=== PATIENT | female | born 1955 | race African-American/Black ===

== ENCOUNTER 2019-08-10 17:30 | Emergency (ER) | payer OTHER ==
--- NOTE | 2019-08-10 18:26 | RAD REPORT ---
EXAM DESCRIPTION: CT - Head Brain Wo Cont - 08/10/2019 6:21 pm CLINICAL HISTORY: MENTAL STATUS CHANGE COMPARISON: No comparisons TECHNIQUE: Axial 5 mm thick images of the head were obtained without IV contrast. All CT scans are performed using dose optimization technique as appropriate and may include automated exposure control or mA/KV adjustment according to patient size. FINDINGS: No intracranial hemorrhage, mass, edema or shift of mid-line structures. No acute infarcti on changes seen. No cortical edema or sulcal effacement. Atrophy and chronic ischemic changes are pre sent, mild in degree. Ventricles are normal. Mastoid air cells and visualized portions of the paranasal sinuses are clear. No acute bony findings. IMPRESSION: Negative non-contrast CT head examination for acute finding. Mild atrophy and chronic ischemic change.
[2019-08-10 18:32] LABS: Absolute Lymphocytes (CBC) 3.9 K/uL (0.7-4.9); Basophils % 1.1 % (0-1.3); Hematocrit 30.9 % (36.0-45.0); Lymphocytes % 38.7 % (15.3-44.8); RBC Red Blood Cell Count 3.62 M/uL (3.86-4.86)
[2019-08-10 18:51] LABS: Albumin 3.2 g/dL (3.4-5.0); Bilirubin Direct 0.3 mg/dL (0-0.2); Bilirubin Total 0.6 mg/dL (0.2-1.0); Potassium 3.7 mmol/L (3.5-5.1); Protein, Total 10.2 g/dL (6.4-8.2)
[2019-08-10 19:24] LABS: Urine Blood 2+ (NEG); Urine Glucose NEGATIVE (NEG); Urine Protein 3+ (NEG); Urine Specific Gravity >1.030 (1.005-1.030)
[2019-08-10 19:35] LABS: Platelet Estimate ADEQ; Urine White Blood Cell Casts OK
[2019-08-10 19:36] LABS: Anisocytosis 1+; Blood Morphology Comment NOTED (NOT SEEN)
--- NOTE | 2019-08-10 19:41 | RAD REPORT ---
EXAM DESCRIPTION: RAD - Chest Single View - 08/10/2019 6:54 pm CLINICAL HISTORY: AMS, shortness of breath COMPARISON: June 2019 portable TECHNIQUE: AP portable chest image was obtained 08/10/2019 6:54 pm . FINDINGS: Lungs are clear. Heart and vasculature are normal. No measurable pleural effusion and no p neumothorax. No acute bony abnormality seen. No acute aortic findings suspected. IMPRESSION: No acute cardiopulmonary process. No significant interval change.
[2019-08-10 20:28] LABS: Urine Amorphous Sediment 3+ /HPF (NONE SEEN); Urine Bacteria <20 /HPF (<20)
[2019-08-10 20:29] LABS: Urine Culture Reflex Order NOT NEEDED
--- NOTE | 2019-08-10 20:58 | EDPHYS ---
Physician Documentation [facility] Name: Josr Parra Age: 64 yrs Sex: Female : 1955 Arrival Date: 08/10/2019 Time: 17:39 Bed 7 Private MD: ED Physician Emmett Tapia HPI: 08/09 17:47 This 64 yrs old Black Female presents to ER via EMS with complaints of Altered Mental pm1 Status. 17:47 The patient presents with confusion - was attempting to eat a raw steak of pork. Onset: pm1 The symptoms/episode began/occurred 3 day(s) ago. Possible causes: unknown. Associated signs and symptoms: Pertinent negatives: abdominal pain, chest pain, diarrhea, dizziness, headache, nausea, numbness, palpitations, shortness of breath, vomiting, weakness. Current symptoms: In the emergency department the patient's symptoms are unchanged from the initial presentation. Patient's baseline: Neuro: alert and fully oriented, Motor: no deficits, Ambulation: walks without assistance, Speech: normal, The patient has a previous history of hepatitis C. The patient has not experienced similar symptoms in the past. The patient has not recently seen a physician. Historical: - Allergies: 17:44 Codeine; dm5 - PMHx: 17:44 Asthma; Diabetes - NIDDM; elevatedliver enzymes; Hepatitis; c; lumbar spine issues/pain;dm5 - PSHx: 17:44 Tubal ligation; dm5 - Immunization history:: Adult Immunizations unknown. - Social history:: Smoking status: Patient reports the use of cigarette tobacco products, smokes two packs cigarettes per day. ROS: 17:47 Constitutional: Negative for fever, chills, and weight loss, Cardiovascular: Negative pm1 for chest pain, palpitations, and edema, Respiratory: Negative for shortness of breath, cough, wheezing, and pleuritic chest pain, Abdomen/GI: Negative for abdominal pain, nausea, vomiting, diarrhea, and constipation, Back: Negative for injury and pain, MS/Extremity: Negative for injury and deformity, Skin: Negative for injury, rash, and discoloration. 17:47 Neuro: Positive for altered mental status, Negative for dizziness, headache, numbness, seizure activity, speech changes, syncope, weakness. Exam: 17:47 Constitutional: This is a well developed, well nourished patient who is awake, alert, pm1 and in no acute distress. Head/Face: Normocephalic, atraumatic. Neck: Trachea midline, no thyromegaly or masses palpated, and no cervical lymphadenopathy. Supple, full range of motion without nuchal rigidity, or vertebral point tenderness. No Meningismus. Chest/axilla: Normal chest wall appearance and motion. Nontender with no deformity. No lesions are appreciated. Cardiovascular: Regular rate and rhythm with a normal S1 and S2. No gallops, murmurs, or rubs. Normal PMI, no JVD. No pulse deficits. Respiratory: Lungs have equal breath sounds bilaterally, clear to auscultation and percussion. No rales, rhonchi or wheezes noted. No increased work of breathing, no retractions or nasal flaring. Abdomen/GI: Soft, non-tender, with normal bowel sounds. No distension or tympany. No guarding or rebound. No evidence of tenderness throughout. Back: No spinal tenderness. No costovertebral tenderness. Full range of motion. Skin: Warm, dry with normal turgor. Normal color with no rashes, no lesions, and no evidence of cellulitis. MS/ Extremity: Pulses equal, no cyanosis. Neurovascular intact. Full, normal range of motion. 17:47 Neuro: Orientation: to person, place, situation, Not oriented to time, Mentation: is normal, Motor: is normal, moves all fours, Sensation: is normal, no obvious gross deficits. Vital Signs: 17:40 BP 211 / 97; Pulse 77; Resp 16 S; Pulse Ox 100% on R/A; Weight 68.04 kg (R); Pain 0/10; dm5 18:29 BP 183 / 97; Pulse 78; Resp 16; Pulse Ox 100% on R/A; hb 21:48 BP 180 / 65; Pulse 79; Resp 20; Temp 98.5; Pulse Ox 100% on R/A; Pain 0/10; lw1 MDM: 17:58 Patient medically screened. pm1 20:50 Data reviewed: vital signs. Data interpreted: Pulse oximetry: on room air is 100 %. pm1 Interpretation: normal. Counseling: I had a detailed discussion with the patient and/or guardian regarding: the historical points, exam findings, and any diagnostic results supporting the discharge/admit diagnosis, lab results, radiology results, the need for outpatient follow up, to return to the emergency department if symptoms worsen or persist or if there are any questions or concerns that arise at home. 08/09 17:46 Order name: Basic Metabolic Panel; Complete Time: 19:07 hb 08/09 17:46 Order name: CBC with Diff; Complete Time: 19:42 hb 08/09 17:46 Order name: Creatinine for Radiology; Complete Time: 18:53 hb 08/09 17:46 Order name: Hepatic Function; Complete Time: 19:07 hb 08/09 17:46 Order name: Lipase; Complete Time: 19:07 hb 08/09 17:46 Order name: AMMONIA; Complete Time: 19:16 hb 08/09 17:51 Order name: Troponin (emerg Dept Use Only); Complete Time: 19:07 hb 08/09 17:52 Order name: Glucose, Ancillary Testing; Complete Time: 17:56 EDMS 08/09 17:58 Order name: EKG; Complete Time: 17:58 pm1 08/09 17:58 Order name: CT Head Brain wo Cont; Complete Time: 18:35 pm1 08/09 17:58 Order name: Urine Microscopic Only; Complete Time: 20:35 pm1 08/09 18:10 Order name: Chest Single View XRAY; Complete Time: 19:45 pm1 08/09 19:15 Order name: Urine Dipstick--Ancillary (enter results); Complete Time: 19:34 mw2 08/09 19:36 Order name: CBC Smear Scan; Complete Time: 19:42 EDMS 08/09 17:46 Order name: IV Saline Lock; Complete Time: 17:46 hb 08/09 17:46 Order name: Labs collected and sent; Complete Time: 18:29 hb 08/09 17:58 Order name: EKG - Nurse/Tech; Complete Time: 18:29 pm1 08/09 17:58 Order name: Urine Dipstick-Ancillary (obtain specimen); Complete Time: 19:02 pm1 08/09 18:10 Order name: Straight Cath - Urine; Complete Time: 19:02 pm1 Administered Medications: No medications were administered Disposition: 08/10/19 20:57 Discharged to Home. Impression: Altered mental status, unspecified. - Condition is Stable. - Discharge Instructions: Confusion, Form - Excuse from Work, School, or Physical Activity. - Medication Reconciliation Form, Thank You Letter, Antibiotic Education, Prescription Opioid Use, Family Work Release form. - Follow up: Emergency Department; When: As needed; Reason: Worsening of condition. Follow up: Private Physician; When: 2 - 3 days; Reason: Recheck today's complaints, Continuance of care, Re-evaluation by your physician. - Problem is new. - Symptoms have improved. Addendum: 08/12/2019 09:25 Co-signature as Attending Physician, Emmett Tapia MD I agree with the assessment and c rose plan of care. Signatures: Dispatcher [employer] EDMS Estefania Rosales, RN RN dm5 Emmett Tapia MD MD cha Marinas, Patrick, AUTOMOBILE DAMAGE APPRAISER AUTOMOBILE DAMAGE APPRAISER pm1 Rivka Mars RN RN Maryjane Lara RN RN lw1 Corrections: (The following items were deleted from the chart) 08/09 21:52 20:57 08/10/2019 20:57 Discharged to Home. Impression: Altered mental status, lw1 unspecified. Condition is Stable. Forms are Medication Reconciliation Form, Thank You Letter, Antibiotic Education, Prescription Opioid Use. Follow up: Emergency Department; When: As needed; Reason: Worsening of condition. Follow up: Private Physician; When: 2 - 3 days; Reason: Recheck today's complaints, Continuance of care, Re-evaluation by your physician. Problem is new. Symptoms have improved. pm1
--- NOTE | 2019-08-10 20:58 | ER ---
Nurse's Notes [facility] Name: Josr Parra Age: 64 yrs Sex: Female : 1955 Arrival Date: 08/10/2019 Time: 17:39 Bed 7 Private MD: Diagnosis: Altered mental status, unspecified Presentation: 08/09 17:40 Chief complaint: EMS states: Family reports she's been altered for 3-4 days, found dm5 eating raw pork. Pt is orient to person and place, has had rapid weight loss since June, BGL 147, BP 200/100. Coronavirus screen: The patient has NOT traveled to a country currently being monitored by the CDC within the last 14 days. Proceed with normal triage procedures. Ebola Screen: No symptoms or risks identified at this time. Initial Sepsis Screen: Does the patient meet any 2 criteria? No. Patient's initial sepsis screen is negative. Does the patient have a suspected source of infection? No. Patient's initial sepsis screen is negative. Risk Assessment: Do you want to hurt yourself or someone else? Patient reports no desire to harm self or others. Onset of symptoms was August 07, 2019. 17:40 Method Of Arrival: EMS: [facility] dm5 17:40 Acuity: JAM 2 dm5 Triage Assessment: 17:44 General: Appears in no apparent distress. uncomfortable, Behavior is calm, cooperative. dm5 Pain: Denies pain. Neuro: Level of Consciousness is awake, alert, obeys commands, confused, Oriented to person, place. Historical: - Allergies: 17:44 Codeine; dm5 - PMHx: 17:44 Asthma; Diabetes - NIDDM; elevatedliver enzymes; Hepatitis; c; lumbar spine issues/pain;dm5 - PSHx: 17:44 Tubal ligation; dm5 - Immunization history:: Adult Immunizations unknown. - Social history:: Smoking status: Patient reports the use of cigarette tobacco products, smokes two packs cigarettes per day. Screenin:46 Abuse screen: Denies threats or abuse. Denies injuries from another. Nutritional hb screening: No deficits noted. Tuberculosis screening: No symptoms or risk factors identified. Fall Risk Total Hernandez Fall Scale indicates Low Risk Score (25-44 pts). Fall prevention measures have been instituted. Side Rails Up X 2 Frequent Obs/Assesments occuring Family Present and informed to notify staff if they need to leave bedside As available Patient and Family Educated on Fall Prevention Program and strategies. Assessment: 17:47 General: Appears in no apparent distress. Behavior is calm, cooperative. Pain: Denies hb pain. Neuro: Level of Consciousness is awake, alert, obeys commands, Oriented to person, place, situation. Cardiovascular: Heart tones S1 S2 present Capillary refill < 3 seconds Patient's skin is warm and dry. Respiratory: Airway is patent Respiratory effort is even, unlabored, Respiratory pattern is regular, symmetrical, Breath sounds are clear bilaterally. GI: No signs and/or symptoms were reported involving the gastrointestinal system. : No signs and/or symptoms were reported regarding the genitourinary system. EENT: No signs and/or symptoms were reported regarding the EENT system. Derm: Skin is pink, warm \T\ dry. Musculoskeletal: No signs and/or symptoms reported regarding the musculoskeletal system. 18:45 Reassessment: Patient appears in no apparent distress at this time. Patient and/or hb family updated on plan of care and expected duration. Pain level reassessed. Patient is alert, oriented x 3, equal unlabored respirations, skin warm/dry/pink. Vital Signs: 17:40 BP 211 / 97; Pulse 77; Resp 16 S; Pulse Ox 100% on R/A; Weight 68.04 kg (R); Pain 0/10; dm5 18:29 BP 183 / 97; Pulse 78; Resp 16; Pulse Ox 100% on R/A; hb 21:48 BP 180 / 65; Pulse 79; Resp 20; Temp 98.5; Pulse Ox 100% on R/A; Pain 0/10; lw1 ED Course: 17:39 Patient arrived in ED. dm5 17:43 Triage completed. dm5 17:44 Arm band placed on right wrist. dm5 17:45 Rivka Mars, RN is Primary Nurse. hb 17:46 Patient has correct armband on for positive identification. Bed in low position. Call hb light in reach. Side rails up X2. 17:47 Inserted saline lock: 22 gauge in right antecubital area, using aseptic technique. hb Blood collected. 17:56 Benito Irvin NP is PHCP. pm1 17:56 Emmett Tapia MD is Attending Physician. pm1 18:22 CT Head Brain wo Cont In Process Unspecified. EDMS 18:55 Chest Single View XRAY In Process Unspecified. EDMS 19:12 Primary Nurse role handed off by Rivka Mars RN lw1 19:12 Maryjane Lara, RN is Primary Nurse. lw1 21:50 IV discontinued, reported that patient removed iv per self, was intact no redness or lw1 bleeding noted upon discharge. 21:51 No provider procedures requiring assistance completed. lw1 Administered Medications: No medications were administered Outcome: 20:57 Discharge ordered by MD. pm1 21:49 Discharged to home via wheelchair, with family. lw1 21:49 Condition: improved 21:49 Discharge instructions given to patient, family, Instructed on discharge instructions, follow up and referral plans. Demonstrated understanding of instructions, follow-up care. 21:52 Patient left the ED. lw1 Signatures: Dispatcher [employer] EDSC Estefania Rosales RN RN dm5 Benito Irvin, CINNAMON GRINDER CINNAMON GRINDER pm1 Rivka Mars RN RN Maryjane Lara RN RN lw1 Corrections: (The following items were deleted from the chart) 18:51 17:47 Neuro: Level of Consciousness is awake, alert, obeys commands, Oriented to hb person, place, time, situation, hb
--- NOTE | 2019-08-12 06:57 | EKG ---
Test Date: 2019-08-10 Test Time: 18:25:06 Merchandiser: FABIEN MEASUREMENT RESULTS: Intervals: Rate: 73 MD: 152 QRSD: 84 QT: 410 QTc: 451 [place]: P: 56 MD: 152 QRS: -35 T: 40 INTERPRETIVE STATEMENTS: Normal sinus rhythm Possible Left atrial enlargement Left axis deviation Left ventricular hypertrophy Cannot rule out Septal infarct, age undetermined Abnormal ECG Compared to ECG 07/01/2019 18:30:35 No significant changes Electronically Signed On 08-12-19 06:55:06 CDT by Kishore Garcia
== END 2019-08-10 21:52 | disposition home or self-care (01) ==
LOC: ER 17:30
DX: R41.82 Altered mental status, unspecified (principal); Z88.6 Allergy status to analgesic agent; F17.210 Nicotine dependence, cigarettes, uncomplicated
CPT/HCPCS: 36415; 70450; 71045; 80048; 80076; 81003; 81015; 82140; 82947; 83690; 84484; 85025; 93005; 99284

== ENCOUNTER 2020-02-23 09:06 | Emergency (ER) | payer OTHER ==
--- OUTSIDE RECORDS SUMMARY | 2020-02-23 09:08 | XMS REPORT | Summary of Care ---
:1955 Author Organization [facility] [place] Address [address] [place] [address]- Encounter HQ Encntr_alias(FIN) [id number] Date(s): 01/08/20 - 01/08/20 [facility] [address] [place] [address]- [phone] Attending Physician: Johnson Collins MD Vital Signs No data available for this section Problem List Condition Effective Dates Status Health Status Informant Memory loss(Confirmed) Active Hep C w/o coma, chronic(Confirmed) Active Diabetes mellitus(Confirmed) Active HTN - Hypertension(Confirmed) Active Hyperlipidemia(Confirmed) Active Allergies, Adverse Reactions, Alerts No Known Medication Allergies Medications No data available for this section Results No data available for this section Immunizations No data available for this section Procedures No data available for this section Social History Social History Type Response Employment/School Status: disabled. Other: no t driving. Smoking Status Type: Cigarettes; Exposure t o Tobacco Smoke Unable to obtain; Current every day smoker; Cigarette Smoking Last 365 Days Yes; Reg Smoking Cessation Counseling No entered on: 11/14/19 Assessment and Plan No data available for this section
--- OUTSIDE RECORDS SUMMARY | 2020-02-23 09:08 | XMS REPORT | Summary of Care ---
:1955 Author Organization [facility] [place] Address [address] [place] [address]- Encounter HQ Encntr_alias(FIN) [id number] Date(s): 01/22/20 - 01/22/20 [facility] [address] [place] [address]- [phone] Attending Physician: Johnson Collins MD Vital Signs [...]
--- OUTSIDE RECORDS SUMMARY | 2020-02-23 09:08 | XMS REPORT | Continuity of Care Document ---
:1955 Author Organization [employer] [facility] Care Team Providers Name Role Phone [employer] [facility] Unavailable Un available Problems Problem Status Onset Classification Date Comments Sourc e Date Reported Amnesia (finding) Active Problem 01/24/2020 [facility] Chronic hepatitis Active Problem 01/24/2020 [facility] C (disorder) Neuro Diabetes mellitus Active Problem 01/24/2020 [facility] (disorder) Neuro Hypertensive Active Problem 01/24/2020 [facility] disorder, systemic N euro arterial (disorder) Hyperlipidemia Active Problem 01/24/2020 M[facility] her (disorder) Neuro Medications Medication Details Route Status Patient Ordering Order Source Instructions Provider Date Aspirin 81 MG 81 mg = 1 Active [facility] Enteric Coated tab, PO, 020 Neuro Tablet [St. Daily, 0 Clay Aspirin] Refill(s) Diltiazem 0 Active [facility] Hydrochloride ER Refill(s) 020 Neuro 120 mg/24 hours oral capsule, extended release lisinopril 40 mg 0 Active [facility] oral tablet Refill(s) 020 Neuro Metformin 0 Active [facility] hydrochloride Refill(s) 020 Neuro 1000 MG Oral Tablet non-formulary Refill(s) Inactive [facility] 0 020 Neuro Lyrica 150 mg, Active [facility] PO, BID, 0 020 Neuro Refill(s) Allergies, Adverse Reactions, Alerts Substance Category Reaction Severity Reaction Status Date Comments S ource type Reported No Known Assertion Drug Misch er Medication allergy Neuro Allergies Immunizations No Data Provided for This Section Results No Data Provided for This Section Pathology Reports No Data Provided for This Section Diagnostic Reports No Data Provided for This Section Consultation Notes No Data Provided for This Section Discharge Summaries No Data Provided for This Section History and Physicals No Data Provided for This Section Vital Signs Vital Sign Value Date Comments Source Systolic (mm Hg) 196 11/14/2019 [facility] Diastolic (mm Hg) 112 11/14/2019 [facility] Heart Rate 91 11/14/2019 [facility] Respitory Rate 16 11/14/2019 [facility] Height 165.1 cm 11/14/2019 [facility] Weight 77.273 11/14/2019 [facility] BMI Calculated 28.35 11/14/2019 [facility] Encounters Location Location Encounter Encounter Reason Attending ADM DC Stat us Source Details Type Number For Provider Date Date Visit Outpatient [id number] [facility]13 [facility] [id number] Johnson 11/13 [facility] [place] Out[facility] [id number] Johnson [facility]/07 [facility] [id number] [facility]/07 [facility] [place] [facility] [id number] Johnson 01/07 01/07 [facility] Pre-Reg [facility] /2019 [facility] [place] [facility] [id number] Johnson 01/07 01/07 [facility] Pre-Reg [facility] /2019 [facility] [place] Outpatient [id number] Johnson 01/21 [facility] [facility] [id number] Johnson 01/21 01/21 [facility] Pre-Reg [facility] /2019 Neuro [place] Procedures No Data Provided for This Section Assessment and Plan No Data Provided for This Section Plan of Care No Data Provided for This Section Social History Social History Date Source Social History TypeResponse 11/14/2019 [facility] Employment/School Status: disabled. Other: not driving. Smoking Status Type: Cigarettes; Exposure to Tobacco Sm jasmina Unable to obtain; Current every day smoker; Cigarette Smoking Last 365 Days Yes; Reg Smoking Cessation Counseling No entered on: 11/14/19 Family History No Data Provided for This Section Advance Directives No Data Provided for This Section Functional Status No Data Provided for This Section
--- OUTSIDE RECORDS SUMMARY | 2020-02-23 09:08 | XMS REPORT | Summary of Care ---
:1955 Author Organization [facility] [place] Address [address] [place] [address]- Encounter HQ Encntr_alias(FIN) [id number] Date(s): 01/08/20 - 01/08/20 [facility] [address] [place] [address]- [phone] Attending Physician: Johnson Collins MD Vital Signs [...]
[2020-02-23] MEDS ORDERED: HYDROCODONE/APAP 5/325 MG TAB ONE (09:54)
--- NOTE | 2020-02-23 10:32 | ER ---
Nurse's Notes [facility] Name: Josr Parra Age: 65 yrs Sex: Female : 1955 Arrival Date: 02/23/2020 Time: 09: Bed 4 Private MD: Diagnosis: Fracture of proximal phalanx of left great toe Presentation: 02/22 09:25 Chief complaint: Patient states: had a fall 3 weeks ago, fell onto right side, had iw right leg swelling that resolved but her right great toe and foot is still swollen. Coronavirus screen: At this time, the client does not indicate any symptoms associated with coronavirus-19. Ebola Screen: Patient negative for fever greater than or equal to 101.5 degrees Fahrenheit, and additional compatible Ebola Virus Disease symptoms Patient denies exposure to infectious person. Patient denies travel to an Ebola-affected area in the 21 days before illness onset. No symptoms or risks identified at this time. Initial Sepsis Screen: Does the patient meet any 2 criteria? No. Patient's initial sepsis screen is negative. Does the patient have a suspected source of infection? No. Patient's initial sepsis screen is negative. Risk Assessment: Do you want to hurt yourself or someone else? Patient reports no desire to harm self or others. Onset of symptoms was February 02, 2020. 09:25 Method Of Arrival: Wheelchair iw 09:25 Acuity: JAM 3 iw Triage Assessment: 09:26 General: Appears in no apparent distress. uncomfortable, well groomed, well developed, sv Behavior is calm, cooperative, appropriate for age. Pain: Complains of pain in left first toe. Neuro: Level of Consciousness is awake, alert, obeys commands, Oriented to person, place, time, situation, Moves all extremities. Full function Gait is steady. Cardiovascular: Pulses are palpable in right dorsalis pedis artery and left dorsalis pedis artery. Respiratory: Respiratory effort is even, unlabored, Respiratory pattern is regular, symmetrical. Derm: Skin is pink, warm \T\ dry. Musculoskeletal: Swelling present in left first toe. Historical: - Allergies: : Codeine; nausea; iw - PMHx: : Asthma; Diabetes - NIDDM; elevatedliver enzymes; Hepatitis; c; lumbar spine issues/pain;iw - PSHx: 09:28 Tubal ligation; iw - Immunization history:: Adult Immunizations. - Social history:: Smoking status: . Screenin:20 Abuse screen: Denies threats or abuse. Denies injuries from another. Nutritional sv screening: No deficits noted. Tuberculosis screening: No symptoms or risk factors identified. Fall Risk None identified. Assessment: 09:23 Reassessment: Pt given peanut butter and crackers to get something in her stomach sv before taking the [place]. Pt reports that she only gets nauseous with Codeine. 09:44 Reassessment: Patient appears in no apparent distress at this time. No changes from sv previously documented assessment. Patient and/or family updated on plan of care and expected duration. Pain level reassessed. Patient is alert, oriented x 3, equal unlabored respirations, skin warm/dry/pink. Vital Signs: 09:25 BP 165 / 91; Pulse 108; Resp 16; Temp 97.8(TE); Pulse Ox 100% on R/A; iw 10:51 BP 137 / 95; Pulse 95; Resp 18; Pulse Ox 99% ; sv ED Course: 09:09 Patient arrived in ED. ds1 09:18 Benito Irvin NP is PHCP. pm1 09:18 Adan Henderson MD is Attending Physician. pm1 09:20 Keeley Julian RN is Primary Nurse. sv 09:20 Arm band placed on. sv 09:20 Patient has correct armband on for positive identification. Bed in low position. Call sv light in reach. Side rails up X2. Adult w/ patient. 09:27 Triage completed. iw 09:44 Awaiting for x-ray. sv 09:51 X-ray(s) taken. sv 10:02 Foot Left 3 View XRAY Sent. sv 10:45 ortho walking boot applied to left foot, patient tolerated well. mt 10:50 IV discontinued, intact, bleeding controlled, No redness/swelling at site. Pressure sv dressing applied. 10:50 No provider procedures requiring assistance completed. sv Administered Medications: 09:43 Drug: Tallula 5 mg-325 mg 1 tabs {Note: rass1.} Route: PO; sv 10:50 Follow up: Response: No adverse reaction; RASS: Alert and Calm (0) sv Outcome: 10:31 Discharge ordered by . pm1 10:46 Discharged to home ambulatory, with family. sv 10:46 Condition: good 10:46 Discharge instructions given to patient, family, Instructed on discharge instructions, follow up and referral plans. medication usage, Demonstrated understanding of instructions, follow-up care, medications, Prescriptions given X 1. 10:51 Patient left the ED. sv Signatures: Keeley Julian RN RN Zuleima Pearl ds1 Kristin Ramos RN RN Benito Irvin, DIRECTOR GEOTHERMAL OPERATIONS DIRECTOR GEOTHERMAL OPERATIONS pm1 Omaira Villavicencio dc Corrections: (The following items were deleted from the chart) 09:27 09:25 Onset of symptoms was February 09, 2020 [facility]
--- NOTE | 2020-02-23 10:33 | EDPHYS ---
Physician Documentation [facility] Name: Josr Parra Age: 65 yrs Sex: Female : 1955 Arrival Date: 02/23/2020 Time: : Bed 4 Private MD: ED Physician Adan Henderson HPI: 02/22 09:23 This 65 yrs old Black Female presents to ER via Wheelchair with complaints of Toe pm1 Swelling. 09:23 The patient presents with pain, that is acute, swelling. The complaints affect the left pm1 first toe. Context: The problem was sustained at home, resulted from the patient falling, while walking, the patient is able to ambulate. Onset: The symptoms/episode began/occurred 3 week(s) ago. Modifying factors: The symptoms are alleviated by elevation of extremity, the symptoms are aggravated by weight bearing. Associated signs and symptoms: Pertinent negatives: calf tenderness. Severity of symptoms: in the emergency department the symptoms swelling and pain to left knee has resolved but swelling and pain to left great toe has not changed. The patient has not experienced similar symptoms in the past. Patient was walking and tripped 3 weeks ago. She landed on her left knee, resulting in pain to left knee and left great toe. Knee pain and swelling has resolved but her left great oe pain and swelling has not changed. Historical: - Allergies: : Codeine; nausea; iw - PMHx: Asthma; Diabetes - NIDDM; elevatedliver enzymes; Hepatitis; c; lumbar spine issues/pain;iw - PSHx: Tubal ligation; iw - Immunization history:: Adult Immunizations. - Social history:: Smoking status: . ROS: 09: MS/extremity: Positive for pain, swelling, tenderness, of the left first toe. pm1 09:23 Constitutional: Negative for fever, chills, and weight loss, Cardiovascular: Negative for chest pain, palpitations, and edema, Respiratory: Negative for shortness of breath, cough, wheezing, and pleuritic chest pain. 09:23 Back: Negative for injury and pain, Skin: Negative for injury, rash, and discoloration, Neuro: Negative for headache, weakness, numbness, tingling, and seizure. Exam: :23 Constitutional: This is a well developed, well nourished patient who is awake, alert, pm1 and in no acute distress. Head/Face: Normocephalic, atraumatic. 09:23 Skin: Warm, dry with normal turgor. Normal color with no rashes, no lesions, and no evidence of cellulitis. 09:23 Cardiovascular: Exam negative for acute changes, Rate: normal, Rhythm: regular, Pulses: no pulse deficits are appreciated. 09:23 Respiratory: Exam negative for acute changes, respiratory distress, shortness of breath. 09:23 Musculoskeletal/extremity: Extremities: grossly normal except: noted in the left first toe: swelling, tenderness, There is no evidence of deformity, the right foot Sensation intact. Vital Signs: 09:25 BP 165 / 91; Pulse 108; Resp 16; Temp 97.8(TE); Pulse Ox 100% on R/A; iw 10:51 BP 137 / 95; Pulse 95; Resp 18; Pulse Ox 99% ; sv MDM: 09:18 Patient medically screened. pm1 10:27 Data reviewed: vital signs. Data interpreted: Pulse oximetry: on room air is 100 %. pm1 Interpretation: normal. 10:28 Counseling: I had a detailed discussion with the patient and/or guardian regarding: the pm1 historical points, exam findings, and any diagnostic results supporting the discharge/admit diagnosis, radiology results, the need for outpatient follow up, a bsa/aml compliance officer, to return to the emergency department if symptoms worsen or persist or if there are any questions or concerns that arise at home. 02/22 09:23 Order name: Foot Left 3 View XRAY pm1 02/22 10:27 Order name: Walking boot; Complete Time: 10:37 pm1 Administered Medications: 09:43 Drug: Supai 5 mg-325 mg 1 tabs {Note: rass1.} Route: PO; sv 10:50 Follow up: Response: No adverse reaction; RASS: Alert and Calm (0) sv Disposition: 16:34 Co-signature as Attending Physician, Adan Henderson MD I agree with the assessment and kdr plan of care. Disposition: 02/23/20 10:31 Discharged to Home. Impression: Fracture of proximal phalanx of left great toe. - Condition is Stable. - Discharge Instructions: Toe Fracture, Walking Boot. - Prescriptions for Tramadol 50 mg Oral Tablet - take 1 tablet by ORAL route every 8 hours As needed as needed; 12 tablet. - Medication Reconciliation Form, Thank You Letter, Antibiotic Education, Prescription Opioid Use form. - Follow up: Emergency Department; When: As needed; Reason: Worsening of condition. Follow up: Private Physician; When: 2 - 3 days; Reason: Recheck today's complaints, Continuance of care, Re-evaluation by your physician. - Problem is new. - Symptoms have improved. Signatures: Dispatcher [employer] Keeley Acosta RN RN sv Rittger, Kevin, MD MD kdr Williams, Irene, RN RN iw Benito Irvin, BUD ASSEMBLER CLIP ON SUNGLASSES pm1 Corrections: (The following items were deleted from the chart) 10:51 10:31 02/23/2020 10:31 Discharged to Home. Impression: Fracture of proximal phalanx of sv left great toe. Condition is Stable. Forms are Medication Reconciliation Form, Thank You Letter, Antibiotic Education, Prescription Opioid Use. Follow up: Emergency Department; When: As needed; Reason: Worsening of condition. Follow up: Private Physician; When: 2 - 3 days; Reason: Recheck today's complaints, Continuance of care, Re-evaluation by your physician. Problem is new. Symptoms have improved. pm1
[2020-02-23 10:56] VITALS: TEMP 97.8
[2020-02-23 10:57] VITALS: BP 137/95; O2SAT 99
--- NOTE | 2020-02-23 11:14 | RAD REPORT ---
EXAM DESCRIPTION: RAD - Foot Left 3 View - 02/23/2020 10:16 am CLINICAL HISTORY: PAIN COMPARISON: None FINDINGS: First proximal phalanx is fractured at the distal shaft and head. Fracture lines extend to the articular surface. There is no angulation deformity. First distal phalanx is intact. MTP joint d egenerative changes are present at the first toe. Spurring is seen at the Achilles attachment. No air or foreign body in the soft tissues. IMPRESSION: Comminuted fracture is present at the distal shaft and head proximal first phalanx. No significant distraction or angulation deformity.
== END 2020-02-23 10:51 | disposition home or self-care (01) ==
LOC: ER 09:06
DX: S92.412A Displaced fracture of proximal phalanx of left great toe, initial encounter for closed fracture (principal); W19.XXXA Unspecified fall, initial encounter; Y93.01 Activity, walking, marching and hiking; Y92.009 Unspecified place in unspecified non-institutional (private) residence as the place of occurrence of the external cause; Z88.5 Allergy status to narcotic agent
CPT/HCPCS: 99284

== ENCOUNTER 2020-05-17 16:38 | Emergency (ER) | payer OTHER ==
--- OUTSIDE RECORDS SUMMARY | 2020-05-17 16:40 | XMS REPORT | Continuity of Care Document ---
:1955 Author Organization [employer] [facility] Care Team Providers Name Role Phone [employer] [facility] Unavailable Un available Problems Problem Status Onset Classification Date Comments Sourc e Date Reported Amnesia (finding) Active Problem 04/10/2020 [facility] Chronic hepatitis Active Problem 04/10/2020 [facility] C (disorder) [facility] Diabetes mellitus Active Problem 04/10/2020 [facility] (disorder) [facility] Hypertensive Active Problem 04/10/2020 [facility] disorder, systemic N euro arterial (disorder) Hyperlipidemia Active Problem 04/10/2020 [facility] (disorder) Neuro Medications Medication Details [...] 11/14/2019 [facility] Respitory Rate 16 11/14/2019 [facility] Height 165.1 cm 11/14/2019 [facility] Weight 77.273 11/14/2019 [facility] BMI Calculated 28.35 11/14/2019 [facility] Encounters Location Location Encounter Encounter Reason Attending ADM DC Stat us Source Details Type Number For Provider Date Date Visit Outpatient [id number] [facility] [id number] [facility] 11/13 11/14 [facility] [id number] [facility]/07 [facility] [place] [facility] [id number] [facility]07 [facility] [id number] Johnson 01/07 01/07 [facility] Pre-Reg [facility] /2019 [facility] [id number] Johnson 01/07 01/07 [facility]rology Pre-Reg [facility] /2019 [facility] Outpatient [id number] [facility] 01/21 [facility] [place] [facility] [id number] Johnson 01/21 01/21 [facility]rology Pre-Reg [facility] /2019 [facility] Outside [id number] 04/06 04/08 [facility] Medical /2019 [facility] Records Procedures No Data Provided for This Section Assessment and Plan No Data Provided for This Section Plan of Care No Data Provided for This Section Social History Social History Date Source Social History TypeResponse [facility] Employment/School Status: disabled. Other: not driving. Smoking Status Type: Cigarettes; Exposure to Tobacco Sm jasmina Unable to obtain; Current every day smoker; Reg Smoking Cessation Counseling No; Cigarette Smoking Last 365 Days Yes entered on: 11/14/19 Family History No Data Provided for This Section Advance Directives No Data Provided for This Section Functional Status No Data Provided for This Section
[2020-05-17] MEDS ORDERED: NA CHLORIDE 0.9% 1,000 ML ONE ×3 (17:18→18:17)
[2020-05-17 17:20] LABS: Absolute Lymphocytes (CBC) 2.8 K/uL (0.7-4.9); Basophils % 0.6 % (0-1.3); Lymphocytes % 24.1 % (15.3-44.8); MPV 10.1 fL (7.6-11.3); RBC Red Blood Cell Count 3.13 M/uL (3.86-4.86)
[2020-05-17] MEDS ORDERED: PANTOPRAZOLE 40 MG INJ ONE (18:11)
[2020-05-17] MEDS ORDERED: NA CHLORIDE 0.9% 250 ML ONE ×2 (18:12→21:26)
[2020-05-17] MEDS ORDERED: PIPER/TAZO/NS 3.375gm 3.375 GM/100 ML BAG ONE (18:45)
[2020-05-17] MEDS ORDERED: NOREPINEPHRINE 4mg/D5W 250mL 4 MG/250 ML BAG IV ONE (18:50)
[2020-05-17] MEDS ORDERED: FENTANYL CITR 100 MCG/2 ML ONE ×2 (19:47→21:29)
[2020-05-17 19:57] LABS: Albumin 2.8 g/dL (3.4-5.0); Bilirubin Direct 0.4 mg/dL (0-0.2); Bilirubin Total 0.7 mg/dL (0.2-1.0); Potassium 4.7 mmol/L (3.5-5.1); Protein, Total 8.9 g/dL (6.4-8.2)
--- NOTE | 2020-05-17 20:39 | RAD REPORT ---
EXAM DESCRIPTION: CT - Abdomen Pelvis Wo Contrast - 05/17/2020 8:30 pm CLINICAL HISTORY: Abdominal pain. diarrhea COMPARISON: No comparisons TECHNIQUE: CT imaging of the abdomen and pelvis was performed without contrast. Solid organ, bowel a nd vascular assessment is limited due to lack of IV and oral contrast. All CT scans are performed using dose optimization technique as appropriate and may include automated exposure control or mA/KV adjustment according to patient size. FINDINGS: The lower lung bo are clear. The liver has a nodular contour compatible with cirrhosis. The spleen, pancreas, adrenal glands and k idneys are within normal limits. No bowel obstruction, free air, free fluid or abscess. Thickening of the colon wall is seen suggestin g mild colitis or portal colopathy. The appendix is normal. Mild lumbosacral degenerative changes.Fibroid uterus is noted. 4 cm left adnexal mass is present with internal calcifications which could be a pedunculated fibroid. IMPRESSION: Mild thickening of the colon wall diffusely could indicate a mild colitis or portal colo luis alberto. Mild liver cirrhosis. 4 cm left adnexal mass with subtle calcifications noted. Pedunculated uterine fibroid is the favored diagnosis however, consider followup nonemergent MR pelvis assessment. A limited non-contrast examination was performed as detailed.
[2020-05-17 20:50] LABS: Arterial Blood Carboxyhemoglob 1.2 % (0-1.5); Blood Gas Oxyhemoglobin 91.8 % (94-97); Blood O2 Saturation 94.4 % (92-98.5)
--- NOTE | 2020-05-17 21:29 | EDPHYS ---
Physician Documentation [facility] Name: Josr Parra Age: 65 yrs Sex: Female : 1955 Arrival Date: 05/17/2020 Time: 16:56 Bed 2 Private MD: ED Physician Nathanael Coy HPI: 05/17 16:58 This 65 yrs old Black Female presents to ER via Unassigned with complaints of Diarrhea. rn 16:58 The patient presents to the emergency department with diarrhea. Onset: The rn symptoms/episode began/occurred today. Possible causes: unknown. The symptoms are aggravated by nothing. The symptoms are alleviated by nothing. Associated signs and symptoms: Pertinent positives: diarrhea, Pertinent negatives: fever, GI bleeding. Severity of symptoms: At their worst the symptoms were moderate in the emergency department the symptoms are unchanged. The patient has not experienced similar symptoms in the past. The patient has not recently seen a physician. Reports generalized weakness that began yesterday, diarrhea that began today, no appetite, no vomiting/fever/loss of taste or smell. No cough or sob. No hx of GERD/gastritis or GI bleed. . Historical: - Allergies: 16:59 Codeine; nausea; ll1 - PMHx: 16:59 Asthma; Diabetes - NIDDM; elevatedliver enzymes; Hepatitis; c; lumbar spine issues/pain;ll1 - PSHx: 16:59 Tubal ligation; ll1 - Immunization history:: Flu vaccine is up to date. - Social history:: Smoking status: Patient denies any tobacco usage or history of. - Family history:: not pertinent. - Hospitalizations: : No recent hospitalization is reported. ROS: 16:58 Constitutional: Negative for fever, chills, and weight loss, Eyes: Negative for injury, rn pain, redness, and discharge, Neck: Negative for injury, pain, and swelling, Cardiovascular: Negative for chest pain, palpitations, and edema, Respiratory: Negative for shortness of breath, cough, wheezing, and pleuritic chest pain, Abdomen/GI: Negative for abdominal pain, nausea, vomiting, and constipation, Back: Negative for injury and pain, MS/Extremity: Negative for injury and deformity, Skin: Negative for injury, rash, and discoloration, Neuro: Negative for headache, numbness, tingling, and seizure. Exam: 16:58 Constitutional: This is a well developed, well nourished patient who is awake, alert, rn and in no acute distress. Head/Face: Normocephalic, atraumatic. ENT: dry MM Cardiovascular: Regular rate and rhythm. No pulse deficits. Respiratory: No increased work of breathing, no retractions or nasal flaring. Abdomen/GI: soft, non-tender, stool brown/reddish, + hemoccult. Skin: Warm, dry MS/ Extremity: FROM, equal circumference Neuro: Awake and alert, GCS 15, oriented to person, place, time, and situation. Cranial nerves II-XII grossly intact. Motor strength 4/5 in all extremities. Sensory grossly intact. Vital Signs: 16:55 BP 65 / 40; Pulse 57; Resp 18; Pulse Ox 100% ; ll1 16:57 BP 68 / 51; Pulse 76; Resp 18; Pulse Ox 100% ; Pain 0/10; ll1 17:30 BP 74 / 51; Pulse 54; Resp 18; Pulse Ox 99% on R/A; ll1 17:52 BP 62 / 43; Pulse 53; Resp 18; Pulse Ox 99% ; ll1 18:13 BP 84 / 43; Pulse 54; Resp 18; Pulse Ox 98% on R/A; ll1 18:27 BP 87 / 47; Pulse 53; Resp 18; Pulse Ox 100% on R/A; ll1 18:46 BP 100 / 50; Pulse 54; Resp 18; Pulse Ox 100% on R/A; ll1 18:56 BP 101 / 57; Pulse 60; Resp 18; Temp 97.5; Pulse Ox 100% on R/A; ll1 19:30 BP 115 / 68; Pulse 62; Resp 18; Temp 96.9; Pulse Ox 100% on R/A; mg2 20:47 BP 117 / 49; Pulse 69; Resp 18; Pulse Ox 95% on R/A; mg2 22:08 BP 126 / 58; Pulse 56; Resp 18; Pulse Ox 100% on R/A; mg2 Procedures: 18:01 Peripheral line: by aseptic technique a peripheral line was placed in the left rn antecubital vein, Using U/S guidance, placed by Dr. Coy, 20g, good return and flush.. 18:22 Central Line: the site was prepped with Betadine, in sterile fashion, a triple lumen rn catheter was inserted, in the right femoral vein, in 1 attempts. placement was verified, by blood return, the site was dressed with 4X4s, Tegaderm, using sterile technique, the patient tolerated the procedure, well. MDM: 16:57 Patient medically screened. rn 18:36 ED course: Nursing unable to get large bore IV, I placed peripheral line using u/s rn guidance, BP still low, given GI bleed, central line placed, blood ordered, BP improving, started on levophed. . 21:00 Data reviewed: vital signs, nurses notes, lab test result(s), radiologic studies, CT scan. 21:00 Response to treatment: the patient's symptoms have markedly improved after treatment. 21:30 Physician consultation: was contacted at 21:25, regarding regarding transfer, to [facility]. patient's condition, accepting physician will be DR Ospina. 05/17 16:58 Order name: Basic Metabolic Panel rn 05/17 16:58 Order name: CBC with Diff; Complete Time: 17:40 05/17 20:00 Interpretation: Normal except: HGB 8.8; WBC 11.6; RBC 3.13; HCT 29.0; MCV 92.5; MCHC cp 30.6; PLT 121; RDW 16.5. 05/17 16:58 Order name: Hepatic Function; Complete Time: 20:02 05/17 20:04 Interpretation: Normal except: AST 132; ALT 87; ALK 133; BILID 0.4; TP 8.9; ALB 2.8; cp GLOB 6.1; A/G 0.5. 05/17 16:58 Order name: Lipase; Complete Time: 20:02 rn 05/17 16:58 Order name: Flu; Complete Time: 20:00 rn 05/17 16:58 Order name: Lactate; Complete Time: 17:40 rn 05/17 20:01 Interpretation: Abnormal: LAC 5.6. 05/17 16:58 Order name: Blood Culture Adult (2) rn 05/17 16:58 Order name: Procalcitonin; Complete Time: 18:25 rn 05/17 20:03 Interpretation: Abnormal: Procalcitonin 0.36. 05/17 17:00 Order name: Basic Metabolic Panel; Complete Time: 20:02 EDPA 05/17 20:02 Interpretation: Normal except: CL 109; CO2 14; GLUC 140; BUN 22; CRE 3.17; GFR 18. cp 05/17 17:49 Order name: Occult Blood--Ancillary eb 05/17 17:49 Order name: T\T\S eb 05/17 17:59 Order name: Packed RBC Leukored EDMS 05/17 18:57 Order name: SARS-COV-2 RT PCR; Complete Time: 20:00 EDMS 05/17 16:58 Order name: IV Saline Lock; Complete Time: 17:02 rn 05/17 19:50 Order name: ABO/RH no charge; Complete Time: 20:00 EDMS 05/17 20:09 Order name: ABG; Complete Time: 21:20 cp 05/17 20:20 Order name: Abdomen ; Complete Time: 20:47 EDMS 05/17 21:01 Order name: Lactate Sepsis 2 HR Follow-up; Complete Time: 21:20 EDMS 05/17 21:24 Order name: PT-INR; Complete Time: 18:54 cp 05/17 21:24 Order name: Ptt, Activated; Complete Time: 18:54 cp 05/17 16:58 Order name: Labs collected and sent; Complete Time: 17:02 rn Administered Medications: 17:00 Drug: NS 0.9% 1000 ml Route: IV; Rate: 2 bolus; Site: right hand; ll1 20:52 Follow up: IV Status: Completed infusion; IV Intake: 2000ml mg2 17:09 Drug: NS 0.9% 1000 ml Route: IV; Rate: 1000 ml; Site: right hand; ll1 18:18 Follow up: Response: No adverse reaction; RASS: Alert and Calm (0); IV Status: ll1 Completed infusion; IV Intake: 1000ml 18:09 Drug: ProTONIX 40 mg Route: IVP; Site: right hand; sv 18:18 Follow up: Response: No adverse reaction; RASS: Alert and Calm (0) ll 18:09 Drug: ProTONIX 8 mg/hr Route: IV; Rate: 25 ml/hr; Site: right hand; sv 18:45 Drug: Zosyn 3.375 grams Route: IVPB; Infused Over: 60 mins; Site: Other; 1 18:45 Drug: Levophed (4 mg/250 mL D5W 4 mcg/min Route: IV; Rate: calculated rate; Site: Other;ll1 19:36 Drug: fentaNYL (PF) 25 mcg Route: IVP; Site: right femoral; mg2 20:52 Follow up: Response: No adverse reaction mg2 21:22 Drug: fentaNYL (PF) 25 mcg Route: IVP; Site: right femoral; mg2 21:40 Follow up: Response: No adverse reaction mg2 Point of Care Testing: Guaiac: 17:49 Stool Guaiac: Positive; Stool Hemoccult Control: Pass; rn 17:50 Stool Guaiac: Positive; Stool Hemoccult Control: Pass; ll1 Disposition: 05/18 14:41 Co-signature as Attending Physician, Nathanael Coy MD. rn Disposition: 05/17/20 21:[address] [facility]. Diagnosis are Hypotension, Gastrointestinal hemorrhage, unspecified. - Reason for transfer: Higher level of care. - Accepting physician is DR Ospina. - Condition is Stable. - Problem is new. - Symptoms have improved. Signatures: Dispatcher [employer] [facility] Estefania Rosales RN RN dm5 Keeley Julian RN RN sv Nathanael Coy MD MD rn Page, Corey, PA PA cp Woo Valenzuela RN RN mg2 Lupe Veronica RN RN ll1 Corrections: (The following items were deleted from the chart) 05/17 18:02 17:00 CORONAVIRUS+ ordered. [facility] 18:04 16:58 Constitutional: This is a well developed, well nourished patient who is awake, rn alert, and in no acute distress. Head/Face: Normocephalic, atraumatic. ENT: dry MM Cardiovascular: Regular rate and rhythm. No pulse deficits. Respiratory: No increased work of breathing, no retractions or nasal flaring. Abdomen/GI: soft, non-tender Skin: Warm, dry MS/ Extremity: FROM, equal circumference Neuro: Awake and alert, GCS 15, oriented to person, place, time, and situation. Cranial nerves II-XII grossly intact. Motor strength 4/5 in all extremities. Sensory grossly intact. rn 20:04 20:02 Normal except: AST 132; ALT 87; ALK 133; BILID 0.4; TP 8.9; ALB 2.8; GLOB 6.1. cp cp 20:20 17:00 Abdomen Pelvis W Con+CT.RAD.BRZ ordered. EDMS EDMS 22:49 21:28 05/17/2020 21:[address] [facility]. mg2 Diagnosis is Hypotension; Gastrointestinal hemorrhage, unspecified. Reason for transfer: Higher level of care. Accepting physician is DR Ospina. Condition is Stable. Problem is new. Symptoms have improved. cp
--- NOTE | 2020-05-17 21:29 | ER ---
Nurse's Notes [facility] Name: Josr Parra Age: 65 yrs Sex: Female : 1955 Arrival Date: 05/17/2020 Time: 16:56 Bed 2 Private MD: Diagnosis: Hypotension;Gastrointestinal hemorrhage, unspecified Presentation: 05/17 16:57 Chief complaint: Patient states: Diarrhea, weakness, no appetite. BP 90's en route. ll1 Unable to get IV. No fever. Coronavirus screen: Client denies travel out of the [place] in the last 14 days. diarrhea, fatigue, Client presents with at least one sign or symptom that may indicate coronavirus-19. Standard/surgical mask placed on the client. Ebola Screen: Patient denies travel to an Ebola-affected area in the 21 days before illness onset. Initial Sepsis Screen: Does the patient meet any 2 criteria? Systolic BP < 90 mmHg. Does the patient have a suspected source of infection? Yes: Acute abdominal pain. Risk Assessment: Do you want to hurt yourself or someone else? Patient reports no desire to harm self or others. Onset of symptoms was May 16, 2020. 16:57 Method Of Arrival: EMS ll1 16:57 Acuity: JAM 2 ll1 Historical: - Allergies: 16:59 Codeine; nausea; ll1 - PMHx: 16:59 Asthma; Diabetes - NIDDM; elevatedliver enzymes; Hepatitis; c; lumbar spine issues/pain;ll1 - PSHx: 16:59 Tubal ligation; ll1 - Immunization history:: Flu vaccine is up to date. - Social history:: Smoking status: Patient denies any tobacco usage or history of. - Family history:: not pertinent. - Hospitalizations: : No recent hospitalization is reported. Screenin:10 Abuse screen: Denies threats or abuse. Denies injuries from another. Nutritional sv screening: No deficits noted. Tuberculosis screening: No symptoms or risk factors identified. Fall Risk No fall in past 12 months (0 pts). No secondary diagnosis (0 pts). IV access (20 points). Ambulatory Aid- None/Bed Rest/Nurse Assist (0 pts). Gait- Weak (10 pts.). Mental Status- Oriented to own ability (0 pts). Total Hernandez Fall Scale indicates Low Risk Score (25-44 pts). Fall prevention measures have been instituted. Side Rails Up X 2 Placed close to Nursing Station Frequent Obs/Assesments occuring Family Present and informed to notify staff if they need to leave bedside As available Patient and Family Educated on Fall Prevention Program and strategies. Assessment: 17:00 General: Appears uncomfortable, ill, Behavior is calm, cooperative, appropriate for ll1 age. Pain: Denies pain. Neuro: Level of Consciousness is awake, alert, obeys commands, Oriented to person, place, time, situation, Appropriate for age Snow Shoveler are weak bilaterally Moves all extremities. Full function Weakness Speech is normal, Facial symmetry appears normal, Reports weakness. Cardiovascular: No deficits noted. Respiratory: No deficits noted. GI: Abdomen is flat, Bowel sounds present X 4 quads. Abd is soft and non tender X 4 quads. Reports diarrhea, decreased appetite. : Reports not urinating since last night. 18:00 Reassessment: No changes from previously documented assessment. Patient and/or family ll1 updated on plan of care and expected duration. Pain level reassessed. 19:00 Reassessment: Patient appears in no apparent distress at this time. Patient and/or mg2 family updated on plan of care and expected duration. Pain level reassessed. Patient is alert, oriented x 3, equal unlabored respirations, skin warm/dry/pink. 20:21 Reassessment: patient sent to CT scan via stretcher. mg2 22:19 Reassessment: report given to Fatmata Gutierrez of [facility]. mg2 22:48 Reassessment: report given to EMS. patient in good condition. no reactions noted mg2 from Blood transfusion. IV and central line intact. Vital Signs: 16:55 BP 65 / 40; Pulse 57; Resp 18; Pulse Ox 100% ; ll1 16:57 BP 68 / 51; Pulse 76; Resp 18; Pulse Ox 100% ; Pain 0/10; ll1 17:30 BP 74 / 51; Pulse 54; Resp 18; Pulse Ox 99% on R/A; ll1 17:52 BP 62 / 43; Pulse 53; Resp 18; Pulse Ox 99% ; ll1 18:13 BP 84 / 43; Pulse 54; Resp 18; Pulse Ox 98% on R/A; ll1 18:27 BP 87 / 47; Pulse 53; Resp 18; Pulse Ox 100% on R/A; ll1 18:46 BP 100 / 50; Pulse 54; Resp 18; Pulse Ox 100% on R/A; ll1 18:56 BP 101 / 57; Pulse 60; Resp 18; Temp 97.5; Pulse Ox 100% on R/A; ll1 19:30 BP 115 / 68; Pulse 62; Resp 18; Temp 96.9; Pulse Ox 100% on R/A; mg2 20:47 BP 117 / 49; Pulse 69; Resp 18; Pulse Ox 95% on R/A; mg2 22:08 BP 126 / 58; Pulse 56; Resp 18; Pulse Ox 100% on R/A; mg2 ED Course: 16:55 Patient has correct armband on for positive identification. Bed in low position. Call sv light in reach. Side rails up X2. Pulse ox on. NIBP on. Door closed. Warm blanket given. Pillow given. Head of bed elevated. 16:56 Patient arrived in ED. ll1 16:56 Nathanael Coy MD is Attending Physician. rn 16:58 Triage completed. ll1 16:59 Arm band placed on Patient placed in an exam room, on a stretcher. ll1 16:59 Inserted saline lock: 22 gauge in right hand, using aseptic technique. Blood collected. ll1 16:59 Missed attempt(s): 20 gauge in right forearm. Bleeding controlled, band aid applied, ll1 catheter tip intact. 17:01 Missed attempt(s): 22 gauge in left antecubital area. Bleeding controlled, band aid sv applied, catheter tip intact. 17:09 Basic Metabolic Panel Sent. sv 17:25 Cleaned of small amount of brown diarrhea. No obvious blood. Guaiac positive., . ll1 17:30 Notified ED physician of other Guaiac positive. ll1 17:48 Lupe Veronica, RN is Primary Nurse. ll1 18:35 Assisted provider with central line placement. Set up central line tray. Triple lumen sv line placed in right femoral. Line placed by Nathanael Coy MD Placement verified by blood return, Dressed with Tegaderm, Blood was collected. Patient tolerated well. Before procedure, did Practitioner(s) obtain informed consent? No. Patient \T\ family education about procedure, CLABSI prevention and S/S of infection? Yes. Time-out/Briefing performed prior to start of procedure? Yes. Was handwashing/sanitizing done immediately prior to procedure? Yes. Was patient positioned to in a way to prevent air embolism? Yes. Was procedure site sterilized? Yes, with chlorhexidine. Was the site allowed to dry? Yes. Was local anesthetic and/or sedation utilized? Yes. During the procedure, did the Practitioner(s) maintain a sterile field? Yes. Were unused ports clamped during insertion? Yes. Was a 2nd qualified MD obtained after 3 unsuccessful insertion attempts? Yes. Was blood aspirated from each lumen? Yes. After the procedure, did the Practitioner(s) clean the site and apply a sterile dressing? Yes. 18:45 Emmett Carpenter PA is PHCP. cp 20:30 Abdomen In Process Unspecified. EDMS 21:00 initiated a transfer with Brittney from [facility] 21:39 administrative approval given by Brittney Loco/ patient has been accepted to [address] [place] [address] bed 5/ Dr. Ospina has accepted the patient in transfer/ report to be called to [phone]. 22:49 Patient transferred, IV remains in place. mg2 Administered Medications: 17:00 Drug: NS 0.9% 1000 ml Route: IV; Rate: 2 bolus; Site: right hand; ll1 20:52 Follow up: IV Status: Completed infusion; IV Intake: 2000ml mg2 17:09 Drug: NS 0.9% 1000 ml Route: IV; Rate: 1000 ml; Site: right hand; ll1 18:18 Follow up: Response: No adverse reaction; RASS: Alert and Calm (0); IV Status: ll1 Completed infusion; IV Intake: 1000ml 18:09 Drug: ProTONIX 40 mg Route: IVP; Site: right hand; sv 18:18 Follow up: Response: No adverse reaction; RASS: Alert and Calm (0) ll1 18:09 Drug: ProTONIX 8 mg/hr Route: IV; Rate: 25 ml/hr; Site: right hand; sv 18:45 Drug: Zosyn 3.375 grams Route: IVPB; Infused Over: 60 mins; Site: Other; ll1 18:45 Drug: Levophed (4 mg/250 mL D5W 4 mcg/min Route: IV; Rate: calculated rate; Site: Other;ll1 19:36 Drug: fentaNYL (PF) 25 mcg Route: IVP; Site: right femoral; mg2 20:52 Follow up: Response: No adverse reaction mg2 21:22 Drug: fentaNYL (PF) 25 mcg Route: IVP; Site: right femoral; mg2 21:40 Follow up: Response: No adverse reaction mg2 Point of Care Testing: Guaiac: 17:49 Stool Guaiac: Positive; Stool Hemoccult Control: Pass; rn 17:50 Stool Guaiac: Positive; Stool Hemoccult Control: Pass; ll1 Intake: 18:18 IV: 1000ml; Total: 1000ml. ll1 20:52 IV: 2000ml; Total: 3000ml. mg2 Outcome: 21:28 ER care complete, transfer ordered by . cp 22:48 Transferred by ground EMS to [facility], [facility] [place] completed. mg2 22:48 Condition: stable 22:48 Instructed on the need for transfer, Demonstrated understanding of instructions. 22:49 Patient left the ED. mg2 Signatures: Dispatcher [employer] Keeley Acosta RN RN sv Nieto, Roman, MD MD rn Page, Corey, PA PA Beverly Prieto 2 Woo Valenzuela RN RN mg2 Lupe Veronica RN RN ll1
[2020-05-17 22:10] LABS: Protime INR 1.12
[2020-05-19 16:42] VITALS: TEMP 97.5
[2020-05-19 16:45] VITALS: BP 126/58; O2SAT 100
== END 2020-05-17 22:49 | disposition short-term general hospital (02) ==
LOC: ER 16:38
PROC: 06HM33Z Insertion of Infusion Device into Right Femoral Vein, Percutaneous Approach (ICD-10-PCS; principal; 2020-05-17)
PROC: 30233N1 Transfusion of Nonautologous Red Blood Cells into Peripheral Vein, Percutaneous Approach (ICD-10-PCS; 2020-05-17)
DX: K92.2 Gastrointestinal hemorrhage, unspecified (principal); I95.9 Hypotension, unspecified; Z88.6 Allergy status to analgesic agent; Z20.828 Contact with and (suspected) exposure to other viral communicable diseases
CPT/HCPCS: 36556; 87040 ×2; 85025; 80048; 36415; 86900; 86850; 85610; 82565; 86901; 80076; 83605 ×2; 85730; 83690; 84145; 87804 ×2; 74176; 82805; 99291; 99292; 36430; U0003; C9113; J3010 ×2; J2543; P9016; J7050 ×2; J7030 ×3; P9021

== ENCOUNTER 2020-09-28 10:22 | Emergency (ER) | payer OTHER ==
--- OUTSIDE RECORDS SUMMARY | 2020-09-28 10:27 | XMS REPORT | Continuity of Care Document ---
:1955 Author Organization [facility] t Address [address] [place] [address] Care Team Providers Name Role Phone BHAVESH HUTCHINSON Attending Clinician Unavailable Bhavesh Hutchinson MD Attending Clinician Juliano Fu MD Attending Clinician Chico Gross MD Attending Clinician Alverto Jacobson CRNA Attending Clinician Jasper Moses MD Attending Clinician Edwar Collins Attending Clinician BHAVESH HUTCHINSON Admitting Clinician Unavailable Payers Payer Name Policy Type Policy Effective Date Expiration Date Sour ce Number [facility] [id number] 2020 MICHAEL Ingram - MEDICARE MGD 00:00:00 - Medical CAREAA/MEDICARE Center [id number] 2020-Present Problems Condition Condition Condition Status Onset Resolution Last Treating Co mments Source Name Details Category Date Date Treatment Clinician Date GI bleed GI bleed Disease Active 2019-05 [facility] Amnesia Problem Active 2020-04-10 Cameron tiara (finding) 02:00:59 l Amnesia [place] (finding) Active Problem 04/10/2020 [facility] Chronic Problem Active 2020-04-10 Cameron tiara hepatitis 02:00:59 l C Chronic [place] (disorder) hepatitis C (disorder) Active Problem 04/10/2020 [facility] Diabetes Problem Active 2020-04-10 Mem oria mellitus 02:00:59 l (disorder) Diabetes He rmann mellitus (disorder) Active Problem 04/10/2020 [facility] Hypertensi Problem Active 2020-04-10 M emoria ve 02:00:59 l disorder, [place] systemic Hypertensi arterial ve (disorder) disorder, systemic arterial (disorder) Active Problem 04/10/2020 [facility] Hyperlipid Problem Active 2020-04-10 M emoria emia 02:00:59 l (disorder) [place] Hyperlipid emia (disorder) Active Problem 04/10/2020 [facility] Allergies, Adverse Reactions, Alerts Allergy Allergy Status Severity Reaction(s) Onset Inactive Treating Comm ents Source Name Type Date Date Clinician No Known No Known Active Memori a Medicati Medicati l on on [place] Allergie Allergie s s Social History Social Habit Start Date Stop Date Quantity Comments Source Sex Assigned At [facility] Social History 2019-11-14 2019-11-14 [facility] 15:58:50 15:58:50 Medications Ordered Filled Start Stop Current Ordering Indication Dosage Frequency Signature Comments Components Source Medication Medication Date Date Medication? Clinician (SIG) Name Name levoFLOXaci 2019-05 No 750mg QD Take [address] [facility] 07-21 tablet [facility] - (LEVAQUIN) 00:00: 23:59 (750 mg Med ical 750 MG 00 :00 total) by Center tablet mouth daily for 4 days. levoFLOXaci 2019-05 No 750mg QD Take [address] [facility] 07[facility] tablet [facility] - (LEVAQUIN) 00:00: 00:00 (750 mg Med ical 750 MG 00 :00 total) by Center tablet mouth daily for 4 days. levoFLOXaci 2019-05 No 750mg QD Take [address] [facility] 07[facility] tablet [facility] - (LEVAQUIN) 00:00: 00:00 (750 mg Med ical 750 MG 00 :00 total) by Center tablet mouth daily for 4 days. pantoprazol 2019-05 Yes 40mg QD Take [address] [facility] 2-22 by mouth [facility] - (PROTONIX) 15:05: daily. Medic al 40 MG 49 Center tablet cloNIDine 2019-05 Yes .1mg Q.5D Take 0.[address] HCL 2-22 mg by [facility] - (CATAPRES) 15:05: mouth 2 Medi theo 0.1 MG 49 (two) Center tablet times daily. dilTIAZem 2019-05 Yes 120mg QD Take [address] (DILACOR 2-22 mg by [facility] - XR) 120 MG 15:05: mouth Medica l 24 hr 49 daily. Center capsule glipiZIDE 2019-05 No 5mg Take [address] (GLUCOTROL) 2-22 12-22 by mouth 2 L ukes - 5 MG tablet 12:08: 00:00 (two) Medi theo 33 :00 times Center daily before meals. lisinopriL 2019-05 No 40mg QD Take [address] (PRINIVIL,Z 2-22 12-22 by mouth [place] - ESTRIL) 40 12:08: 00:00 daily. Medi theo MG tablet 33 :00 Center hydroCHLORO 2019-05 No 12.5mg QD Take 12.[address] thiazide 2-22 12-22 mg by [facility] - (HYDRODIURI 12:08: 00:00 mouth Medi theo L) 12.5 MG 33 :00 daily. Center tablet pregabalin 2019-05 No 150mg Q.5D Take [address] (LYRICA) 2-22 12-22 mg by [facility] - 150 MG 12:08: 00:00 mouth 2 Medical capsule 33 :00 (two) Center times daily. pregabalin 2019-05 Yes 150mg QD Take [address] (LYRICA) 2-22 capsule [facility] - 150 MG 00:00: (150 mg Medical capsule 00 total) by Center mouth daily. Max Daily Amount: 150 mg Aspirin 81 2019-0 Yes 81 mg = 1 Me moria MG Enteric 6-18 tab, PO, l Coated 15:59: Daily, 0 [place] Tablet [St. 00 Refill(s) Clay Aspirin] Diltiazem 2019-0 Yes 0 Memoria Hydrochlori 6-18 Refill(s) l de ER 120 15:53: [place] mg/24 hours 00 oral capsule, extended release lisinopril 2019-0 Yes 0 Memoria 40 mg oral 6-18 Refill(s) l tablet 15:53: [place] 00 Metformin 2019-0 Yes 0 Memoria hydrochlori 6-18 Refill(s) l de 1000 MG 15:53: [place] Oral Tablet 00 non-formula No Refill(s) M emoria ry 6-18 0 l 15:53: [place] 00 Lyrica Yes 150 mg, Memoria 6-18 PO, BID, 0 l 15:45: Refill(s) [place] 00 Vital Signs Vital Name Observation Time Observation Value Comments Source Systolic blood 2020-05-19 11:00:00 150 mm[Hg] [facility] Diastolic blood 2020-05-19 11:00:00 99 mm[Hg] [facility] Heart rate 2020-05-19 11:00:00 103 /min [facility] Respiratory rate 2020-05-19 11:00:00 23 /min [facility] Oxygen saturation in 2020-05-19 11:00:00 100 /min [facility] Arterial blood by Medical Ce nter Pulse oximetry Body temperature 2020-05-19 07:54:00 36.56 Bibi [facility] Body weight 2020-05-19 04:00:00 77.2 kg [facility] BMI 2020-05-19 04:00:00 28.32 kg/m2 [facility] Body height 2020-05-18 01:00:00 165.1 cm [facility] Systolic (mm Hg) 2019-11-14 15:39:00 Cameron fregoso [place] Diastolic (mm Hg) 2019-11-14 15:39:00 [facility] irky [address] Heart Rate 2019-11-14 15:39:00 [facility] [address] Respitory Rate 2019-11-14 15:39:00 Tessa vincent [place] Height 2019-11-14 15:39:00 165.1 cm [facility] Weight 2019-11-14 15:39:00 [facility] BMI Calculated 2019-11-14 15:39:00 Tessa Jenkins Procedures Procedure Date / Time Performing Clinician Source Performed ECG 12-LEAD 2020-05-19 11:16:[address] [facility] REPORT OF PROCEDURE - 2020-05-19 09:32:18 Moses, [facility] REPORT OF PROCEDURE - 2020-05-19 09:29:49 Moses, [facility] TISSUE EXAM 2020-05-19 08:29:00 Josué [facility] UPPER ENDOSCOPY,BIOPSY 2020-05-19 07:47:00 Josué [facility] COLONOSCOPY,BIOPSY 2020-05-19 07:47:00 Josué [facility] CBC (HEMOGRAM ONLY) 2020-05-19 05:02:00 Jaimee Reagan [facility] BASIC METABOLIC PANEL (7) 2020-05-19 05:02:00 Earle De [facility] OVA AND PARASITE 2020-05-18 23:00:00 Cliff Spann [facility] CBC (HEMOGRAM ONLY) 2020-05-18 22:56:00 Jaimee Reagan [facility] BASIC METABOLIC PANEL (7) 2020-05-18 22:56:00 Earle De [facility] CBC (HEMOGRAM ONLY) 2020-05-18 18:24:00 Jaimee Reagan [facility] BASIC METABOLIC PANEL (7) 2020-05-18 18:24:00 Earle De [facility] SARS-COV2/RT-PCR ([facility] & 2020-05-18 15:37:00 Jaimee Reagan [facility] HEPATITIS PANEL, ACUTE 2020-05-18 13:04:[address] [facility] CALCIUM, IONIZED 2020-05-18 13:04:00 Hakeem Fu [facility] HAPTOGLOBIN 2020-05-18 13:04:[address] [facility] BASIC METABOLIC PANEL (7) 2020-05-18 13:04:00 Earle De [facility] STOOL PATH CHARGE 2020-05-18 13:00:00 Laura [facility] C. DIFFICILE GDH TOXIN 2020-05-18 13:00:[address] [facility] STOOL CULTURE + SHIGA 2020-05-18 13:00:00 Araceli Sanchez Venkata [facility] TOXIN [facility] SHIGA TOXIN SCREEN 2020-05-18 13:00:[address] [facility] ABORH, MANUAL 2020-05-18 08:55:00 Joleen Horn [facility] BLOOD GAS, VENOUS 2020-05-18 08:55:00 Earle De [facility] TYPE AND SCREEN, 2020-05-18 06:49:00 Jaimee Reagan [facility] CBC (HEMOGRAM ONLY) 2020-05-18 06:49:00 Jaimee Reagan [facility] LIPASE 2020-05-18 06:49:00 Jaimee Reagan [facility] BASIC METABOLIC PANEL (7) 2020-05-18 06:49:00 [place], Araceli Sweeney ed [facility] LACTATE DEHYDROGENASE 2020-05-18 06:49:00 BedfordAraceli bernabe Alhaji Hastings [facility] (LDH) [facility] POCT-GLUCOSE METER 2020-05-18 06:48:00 Bhavesh Hutchinson [facility] US ABDOMEN LIMITED 2020-05-18 05:13:00 Jaimee Reagan [facility] POCT-GLUCOSE METER 2020-05-18 01:13:00 Bhavesh Hutchinson [facility] CBC W/PLT COUNT & AUTO 2020-05-18 00:45:00 Bhavesh Hutchinson [facility] (CELLAVISION MANUAL DIFF) 2020-05-18 00:45:00 Bhavesh Hutchinson [facility] COMPREHENSIVE METABOLIC 2020-05-18 00:45:[address] [facility] PROTHROMBIN TIME/INR 2020-05-18 00:45:00 Bhavesh Hutchinson [facility] LACTIC ACID, VENOUS 2020-05-18 00:45:[address] [facility] Plan of Care Planned Activity Planned Date Details Comments Source Future Scheduled 2030-05-[address] [facility] - Test 00:00:00 malignant neoplasm of Medica l Center colon (procedure) [code = 421751944] Future Scheduled 2021-01-[address] [facility] Test 00:00:00 (Season Ended) [code Medical Center = INFLUENZA VACCINE (Season Ended)] Future Scheduled 2020-05-[address] [facility] - Test 00:00:00 (12+) [code = Medical Center DEPRESSION SCREENING (12+)] Future Scheduled 2020-02-[address] [facility] - Test 00:00:00 (WELCOME TO MEDICARE) Medica l Center [code = Medicare IPPE (WELCOME TO MEDICARE)] Future Scheduled 2007 SHINGLES VACCINES ([address] [facility] - Test 00:00:00 of 2) [code = Medical Center SHINGLES VACCINES (1 of 2)] Future Scheduled [address] [facility] - Test 00:00:00 (procedure) [code = Medical Center 04866450] Future Scheduled [address] [facility] - Test 00:00:00 [facility] cervix (procedure) [code = 405406811] Future Scheduled 1976-01-15 DTAP/TDAP/TD VACCINES [facility] Test 00:00:00 (1 - Tdap) [code = Medical C enter DTAP/TDAP/TD VACCINES (1 - Tdap)] Future Scheduled 1975 HEPATITIS C [facility]CRE[facility]ING [facility] Test 00:00:00 [code = HEPATITIS C Medical Center SCREENING] Future Scheduled [address] [facility] - Test 00:00:00 [facility] breast (procedure) [code = 152972347] Encounters Start End Encounter Admission Attending Care Care Encounter Source Date/Time Date/Time Type Type Clinicians Facility Department ID 2020-04-06 2020-04-07 Outpatient MHMISCHER MHMISCHER [id number] 09:05:10 23:59:59 00 2020-01-22 2020-01-22 [id number] 11:30:00 11:30:00 Johnson 03 Edwar 2020-01-08 2020-01-08 [id number] 10:30:00 10:30:00 Johnson 01 Edwar 2020-01-08 2020-01-08 [facility] [id number] 10:30:00 10:30:00 Johnson 02 Edwar 2019-11-14 2019-11-14 [facility] [id number] 10:30:00 23:59:59 Johnson 00 Edwar Results Test Description Test Time Test Comments Results Result Sour e Comments ECG 12 lead 2020-04-29 Interface, External Ris [facility] 6 In - 05/23/2020 4:14 PM [facility] - 16:14:10 CSTVentricular Rate 103 M edical BPMAtrial Rate 103 Center BPMP-R Interval 170 msQRS Duration 86 msQ-T Interval 338 msQTC Calculation(Bazett) 442 msP [place] 55 degreesR [place] -35 degreesT [place] 52 degreesSinus tachycardiaPossible Left atrial enlargementLeft axis deviationAnterior infarct , age undeterminedAbnormal ECGNo previous ECGs availableConfirmed by MD HUMERA, NABEEL ([id number]) on 05/23/2020 4:14:03 PM Ova and Parasite Examination 2020-05-21 10:45:00 Test Item Value Reference Range Interpretation Comme nts O&P Direct Smear (test code = No ova or parasites seen No ova or parasites seen 35281-7) Lab Interpretation (test code = Normal 55274-4) [facility] [id number] 10:45:00 Test Item Value Reference Range Interpretation Comments DIRECT SMEAR - No ova or parasites No ova or parasites O\\T\\P (BEAKER) seen seen (test code = 196) Stool culture + Shiga [id number] 09:00:00 Test Item Value Reference Range Interpretation Comments Result (test code = No Salmonella, Shigella or 6463-4) [facility]yl[facility]A [id number] 09:00:00 Test Item Value Reference Range Interpretation Comments CULTURE (BEAKER) No Salmonella, Shigella (test code = 1095) or Campylobacter isolated Tissue [id number] 08:14:00 Test Item Value Reference Range Interpretation Comments Case Report (test code Surgical Pathology = 104) Report Case: [id number] Authorizing Provider: Nicanor Moses MD Collected: 05/19/2020 08:29 AM Ordering Location: [place] [address] ICU Received: 05/19/2020 01:42 PM Pathologist: Rj Copeland MD Specimens: A) - Duodenum, Bx B) - Stomach, Random Bx C) - Colon Biopsy, Random, Bx DIAGNOSIS (test code = q1whqKMiLZOpv6mdMTXvjQ 3220) FuZzEwMzNcZnRuYmpcdWMx IHtccnRmMVxlcGljOTIwMF htrdIfFGPdgOYdY8Ktttpb SNeaVA4uMY7zsPoqdRZuiA ScKHAbPyHeu7xub055cOGs d8fmLZFJmstjySj6bGnhM6 4jq3G4XlgyC47msHBiXNqr bGFpblxmczIwIFBBUlQgQS PKIH2LJP1MFDOJXU1CN8w8 XHBhciBTTUFMTCBJTlRFU1 RBNoCNDV7EY37VEAJQMCST IFBSRVNFUlZFRCBWSUxMT1 TPOHSHA1iMTVRXBYHSPO6d lJTqPN8ZRSmKJ7ZVZHJFVK BFUElUSEVMSUFMIExZTVBI C4OHHKQATOOXJaMQLZmFJX MYTLYUXIQXTTGZYHIlYR8T IElOVkFTSVZFIENBUkNJTk 9NQSBTRUVOLlxwYXJccGFy BPXCHiPoJcBILY5CL83rQ9 DCPISCAzZMKC3OT7r1AKXd lzGCM0FLZfYnX2pUI81MOm OLMEFAKidLTAEyO3uVITDX KbSNL1QAQcTUUJ7FDKNTZY FTSUEuXHBhciBORUdBVElW KURTO4SdWNrTVRiXO6vADW 9SIElOVkFTSVZFIENBUkNJ Vs8ZSU8ulUMxBNjABiHEUD 2lK7FFEhETKDCMZBsVQDVN XsENCGnBJ19DCNKDARIcYS MgTkVHQVRJVkUuXHBhclxw YXIgUEFSVCBDIFJBTkRPTS IIQ6fWEtAFNG9BF3q7GERd ciBNSUxETFkgRURFTUFUT1 AZEQUVOM2FMXUlZSPSA4FN RBsJQCegBVdFIQ7KCRTSO5 PFQMWKN31GBNVEQGQWVdCR B3iDMNvZEfmvGNWlRt2bY9 lHTklGSUNBTlQgQVJDSElU YQACRAKPLXRHVLXHA5HVKP 7NRfjyKXVvXr8oRW7TYsSX Z4FCSBHLZPJTIUpBSQoxFC iZHAiWT8sGUXOwZ5YgSMYI R5MMJJgdO64WDAJCPS3ySR NSP2UWKOwUDl0drPXdFC2W SDqFAE1OBY7GPORqWGNLC7 SWIVMLCSarB7ZlDA5MOAUD SzBpU7STY9dUS33EAacaMJ UcpNTfhUcsgsLbCLvpk9Ss WTbnDUCiCH9pwNudYFMuPK 5tZSRaD6gawR3pxpx8ElZj FZOeNgU3UOVzbmU4Iqo9BC UvDPtiq1dqu5XpULTuBSo2 yQjqQkZfKYSkb7zfnyXyCs NtTZJaHXGnUMYmoXCcW117 w0mqf2lwqxWneSQ9ZYNnUT W2SSxnwbUnylW0FOucmIEu HeJ5XKctnmOlNCzircBtln JvJvv4MDHiP537GVC1gQeo a4tmMCJ8YCFpFNEnBkAbNe 2kyWHlX177FQVbYZBOUFBj qIn9FJLfifDhdkSzsHUIr9 69X281t7hbWGLywyVclWiB hgncb0kaL107RJQvtATggu OeIzXmNZJvyKCpeLM4TBQz GW6gbwpsXYreHTwsYWMnxz V5IWJkhQWrK1KwCJAwKK8o vcunAXF8DCyyWZIjPKV1Dr IkUCXye1Nqmte1GkUpbg9e fo11MXK3i2MpxAvwAHQ0BA A9XdUfLa3loNVfCEFtEG9f WzHygKUaLANkzb91sIlyBK ehSFD9EXQdwvMrb3Cln9oj GeTtmwIzO0zdM5FnIEYaJS RlVFZzVkHhaeLvj4Nwn0Tp yMHfaAa3d7foKQRlHOLyhU ezk6ppBYR9YDZdjTMyF1of hY8cHSJtTT0ejtnbr7luZT sdYMshYJSvxQO9ulJ2UKVi zOWxW2ZdcW1kSERzXUyxEK Wirwu6CaJjAt9ddBYcjFgd MFxzYmtwYWdlXHBnbmNvbn RccGduZGVjXHBsYWluXHBs YWluXGYwXGZzMjRccWxcbG FuZzEwMzNcaGljaFxmMVxk IaWeSYCiOPgmW5trRhCdXf PhAtm4WXCwpIVkMTAmNnn3 CJEriVWnAQVJkIuxgU4vDX GnyNvdlM8gfCM5CTDjxeHg uLWDtL9bGJBIfL8uTxJ2Ix ApRxC3BKo3UmZvtYKekG8= CPT Code(s) (test code m2jekUGlINXwlRE5MjPrQE = 3357) Fnb9nng0ZrdEOrlWWnXHqi hTHtvaHklz28xJP6vZ04WL 8pJLYzAiM7XXIatpN9Aea6 FYHqZYQivYIbF468o8jgr4 htgjHutJT3mKpnIRAuCKYq YWluXGZzMjAgODgzMDVYMy wgODgzMTJccGFyfQ== CLINICAL HISTORY (test i4mrmVFiYNXrhCW7VxKnLJ code = 3356) Eng1mlo8VbyPOjqXDvMSim zIYmdiCylf23fKX3oP30JX 6gVJIvCtW5RNRqhvW4Ofa3 EUEmNJTecEYlV642x1xcb7 zfjwGfzMC5oWfoTBGcYVEp QRclHTZdIkLhU4KgjOMsiJ 72VIN4hS0yqLIgRA4xssXg MUujYWQce93yjGX1NDSzo7 e4lCJuXBJ4hyf8qQMggJDc fQ== SPECIMEN SOURCE (test p8lwxBTfMYVfnKL4UdVwMJ code = 3377) Nuz8hoo0PsaHDhkTDvGDvn sVAhnzSocj04wEP6yY57UT 3sPENfPgC5MANtgqZ9Oqu0 YZZaEULsoPQxY210q1zes2 nugdBwkXV2xUuxOZVjMCFy SOwgQVBzCaThKM5xLBI0f3 JdrjKqISzxzlCoGh1tTHZ4 w90mE7aesCpbQHDMKjIfM8 2dm03woHJclV== GROSS DESCRIPTION (test y2ejnVItMTVkcWJeSxCqMR code = 3366) FgBWRil1kvKHJnrGFbJnZj MzNcZnRuYmpcdWMxXGRlZm Pzb7bul731xFMhk9sxKAFg NcJ6nJLgDUMheCBhW204RQ HwYHsmg1wqp3WvHYKsdAJj d8H1JJTDibjfoIu6oGtuA9 0hy5R1ZdoxQ0ktWDEsMAMn L3DmHA1vDXUaFld6JMU5LK A2VIKvWWKqB1DjUE3oTLNo kUQtNZp2b3hsrEbyECTmAM V3s4gnOEevmmK0HH2qcn1p mRc0d5asbiUyKUWxGVDlpN QUAGJeQ3ZvqThdQn3bdUv4 pZxbPgpxYCE5Caz8MK1epk 26msv2wKgjCQNmmbsiSmB2 JYvvOGZuegvwJDc9TCpqML JnbDcyMFxtYXJncjcyMFxt YXJndDcyMFxtYXJnYjcyMF byGTWeNDR5IIcwh811RMY7 ILfcl0jek4srrAJjHkj3GZ JiDyWkJqpfIPovu6Sth7hk SIXcTwZ4REkrIE3rwi73QQ DfSWU8bl9amZPunVflqtMn bETkZMqhF6PhEWPnu024CS OaJ3SfEXBse7E9isOlEmBh XYCrbOA4gtN4SDOzLSw3zU DrugT4fnKizRAiH3nmiV24 CmYqcGUcP9UfxV63ZaEvhW LeD9AayL82UhWdkAHgG7Nz dB20BdKvcPEzAENivDKjZc 0xuLSamZVbl4RbmPUyDKkg U21ts405PNIhsdFoC3cmmX FpblxwbGFpblxmMFxmczI0 FRGamcTbeUsdsC6rOkJiPx GySBhbUQ0vNCPfO8txnEGh DONjZEVhZ9xoPoZacC5keK nqHKqzafQiXFNjPRLzV0Xq jzAdPJdqQPIomh6pnLuhOJ lvUeHuVBNlg8u4yBG4nHPw yWG4pKQesOpsAsLwAG0byS WrMH8yMGhaMSicnyEtp6Cw IJ59oOWmxsRbisRjNyR2t1 AxwlSsZjSaqfDcZ28os5to iDFab9PhSkC8PD6iy88ncE M0vLHybXWyIxAyF48uwvZi VRTekkqqnsgiOB9dWPNrEK UuoMSmyZEvmTZ6IVAxzL8t rZ30xsMbkwXCCW5ppZhvVV itfZ8fLDSaGATsH3XavpMk ILrpFUFaxo9gmAjuGBukPs LyUDGjs1t1mWH9nCXawUC9 fTAdhKhrRvVcPX8vkYNwPV 1wSFinWFnotjSwd4VfIB36 sSRartKsjdRjTvH8f84nZ1 zqNYIgMJNzh35gkFH9nbPg ReO2NGLtgwFws0X1XCMor7 X3PBRwrcDxsJEzbWRjhpSo G5klIlXpVoVkCR12SJWgUK O3Yc4jeIEiFYBevbO7p1Bc DXmsROEaZmceiB4fRBsibe ZmJg3nRaWxFYq2WHAntB8e Ia8qhDGpjD7mrEGcMSttBT Ebt6x2zMI5lCQihXV6iMLr dHntElUpCG6euUBrAB9aEL ziIBatpxMdq4AnKG43mOCe fjEugeXtQlZqhB4nGVYsl4 XiqSxielXjRP1dZnJyklJu B03kx5qauSKwy5GbpNOemI lwbGUgdGFuIHNvZnQgdGlz b5UuTAIsXAveOI01zzAnVD 4noS7cHNMsIj1jZfhfE21e e3TfjBj4kTNnPBqfOWHvzY 5lcB2oTfLqMZbechEknGbz GVAGaPGwe1GzOEvuHLXhGX RXTUBnUCDULEwNP8EGXFQz XHBhcn0= MICROSCOPIC DESCRIPTION s3vtoIKjOHFfsAX0AwKrYO (test code = 3371) Ukx2ehc1YmeOBgcGJcCNyo rCBupmGzaj79oGF7fC67XA 7eAUFtYjP1NJOxhqW8Vbq6 BUYlJELcmMAeL455u9wwy9 ytyrWlaKJ9zXeaYDCnCLZp SHraESKqTmZbTHONWv8NYD VELlxwYXJ9 SPECIAL STUDIES (test c6vwtBWcCPSnsUU3EtTaZA code = 3376) Rjr3ioq8LopOPgwFIlXUqz mOKuqwKvgy70fVW9dZ62IJ 1tJUKdWlQ7WVSouhG5Eba9 ITDmQEXpwOKdF472KRJeLJ JioJltlrd6yK83QSBckG4m xGLhUVm6FNCgxnIfkLvmnP 0zIbJuEuUcIfCAaZBvlO71 DCAgutH1ETEyt82wa4FwsD akxlPgKTSdMZmjC7s4UOCx YJGvCAF6c0Grb9RscG1axV 6jpHbtoS5pzRJmxUM4lals u0Prj7OgW9wsfAVbiBLcwi BkWAWhhjSKLY9VKaEBZJ6x T9CZJIxRYrELIWQOXnacyA MmQRCkisDql8bdE7caMZSr MCM7FP9xncRoAkCiMF9uxK 46v3Kvo18wg32lpC4laKOj wqPrV44lgTZwrDSen2GcWE SxntIcyYB5ZOArQBccczxq o1d3fXO2tBBseCPmqFU9vV BafUTqUPDLzSXyXRCot403 cw6sTAZolWGtboWpeS6gZL llbgrooXNxPL8cNJIzGDZc WTRoUK70wqNzSA3pnXGyn2 ppjaPmpHDkk2SsdVB5DHOp mCYifmmbEp8iJP71LVQdOS ovaL2thZIruuEoSU8kKG7v I3F1lKJpTGFegsFav9zbNC mxCS6zJYGxvGgpYxasPLRz LINekgSkkNG1ELHvwGXmAW HnpGYpDKubyQIkw6tsr7Ru T5qioPttyBN0BGTwQ5rxjX WkpPD7HLJ7eG3hCRnmhjTp KWCnk5VmSVZsFAOoNgL5jS 6bLOD1LeAHtRinRFO1GpR0 WQrgGRKnFE6hWYvvBJlnS6 SomZVpPYTLQHQji4arB8kj UMZpa6FqdY5vvFB2jCChGQ ZalXN3SMOlHGA9WOlseFMk VWVfMVKacYDngGHjFh2bvR ZiS1SrW9izhqFojNPpsXL2 aMOfSOmencGtPCW3HSAjmR 6yUK8jYYJnxUJjUT3tnPLj XMOpBCElYIAfRBJtk0YcMB Ttgj02VIRzSvxgsRdrVXJf Ui2rBn5bIBVupmKrCTV2Fb MVLC3lyvebtZGvcMolib9b NFauOTLPCCVzQKRuAFA0IA BejM3nRQA6uPR3BYA8R2mr X2vwPHNpgyKzVG4pCJHmnG KhepHhYKlaMW9pfWSkLMKt v8CchazgXRNfETZ1ZUH0GY drPUMqUOVsCa2uIIMufN8r R8NrKGK4mqShu1HuZnNPrT NyuV45wNWisz89QOHuPVYp I5NkNBTzZUYtNUunmbCkfQ msJTPtj42vmERrhuOnb3Sh kgScTAKoG2peODQitRSztB Dzk8ZosO4nrGLdxaXeIYV5 qHRgIWDrzT4rSWAewNqyES UlcS1gO7HnUSbxRt7xSCRl hmqmPT9wwt39FW2hftLxLK 2tjfAvKV89ndNtGgKoSJn9 MEiXVUmBAEm1UTHfdgXtpH FzvXBgDXFdnO0kmLRfMv2n bSBoaWdoIGNvbXBsZXhpdH ozG6gaishdXFiraCHog7Bm tA6ptSA2WCW4cW0qBskyFR J9 Gross assessment was [facility] performed at ([facility], = 2777) Department of Pathology, [address] [place] [address], Technical component was [facility] performed at ([facility], = 2778) Department of Pathology, [address] [place] [id number], Professional component [facility] was performed at ([facility], code = 2779) Department of Pathology, [address] [place] [address], [facility] [id number] 08:14:00Surgical Pathology Report Case: [id number] Authorizing Provider: Nicanor Moses MD Collected: 05/19/2020 08:29 AM Ordering Location: [place] [address] ICU Received: 05/19/2020 01:42 PM Pathologist: Rj Copeland MD Specimens: A) - Duodenum, Bx B) - Stomach, Random Bx C) -Colon Biopsy, Random, Bx PART A DUODENAL BIOPSY:SMALL INTESTINAL MUCOSA WITH PRESERVED VILLOUS ARCHITECTURE.NO INCREASED EPITHELIAL LYMPHOCYTES, GR ANULOMAS, DYSPLASIA, OR INVASIVE CARCINOMA SEEN.PART B RANDOM GASTRIC BIOPSY:ACTIVE CHRONIC GASTRITIS WITH INTESTINAL METAPLASIA.NEGATIVE FOR DYSPLASIA OR INVASIVE CARCINOMA.WARTHIN STARRY STAIN FOR HELICOBACTER IS NEGATIVE.PART C RANDOM COLON BIOPSY:MILDLY EDEMATOUS COLONIC MUCOSA WITH MINIMAL FOCAL NONSPECIFIC COLITIS.NO SIGNIFICANT ARCHITECTURAL DISTORTION.NO INCREASED EPITHELIAL LYMPHOCYTES OR ABNORMAL COLLAGEN DEPOSITION.NO GRANULOMAS, DYSPLASIA, OR INVASIVE CARCINOMA. Signing Pathologist Direct Phone Line: [phone] signed by Rj Copeland MD on 05/20/2020 at 8:14 [id number], [id number] hemorrhage associated with gastritisA. DuodenumB. StomachC. ColonA. Received in formalin labeled with the patient's name, medical record number and "duodenum" and consists of 3 patrick soft tissue fragments ranging 0.3-0.4 cm submitted in toto in A1.B. Received in formalin labeled with the patient's name, medical record number and "stomach" and consists of 4 patrick soft tissue fragments ranging 0.2-0.7 cm submitted in toto in B1.C. Received in formalin labelled with the patient's name, medical record number and "colon biopsy, random" and consists of multiple patrick soft tissue fragments ranging 0.2-0.7 cm submitted in toto in C1.PAT Butts PA ([facility])cmPERFORMED.The interpretation of this case included the use of immunohistochemistry or special stains.BLOCK B1- WARTHIN STARRYControl Slides Examined: In-house known positive controls were evaluated along with the test tissue. These control slides run alongside of the patients sample show appropriate staining. Internal positive and negative controls when available are evaluated Immunohistochemistry technicaltesting was performed at [facility], Pathology Laboratory where it was developed and its performance characteristics were determined. It has not been cleared or approved by the U.S. Food and Drug Administration. The FDA has determined that such clearance or approval is not necessary. The test is used for clinical purposes. It should not be regarded as investigational or for research. This laboratory is certified under the Clinical Laboratory Improvement Amendments of 1988 (CLIA-88) as qualified to perform high complexity clinical laboratory testing.[facility], Department of Pathology, [address] [place] [id number], [facility] of [facility]ology, [address] [place] [address], [facility], Department of Pathology, [address] [place] [address], Jegie Toxin [id number] 13:22:00 Test Item Value Reference Range Interpretation Comments Shiga toxin 1 (test code = Not detected Not detected 90254-4) Shiga toxin 2 (test code = Not detected Not detected 45432-2) Lab Interpretation (test code = Normal 74312-3) [facility] [id number] 13:22:00 Test Item Value Reference Range Interpretation Comments SHIGA TOXIN 1 (BEAKER) (test Not detected Not detected code = 2177) SHIGA TOXIN 2 (BEAKER) (test Not detected Not detected code = 2179) STOOL PATH [id number] 09:34:00 Test Item Value Reference Range Interpretation Comments Pathogen exam charged (test code = Done 2381) [facility] [id number] 09:34:00 Test Item Value Reference Range Interpretation Comments PATHOGEN EXAM CHARGED (BEAKER) (test Done code = 2381) Basic Metabolic [id number] 05:37:00 Test Item Value Reference Range Interpretation Comments Sodium (test code = 136 meq/L 850-546 9241-2) Potassium (test code = 3.6 meq/L 3.5-5.1 2823-3) Chloride (test code = 111 meq/L 98-107 H 2075-0) CO2 (test code = 20 meq/L 22-29 L 2028-9) BUN (test code = 16 mg/dL 7-21 3094-0) Creatinine (test code 1.09 mg/dL 0.57-1.25 = 2160-0) Glucose (test code = 124 mg/dL 70-105 H 2345-7) Calcium (test code = 7.5 mg/dL 8.4-10.2 L 25601-5) EGFR (test code = 61 mL/min/1.73 [place] [address]-3) NOT ACCURATE CREATININE CLEARANCE IN PREDICTING GLOMERULAR FILTRATION RATE . ESTIMATED GFR I S NOT APPLICABLE FOR DIALYSIS PATIENTS. EMA (test code = EMA) Relocation Commissioner ID - PIAYA L Lab Interpretation Abnormal (test code = 17436-5) [facility] [id number] 05:37:00 Test Item Value Reference Range Interpretation Comments SODIUM (BEAKER) 136 meq/L 136-145 (test code = 381) POTASSIUM (BEAKER) 3.6 meq/L 3.5-5.1 (test code = 379) CHLORIDE (BEAKER) 111 meq/L 98-107 H (test code = 382) CO2 (BEAKER) (test 20 meq/L 22-29 L code = 355) BLOOD UREA NITROGEN 16 mg/dL 7-21 (BEAKER) (test code = 354) CREATININE (BEAKER) 1.09 mg/dL 0.57-1.25 (test code = 358) GLUCOSE RANDOM 124 mg/dL 70-105 H (BEAKER) (test code = 652) CALCIUM (BEAKER) 7.5 mg/dL 8.4-10.2 L (test code = 697) EGFR (BEAKER) (test 61 mL/min/1.73 ESTIMA NANCY GFR IS code = 1092) sq m NOT ACCURATE CREATININE CLEARANCE IN PREDICTING GLOMERULAR FILTRATION RATE . ESTIMATED GFR I S NOT APPLICABLE FOR DIALYSIS PATIEN TS. Relocation Commissioner ID - PIAYA LCBC (Hemogram only)2020-05-19 05:15:00 Test Item Value Reference Range Interpretation Comments WBC (test code = 6690-2) 11.2 See_Comment H [A utomated message] The system [employer] generated this result transmitted ref erence range: 3.5 - 10 .5 K/L. The refe rence range was not u sed to interpret this result as normal/abnor mal. RBC (test code = 789-8) 2.94 See_Comment L [Au tomated message] The system [employer] generated this result transmitted ref erence range: 3.93 - 5 .22 M/L. The refe rence range was not u sed to interpret this result as normal/abnor mal. MCHC (test code = 786-4) 31.7 See_Comment L [A utomated message] The system [employer] generated this result transmitted ref erence range: 32.2 - 3 5.5 GM/DL. The refe rence range was not u sed to interpret this result as normal/abnor mal. Hematocrit (test code = 26.5 % 34.1-44.9 L 4544-3) MCV (test code = 787-2) 90.1 fL 79.4-94.8 MCH (test code = 785-6) 28.6 pg 25.6-32.2 RDW (test code = 788-0) 17.1 % 11.7-14.4 H Platelets (test code = 86 See_Comment L [Aut omated message] 777-3) The system [employer] generated this result transmitted ref erence range: 150 - 45 0 K/CU MM. The referen ce range was not u sed to interpret this result as normal/abnor mal. MPV (test code = 11.7 fL 9.4-12.3 16984-4) nRBC (test code = 413) 0 See_Comment [Aut omated message] The system [employer] generated this result transmitted ref erence range: 0 - 0 /1 00 WBC. The refere nce range was not u sed to interpret this result as normal/abnor mal. Lab Interpretation (test Abnormal code = 60348-3) [facility] (HEMOGRAM ONLY)2020-05-19 05:15:00 Test Item Value Reference Range Interpretation Comments WHITE BLOOD CELL COUNT (BEAKER) 11.2 K/ L 3.5-10.5 H (test code = 775) RED BLOOD CELL COUNT (BEAKER) 2.94 M/ L 3.93-5.22 L (test code = 761) HEMOGLOBIN (BEAKER) (test code = 8.4 GM/DL 11.2-15.7 L 410) HEMATOCRIT (BEAKER) (test code = 26.5 % 34.1-44.9 L 411) MEAN CORPUSCULAR VOLUME (BEAKER) 90.1 fL 79.4-94.8 (test code = 753) MEAN CORPUSCULAR HEMOGLOBIN 28.6 pg 25.6-32.2 (BEAKER) (test code = 751) MEAN CORPUSCULAR HEMOGLOBIN CONC 31.7 GM/DL 32.2-35.5 L (BEAKER) (test code = 752) RED CELL DISTRIBUTION WIDTH 17.1 % 11.7-14.4 H (BEAKER) (test code = 412) PLATELET COUNT (BEAKER) (test code 86 K/CU MM 150-450 L = 756) MEAN PLATELET VOLUME (BEAKER) 11.7 fL 9.4-12.3 (test code = 754) NUCLEATED RED BLOOD CELLS (BEAKER) 0 /100 WBC 0-0 (test code = 413) BASIC METABOLIC [id number] 23:40:00 Test Item Value Reference Range Interpretation Comments SODIUM (BEAKER) 136 meq/L 136-145 (test code = 381) POTASSIUM (BEAKER) 3.7 meq/L 3.5-5.1 (test code = 379) CHLORIDE (BEAKER) 110 meq/L 98-107 H (test code = 382) CO2 (BEAKER) (test 18 meq/L 22-29 L code = 355) BLOOD UREA NITROGEN 22 mg/dL 7-21 H (BEAKER) (test code = 354) CREATININE (BEAKER) 1.38 mg/dL 0.57-1.25 H (test code = 358) GLUCOSE RANDOM 106 mg/dL 70-105 H (BEAKER) (test code = 652) CALCIUM (BEAKER) 7.5 mg/dL 8.4-10.2 L (test code = 697) EGFR (BEAKER) (test 47 mL/min/1.73 ESTIMA NANCY GFR IS code = 1092) sq m NOT ACCURATE CREATININE CLEARANCE IN PREDICTING GLOMERULAR FILTRATION RATE . ESTIMATED GFR I S NOT APPLICABLE FOR DIALYSIS PATIEN TS. Relocation Commissioner ID - DBCBC (HEMOGRAM ONLY)2020-05-18 23:06:00 Test Item Value Reference Range Interpretation Comments WHITE BLOOD CELL COUNT (BEAKER) 11.9 K/ L 3.5-10.5 H (test code = 775) RED BLOOD CELL COUNT (BEAKER) 3.02 M/ L 3.93-5.22 L (test code = 761) HEMOGLOBIN (BEAKER) (test code = 8.6 GM/DL 11.2-15.7 L 410) HEMATOCRIT (BEAKER) (test code = 27.4 % 34.1-44.9 L 411) MEAN CORPUSCULAR VOLUME (BEAKER) 90.7 fL 79.4-94.8 (test code = 753) MEAN CORPUSCULAR HEMOGLOBIN 28.5 pg 25.6-32.2 (BEAKER) (test code = 751) MEAN CORPUSCULAR HEMOGLOBIN CONC 31.4 GM/DL 32.2-35.5 L (BEAKER) (test code = 752) RED CELL DISTRIBUTION WIDTH 16.8 % 11.7-14.4 H (BEAKER) (test code = 412) PLATELET COUNT (BEAKER) (test code 83 K/CU MM 150-450 L = 756) MEAN PLATELET VOLUME (BEAKER) 11.1 fL 9.4-12.3 (test code = 754) NUCLEATED RED BLOOD CELLS (BEAKER) 0 /100 WBC 0-0 (test code = 413) Clostridium difficile GDH [id number] 21:56:00 Test Item Value Reference Range Interpretation Comments C. Difficle Toxin Negative Negative (test code = 9931620193) C. Difficile GDH Negative Negative No indicati on of Antigen (test code = Clostri dium 3564937742) difficile infection and n o colonization. Discontinue enteric isolati on and therapy. EMA (test code = Testing performed EMA) by Alere Rapid Cassette Assay. For GDH, published sensitivity of the assay is 98.7% compared to cytotoxicity testing. For Toxin AB, published sensitivity is 87.8% and specificity 99.4% compared to cytotoxicity testing.Verificati on of kit performance was done by the [facility] Microbiology Lab prior to clinical use. Lab Interpretation Normal (test code = 55521-6) [facility]. DIFFICILE GDH [id number] 21:56:00 Test Item Value Reference Range Interpretation Comments CDT TOXIN (test code Negative Negative = 7947514113) CDT GDH ANTIGEN (test Negative Negative No ind ication of code = 0685346412) Clostridi um difficile infection and n o colonization. Discontinue ent nikky isolation and t herapy. Testing performed by Alere Rapid Cassette Assay. For GDH, published sensitivity of the assay is 98.7% compared to cytotoxicity testing. For Toxin AB, published sensitivity is 87.8% and specificity 99.4% compared to cytotoxicity testing.Verification of kit performance was done by the [facility] Microbiology Lab prior to clinical use.SARS-CoV2/RT-PCR (Asymptomatic ONLY)2020-05-18 19:33:00 Test Item Value Reference Range Interpretation Comments SARS-COV2/RT-PCR Negative Not Detected, (test code = Negative, See 12722-0) external report for linked test SARS-COV-2 [facility] PERFORMING LAB (test code = 28330-1) EMA (test code = Negative result for this EMA) test determines that SARS-CoV-2 RNA was not present in the specimen above the Limit of Detection (LOD). However, Negative results do not preclude SARS-CoV-2 infection and should not be used as the sole basis for treatment or patient management decisions. Negative results must be combined with clinical observations, patient history, and epidemiological information. A false negative result may occur if a specimen is improperly collected, transported or handled. A false negative result should be considered if patient's recent exposures or clinical presentation indicate that COVID-19 (SARS-CoV-2) is likely and diagnostic tests for other causes of illness are negative. Re-testing should be considered in cases of suspected false negatives. The limit of detection for this assay is 800 copies/mL. This SARS CoV-2 test is a real-time RT-PCR test intended for the qualitative detection of nucleic acid from SARS-CoV-2 in a nasopharyngeal swab specimen collected from individuals suspected of COVID-19 by their healthcare provider. This test has not been Food and Drug Administration (FDA) cleared or approved. This is a modified version of an approved Emergency Use Authorization (EUA) and is in the process of review by the FDA. Once authorized by the FDA, the issued EUA will be effective until the declaration that circumstances exist justifying the authorization of the emergency use of in vitro diagnostic tests for detection and/or diagnosis of COVID-19 is terminated under Section 564(b)(2) of the Act or the EUA is revoked under Section 564(g) of the Act. Fact Sheet for Healthcare Providers:https://www.Shop2/sites/default/f efraín/product/documents/F act_Sheet_HC_Providers_L xvd_QMCH-ZkT-9.pdf Fact Sheet for Healthcare Patients:https://www.Voddler/sites/default/fi les/product/documents/Fa ct_Sheet_Patients_Lyra_S ARS-CoV-2.pdf Performing Laboratory:[facility] [place] [address] [facility] ([facility])2020-05-18 19:33:00 Test Item Value Reference Range Interpretation Comments SARS-COV2/RT-PCR (test Negative Not Detected, Negative, code = 6055038) See external report for linked test SARS-COV-2 PERFORMING LAB [facility] (test code = 1460662) Negative result for this test determines that SARS-CoV-2 RNA was not present in the specimen above the Limit of Detection (LOD). However, Negative results do not preclude SARS-CoV-2 infection and should not be used as the sole basis for treatment or patient management decisions. Negative results mustbe combined with clinical observations, patient history, and epidemiological information. A false negative result may occur if a specimen is improperly collected, transported or handled. A false negative result should be considered if patient's recent exposures or clinical presentation indicate that COVID-19 (SARS-CoV-2) is likely and diagnostic tests for other causes of illness are negative. Re-testing should be considered in cases of suspected false negatives.The limit of detection for this assay is 800 copies/mL.This SARS CoV-2 test is a real-time RT-PCR test intended for the qualitative detection of nucleic acid from SARS-CoV-2 in a nasopharyngeal swab specimen collected from individuals susp ected of COVID-19 by their healthcare provider.This test has not been Food and Drug Administration (FDA) cleared or approved. This is a modified version of an approved Emergency Use Authorization (EUA) and is in the process of review by the FDA. Once authorized by the FDA, the issued EUA will be effective until the declaration that circumstances exist justifying the authorization of the emergency use of in vitro diagnostic tests for detection and/or diagnosis of COVID-19 is terminated under Section 564(b)(2) of the Act or the EUA is revoked under Section 564(g) of the Act.Fact Sheet for Healthcare Providers:https://www.BabyGlowz.Lasso/sites/default/files/product/documents/Fact_Shee i_IQ_Ispxdhxei_Fvvc_YUFA-GvA-6.pdfFact Sheet for Healthcare Patients:https://www.BabyGlowz.com/sites/default/files/product/ documents/Evsz_Iexuq_Kkvmxbfz_Elfb_JAZU-BsL-7.pdfPerforming Laboratory:[facility], [place] [address]QZCKH METABOLIC PANEL 2020-05-18 19:14:00 Test Item Value Reference Range Interpretation Comments SODIUM (BEAKER) 138 meq/L 136-145 (test code = 381) POTASSIUM (BEAKER) 4.0 meq/L 3.5-5.1 Specimen slightly (test code = 379) hemolyzed CHLORIDE (BEAKER) 111 meq/L 98-107 H (test code = 382) CO2 (BEAKER) (test 18 meq/L 22-29 L code = 355) BLOOD UREA NITROGEN 27 mg/dL 7-21 H (BEAKER) (test code = 354) CREATININE (BEAKER) 1.73 mg/dL 0.57-1.25 H Specimen slightly (test code = 358) hemolyzed GLUCOSE RANDOM 197 mg/dL 70-105 H (BEAKER) (test code = 652) CALCIUM (BEAKER) 7.6 mg/dL 8.4-10.2 L (test code = 697) EGFR (BEAKER) (test 36 mL/min/1.73 ESTIMA NANCY GFR IS code = 1092) sq m NOT ACCURATE CREATININE CLEARANCE IN PREDICTING GLOMERULAR FILTRATION RATE . ESTIMATED GFR I S NOT APPLICABLE FOR DIALYSIS PATIEN TS. Relocation Commissioner ID - BSCBC (HEMOGRAM ONLY)2020-05-18 18:39:00 Test Item Value Reference Range Interpretation Comments WHITE BLOOD CELL COUNT (BEAKER) 10.7 K/ L 3.5-10.5 H (test code = 775) RED BLOOD CELL COUNT (BEAKER) 2.97 M/ L 3.93-5.22 L (test code = 761) HEMOGLOBIN (BEAKER) (test code = 8.5 GM/DL 11.2-15.7 L 410) HEMATOCRIT (BEAKER) (test code = 26.9 % 34.1-44.9 L 411) MEAN CORPUSCULAR VOLUME (BEAKER) 90.6 fL 79.4-94.8 (test code = 753) MEAN CORPUSCULAR HEMOGLOBIN 28.6 pg 25.6-32.2 (BEAKER) (test code = 751) MEAN CORPUSCULAR HEMOGLOBIN CONC 31.6 GM/DL 32.2-35.5 L (BEAKER) (test code = 752) RED CELL DISTRIBUTION WIDTH 17.0 % 11.7-14.4 H (BEAKER) (test code = 412) PLATELET COUNT (BEAKER) (test code 87 K/CU MM 150-450 L = 756) MEAN PLATELET VOLUME (BEAKER) 11.4 fL 9.4-12.3 (test code = 754) NUCLEATED RED BLOOD CELLS (BEAKER) 0 /100 WBC 0-0 (test code = 413) Hepatitis panel, [id number] 13:55:00 Test Item Value Reference Range Interpretation Comments Hep A IgM (test code = Nonreactive Nonreactive 87055-2) Hep B C IgM (test code = Nonreactive Nonreactive 90948-0) Hepatitis C Ab (test Reactive Nonreactive A code = 30754-6) HBsAg Screen (test code Nonreactive Nonreactive = 5195-3) EMA (test code = EMA) Relocation Commissioner ID Louise DAY F Lab Interpretation (test Abnormal code = 42372-6) [facility]AT[facility] PANEL, [id number] 13:55:00 Test Item Value Reference Range Interpretation Comments HEPATITIS A IGM ANTIBODY (BEAKER) Nonreactive Nonreactive (test code = 498) HEPATITIS B CORE IGM ANTIBODY Nonreactive Nonreactive (BEAKER) (test code = 645) HEPATITIS C ANTIBODY (BEAKER) Reactive Nonreactive A (test code = 367) HEPATITIS B SURFACE ANTIGEN (2) Nonreactive Nonreactive (BEAKER) (test code = 2585) Relocation Commissioner ID Louise DAY FBASIC METABOLIC [id number] 13:34:00 Test Item Value Reference Range Interpretation Comments SODIUM (BEAKER) 138 meq/L 136-145 (test code = 381) POTASSIUM (BEAKER) 3.9 meq/L 3.5-5.1 (test code = 379) CHLORIDE (BEAKER) 112 meq/L 98-107 H (test code = 382) CO2 (BEAKER) (test 19 meq/L 22-29 L code = 355) BLOOD UREA NITROGEN 30 mg/dL 7-21 H (BEAKER) (test code = 354) CREATININE (BEAKER) 1.93 mg/dL 0.57-1.25 H (test code = 358) GLUCOSE RANDOM 118 mg/dL 70-105 H (BEAKER) (test code = 652) CALCIUM (BEAKER) 7.2 mg/dL 8.4-10.2 L (test code = 697) EGFR (BEAKER) (test 32 mL/min/1.73 ESTIMA NANCY GFR IS code = 1092) sq m NOT ACCURATE CREATININE CLEARANCE IN PREDICTING GLOMERULAR FILTRATION RATE . ESTIMATED GFR I S NOT APPLICABLE FOR DIALYSIS PATIEN TS. Relocation Commissioner ID Louise DAY [id number] 13:33:00 Test Item Value Reference Range Interpretation Comments Haptoglobin (test code = 63 mg/dL 14-258 4542-7) EMA (test code = EMA) Relocation Commissioner MEKA Bliss Lab Interpretation (test Normal code = 34328-1) [facility] HospitalHAPTOGLOBIN2020-12-21 13:33:00 Test Item Value Reference Range Interpretation Comments HAPTOGLOBIN (BEAKER) (test code = 63 mg/dL 14258 366) Relocation Commissioner MEKA DAY FCalcium, [id number] 13:13:00 Test Item Value Reference Range Interpretation Comments Calcium, Ion (test code = 1994-3) 1.02 mmol/L 1.12-1.27 L pH, Blood (test code = 79186-4) 7.37 Lab Interpretation (test code = Abnormal 18774-3) [facility] HospitalCALCIUM, [id number] 13:13:00 Test Item Value Reference Range Interpretation Comments CALCIUM IONIZED (BEAKER) (test 1.02 mmol/L 1.12-1.27 L code = 698) PH, BLOOD (BEAKER) (test code = 7.37 1810) Lactate dehydrogenase (LDH)2020-05-18 11:49:00 Test Item Value Reference Range Interpretation Comments LDH (test code = 2532-0) 622 U/L 125-220 H EMA (test code = EMA) Relocation Commissioner MEKA Bliss Lab Interpretation (test Abnormal code = 24524-5) [facility] HospitalLACTATE DEHYDROGENASE (LDH)2020-05-18 11:49:00 Test Item Value Reference Range Interpretation Comments LACTATE DEHYDROGENASE (BEAKER) (test 622 U/L 125-220 H code = 635) Relocation Commissioner MEKA DAY FBASIC METABOLIC [id number] 11:01:00 Test Item Value Reference Range Interpretation Comments SODIUM (BEAKER) 136 meq/L 136-145 (test code = 381) POTASSIUM (BEAKER) 3.8 meq/L 3.5-5.1 (test code = 379) CHLORIDE (BEAKER) 113 meq/L 98-107 H (test code = 382) CO2 (BEAKER) (test 13 meq/L 22-29 L code = 355) BLOOD UREA NITROGEN 28 mg/dL 7-21 H (BEAKER) (test code = 354) CREATININE (BEAKER) 2.19 mg/dL 0.57-1.25 H (test code = 358) GLUCOSE RANDOM 123 mg/dL 70-105 H (BEAKER) (test code = 652) CALCIUM (BEAKER) 6.9 mg/dL 8.4-10.2 L (test code = 697) EGFR (BEAKER) (test 27 mL/min/1.73 ESTIMA NANCY GFR IS code = 1092) sq m NOT ACCURATE CREATININE CLEARANCE IN PREDICTING GLOMERULAR FILTRATION RATE . ESTIMATED GFR I S NOT APPLICABLE FOR DIALYSIS PATIEN TS. Relocation Commissioner ID - BARB LOPEZ, [id number] 09:28:00 Test Item Value Reference Range Interpretation Comments ABO Grouping (test code = 2588) O Rh Factor (test code = 2589) POS [facility] HospitalBlood gas, [id number] 09:05:00 Test Item Value Reference Range Interpretation Comments pH, Matheus (test code = 7.31 7.32-7.42 L 2746-6) pCO2, Matheus (test code = 32 See_Comment L [Aut omated 755) message] The sy stem which generated this result transmitted reference range : 41 - 51 mm Hg. The reference range was not used to interpret this result as normal/abnormal . pO2, Matheus (test code = 48 See_Comment H [Auto mated 2705-2) message] The sy stem which generated this result transmitted reference range : 25 - 40 mm Hg. The reference range was not used to interpret this result as normal/abnormal . O2 Sat, Matheus (test code 80.5 % 40-70 H = 2711-0) HCO3, Matheus (test code = 16 mmol/L 21-29 L 15749-7) Base Excess, Matheus (test -9.6 mmol/L -2-3 L code = 1927-3) Patient Temperature 37.0 (test code = 8310-5) Lab Interpretation Abnormal (test code = 02969-1) [facility] HospitalBLOOD GAS, [id number] 09:05:00 Test Item Value Reference Range Interpretation Comments PH VENOUS (BEAKER) (test code = 7.31 7.32-7.42 L 701) PCO2 VENOUS (BEAKER) (test code = 32 mm Hg 41-51 L 755) PO2 VENOUS (BEAKER) (test code = 48 mm Hg 25-40 H 702) O2 SATURATION VENOUS (BEAKER) 80.5 % 40.0-70.0 H (test code = 703) HCO3 VENOUS (BEAKER) (test code = 16 mmol/L 21-29 L 705) BASE EXCESS VENOUS (BEAKER) (test -9.6 mmol/L -2.0-3.0 L code = 704) PATIENT TEMPERATURE (BEAKER) 37.0 (test code = 1818) Type and screen, [id number] 07:44:00 Test Item Value Reference Range Interpretation Comments ABO/RH AUTOMATED (BEAKER) (test O POSITIVE code = 2260) Ab Scrn (test code = 890-4) NEGATIVE [facility] HospitalLipase2020-12-21 07:17:00 Test Item Value Reference Range Interpretation Comments Lipase (test code = 30 U/L 3040-3) EMA (test code = EMA) Relocation Commissioner ID Louise BARB F Lab Interpretation (test Normal code = 86747-7) [facility] HospitalLIPASE2020-12-21 07:17:00 Test Item Value Reference Range Interpretation Comments LIPASE (BEAKER) (test code = 749) 30 U/L Relocation Commissioner ID Louise BARB FCBC (HEMOGRAM ONLY)2020-05-18 07:04:00 Test Item Value Reference Range Interpretation Comments WHITE BLOOD CELL COUNT (BEAKER) 10.3 K/ L 3.5-10.5 (test code = 775) RED BLOOD CELL COUNT (BEAKER) 2.67 M/ L 3.93-5.22 L (test code = 761) HEMOGLOBIN (BEAKER) (test code = 7.8 GM/DL 11.2-15.7 L 410) HEMATOCRIT (BEAKER) (test code = 24.4 % 34.1-44.9 L 411) MEAN CORPUSCULAR VOLUME (BEAKER) 91.4 fL 79.4-94.8 (test code = 753) MEAN CORPUSCULAR HEMOGLOBIN 29.2 pg 25.6-32.2 (BEAKER) (test code = 751) MEAN CORPUSCULAR HEMOGLOBIN CONC 32.0 GM/DL 32.2-35.5 L (BEAKER) (test code = 752) RED CELL DISTRIBUTION WIDTH 16.6 % 11.7-14.4 H (BEAKER) (test code = 412) PLATELET COUNT (BEAKER) (test code 83 K/CU MM 150-450 L = 756) MEAN PLATELET VOLUME (BEAKER) 11.5 fL 9.4-12.3 (test code = 754) NUCLEATED RED BLOOD CELLS (BEAKER) 0 /100 WBC 0-0 (test code = 413) POC-Glucose [id number] 07:01:00 Test Item Value Reference Range Interpretation Comments POC-Glucose Meter (test 126 mg/dL 70-110 H : TE STED AT [facility] code = 1538) [address] [facility], [address] 30: Relocation Commissioner/Techni delvis ID = [id number] for EJ FINNEGAN Lab Interpretation (test Abnormal code = 09098-5) [facility] HospitalPOCT-GLUCOSE [id number] 07:01:00 Test Item Value Reference Range Interpretation Comments POC-GLUCOSE METER 126 mg/dL 70-110 H : TESTED A T [facility] [address] (BEAKER) (test code = RAUL Enc[address] [facility], 1538) [address]: Relocation Commissioner/Techni delvis ID = [id number] for EJ ARVIZU U/S, ABDOMINAL, [id number] 06:19:00Abdomen limited area? Add comment if clarification is needed.->Right upper quadrantReason for exam :->[facility] : 1955 Sex: FFINAL REPORT History: Pancreatitis Abdominal ultrasound dated 2019 Comparison: None Comment: Real-time transabdominal ultrasound of the right upper quadrant abdomen was performed. Liver: 17.4 cm , upper limits of normal. Normal echogenicity. No focal lesions. Gallbladder: No gallstones. No gallbladder wall thickening. No perocholecystic fluid.. No sonographic Ramos's sign. Biliary tree: No intrahepatic ductal dilatation. CBD: 2 mm. MPV: 8 mm Pancreas: Partially obscured by bowel gas. The visualized portion of the pancreas is unremarkable on ultrasound. Right kidney: 10.9 x 4.5 x 5.2 cm. Normal echogenicity. No ascites is present in the abdomen. The visualized abdominal aorta is normal in caliber. The IVC and Hepatic veins are patent. Impression: No acute ultrasound abnormality. Signed: Yonny Egan MDReport Verified Date/Time: 05/18/2020 06:19:22 US abdomen [id number] 06:19:00 Interface, External Ris In - 05/18/2020 6:21 AM CSTFINAL REPORT History: Pancreatitis Abdominal ultrasound dated 05/18/2020 Comparison: None Comment: Real-time transabdominal ultrasound of the right upper quadrant abdomen was performed. Liver: 17.4 cm , upper limits of normal. Normal echogenicity. No focal lesions. Gallbladder: No gallstones. No gallbladder wall thickening.No perocholecystic fluid.. No sonographic Ramos's sign. Biliary tree: No intrahepatic ductal dilatation. CBD: 2 mm. MPV: 8 mm Pancreas: Partially obscured by bowel gas. The visualized portion of the pa ncreas is unremarkable on ultrasound. Right kidney: 10.9 x 4.5 x 5.2 cm. Normal echogenicity. No ascites is present in the abdomen. The visualized abdominal aorta is normal in caliber. The IVC and Hepatic veins are patent. Impression: No acute ultrasound abnormality. Signed: Yonny Egan MDRnasreenort Verified Date/Time: 05/18/2020 06:19:22 [facility] [place] with platelet count + automated [id number] 05:22:00 Test Item Value Reference Range Interpretation Comments WBC (test code = 6690-2) 14.0 See_Comment H [A utomated message] The system [employer] generated this result transmitted ref erence range: 3.5 - 10 .5 K/L. The refe rence range was not u sed to interpret this result as normal/abnor mal. RBC (test code = 789-8) 3.09 See_Comment L [Au tomated message] The system [employer] generated this result transmitted ref erence range: 3.93 - 5 .22 M/L. The refe rence range was not u sed to interpret this result as normal/abnor mal. MCHC (test code = 786-4) 30.0 See_Comment L [A utomated message] The system [employer] generated this result transmitted ref erence range: 32.2 - 3 5.5 GM/DL. The refe rence range was not u sed to interpret this result as normal/abnor mal. Hematocrit (test code = 29.0 % 34.1-44.9 L 4544-3) MCV (test code = 787-2) 93.9 fL 79.4-94.8 MCH (test code = 785-6) 28.2 pg 25.6-32.2 RDW (test code = 788-0) 16.4 % 11.7-14.4 H Platelets (test code = 104 See_Comment L [Aut omated message] 777-3) The system [employer] generated this result transmitted ref erence range: 150 - 45 0 K/CU MM. The referen ce range was not u sed to interpret this result as normal/abnor mal. MPV (test code = 11.9 fL 9.4-12.3 08288-4) nRBC (test code = 413) 0 See_Comment [Aut omated message] The system [employer] generated this result transmitted ref erence range: 0 - 0 /1 00 WBC. The refere nce range was not u sed to interpret this result as normal/abnor mal. Lab Interpretation (test Abnormal code = 89582-2) [facility] [id number] 05:22:00 Test Item Value Reference Range Interpretation Comments % Neutros (test code 68 % = 2816) % Lymphs (test code = 8 % 2817) % Monos (test code = 7 % 2818) % Bands (test code = 16 % 0-10 H 2826) % Atypical Lymphs 1 % 0-0 H (test code = 2829) # Neutros (test code 9.52 K/ul 1.56-6.13 H = 2830) # Lymphs (test code = 1.12 K/ul 1.18-3.74 L 2831) # Monos (test code = 0.98 K/uL 0.24-0.36 H 2832) # Bands (test code = 2.24 K/uL 0-0.8 H 2840) # Atypical Lymphs 0.14 K/uL 0-0 H (test code = 2858) Total Counted (test 100 code = 1351) Platelet Morphology Normal (test code = 486) Smudge Cells (test Present code = 1371) Polychromasia (test 1+ few code = 478) Anisocytosis (test 2+ moderate code = 961) Macrocytes (test code 2+ moderate = 964) Poikilocytes (test 3+ many code = 966) Schistocytes (test 1+ few code = 765) Spherocytes (test 1+ few code = 768) Columbia Cells (test code 2+ moderate = 474) Platelet Conc (test Decreased code = 3438) EMA (test code = EMA) Relocation Commissioner ID - Ted Torowilfredobreanne Lise comments: Slide comments: Lab Interpretation Abnormal (test code = 44806-8) [facility] W/PLT COUNT & AUTO [id number] 05:22:00 Test Item Value Reference Range Interpretation Comments WHITE BLOOD CELL COUNT (BEAKER) 14.0 K/ L 3.5-10.5 H (test code = 775) RED BLOOD CELL COUNT (BEAKER) 3.09 M/ L 3.93-5.22 L (test code = 761) HEMOGLOBIN (BEAKER) (test code = 8.7 GM/DL 11.2-15.7 L 410) HEMATOCRIT (BEAKER) (test code = 29.0 % 34.1-44.9 L 411) MEAN CORPUSCULAR VOLUME (BEAKER) 93.9 fL 79.4-94.8 (test code = 753) MEAN CORPUSCULAR HEMOGLOBIN 28.2 pg 25.6-32.2 (BEAKER) (test code = 751) MEAN CORPUSCULAR HEMOGLOBIN CONC 30.0 GM/DL 32.2-35.5 L (BEAKER) (test code = 752) RED CELL DISTRIBUTION WIDTH 16.4 % 11.7-14.4 H (BEAKER) (test code = 412) PLATELET COUNT (BEAKER) (test 104 K/CU MM 150-450 L code = 756) MEAN PLATELET VOLUME (BEAKER) 11.9 fL 9.4-12.3 (test code = 754) NUCLEATED RED BLOOD CELLS 0 /100 WBC 0-0 (BEAKER) (test code = 413) (CELLAVISION MANUAL DIFF)2020-05-18 05:22:00 Test Item Value Reference Range Interpretation Comments NEUTROPHILS - REL 68 % (CELLAVISION)(BEAKER) (test code = 2816) LYMPHOCYTES - REL 8 % (CELLAVISION)(BEAKER) (test code = 2817) MONOCYTES - REL 7 % (CELLAVISION)(BEAKER) (test code = 2818) BANDS - REL (CELLAVISION)(BEAKER) 16 % 0-10 H (test code = 2826) ATYPICAL LYMPHOCYTES - REL 1 % 0-0 H (CELLAVISION)(BEAKER) (test code = 2829) NEUTROPHILS - ABS 9.52 K/ul 1.56-6.13 H (CELLAVISION)(BEAKER) (test code = 2830) LYMPHOCYTES - ABS 1.12 K/ul 1.18-3.74 L (CELLAVISION)(BEAKER) (test code = 2831) MONOCYTES - ABS 0.98 K/uL 0.24-0.36 H (CELLAVISION)(BEAKER) (test code = 2832) BANDS - ABS (CELLAVISION)(BEAKER) 2.24 K/uL 0.00-0.80 H (test code = 2840) ATYPICAL LYMPHOCYTES - ABS 0.14 K/uL 0.00-0.00 H (CELLAVISION)(BEAKER) (test code = 2858) TOTAL COUNTED (BEAKER) (test code 100 = 1351) PLT MORPHOLOGY (BEAKER) (test Normal code = 486) SMUDGE CELLS (BEAKER) (test code Present = 1371) POLYCHROMATOPHILLIC RBCS(BEAKER) 1+ few (test code = 478) ANISOCYTOSIS (BEAKER) (test code 2+ moderate = 961) MACROCYTES (BEAKER) (test code = 2+ moderate 964) POIKILOCYTES (BEAKER) (test code 3+ many = 966) SCHISTOCYTES (BEAKER) (test code 1+ few = 765) SPHEROCYTES (BEAKER) (test code = 1+ few 768) FARHEEN CELLS (BEAKER) (test code = 2+ moderate 474) PLATELET CONCENTRATION Decreased (CELLAVISION)(BEAKER) (test code = 3438) Relocation Commissioner ID - Ted Lezama comments: Slide comments:POCT- GLUCOSE [id number] 03:39:00 Test Item Value Reference Range Interpretation Comments POC-GLUCOSE METER 104 mg/dL 70-110 : TESTED A T BSC 6720 (BEAKER) (test code = [place], 1538) [address]: Relocation Commissioner/Techni delvis ID = [id number] for CRIS GERARD Comprehensive metabolic [id number] 02:08:00 Test Item Value Reference Range Interpretation Comments Protein, Total (test 7.2 See_Comment [Autom ated code = 2885-2) message] The system which generated this result transmit nancy reference range : 6.0 - 8.3 gm/dL . The reference range was not u sed to interpret th is result as normal/abnormal . Albumin (test code = 2.7 g/dL 3.5-5 L 32252-2) Alkaline Phosphatase 104 U/L 40-150 (test code = 6768-6) Total Bilirubin (test 0.6 mg/dL 0.2-1.2 code = 1975-2) Sodium (test code = 134 meq/L 136-145 L 2951-2) Potassium (test code 3.9 meq/L 3.5-5.1 = 2823-3) Chloride (test code = 110 meq/L 98-107 H 2075-0) CO2 (test code = 12 meq/L 22-29 L 2028-9) BUN (test code = 27 mg/dL 7-21 H 3094-0) Creatinine (test code 2.40 mg/dL 0.57-1.25 H = 2160-0) Glucose (test code = 193 mg/dL 70-105 H 2345-7) Calcium (test code = 7.1 mg/dL 8.4-10.2 L 79735-2) AST (test code = 136 U/L 5-34 H 1920-8) ALT (test code = 75 U/L 6-55 H 1742-6) EGFR (test code = 25 mL/min/1.73 [place] [address]-5) NOT ACCURATE CREATININE CLEARANCE IN PREDICTING GLOMERULAR FILTRATION RATE . ESTIMATED GFR I S NOT APPLICABLE FOR DIALYSIS PATIEN TS. BOO (test code = EMA) Relocation Commissioner ID - DB Lab Interpretation Abnormal (test code = 66905-7) [facility] [id number] 02:08:00 Test Item Value Reference Range Interpretation Comments TOTAL PROTEIN 7.2 gm/dL 6.0-8.3 (BEAKER) (test code = 770) ALBUMIN (BEAKER) 2.7 g/dL 3.5-5.0 L (test code = 1145) ALKALINE PHOSPHATASE 104 U/L 40-150 (BEAKER) (test code = 346) BILIRUBIN TOTAL 0.6 mg/dL 0.2-1.2 (BEAKER) (test code = 377) SODIUM (BEAKER) (test 134 meq/L 136-145 L code = 381) POTASSIUM (BEAKER) 3.9 meq/L 3.5-5.1 (test code = 379) CHLORIDE (BEAKER) 110 meq/L 98-107 H (test code = 382) CO2 (BEAKER) (test 12 meq/L 22-29 L code = 355) BLOOD UREA NITROGEN 27 mg/dL 7-21 H (BEAKER) (test code = 354) CREATININE (BEAKER) 2.40 mg/dL 0.57-1.25 H (test code = 358) GLUCOSE RANDOM 193 mg/dL 70-105 H (BEAKER) (test code = 652) CALCIUM (BEAKER) 7.1 mg/dL 8.4-10.2 L (test code = 697) AST (SGOT) (BEAKER) 136 U/L 5-34 H (test code = 353) ALT (SGPT) (BEAKER) 75 U/L 6-55 H (test code = 347) EGFR (BEAKER) (test 25 mL/min/1.73 ESTIMA NANCY GFR IS code = 1092) sq m NOT ACCURATE CREATININE CLEARANCE IN PREDICTING GLOMERULAR FILTRATION RATE . ESTIMATED GFR I S NOT APPLICABLE FOR DIALYSIS PATIEN TS. Relocation Commissioner ID - DBProthrombin time/[id number] 02:02:00 Test Item Value Reference Interpretation Comments Range Protime (test code = 15.8 See_Comment H [Autom ated 5902-2) message] The system which generated this result transmitted reference range : 11.9 - 14.2 seconds. The reference range was not used to interpret this result as normal/abnormal . INR (test code = 1.30 See_Comment [Automated 6301-6) message] The system which generated this result transmitted reference range : <=5.90. The reference range was not used to interpret this result as normal/abnormal . EMA (test code = Effective 10/24/2018: EMA) PT Reference Range ChangeNew: 11.9-14.2 Previous: 11.7-14.7 RECOMMENDED COUMADIN/WARFARIN INR THERAPY RANGESSTANDARD DOSE: 2.0-3.0 Includes: PROPHYLAXIS for venous thrombosis, systemic embolization; TREATMENT for venous thrombosis and/or pulmonary embolus.HIGH RISK: Target INR is 2.5-3.5 for patients wiht mechanical heart valves. Lab Interpretation Abnormal (test code = 64297-3) [facility]PROT[facility] TIME/[id number] 02:02:00 Test Item Value Reference Range Interpretation Comments PROTIME (PRANAV) (test code = 15.8 seconds 11.9-14.2 H 759) INR (BEAKER) (test code = 370) 1.30 <=5.90 Effective 10/24/2018: PT Reference Range ChangeNew: 11.9-14.2 Previous: 11.7- 14.7RECOMMENDED COUMADIN/WARFARIN INR THERAPY RANGESSTANDARD DOSE: 2.0-3.0 Includes: PROPHYLAXIS for venous thrombosis, systemic embolization; TREATMENT for venous thrombosis and/or pulmonary embolus.HIGH RISK: Target INR is2.5-3.5 for patients wiht mechanical heart valves.Lactic acid, [id number] 01:57:00 Test Item Value Reference Range Interpretation Comments Lactate, Venous (test code = 1.06 mmol/L 0.5-2.2 2872) EMA (test code = EMA) Relocation Commissioner ID - DB Lab Interpretation (test Normal code = 03830-7) [facility] HospitalLACT[facility] ACID, [id number] 01:57:00 Test Item Value Reference Range Interpretation Comments LACTATE BLOOD VENOUS (2) (BEAKER) 1.06 mmol/L 0.50-2.20 (test code = 2872) Relocation Commissioner ID - DB
--- NOTE | 2020-09-28 11:29 | RAD REPORT ---
EXAM DESCRIPTION: RAD - Hand Left 3 View - 09/28/2020 11:21 am CLINICAL HISTORY: PAIN COMPARISON: No comparisons FINDINGS: Soft tissue laceration is seen adjacent to fifth metacarpal head/ neck region. No underlyi ng fracture or foreign body.
[2020-09-28] MEDS ORDERED: LIDOCAINE 1% MPF 5 ML VIAL ONE (11:37)
--- NOTE | 2020-09-28 12:07 | ER ---
Nurse's Notes [facility] Name: Josr Parra Age: 65 yrs Sex: Female : 1955 Arrival Date: 09/28/2020 Time: 10:26 Bed 24 Private MD: Diagnosis: Laceration without foreign body of left hand Presentation: 09/28 10:53 Chief complaint: Patient states: I was trying to open a can with a knife and em accidentally cut my hand. Coronavirus screen: Client denies travel out of the [place] in the last 14 days. Ebola Screen: Patient negative for fever greater than or equal to 101.5 degrees Fahrenheit, and additional compatible Ebola Virus Disease symptoms Patient denies exposure to infectious person. Patient denies travel to an Ebola-affected area in the 21 days before illness onset. No symptoms or risks identified at this time. Complicating Factors: There are no complicating factors for this patient. Initial Sepsis Screen: Does the patient meet any 2 criteria? No. Patient's initial sepsis screen is negative. Does the patient have a suspected source of infection? No. Patient's initial sepsis screen is negative. Risk Assessment: Do you want to hurt yourself or someone else? Patient reports no desire to harm self or others. Onset of symptoms was September 28, 2020. 10:53 Acuity: JAM 4 em 10:53 Method Of Arrival: Ambulatory em Triage Assessment: 10:55 General: Appears in no apparent distress. distressed, Behavior is calm, cooperative. em Pain: Complains of pain in lateral aspect of left hand. Injury Description: Laceration sustained to lateral aspect of left hand is clean, 0.5 to 2.5 cm long, was sustained less than 30 minutes ago. is bleeding no active bleeding noted. Historical: - Allergies: 10:53 Codeine; nausea; em - PMHx: 10:53 Asthma; Diabetes - NIDDM; Hepatitis; c; elevatedliver enzymes; lumbar spine issues/pain;em - PSHx: 10:53 None; em - Immunization history:: Adult Immunizations up to date. - Social history:: Smoking status: Patient reports the use of cigarette tobacco products, smokes one-half pack cigarettes per day. Screenin:21 Abuse screen: Denies threats or abuse. Nutritional screening: No deficits noted. em Tuberculosis screening: No symptoms or risk factors identified. Fall Risk None identified. Assessment: 11:00 General: Appears in no apparent distress. comfortable, Behavior is calm, cooperative, em appropriate for age. Pain: Complains of pain in lateral aspect of left hand Pain currently is 8 out of 10 on a pain scale. Neuro: Level of Consciousness is awake, alert. Cardiovascular: Capillary refill < 3 seconds Patient's skin is warm and dry. Respiratory: Airway is patent Respiratory effort is even, unlabored, Respiratory pattern is regular, symmetrical. Musculoskeletal: Capillary refill < 3 seconds, Range of motion: intact in all extremities. Injury Description: Laceration sustained to lateral aspect of left hand. Vital Signs: 10:49 BP 112 / 69; Pulse 68; Resp 18; Temp 97.8; Pulse Ox 100% ; Weight 78.93 kg; Height 5 em ft. 5 in. (165.10 cm); Pain 8/10; 10:49 Body Mass Index 28.95 (78.93 kg, 165.10 cm) em ED Course: 10:26 Patient arrived in ED. mr 10:54 Triage completed. em 10:56 Arm band placed on right wrist. em 11:02 Denia Brito FNP-C is PHCP. kb 11:02 Alexandra Billy MD is Attending Physician. kb 11:17 X-ray completed. Patient tolerated procedure well. Patient moved to radiology AMBULATORY. 11:21 Everett Ocampo, RN is Primary Nurse. em 11:21 Hand Left 3 View XRAY In Process Unspecified. EDMS 11:21 Patient has correct armband on for positive identification. Adult w/ patient. em 11:33 Patient moved back from radiology. 11:47 Door closed. Warm blanket given. Administered Medications: 11:30 Drug: Lidocaine (1 %) 1 vials {Note: administered by NP. Denia} Volume: 5 ml; Route: em Infiltration; Site: wound; 12:13 Follow up: Response: No adverse reaction em Outcome: 12:06 Discharge ordered by MD. kb 12:37 Patient left the ED. zb Signatures: Dispatcher [employer] EDMS Denia Brito FNP-C FNP-Brian Lucía Martinez mr Everett Ocampo RN RN Zoila Garsia RN RN WaqasBree kebede, Elaine, RN RN zb
--- NOTE | 2020-09-28 12:07 | EDPHYS ---
Physician Documentation [facility] Name: Josr Parra Age: 65 yrs Sex: Female : 1955 Arrival Date: 09/28/2020 Time: 10:26 Bed 24 Private MD: ED Physician Alexandra Billy HPI: 09/28 11:48 This 65 yrs old Black Female presents to ER via Ambulatory with complaints of kb Laceration To Hand. 11:48 The patient has a laceration related to: opening can occurred at home, and there are no kb complicating factors. The injury was accidental. The laceration(s) is(are) located on the lateral aspect of left hand. Onset: The symptoms/episode began/occurred just prior to arrival. Associated signs and symptoms: The patient has no apparent associated signs or symptoms. The patient has not experienced similar symptoms in the past. The patient has not recently seen a physician. Pt reports she was trying to open a can with a knife and cut her hand with it. Full ROM of hand. . Historical: - Allergies: 10:53 Codeine; nausea; em - PMHx: 10:53 Asthma; Diabetes - NIDDM; Hepatitis; c; elevatedliver enzymes; lumbar spine issues/pain;em - PSHx: 10:53 None; em - Immunization history:: Adult Immunizations up to date. - Social history:: Smoking status: Patient reports the use of cigarette tobacco products, smokes one-half pack cigarettes per day. ROS: 11:47 Constitutional: Negative for fever, chills, and weight loss, MS/Extremity: Negative for kb injury and deformity, Neuro: Negative for headache, weakness, numbness, tingling, and seizure. 11:47 Skin: Positive for laceration(s), of the lateral aspect of left hand. Exam: 11:47 Constitutional: This is a well developed, well nourished patient who is awake, alert, kb and in no acute distress. Head/Face: Normocephalic, atraumatic. Respiratory: Respirations even and unlabored. No increased work of breathing, no retractions or nasal flaring. MS/ Extremity: Pulses equal, no cyanosis. Neurovascular intact. Full, normal range of motion. Neuro: Awake and alert, GCS 15, oriented to person, place, time, and situation. Moves all extremities. Normal gait. 11:47 Skin: injury, laceration(s), the wound is approximately 3 cm(s), that can be described as clean, no foreign body, linear, without bleeding. Vital Signs: 10:49 BP 112 / 69; Pulse 68; Resp 18; Temp 97.8; Pulse Ox 100% ; Weight 78.93 kg; Height 5 em ft. 5 in. (165.10 cm); Pain 8/10; 10:49 Body Mass Index 28.95 (78.93 kg, 165.10 cm) em Laceration: 12:05 Wound Repair of 3cm ( 1.2in ) subcutaneous laceration to lateral aspect of left hand. kb Linear shaped.. Distal neuro/vascular/tendon intact. Anesthesia: Wound infiltrated with 2.5 mls of 1% lidocaine. Wound prep: Extensive cleansing with hibiclenz by me, Wound irrigation with saline by me. Skin closed with 4 5-0 Prolene using simple sutures and sterile technique. Patient tolerated well. MDM: 11:03 Patient medically screened. kb 11:47 Data reviewed: vital signs, nurses notes. Data interpreted: Pulse oximetry: on room air kb is 100 %. Interpretation: normal. 12:05 Counseling: I had a detailed discussion with the patient and/or guardian regarding: the kb historical points, exam findings, and any diagnostic results supporting the discharge/admit diagnosis, radiology results, the need for outpatient follow up, a family practitioner, to return to the emergency department if symptoms worsen or persist or if there are any questions or concerns that arise at home. 09/28 10:56 Order name: Hand Left 3 View XRAY; Complete Time: 11:35 em 09/28 11:13 Order name: Prolene, Sutures; Complete Time: 11:41 kb 09/28 11:13 Order name: Dressing - Wound; Complete Time: 11:41 kb 09/28 11:13 Order name: Gloves, Sterile; Complete Time: 11:41 kb 09/28 11:13 Order name: Setup Suture Tray; Complete Time: 11:42 kb Administered Medications: 11:30 Drug: Lidocaine (1 %) 1 vials {Note: administered by NP. Denia} Volume: 5 ml; Route: em Infiltration; Site: wound; 12:13 Follow up: Response: No adverse reaction em Disposition: 09/28/20 12:06 Discharged to Home. Impression: Laceration without foreign body of left hand. - Condition is Stable. - Discharge Instructions: Laceration Care, Adult, [id number]. - Prescriptions for Keflex 500 mg Oral Capsule - take 1 capsule by ORAL route every 8 hours for 7 days; 21 capsule. - Medication Reconciliation Form, Thank You Letter, Antibiotic Education, Prescription Opioid Use form. - Follow up: Emergency Department; When: As needed; Reason: Worsening of condition. Follow up: Private Physician; When: 2 - 3 days; Reason: Recheck today's complaints, Continuance of care, Re-evaluation by your physician. Addendum: 10/01/2020 06:13 Co-signature as Attending Physician, Alexandra Billy MD. m a2 Signatures: Dispatcher [employer] Denia Perez, DEMETRIO-C STONECUTTER APPRENTICE HAND-Everett Chatterjee, RN RN Alexandra Bourgeois MD MD ma2 Elaine Sánchez RN RN zb Corrections: (The following items were deleted from the chart) 09/28 12:37 12:06 09/28/2020 12:06 Discharged to Home. Impression: Laceration without foreign body zb of left hand. Condition is Stable. Forms are Medication Reconciliation Form, Thank You Letter, Antibiotic Education, Prescription Opioid Use. Follow up: Emergency Department; When: As needed; Reason: Worsening of condition. Follow up: Private Physician; When: 2 - 3 days; Reason: Recheck today's complaints, Continuance of care, Re-evaluation by your physician. kb
[2020-09-28 12:43] VITALS: BP 112/69; TEMP 97.8; O2SAT 100
== END 2020-09-28 12:37 | disposition home or self-care (01) ==
LOC: ER 10:22
PROC: 0JQK0ZZ Repair Left Hand Subcutaneous Tissue and Fascia, Open Approach (ICD-10-PCS; principal; 2020-09-28)
DX: S61.412A Laceration without foreign body of left hand, initial encounter (principal); W26.8XXA Contact with other sharp object(s), not elsewhere classified, initial encounter; Y93.89 Activity, other specified; Y92.009 Unspecified place in unspecified non-institutional (private) residence as the place of occurrence of the external cause; Z88.5 Allergy status to narcotic agent; F17.210 Nicotine dependence, cigarettes, uncomplicated
CPT/HCPCS: 99283

== ENCOUNTER 2021-01-23 11:09 | Emergency (ER) | payer OTHER ==
--- OUTSIDE RECORDS SUMMARY | 2021-01-23 11:13 | XMS REPORT | Continuity of Care Document ---
:1955 Author Organization [facility] t Address [address] [place] [address] Care Team Providers Name Role Phone BHAVESH HUTCHINSON Attending Clinician Unavailable Bhavesh Hutchinson MD, Abdoulaye Attending Clinician [phone] Juliano Fu MD Attending Clinician Ginny YUN, [place] Attending Clinician Alverto Jacobson CRNA Attending Clinician Josué YUN, [place] Attending Clinician Edwar Collins Attending Clinician BHAVESH HUTCHINSON Admitting Clinician Unavailable Payers Payer Name Policy Type Policy Effective Date Expiration Date Sour ce Number [facility] [id number] 2020 MICHAEL Ingram - MEDICARE MGD 00:00:00 - Medical CAREAA/MEDICARE Center [id number] 2020-Present Problems Condition Condition Condition Status Onset Resolution Last Treating Co mments Source Name Details Category Date Date Treatment Clinician Date GI bleed GI bleed Disease Active 2019-05 MICHAEL orr 2- [facility] - [facility]: [facility] Amnesia Problem Active 2020-04-10 Cameron tiara (finding) 02:00:59 l Amnesia Sebas (finding) Active Problem 04/10/2020 [facility] Chronic Problem Active 2020-04-10 Cameron tiara hepatitis 02:00:59 l C Chronic Sebas (disorder) hepatitis C (disorder) Active Problem 04/10/2020 [facility] Diabetes Problem Active 2020-04-10 Mem oria mellitus 02:00:59 l (disorder) Diabetes He rmann mellitus (disorder) Active Problem 04/10/2020 [facility] Hypertensi Problem Active 2020-04-10 M emoria ve 02:00:59 l disorder, Sebas systemic Hypertensi arterial ve (disorder) disorder, systemic arterial (disorder) Active Problem 04/10/2020 [facility] Hyperlipid Problem Active 2020-04-10 M emoria emia 02:00:59 l (disorder) Viet n Hyperlipid emia (disorder) Active Problem 04/10/2020 [facility] Allergies, Adverse Reactions, Alerts This patient has no known allergies or adverse reactions. Social History Social Habit Start Date Stop Date Quantity Comments Source Sex Assigned At [facility] Social History 2019-11-14 2019-11-14 [facility] 15:58:50 15:58:50 Medications Ordered Filled Start Stop [...] QD Take [address] [facility] 07-21- tablet [facility] - (LEVAQUIN) 00:00: 00:00 (750 mg Med ical 750 MG 00 :00 total) by Center tablet mouth daily for 4 days. levoFLOXaci 2019-05 No 750mg QD Take [address] [facility] 07-21- tablet [facility] - (LEVAQUIN) 00:00: 00:00 (750 [...] 24 hr 49 daily. Center capsule glipiZIDE 2019-05- No 5mg Take 5 mg [facility] I [...] tab, PO, l Coated 15:59: Daily, 0 [place] Tablet [St. 00 Refill(s) Clay Aspirin] Diltiazem 2019-0 Yes 0 Mem[facility] Hydrochlori 6-18 Refill(s) l de ER 120 15:53: [place] mg/24 hours 00 oral capsule, extended release lisinopril 2019-0 Yes 0 Memoria 40 mg oral 6-18 Refill(s) l tablet 15:53: Sebas 00 Metformin 2019-0 Yes 0 [facility] hydrochlori 6-18 Refill(s) l de 1000 MG 15:53: [place] Oral Tablet 00 non-formula 2019-0 No Refill(s) M emoria ry 6-18 0 l 15:53: [place] 00 Lyrica 2019-0 Yes 150 mg, Memoria 6-18 PO, BID, 0 l 15:45: Refill(s) Sebas 00 Vital Signs Vital Name Observation Time Observation Value Comments Source Systolic blood 2020-05-19 11:00:00 150 mm[Hg] [facility] Diastolic blood 2020-05-19 11:00:00 99 mm[Hg] [facility] Heart rate 2020-05-19 11:00:00 103 /min [facility] Respiratory rate 2020-05-19 11:00:00 23 /min [facility] Oxygen saturation in 2020-05-19 11:00:00 100 /min [facility] Arterial blood by Medical Ce nter Pulse oximetry Body temperature 2020-05-19 07:54:00 36.56 Bibi [facility] Body weight 2020-05-19 04:00:00 77.2 kg [facility] BMI 2020-05-19 04:00:00 28.32 kg/m2 [facility] Body height 2020-05-18 01:00:00 165.1 cm [facility] Systolic (mm Hg) 2019-11-14 15:39:00 Cameron rial Sebas Diastolic (mm Hg) 2019-11-14 15:39:00 [facility] [place] Heart Rate 2019-11-14 15:39:00 [facility] Respitory Rate 2019-11-14 15:39:00 Memori al [place] Height 2019-11-14 15:39:00 165.1 cm [facility] Weight 2019-11-14 15:39:00 [facility] BMI Calculated 2019-11-14 15:39:00 Memori al [place] Procedures Procedure Date / Time Performing Clinician Source Performed ECG 12-LEAD 2020-05-19 11:16:48 Araceli Sanchez [facility] REPORT OF PROCEDURE - 2020-05-19 09:32:18 Nicanor Moses [facility] REPORT OF PROCEDURE - 2020-05-19 09:29:49 Moses, [facility] ENDOSCOPY [facility] TISSUE EXAM 2020-05-19 08:29:00 Moses, [place] [facility] UPPER ENDOSCOPY,BIOPSY 2020-05-19 07:47:00 Moses, [place] [facility] COLONOSCOPY,BIOPSY 2020-05-19 07:47:00 Moses [facility] CBC (HEMOGRAM ONLY) 2020-05-19 05:02:[address] [facility] BASIC METABOLIC PANEL (7) 2020-05-19 05:02:00 Earle De [facility] OVA AND PARASITE 2020-05-18 23:00:00 [facility] CBC (HEMOGRAM ONLY) 2020-05-18 22:56:00 Tez [facility] BASIC METABOLIC PANEL (7) 2020-05-18 22:56:00 Earle De [facility] CBC (HEMOGRAM ONLY) 2020-05-18 18:24:[address] [facility] BASIC METABOLIC PANEL (7) 2020-05-18 18:24:00 Earle De [facility] SARS-COV2/RT-PCR ([facility] & 2020-05-18 15:37:00 Jaimee Reagan [facility] - REF LABS) [facility] HEPATITIS PANEL, ACUTE 2020-05-18 13:04:00 Araceli Sanchez [facility] CALCIUM, IONIZED 2020-05-18 13:04:[address] [facility] HAPTOGLOBIN 2020-05-18 13:04:00 Laura jamil [facility] BASIC METABOLIC PANEL (7) 2020-05-18 13:04:00 Earle De [facility] C. DIFFICILE GDH TOXIN 2020-05-18 13:00:00 Araceli Sanchez [facility] STOOL CULTURE + SHIGA 2020-05-18 13:00:00 Araceli Sanchez [facility] TOXIN [facility] SHIGA TOXIN SCREEN 2020-05-18 13:00:00 Araceli Sanchez [facility] STOOL PATH CHARGE 2020-05-18 13:00:00 Araceli Sanchez [facility] BLOOD GAS, VENOUS 2020-05-18 08:55:00 Earle De [facility] ABORH, MANUAL 2020-05-18 08:55:00 Joleen Horn [facility] CBC (HEMOGRAM ONLY) 2020-05-18 06:49:00 [place]iopolis[place]imee [facility] LIPASE 2020-05-18 06:49:00 Jaimee Reagan [facility] BASIC METABOLIC PANEL (7) 2020-05-18 06:49:00 Araceli Sanchez ed [facility] LACTATE DEHYDROGENASE 2020-05-18 06:49:00 Araceli Sanchez [facility] (LDH) [facility] TYPE AND SCREEN, 2020-05-18 06:49:00 Jaimee Reagan [facility] AUTOMATED [facility] [place] POCT-GLUCOSE METER 2020-05-18 06:48:00 Bhavesh Hutchinson [facility] US ABDOMEN LIMITED 2020-05-18 05:13:00 Jaimee Reagan [facility] POCT-GLUCOSE METER 2020-05-18 01:13:00 Bhavesh Hutchinson [facility] CBC W/PLT COUNT & AUTO 2020-05-18 00:45:[address] [facility] DIFFERENTIAL [facility] COMPREHENSIVE METABOLIC 2020-05-18 00:45:00 Bhavesh Hutchinson [facility] PANEL [facility] PROTHROMBIN TIME/INR 2020-05-18 00:45:00 Bhavesh Hutchinson [facility] S [facility] LACTIC ACID, VENOUS 2020-05-18 00:45:00 Bhavesh Hutchinson [facility] (CELLAVISION MANUAL DIFF) 2020-05-18 00:45:00 Bhavesh Hutchinson [facility] Plan of Care Planned Activity Planned Date Details Comments Source Future Scheduled 2030-05-[address] [facility] 00:00:00 [facility] colon (procedure) [code = 004169032] Future Scheduled 2021-01-[address] [facility] 00:00:00 (Season Ended) [code Medical Center = INFLUENZA VACCINE (Season Ended)] Future Scheduled 2020-05-[address] [facility] Test 00:00:00 (12+) [code = [facility] DEPRESSION SCREENING (12+)] Future Scheduled 2020-02-[address] [facility] 00:00:00 (WELCOME TO MEDICARE) Medica l Center [code = Medicare IPPE (WELCOME TO MEDICARE)] Future Scheduled 2007 SHINGLES VACCINES ([address] [facility] - Test 00:00:00 of 2) [code = [facility] SHINGLES VACCINES (1 of 2)] Future Scheduled [address] 00:00:00 (procedure) [code = [facility] 01861472] Future Scheduled [address] [facility] Test 00:00:00 malignant ne[facility] of [facility] cervix (procedure) [code = 395596246] Future Scheduled 1976-01-15 DTAP/TDAP/TD VACCINES [facility] 00:00:00 (1 - Tdap) [code = Medical C enter DTAP/TDAP/TD VACCINES (1 - Tdap)] Future Scheduled 1969 COVID-19 VACCINE (1) [facility] Test 00:00:00 [code = COVID-[address] VACCINE (1)] Future Scheduled [address] [facility] Test 00:00:00 malignant ne[facility] of [facility] breast (procedure) [code = 785428197] Encounters Start End Encounter Admission Attending Care Care Encounter Source Date/Time Date/Time Type Type Clinicians Facility Department ID 2020-06-12 2020-06-12 Outpatient MHIE MHIE [id number] Memoria 14:45:00 14:45:00 04 l [place] 2020-05-17 2020-05-19 [facility] [id number] [facility] 23:44:00 15:05:[address] [facility] 2020-05-19 2020-05-19 Anesthesia Jeremías Gross [facility] [id number] [facility] 08:11:00 09:26:[address] [facility] 2020-05-19 2020-05-19 Surgery Moses, [facility] [id number] [facility] 08:00:00 09:00:00 Suneal [facility] 2020-05-18 2020-05-18 Travel [facility] [id number] [facility]00 [facility] 2020-05-17 2020-05-17 Telephone [facility] [id number] 00:00:00 00:00:00 [place] [facility] 2020-04-06 2020-04-08 Outside nullFlavo MNA [id number] Memoria 15:05:10 05:59:59 Medical r Neurology 00 l Records Devonte [place] 2020-04-06 2020-04-07 Outpatient MHMISCHER MHMISCHER [id number] 09:05:10 23:59:59 00 2020-01-22 2020-01-22 Ambulatory nullFlavo MNA [id number] Memoria 16:30:00 16:30:00 Pre-Reg r Neurology 03 l [place] 2020-01-22 2020-01-22 Outpatient MHIE PABLITO [id number] Memoria 11:30:00 11:30:00 03 l [place] 2020-01-22 2020-01-22 Outpatient PANDA CollinsSCHER MHMISCHER [id number] 11:30:00 11:30:00 Johnson Afia Vann 2020-01-08 2020-01-08 Ambulatory nullFlavo MNA [id number] Memoria 15:30:00 15:30:00 Pre-Reg r Neurology 01 l Devonte Mullen 2020-01-08 2020-01-08 Ambulatory nullFlavo MNA [id number] Memoria 15:30:00 15:30:00 Pre-Reg r Neurology 02 l Devonte Mullen 2020-01-08 2020-01-08 Outpatient MHIE MHIE [id number] Memoria 10:30:00 10:30:00 02 l Sebas 2020-01-08 2020-01-08 Outpatient MHIE MHIE [id number] Memoria 10:30:00 10:30:00 01 l Se[place] 2020-01-08 2020-01-08 Outpatient Dennis MHMISCHER MHMISCHER [id number] 10:30:00 10:30:00 Johnson 01 Edwar 2020-01-08 2020-01-08 Outpatient Dennis MHMISCHER MHMISCHER [id number] 10:30:00 10:30:00 Johnson 02 Edwar 2019-11-14 2019-11-15 Outpatient nullFlavo MNA [id number] Memoria 15:30:00 04:59:59 r Neurology 00 l Devonte Mullen 2019-11-14 2019-11-14 Outpatient Dennis MHMISCHER MHMISCHER [id number] 10:30:00 23:59:59 Johnson 00 Edwar 2019-11-14 2019-11-14 Outpatient MHIE MHIE [id number] Memoria 10:30:00 10:30:00 00 nilda Mullen Results Test Description Test Time Test Comments Results Result Sour e Comments ECG 12 lead 2020-04-29 Interface, External Ris [facility] In - 05/23/2020 4:14 [facility] - 16:14:10 CSTVentricular Rate 103 M edical BPMAtrial Rate 103 Center BPMP-R Interval 170 msQRS Duration 86 msQ-T Interval 338 msQTC Calculation(Bazett) 442 msP [place] 55 degreesR [place] -35 degreesT [place] 52 degreesSinus tachycardiaPossible Left atrial enlargementLeft axis deviationAnterior infarct , age undeterminedAbnormal ECGNo previous ECGs availableConfirmed by MD HUMERA, NABEEL ([id number]) on 05/23/2020 4:14:03 PM Ova and Parasite Examination 2020-05-21 10:45:00 Test Item Value Reference Range Interpretation Comme nts O&P Direct Smear (test code = No ova or parasites seen No ova or parasites seen 32990-7) Lab Interpretation (test code = Normal 20959-1) [facility] [id number] 10:45:00 Test Item Value Reference Range Interpretation Comments DIRECT SMEAR - No ova or parasites No ova or parasites O\\T\\P (BEAKER) seen seen (test code = 196) Stool culture + Shiga [id number] 09:00:00 Test Item Value Reference Range Interpretation Comments Result (test code = No Salmonella, Shigella or 6463-4) [facility]yl[facility] SHIGA [id number] 09:00:00 Test Item Value Reference Range Interpretation Comments CULTURE (BEAKER) No Salmonella, Shigella (test code = 1095) or Campylobacter isolated Tissue [id number] 08:14:00 Test Item Value Reference Range Interpretation Comments Case Report (test code Surgical Pathology = 104) Report Case: [id number] Authorizing Provider: Nicanor Moses MD Collected: 05/19/2020 08:29 AM Ordering Location: [place] [address] ICU Received: 05/19/2020 01:42 PM Pathologist: Rj Copeland MD Specimens: A) - Duodenum, Bx B) - Stomach, Random Bx C) - Colon Biopsy, Random, Bx DIAGNOSIS (test code = [id number] 3220) FuZzEwMzNcZnRuYmpcdWMx IHtccnRmMVxlcGljOTIwMF snbyNvAVDreIRbR6Yzmqqj FVyiQY0vLG7rcRhcoQOprA KgBAMnRoKqd4qng789rMMv r2ojMUTBtnhyxKd1iPbzH6 3gg2G6NybhE88olHHiRFzw bGFpblxmczIwIFBBUlQgQS VKBB2AAE9OKTYQOZ9JD5c7 XHBhciBTTUFMTCBJTlRFU1 ADAfJFLH3FS21KRIZGSQTU IFBSRVNFUlZFRCBWSUxMT1 IDQDGHZ9lSYQLUVSQHTV5k pWSaHB4GBPiSP8LPWGRZOL BFUElUSEVMSUFMIExZTVBI F0QJVOHRVCRSIqOCNWiIKR TTXWRKHWKCTFRRGFOyNW2M IElOVkFTSVZFIENBUkNJTk 9NQSBTRUVOLlxwYXJccGFy ZQXVKsTnPqXHTZ2FG54eV2 HAUEYMDgTEGS1PK8h1UADx jnWVS7QKCwEuZ9eXQ00LPp UBVWXWUpvBKUGeH2sAFTVA QlUZV1GCHxFGCS8LFAIFQX FTSUEuXHBhciBORUdBVElW TOOWJ8JdBNsBZNeGT5sZBD 9SIElOVkFTSVZFIENBUkNJ Vf5MLK3boTHxUTjEMuMILW 9eW1EOMtUMSVZFIHsTDZGY IvISMXnDT23YDBNDOURvPL MgTkVHQVRJVkUuXHBhclxw YXIgUEFSVCBDIFJBTkRPTS ZTX7zAAiFJOJ9DA6j8RBZw ciBNSUxETFkgRURFTUFUT1 OHESDYQB1HGHBoMTCDX6BX GQaSLFlkUFlTSR4NPWBKY3 BVINUBJ77HXSJSTEEDDoAT L1kVRDhJTahpQODaNy0xN4 lHTklGSUNBTlQgQVJDSElU HDNUAZQYXCWFDDFRP6EDJP 7GHhctABRjZr9vLN4DKmJN J2ULKZIZFLFJTUeUMGtaGE tBOLfTG2mUPIFfT4FgYSAJ N6BTZTltI48BACFZYW3qYP IGH0JYDKjQDv6cpHCxCQ6O YBaOPN5CMJ7JZASwNESVM0 HJETJXWCyoU4VuKH1ZJPQA IvCzZ5DJG0cWS42TTocaJX LmbDMfoKmpitNjSEqmd2Jf WQbzIFQpJI7yzAzrPZJkAR 5kFDWiQ7lsxE6aqzk7HpLk BPYgAlY8BAXvzxX6Ctc1KY IoORpzx6pwt7YcUQQiDTp5 kWmdLgMnIWDmy2xdiuQuXi WhXWQkSVPkDJZcyAJzU021 s2hwu0zrrnIxjTG8TYWtYB Y5QLvcyfXsqnX0CBmbyIGl QqR8RThacjVdOTrctiJklm CdNsi5LWPuA844MZW1lIxr x0ryPXP3KGFzIXXbZuHbPm 2rtSFaX054EDEwJUZBUTRk nMf0PZAhliDuphMgvYMQr7 15D965o8ziAYVppqHahJvY icsrn9txG488LXKkeDVbyn XkXkZyGNSnsXUmoPQ8ZUZc KT5kspjaJNurSMtzIJHlhn I8PEHdiKBkD5EcUAHhRU8m htksLPJ4SAgxKPSdUDL0Xh MkZBSrz7Xrvqw6NiLsgd7g qk10FLG5x1JpxTtfQDD9NT P2RqGpGx1noNIoABDnSD2m XoCzeSQeJITpsh07qTqgQH hgCJO7WFUecgLvx1Nsp6ve FqVgczAxD5vwD8DgOCVjTX RjDANjFkWkakKnc6Vzk7Wk cSKmzYn1o7fpGLWfVBLniI arv0cqZCD7NWGbzXLfD1md gX7xHFWyTT9snsnox8viZN nhRKxcGLSjyWO0rnQ6MSBb uGHgH6OwxG7rMBSjADamOK Iiacd4GlJuIr0bwAZryPet MFxzYmtwYWdlXHBnbmNvbn RccGduZGVjXHBsYWluXHBs YWluXGYwXGZzMjRccWxcbG FuZzEwMzNcaGljaFxmMVxk SfFvLQInNLhmK3xtLqAgAm LhOqi4ZEQmgOAkWCKnYzc3 ZNQvzSXyUIKGnKkzgY0vOD FmlShsjK7vzXT2SAKmvnOf xCXVzH3sYCNLbX0fEqZ9Jc ZaFmX1LOh0IxLuaSDhoZ9= CPT Code(s) (test code t5dicMSfUPMqnDK7JeLjFX = 3357) Sty4htu1GosKGuvMFuMQhx hLGkycSpiq05yEU3tB46ZA 3oMIMuZbH2VGEpffI2Exe6 IYCpSRUpgARhZ039q7tdf1 mrmiPbcET5gVlpXEMdEMAl YWluXGZzMjAgODgzMDVYMy wgODgzMTJccGFyfQ== CLINICAL HISTORY (test n4qihXShXBEkpGQ4PiXlIO code = 3356) Dsy3yau0ZxbUGhvKHzQOsc kBHzdtNhaj69mFC6dQ43VL 6tPDOgBiO8PPBfufA6Blg3 KJMcGMEmiXCdN383x0eax6 hfzcUzvKM5yCsdNQCyYQCb LYzoAQJqWgRvP7RccROneS 77LZQ1iF5awBQiPA3suiLd EAqcCDRbb46ruSK7MSLla2 n2yJFoDIJ8jht4rHVqnDDf fQ== SPECIMEN SOURCE (test v6plyWJjCYKhoOH9CaKpGN code = 3377) Pny4oes7LomUVlrQLqFRmp vZMejkMeud91qJD5yW65RH 9kPTIvCgE0GXVsklI7Ikp3 JDFxQTIugMCtP491s7lhk1 yqifHujIX5zEeuDSBtILVi GUyxDXRzNmQoOH0yTGG9p8 LxoiDnQOxfdvAfGs1vDJC8 g22hO0twlFuoGJPEGhIaB0 5fn66reGLkqQ== GROSS DESCRIPTION (test k2pisGEoSJXusMYuOeAbWO code = 3366) OxASLvn6yyIGXcvDMxTiCt MzNcZnRuYmpcdWMxXGRlZm Gwu3azw632kTJxu0uwBEEg UbM3vWCxXONdgEJvU853AG QwXNldo7uza8NrAZScsAMe b3R8YKNDyejcmAe4fTnnL8 2en9Y6GqywP3vbWKEdGPFx V2KbBC5pUQIyVlr0SMZ6LJ D0QOAaYUGgV6IeXT0zLIUx aUYvMIi2e4jbkFagXUQgPX A2w7dxLCjcunU8TX3dgd1y tLj1t4cdanFgRTHfZLSceI XILIVfA6YteJhzSt8onRj3 kFspMmzhRDK9Gvw0MM7apl 03gsu5vAlaXGXyhwjnKdM1 NEhhCPQgusyxUVy2GWieKB JnbDcyMFxtYXJncjcyMFxt YXJndDcyMFxtYXJnYjcyMF liXBMdUMT3ZWwzl550JUK0 IXgqm9qkb2jplDIlIou1VD ByIoPoQlyoWBpzk6Gvm4rn TTOdBdZ4TXnbYL2xuk87HE PpCNH2vi8wqWHboIxephZq aDYgWLooK5NwJMLml163JV AsV0IhMMFcx4J2iyXsWvXa WNZokGQ0unP7KADuZGy3rL YzqrI1lfMtyPRrS7bvlW03 YzNztDLxC6OfmU95YcDaaU PwY7FmzQ15DcUtsPClZ2Cl yW92AwIzyJAdQZCpzJJbZp 2txQAleJJlb4XhwSJcNVwo G95xe439KLElpgLgO4xhmF FpblxwbGFpblxmMFxmczI0 XYPwurVrsLzndT8uWdOlOm DeOZxrJA2mEUUpG2iwgWKc XHExWJRyO3zmLgOtoJ9owU nxRPppsiOnZLEnPSVfB3Yv ewElMKmyNOZjoh8rcZfoEA ngJuLhJASvg8v2rBY3dAFd yMD1pQAgvQmuWhCwOS8jcP NsEL6aKQdwJMopwrLxz9Ks CR63fGAyigYpzdAlHfD1f4 IkdaDrQePyyvIkL06ia4fb lHFck7RlBsA9DT2dx31ugH B8sAVgaTEoNwQpM59zfzBx XLIhejnamsxuYW4jIGJtAQ EuqEKakKBqgNX5JNDvfD1b oJ68dgQscfYRBB3vdUlqLU fpjE3oVKWlOPOcO8JmarVi NVmcMHBkvs1ckDsdUIzjIg TnLQDuw4n4cVO9cRXjeCZ6 bCTgnFdoCaNuAT1umOCiCN 3vVIloKRxhmnZhy0QyZY94 cWBphdRskxLbVyO3h30kO5 woHNKsMJZxk47tvEE9ywTt AiM2ATKuriYcx1D1VXCff4 Z8VXLxiqWurXOgrDQyqoLr R9zrEjDvMjJtTJ93KDXbAF U0Ay7ykMGwZABjfdV5r1Tx TRsuMGJjRvufkJ8tQHalxg TtAj5yNmIyAXj8XQDmvW4s Fe6upAAeqA0muZYzYPimQY Ghq7o2aWK5yTTjeWV7gVGz pSwfKzNjGF5xmLHfEM8iBQ rtCEcadqOvs3QmXZ84eGPc csKebbCmFpPuzO6bKBQpu9 XsvLwfooQwHB9vKzBmdpPb T06jc0fxdZWbt1TbkPZotP lwbGUgdGFuIHNvZnQgdGlz y9OiRSIjADeiYP34ihQtRU 2fnN9lDRIhFn6oYtaxC60h w1ZsdIg8bOTjSPdzUEGmlV 9ioB7wRfKaAIihxcRzcHtj BMWDvAVub6YuRDdyOFRrLM OWOCRxWELSBEmZI7XWPQLr XHBhcn0= MICROSCOPIC DESCRIPTION b1tgqRZwAFDjkAI9KzWrYE (test code = 3371) Kha5cvu4GhbWItmXXmQEfu xZOdukIyrq68fKN3rD52SG 8uUZBuBaT8HLUvtzX1Bpv9 AZMuDHAqgDFxS927r6fgx6 bcanLffCH0rGiqRKTlYFAi ZAptSQUpCdCvLUGRGr1NLK VELlxwYXJ9 SPECIAL STUDIES (test h8ivhFDoNPXsqDU5JtUrDM code = 3376) Cbb5avh8QhiDXasNIgSOwh jUQjwoPzyx61hAA7lE51ZV 4kJSDlDtX3LXLkanC8Gcj0 YGRdYSGkvDFyY741NBOsQV MdeBgbrvj1sH47QNUlzT6f sPIdKQx8XAQowvGuhHugwA 1oPpAmPoGgSpCAdGZngS69 XPNvjbM2AMHbl57jj2RgzW aiqqUyAGPfOSscE8l5LAIa DQBdFZS6r4Iow1MqwA3saC 0lwApqcN2duBCgmZN2gpmg h4Gkv0OdW1acnBVayLPtmd BpIJLspkGEWE8VDuIWOF1o S3CXBJoNXpLEDLYLPdynnV OfMHKzpcUzk7vmG9naZNNe SPU0KQ7xomGjRcZkFI0raC 41g9Uvo06fk09jaU1tzGAr brEaZ03mpJXefSLmh2PgHF YhjoSdgLA8HTSbGJlwsgji a6l6kRP4uHHbqNLpzUU9rA PioSEmBLUGxMZzSUYfj082 fh5xRYNigDWiigSchV8xIG suxdqppRGeGB6lUQGtDFYu PKWwGZ67osAbUX7ivKCth5 qyfhZxtVCgl3TynKX6WVWq lXKopcxxNe3mQB38DECtOO uurT8woIMxmjDuTT6qLC5u H5R1uXSmQBTrfgSgs1kxXQ naZW1yKAJxuZszRbidRSEg UFIfaiDxbAJ4QONcpPRsAH QsiVGkNWlfaPEtu0omx8Sf F3otaOkerPG7ADRwA2uetS VohNJ2KDF9wM2tLMqratAd RNMzr9YtCNLoNLYcJkA0jT 0iWHZ5WcXWkLacSLS5IsX6 NNfhBAJpZB6dYCjjXJnfO3 JqdMRrDJGEVERja5biB0vg MRRjo3PtqP3tbWN5tLEtSQ TeqLC2VMInJEB9SZlfpIVm YMWwQVZkdNHrgPDnWb6giV NyH3ArY4phscKkxGWbqPG4 yRPmAJbretOeMPS5ITCanE 1nDJ3zYHKluSRmDI7axQVr AQXfNHSoUCQfUIOzz9UeFH Gejn99CWRrCwaeeLpoWGIo Uz2gGj6zEVPbyxAgVWD7So JLUJ2aowjctVTamZoase9r UGiiSNILXGBsRABhPQP8VO HroC3sLVJ1nBF1UUF9R4px G2btTECdavUkQW8fCSNmfL NjteZaQMorOU8znONwPYTa f0FfdzhvQLVlBDT4TLK3KM qaPNBiVHGeYl3kQAPsrQ3o E2PgAIP6ucMdh1LmMhXIaI EhgZ22mAWmld63ELYjALLw S9GrZSLtRCOuTJuihiMafI kzAUNnz37viTQapxYcf7Zj fbWjIYIzP4izQHDmhEUzyT Xgy2AwqW2qhBKtcaLxGTI5 xJNeKXKyqQ7cVPNlqBuyWY YuwF1dW0YjWGbbFr0rUIRg fcxaFO4gtj08BT8ubbRpZM 1nuiRxPK60bjTjBfHsWGi6 WHjSCWfSBGy2WNKqceQuxE RrzKPxMAMalV6deELaTn8t bSBoaWdoIGNvbXBsZXhpdH ruK9yppjpsCYnwkVZit6Gy vI9xjGL4AIY1sQ5dAhruKP J9 Gross assessment was [facility] performed at ([facility], = 2777) Department of Pathology, [address] [place] [address], Technical component was [facility] performed at ([facility], = 2778) Department of Pathology, [address] [place] [address], Professional component [facility] was performed at ([facility], code = 2779) Department of Pathology, [address] [place] [address], [facility] [id number] 08:14:00Surgical Pathology Report Case: [id number] Authorizing Provider: Nicanor Moses MD Collected: 05/19/2020 08:29 AM Ordering Location: [place] [address] ICU Received: 05/19/2020 01:42 PM Pathologist: Rj [...] INVASIVE CARCINOMA. Signing Pathologist Direct Phone Line: [phone] signed by Rj Copeland MD on 05/20/2020 at 8:14 [id number], [id number] hemorrhage associated with gastritisA. DuodenumB. StomachC. ColonA. [...] submitted in toto in C1.PAT Butts PA (ASCP)cmPERFORMED.The interpretation of this case included the use of immunohistochemistry or special stains.BLOCK B1- WARTHIN STARRYControl Slides Examined: In-house known positive controls were evaluated along with the test tissue. These control slides run alongside of the patients sample show appropriate staining. Internal positive and negative controls when available are evaluated Immunohistochemistry technicaltesting was performed at [facility], Pathology Laboratory where it was developed [...] qualified to perform high complexity clinical laboratory testing.[facility], Department of Pathology, [address] [place] [id number], [facility]ky[facility], [facility] of Pathology, [address] [place] [address], [facility]exeSan [facility], Department of Pathology, [address] [place] [address], Oylxt Toxin [id number] 13:22:00 Test Item Value Reference Range Interpretation Comments Shiga toxin 1 (test code = Not detected Not detected 89317-2) Shiga toxin 2 (test code = Not detected Not detected 94468-3) Lab Interpretation (test code = Normal 97858-9) [facility] [id number] 13:22:00 Test Item Value Reference Range Interpretation Comments SHIGA TOXIN 1 (BEAKER) (test Not detected Not detected code = 2177) SHIGA TOXIN 2 (BEAKER) (test Not detected Not detected code = 2179) STOOL PATH [id number] 09:34:00 Test Item Value Reference Range Interpretation Comments Pathogen exam charged (test code = Done 2381) [facility] [id number] 09:34:00 Test Item Value Reference Range Interpretation Comments PATHOGEN EXAM CHARGED (BEAKER) (test Done code = 2381) Basic Metabolic [id number] 05:37:00 Test Item Value Reference Range Interpretation Comments Sodium (test code = 136 meq/L 839-819 9329-2) Potassium (test code = 3.6 meq/L 3.5-5.1 2823-3) Chloride (test code = 111 meq/L 98-107 H 2075-0) CO2 (test code = 20 meq/L 22-29 L 8-9) BUN (test code = 16 mg/dL 7-21 3094-0) Creatinine (test code 1.09 mg/dL 0.57-1.25 = 2160-0) Glucose (test code = 124 mg/dL 70-105 H 2345-7) Calcium (test code = 7.5 mg/dL 8.4-10.2 L 42345-0) EGFR (test code = 61 mL/min/1.73 [place] [address]-3) NOT ACCURATE CREATININE CLEARANCE IN PREDICTING GLOMERULAR FILTRATION RATE . ESTIMATED GFR I S NOT APPLICABLE FOR DIALYSIS PATIENTS. EMA (test code = EMA) Phlebotomy Coordinator ID - PIROMI L Lab Interpretation Abnormal (test code = 50489-1) [facility] METABOLIC [id number] 05:37:00 Test Item Value Reference Range Interpretation [...] 697) EGFR (BEAKER) (test 61 mL/min/1.73 ESTIMA LACI GFR IS code = 1092) sq m NOT ACCURATE CREATININE CLEARANCE IN PREDICTING GLOMERULAR FILTRATION RATE . ESTIMATED GFR I S NOT APPLICABLE FOR DIALYSIS PATIEN TS. Phlebotomy Coordinator ID - PIAYA LCBC (Hemogram only)2020-05-19 05:15:00 Test Item Value Reference Range Interpretation Comments WBC (test code = 6690-2) 11.2 See_Comment H [A utomated message] The system [employer] generated this result transmitted ref erence range: 3.5 - 10 .5 K/L. The refe rence range was not u sed to interpret this result as normal/abnor mal. RBC (test code = 789-8) 2.94 See_Comment L [Au tomated message] The system [employer] generated this result transmitted ref erence range: 3.93 - 5 .22 M/L. The refe rence range was not u sed to interpret this result as normal/abnor mal. MCHC (test code = 786-4) 31.7 See_Comment L [A utomated message] The system [employer] generated this result transmitted ref erence range: [...] L [Aut omated message] 777-3) The system [employer] generated this result transmitted ref erence range: 150 - 45 0 K/CU MM. The referen ce range was not u sed to interpret this result as normal/abnor mal. MPV (test code = 11.7 fL 9.4-12.3 33578-3) nRBC (test code = 413) 0 See_Comment [Aut omated message] The system [employer] generated this result transmitted ref erence range: 0 - 0 /1 00 WBC. The refere nce range was not u sed to interpret this result as normal/abnor mal. Lab Interpretation (test Abnormal code = 95255-6) [facility] (HEMOGRAM ONLY)2020-05-19 05:15:00 Test Item Value Reference [...] 0-0 (test code = 413) BASIC METABOLIC [id number] 23:40:00 Test Item Value Reference Range Interpretation [...] 697) EGFR (BEAKER) (test 47 mL/min/1.73 ESTIMA LACI GFR IS code = 1092) sq m NOT ACCURATE CREATININE CLEARANCE IN PREDICTING GLOMERULAR FILTRATION RATE . ESTIMATED GFR I S NOT APPLICABLE FOR DIALYSIS PATIEN TS. Phlebotomy Coordinator ID - DBCBC (HEMOGRAM ONLY)2020-05-18 23:06:00 Test [...] (test code = 413) Clostridium difficile GDH [id number] 21:56:00 Test Item Value Reference Range Interpretation Comments C. Difficle Toxin Negative Negative (test code = 6992962328) C. Difficile GDH Negative Negative No indicati on of Antigen (test code = Clostri dium 6380178714) difficile infection and n o colonization. Discontinue enteric isolati on and therapy. EMA (test code = Testing performed EMA) by Alere Rapid Cassette Assay. For GDH, published sensitivity of the assay is 98.7% compared to cytotoxicity testing. For Toxin AB, published sensitivity is 87.8% and specificity 99.4% compared to cytotoxicity testing.Verificati on of kit performance was done by the [facility] prior to clinical use. Lab Interpretation Normal (test code = 08015-7) [facility]IC[facility] [id number] 21:56:00 Test Item Value Reference Range Interpretation Comments CDT TOXIN (test code Negative Negative = 9526000705) CDT GDH ANTIGEN (test Negative Negative No ind ication of code = 0974783033) Clostridi um difficile infection and n o colonization. Discontinue ent nikky isolation and t herapy. Testing performed by Alere Rapid Cassette Assay. For GDH, published sensitivity of the assay is 98.7% compared to cytotoxicity testing. For Toxin AB, published sensitivity is 87.8% and specificity 99.4% compared to cytotoxicity testing.Verification of kit performance was done by the [facility] prior to clinical use.SARS-CoV2/RT-PCR (Asymptomatic ONLY)2020-05-18 19:33:00 Test Item Value Reference Range Interpretation Comments SARS-COV2/RT-PCR Negative Not Detected, (test code = Negative, See 61871-0) external report for linked test SARS-COV-2 [facility] (test code = 56245-1) EMA (test code = Negative result for [...] of the Act. Fact Sheet for Healthcare Providers:https://www.[employer].Syndero/sites/default/f efraín/product/documents/F act_Sheet_HC_Providers_L jok_VJJS-BeQ-0.pdf Fact Sheet for Healthcare Patients:https://www.[employer]/sites/default/fi les/product/documents/Fa ct_Sheet_Patients_Lyra_S ARS-CoV-2.pdf Performing Laboratory:[facility] [place] [address] [facility] ([facility] & REF LABS)2020-05-18 19:33:00 Test Item Value Reference Range Interpretation Comments SARS-COV2/RT-PCR (test Negative Not Detected, Negative, code = 4416700) See external report for linked test SARS-COV-2 PERFORMING LAB [facility] (test code = 7497060) Negative result for this test determines that [...] 564(g) of the Act.Fact Sheet for Healthcare Providers:https://www.[employer]/sites/default/files/product/documents/Fact_Marybeth orrs_IR_Pexvyyexp_Czzq_IVOI-WlA-7.pdfFact Sheet for Healthcare Patients:https://www.[employer].Syndero/sites/default/files/product/ documents/Wpwu_Gklar_Yzkigorj_Msnx_HKSB-EqH-0.pdfPerforming Laboratory:[facility] [place], [place] [address]EVGGP METABOLIC PANEL 2020-05-18 19:14:00 Test Item Value [...] 697) EGFR (BEAKER) (test 36 mL/min/1.73 ESTIMA LACI GFR IS code = 1092) sq m NOT ACCURATE CREATININE CLEARANCE IN PREDICTING GLOMERULAR FILTRATION RATE . ESTIMATED GFR I S NOT APPLICABLE FOR DIALYSIS PATIEN TS. Phlebotomy Coordinator ID - BSCBC (HEMOGRAM ONLY)2020-05-18 18:39:00 Test [...] 0-0 (test code = 413) Hepatitis panel, [id number] 13:55:00 Test Item Value Reference Range Interpretation Comments Hep A IgM (test code = Nonreactive Nonreactive 92114-1) Hep B C IgM (test code = Nonreactive Nonreactive 55709-8) Hepatitis C Ab (test Reactive Nonreactive A code = 05174-7) HBsAg Screen (test code Nonreactive Nonreactive = 5195-3) EMA (test code = EMA) Phlebotomy Coordinator ID Louise DAY F Lab Interpretation (test Abnormal code = 68628-1) [facility], [id number] 13:55:00 Test Item Value Reference Range Interpretation Comments HEPATITIS A IGM ANTIBODY (BEAKER) Nonreactive Nonreactive (test code = 498) HEPATITIS B CORE IGM ANTIBODY Nonreactive Nonreactive (BEAKER) (test code = 645) HEPATITIS C ANTIBODY (BEAKER) Reactive Nonreactive A (test code = 367) HEPATITIS B SURFACE ANTIGEN (2) Nonreactive Nonreactive (BEAKER) (test code = 2585) Phlebotomy Coordinator ID Louise DAY FBASIC METABOLIC [id number] 13:34:00 Test Item Value Reference Range Interpretation [...] 697) EGFR (BEAKER) (test 32 mL/min/1.73 ESTIMA LACI GFR IS code = 1092) sq m NOT ACCURATE CREATININE CLEARANCE IN PREDICTING GLOMERULAR FILTRATION RATE . ESTIMATED GFR I S NOT APPLICABLE FOR DIALYSIS PATIEN TS. Phlebotomy Coordinator ID [facility] [id number] 13:33:00 Test Item Value Reference Range Interpretation Comments Haptoglobin (test code = 63 mg/dL 14258 4542-7) EMA (test code = EMA) Phlebotomy Coordinator ID BARB Lab Interpretation (test Normal code = 55968-4) [facility] CenterHAPTOGLOBIN2020-12-21 13:33:00 Test Item Value Reference Range Interpretation Comments HAPTOGLOBIN (BEAKER) (test code = 63 mg/dL 366) Phlebotomy Coordinator ID - CROWLEY FCalcium, [id number] 13:13:00 Test Item Value Reference Range Interpretation Comments Calcium, Ion (test code = 1994-3) 1.02 mmol/L 1.12-1.27 L pH, Blood (test code = 28321-7) 7.37 Lab Interpretation (test code = Abnormal 07363-3) [facility] CenterCALCIUM, [id number] 13:13:00 Test Item Value Reference Range Interpretation Comments CALCIUM IONIZED (BEAKER) (test 1.02 mmol/L 1.12-1.27 L code = 698) PH, BLOOD (BEAKER) (test code = 7.37 1810) Lactate dehydrogenase (LDH)2020-05-18 11:49:00 Test Item Value Reference Range Interpretation Comments LDH (test code = 2532-0) 622 U/L 125-220 H EMA (test code = EMA) Phlebotomy Coordinator ID [facility] Lab Interpretation (test Abnormal code = 37942-0) [facility] CenterLACTATE DEHYDROGENASE (LDH)2020-05-18 11:49:00 Test Item Value Reference Range Interpretation Comments LACTATE DEHYDROGENASE (BEAKER) (test 622 U/L 125-220 H code = 635) Phlebotomy Coordinator ID - BARB FBASIC METABOLIC [id number] 11:01:00 Test Item Value Reference Range Interpretation [...] 697) EGFR (BEAKER) (test 27 mL/min/1.73 ESTIMA LACI GFR IS code = 1092) sq m NOT ACCURATE CREATININE CLEARANCE IN PREDICTING GLOMERULAR FILTRATION RATE . ESTIMATED GFR I S NOT APPLICABLE FOR DIALYSIS PATIEN TS. Phlebotomy Coordinator ID - BARB LOPEZ, [id number] 09:28:00 Test Item Value Reference Range Interpretation Comments ABO Grouping (test code = 2588) O Rh Factor (test code = 2589) POS [facility] CenterBlood gas, [id number] 09:05:00 Test Item Value Reference Range Interpretation [...] code = 48 See_Comment H [Auto mated 4665-2) message] The sy stem which generated this result transmitted reference range : 25 - 40 mm Hg. The reference range was not used to interpret this result as normal/abnormal . O2 Sat, Matheus (test code 80.5 % 40-70 H = 2711-0) HCO3, Matheus (test code = 16 mmol/L 21-29 L 37872-3) Base Excess, Matheus (test -9.6 mmol/L -2-3 L code = 1927-3) Patient Temperature 37.0 (test code = 8310-5) Lab Interpretation Abnormal (test code = 87163-2) [facility] CenterBLOOD GAS, [id number] 09:05:00 Test Item Value Reference Range Interpretation [...] (test code = 1818) Type and screen, [id number] 07:44:00 Test Item Value Reference Range Interpretation Comments ABO/RH AUTOMATED (BEAKER) (test O POSITIVE code = 2260) Ab Scrn (test code = 890-4) NEGATIVE [facility] CenterLipase2020-12-21 07:17:00 Test Item Value Reference Range Interpretation Comments Lipase (test code = 30 U/L 3040-3) EMA (test code = EMA) Phlebotomy Coordinator ID Louise DAY F Lab Interpretation (test Normal code = 77360-0) [facility] CenterLIPASE2020-12-21 07:17:00 Test Item Value Reference Range Interpretation Comments LIPASE (BEAKER) (test code = 749) 30 U/L Phlebotomy Coordinator MEKA DAY FCBC (HEMOGRAM ONLY)2020-05-18 07:04:00 Test Item Value [...] WBC 0-0 (test code = 413) POC-Glucose [id number] 07:01:00 Test Item Value Reference Range Interpretation Comments POC-Glucose Meter (test 126 mg/dL 70-110 H : TE STED AT [facility] code = 1538) [address] [facility], 770 30: Phlebotomy Coordinator/Techni delvis ID = [id number] for EJ FINNEGAN Lab Interpretation (test Abnormal code = 46110-7) [facility] CenterPOCT-GLUCOSE [id number] 07:01:00 Test Item Value Reference Range Interpretation Comments POC-GLUCOSE METER 126 mg/dL 70-110 H : TESTED A T [facility] [address] (BEAKER) (test code = [place] [facility], 1538) [address]: Phlebotomy Coordinator/Techni delvis ID = [id number] for EJ ARVIZU U/S, ABDOMINAL, [id number] 06:19:00Abdomen limited area? Add comment if clarification is needed.->Right upper quadrantReason for exam :->Pancreatitis [facility] : 1955 Sex: FFINAL [...] patent. Impression: No acute ultrasound abnormality. Signed: Brett Egan MDReport Verified Date/Time: 05/18/2020 06:19:22 US abdomen [id number] 06:19:00 Interface, External Ris In - 05/18/2020 [...] patent. Impression: No acute ultrasound abnormality. Signed: Brett Egan MDReport Verified Date/Time: 05/18/2020 06:19:22 [facility] + automated [id number] 05:22:00 Test Item Value Reference Range Interpretation Comments WBC (test code = 6690-2) 14.0 See_Comment H [A utomated message] The system [employer] generated this result transmitted ref erence range: 3.5 - 10 .5 K/L. The refe rence range was not u sed to interpret this result as normal/abnor mal. RBC (test code = 789-8) 3.09 See_Comment L [Au tomated message] The system [employer] generated this result transmitted ref erence range: 3.93 - 5 .22 M/L. The refe rence range was not u sed to interpret this result as normal/abnor mal. MCHC (test code = 786-4) 30.0 See_Comment L [A utomated message] The system [employer] generated this result transmitted ref erence range: [...] L [Aut omated message] 777-3) The system [employer] generated this result transmitted ref erence range: 150 - 45 0 K/CU MM. The referen ce range was not u sed to interpret this result as normal/abnor mal. MPV (test code = 11.9 fL 9.4-12.3 57515-9) nRBC (test code = 413) 0 See_Comment [Aut omated message] The system [employer] generated this result transmitted ref erence range: 0 - 0 /1 00 WBC. The refere nce range was not u sed to interpret this result as normal/abnor mal. Lab Interpretation (test Abnormal code = 87493-6) [facility] CenterManual [id number] 05:22:00 Test Item Value Reference Range Interpretation [...] Spherocytes (test 1+ few code = 768) [place] Cells (test code 2+ moderate = 474) Platelet Conc (test Decreased code = 3438) EMA (test code = EMA) Phlebotomy Coordinator ID - Ted Lezama comments: Slide comments: Lab Interpretation Abnormal (test code = 42035-8) [facility] CenterCBC W/PLT COUNT & AUTO [id number] 05:22:00 Test Item Value Reference Range Interpretation [...] CONCENTRATION Decreased (CELLAVISION)(BEAKER) (test code = 3438) Phlebotomy Coordinator ID - Ted Lezama comments: Slide comments:POCT- GLUCOSE [id number] 03:39:00 Test Item Value Reference Range Interpretation Comments POC-GLUCOSE METER 104 mg/dL 70-110 : TESTED A T [facility] [address] (BEAKER) (test code = RAUL Enciso [facility], 1538) [address]: Phlebotomy Coordinator/Techni delvis ID = [id number] for JASON TATYANA CRIS Comprehensive metabolic [id number] 02:08:00 Test Item Value Reference Range Interpretation Comments Protein, Total (test 7.2 See_Comment [Autom ated code = 2885-2) message] The system which generated this result transmit laci reference range : 6.0 - 8.3 gm/dL . The reference range was not u sed to interpret th is result as normal/abnormal . Albumin (test code = 2.7 g/dL 3.5-5 L 08022-6) Alkaline Phosphatase 104 U/L 40-150 (test code = 6768-6) Total Bilirubin (test 0.6 mg/dL 0.2-1.2 code = 1974-2) Sodium (test code = 134 meq/L 136-145 [...] (test code = 7.1 mg/dL 8.4-10.2 L 21888-4) AST (test code = 136 U/L 5-34 H 1920-8) ALT (test code = 75 U/L 6-55 H 1742-6) EGFR (test code = 25 mL/min/1.73 [place] [address]-6) NOT ACCURATE CREATININE CLEARANCE IN PREDICTING GLOMERULAR FILTRATION RATE . ESTIMATED GFR I S NOT APPLICABLE FOR DIALYSIS PATIEN EMA (test code = EMA) Phlebotomy Coordinator ID - DB Lab Interpretation Abnormal (test code = 17707-5) [facility] CenterCOMPREHENSIVE METABOLIC [id number] 02:08:00 Test Item Value Reference Range Interpretation [...] 347) EGFR (BEAKER) (test 25 mL/min/1.73 ESTIMA LACI GFR IS code = 1092) sq m NOT ACCURATE CREATININE CLEARANCE IN PREDICTING GLOMERULAR FILTRATION RATE . ESTIMATED GFR I S NOT APPLICABLE FOR DIALYSIS PATIEN TS. Phlebotomy Coordinator ID - DBProthrombin time/[id number] 02:02:00 Test Item Value Reference Interpretation Comments Range Protime (test code = 15.8 See_Comment H [Autom ated 5552-2) message] The system which generated this result transmitted reference range : 11.9 - 14.2 seconds. The reference range was not used to interpret this result as normal/abnormal . INR (test code = 1.30 See_Comment [Automated 5581-6) message] The system which generated this result [...] valves. Lab Interpretation Abnormal (test code = 56425-0) [facility] CenterPROTHROMBIN TIME/[id number] 02:02:00 Test Item Value Reference Range Interpretation Comments PROTIME (BEAKER) (test code = 15.8 seconds 11.9-14.2 H 759) INR (BEAKER) (test code = 370) 1.30 <=5.90 Effective 10/24/2018: PT Reference Range ChangeNew: 11.9-14.2 Previous: 11.7- 14.7RECOMMENDED COUMADIN/WARFARIN INR THERAPY RANGESSTANDARD DOSE: 2.0-3.0 Includes: PROPHYLAXIS for venous thrombosis, systemic embolization; TREATMENT for venous thrombosis and/or pulmonary embolus.HIGH RISK: Target INR is2.5-3.5 for patients wiht mechanical heart valves.Lactic acid, [id number] 01:57:00 Test Item Value Reference Range Interpretation Comments Lactate, Venous (test code = 1.06 mmol/L 0.5-2.2 2871) EMA (test code = EMA) Phlebotomy Coordinator ID - DB Lab Interpretation (test Normal code = 96612-7) [facility] CenterLACTIC ACID, [id number] 01:57:00 Test Item Value Reference Range Interpretation Comments LACTATE BLOOD VENOUS (2) (BEAKER) 1.06 mmol/L 0.50-2.20 (test code = 2872) Phlebotomy Coordinator ID - DB
[2021-01-23 11:51] LABS: Protime INR 0.99
[2021-01-23 11:55] LABS: Absolute Lymphocytes (CBC) 1.4 K/uL (0.7-4.9); Basophils % 0.7 % (0-1.3); Hematocrit 27.3 % (36.0-45.0); Lymphocytes % 22.1 % (15.3-44.8); MPV 10.5 fL (7.6-11.3)
[2021-01-23] MEDS ORDERED: CASIRIVIMAB/IMDEVIMAB 10 ML in NA CHLORIDE 0.9% 250 ML IV ONE (12:15)
[2021-01-23 12:16] LABS: ALT/SGPT 90 U/L (12-78); AST/SGOT 90 U/L (15-37); Albumin 2.8 g/dL (3.4-5.0); Alkaline Phosphatase 154 U/L (45-117); BUN Blood Urea Nitrogen 37 mg/dL (7-18); Bicarbonate 21 mmol/L (21-32); Bilirubin Direct 0.4 mg/dL (0-0.2); Bilirubin Total 0.5 mg/dL (0.2-1.0); Ferritin 573.8 ng/mL (8-388); Glucose Level 220 mg/dL (74-106); Lipase 111 U/L (73-393); Potassium 4.3 mmol/L (3.5-5.1); Protein, Total 8.4 g/dL (6.4-8.2); Sodium Level 138 mmol/L (136-145); Troponin (Emerg Dept Use Only) < 0.02 ng/mL (0.0-0.045)
[2021-01-23 12:18] LABS: C-Reactive Protein < 2.90 mg/L (<3.00)
[2021-01-23 12:40] LABS: Platelet Estimate DECR
[2021-01-23] MEDS ORDERED: NA CHLORIDE 0.9% 1,000 ML ONE (12:40)
[2021-01-23] MEDS ORDERED: IBUPROFEN 200 MG TAB PO ONE (12:40)
[2021-01-23] MEDS ORDERED: IBUPROFEN 400 MG TAB ONE (12:40)
[2021-01-23 12:41] LABS: Anisocytosis SLIGHT; Basophilic Stippling 1+; Blood Morphology Comment NOTED (NOT SEEN); Howell-Jolly Bodies NOTED; Stomatocytes 1+
--- NOTE | 2021-01-23 13:34 | ER ---
Nurse's Notes [facility] Name: Josr Parra Age: 66 yrs Sex: Female : 1955 Arrival Date: 01/23/2021 Time: 11:10 Bed 19 Private MD: Diagnosis: Coronavirus infection, unspecified Presentation: 01/23 11:13 Chief complaint: EMS states: SOB, CP from coughing, generalized weakness. fever 102.6. tr6 +COVID 01/19. pt took tylenol this morning. Coronavirus screen: Client presents with at least one sign or symptom that may indicate coronavirus-19. Client reports previous positive COVID test result. Date of collection: January 19, 2021. Ebola Screen: No symptoms or risks identified at this time. Initial Sepsis Screen: Does the patient meet any 2 criteria? Yes Does the patient have a suspected source of infection? Yes: Other: +covid. Risk Assessment: Do you want to hurt yourself or someone else? Patient reports no desire to harm self or others. Onset of symptoms is unknown. 11:13 Method Of Arrival: EMS tr6 11:13 Acuity: JAM 3 tr6 11:40 Chief complaint: Patient states: "can't hardly breathe since last night". tr6 Triage Assessment: 11:17 General: Appears in no apparent distress. comfortable, Behavior is calm, cooperative, tr6 appropriate for age. Pain: Complains of pain in cp from coughing. EENT: No deficits noted. Neuro: No deficits noted. Cardiovascular: No deficits noted. Respiratory: Reports shortness of breath cough that is. Respiratory: Onset: The symptoms/episode began/occurred gradually, the patient has mild shortness of breath. GI: No deficits noted. : No deficits noted. Derm: No deficits noted. Musculoskeletal: No deficits noted. Historical: - Allergies: 11:17 Codeine; nausea; tr6 - PMHx: 11:17 Asthma; Diabetes - NIDDM; elevatedliver enzymes; Hepatitis; c; lumbar spine issues/pain;tr6 - Immunization history:: Adult Immunizations up to date, Client reports having NOT received the Covid vaccine. - Social history:: Smoking status: unknown. Screenin:18 Abuse screen: Denies threats or abuse. Denies injuries from another. Nutritional tr6 screening: No deficits noted. Tuberculosis screening: No symptoms or risk factors identified. Fall Risk None identified. Assessment: 11:19 Cardiovascular: Rhythm is sinus tachycardia. Respiratory: Airway is patent Respiratory tr6 effort is even, unlabored, Breath sounds are diminished. 11:42 Reassessment: see triage assessment. tr6 Vital Signs: 11:13 BP 152 / 80; Pulse 109; Resp 18; Temp 100.3(O); Pulse Ox 100% on R/A; tr6 ED Course: 11:10 Patient arrived in ED. ds1 11:13 Ivania Ortiz, RN is Primary Nurse. tr6 11:17 Triage completed. tr6 11:18 No apparent distress. Resting quietly. Awaiting ED provider evaluation. tr6 11:18 Patient has correct armband on for positive identification. Bed in low position. Call tr6 light in reach. Side rails up X 1. Pulse ox on. NIBP on. Door closed. Noise minimized. Visitors limited. Lights dimmed. Moved to private room. Diet: Patient is NPO. 11:18 No provider procedures requiring assistance completed. Patient maintains SpO2 tr6 saturation greater than 95% on room air. 11:19 Denia Brito FNP-C is PHCP. kb 11:19 Emmett Tapia MD is Attending Physician. kb 11:19 Patient placed in an exam room. tr6 13:12 CXR XRAY In Process Unspecified. EDMS 14:18 IV discontinued, intact, bleeding controlled, No redness/swelling at site. Pressure tr6 dressing applied. Administered Medications: 12:19 Drug: Ibuprofen 600 mg Route: PO; tr6 14:17 Follow up: Response: No adverse reaction tr6 12:50 Drug: REGEN-COV Dose Pack 120 mg/mL-120 mg/mL (EUA) 1 application Route: IV; Rate: tr6 calculated rate; Site: right forearm; 14:17 Follow up: Response: No adverse reaction; IV Status: Completed infusion; IV Intake: tr6 260ml 14:18 Not Given (Physician Discretion): NS 0.9% 1000 ml IV at 1000 ml once tr6 Intake: 14:17 IV: 260ml; Total: 260ml. tr6 Outcome: 13:33 Discharge ordered by . kb 14:18 Discharged to home via wheelchair, with family, pts daugther to pick pt up from waiting tr6 room. pt in waiting room waiting for ride 14:18 Condition: stable 14:18 Discharge instructions given to patient, Instructed on discharge instructions, follow up and referral plans. no drinking with medication, safety practices, Demonstrated understanding of instructions, follow-up care, medications. 14:25 Patient left the ED. tr6 Signatures: Dispatcher [employer] EDDenia Long, EIGHT ARM OPERATOR-C EIGHT ARM OPERATOR-Zuleima Guidry ds1 Ivania Ortiz, RN RN tr6
--- NOTE | 2021-01-23 13:34 | EDPHYS ---
Physician Documentation [facility] Name: Josr Parra Age: 66 yrs Sex: Female : 1955 Arrival Date: 01/23/2021 Time: 11:10 Bed 19 Private MD: ED Physician Emmett Tapia HPI: 01/23 13:41 This 66 yrs old Black Female presents to ER via EMS with complaints of Breathing kb Difficulty. 13:41 The patient has shortness of breath at rest. Onset: The symptoms/episode began/occurred kb 5 day(s) ago. Duration: The symptoms are continuous. The patient's shortness of breath is aggravated by exertion, is alleviated by nothing. Associated signs and symptoms: The patient has no apparent associated signs or symptoms. Severity of symptoms: At their worst the symptoms were moderate in the emergency department the symptoms are unchanged. The patient has not experienced similar symptoms in the past. The patient has not recently seen a physician. Pt reports she is COVID positive and has been having shortness of breath. Reports slight cough, but no other symptoms. . Historical: - Allergies: 11:17 Codeine; nausea; tr6 - PMHx: 11:17 Asthma; Diabetes - NIDDM; elevatedliver enzymes; Hepatitis; c; lumbar spine issues/pain;tr6 - Immunization history:: Adult Immunizations up to date, Client reports having NOT received the Covid vaccine. - Social history:: Smoking status: unknown. ROS: 13:42 Constitutional: Negative for fever, chills, and weight loss. kb 13:42 Respiratory: Positive for cough, dyspnea on exertion, shortness of breath. 13:42 All other systems are negative. Exam: 13:42 Constitutional: This is a well developed, well nourished patient who is awake, alert, kb and in no acute distress. Head/Face: Normocephalic, atraumatic. ENT: Moist Mucous membranes Cardiovascular: Regular rate and rhythm with a normal S1 and S2. No gallops, murmurs, or rubs. No pulse deficits. Respiratory: Respirations even and unlabored. No increased work of breathing, no retractions or nasal flaring. Skin: Warm, dry with normal turgor. Normal color. MS/ Extremity: Pulses equal, no cyanosis. Neurovascular intact. Full, normal range of motion. Neuro: Awake and alert, GCS 15, oriented to person, place, time, and situation. Moves all extremities. Normal gait. Psych: Awake, alert, with orientation to person, place and time. Behavior, mood, and affect are within normal limits. Vital Signs: 11:13 BP 152 / 80; Pulse 109; Resp 18; Temp 100.3(O); Pulse Ox 100% on R/A; tr6 MDM: 11:19 Patient medically screened. kb 13:32 Data reviewed: vital signs, nurses notes. Data interpreted: Pulse oximetry: on room air kb is 100 %. Interpretation: normal. Counseling: I had a detailed discussion with the patient and/or guardian regarding: the historical points, exam findings, and any diagnostic results supporting the discharge/admit diagnosis, lab results, radiology results, the need for outpatient follow up, a family practitioner, to return to the emergency department if symptoms worsen or persist or if there are any questions or concerns that arise at home. 01/23 11:19 Order name: BMP; Complete Time: 12:32 kb 01/23 11:19 Order name: Blood Culture Adult (2) kb 01/23 11:19 Order name: C-Reactive Protein; Complete Time: 12:32 kb 01/23 11:19 Order name: CBC with Diff; Complete Time: 12:45 kb 01/23 11:19 Order name: D-Dimer; Complete Time: 11:54 kb 01/23 11:19 Order name: Ferritin; Complete Time: 12:32 kb 01/23 11:19 Order name: LFT's; Complete Time: 12:32 kb 01/23 11:19 Order name: Lactate; Complete Time: 12:10 kb 01/23 11:19 Order name: Lipase; Complete Time: 12:32 kb 01/23 11:19 Order name: PT-INR; Complete Time: 11:54 kb 01/23 11:19 Order name: Procalcitonin; Complete Time: 12:32 kb 01/23 11:19 Order name: Ptt, Activated; Complete Time: 11:54 kb 01/23 11:19 Order name: Troponin (emerg Dept Use Only); Complete Time: 12:32 kb 01/23 11:38 Order name: Glucose, Ancillary Testing; Complete Time: 11:47 EDMS 01/23 11:19 Order name: CXR XRAY; Complete Time: 14:02 kb 01/23 11:19 Order name: EKG; Complete Time: 11:20 kb 01/23 11:19 Order name: Cardiac monitoring; Complete Time: 13:18 kb 01/23 11:19 Order name: Droplet/Contact Precautions; Complete Time: 11:40 kb 01/23 11:19 Order name: EKG - Nurse/Tech; Complete Time: 13:18 kb 01/23 11:19 Order name: IV Start; Complete Time: 11:40 kb 01/23 11:19 Order name: Labs collected and sent; Complete Time: 11:40 kb 01/23 11:19 Order name: O2 Per Protocol; Complete Time: 11:40 kb 01/23 11:19 Order name: O2 Sat Monitoring; Complete Time: 11:40 kb 01/23 12:40 Order name: Manual Differential; Complete Time: 12:45 EDMS Administered Medications: 12:19 Drug: Ibuprofen 600 mg Route: PO; tr6 14:17 Follow up: Response: No adverse reaction tr6 12:50 Drug: REGEN-COV Dose Pack 120 mg/mL-120 mg/mL (EUA) 1 application Route: IV; Rate: tr6 calculated rate; Site: right forearm; 14:17 Follow up: Response: No adverse reaction; IV Status: Completed infusion; IV Intake: tr6 260ml 14:18 Not Given (Physician Discretion): NS 0.9% 1000 ml IV at 1000 ml once tr6 Disposition: 01/24 08:32 Co-signature as Attending Physician, Emmett Tapia MD I agree with the assessment and mireya plan of care. Disposition Summary: 01/23/21 13:33 Discharge Ordered Location: Home kb Condition: Stable kb Diagnosis - Coronavirus infection, unspecified kb Followup: kb - With: Emergency Department - When: As needed - Reason: Worsening of condition Followup: kb - With: Private Physician - When: 2 - 3 days - Reason: Recheck today's complaints, Continuance of care, Re-evaluation by your physician Discharge Instructions: - Discharge Summary Sheet kb - Viral Respiratory Infection, [id number] kb - COVID-19 kb Forms: - Medication Reconciliation Form kb - Thank You Letter kb - Antibiotic Education kb - Prescription Opioid Use kb Signatures: Dispatcher [employer] EDMS Denia Brito, VISUAL MERCHANDISE MANAGER-C DEMETRIO-Emmett Fierro MD MD cha Ramnanan Ivania, LUIS RN tr6
--- NOTE | 2021-01-23 13:54 | RAD REPORT ---
EXAM DESCRIPTION: RAD - Chest Single View - 01/23/2021 1:12 pm CLINICAL HISTORY: DYSPNEA Chest pain. COMPARISON: Chest Single View dated 08/10/2019; Chest Single View dated 07/01/2019 FINDINGS: Portable technique limits examination quality. The lungs are grossly clear. The heart is normal in size. No displaced fractures. IMPRESSION: No acute intrathoracic process suspected.
[2021-01-23 14:31] VITALS: BP 152/80; TEMP 100.3; O2SAT 100
== END 2021-01-23 14:25 | disposition home or self-care (01) ==
LOC: ER 11:09
DX: U07.1 COVID-19 (principal); E11.9 Type 2 diabetes mellitus without complications; Z88.5 Allergy status to narcotic agent
CPT/HCPCS: 96365; 93005; 87040 ×2; 85025; 80048; 36415; 85610; 82947; 85379; 80076; 83605; 85730; 84484; 82728; 83690; 84145; 86140; 71045; 99285; J7050; J7030

== ENCOUNTER 2021-02-10 16:04 | Observation (INO) | payer OTHER ==
--- OUTSIDE RECORDS SUMMARY | 2021-02-10 16:11 | XMS REPORT | Continuity of Care Document ---
:[address] [facility] t Address [address] [place] [address] Care Team Providers Name Role Phone Abdoulaye Valverde MD Attending Clinician [phone] Juliano Fu MD Attending Clinician Chico Gross MD Attending Clinician Alverto Jacobson CRNA Attending Clinician Jasper Moses MD Attending Clinician Edwar Collins Attending Clinician BHAVESH HUTCHINSON Admitting Clinician Unavailable Payers Payer Name Policy Type Policy Number Effective Date Expiration Date S ource Problems Condition Condition Condition Status Onset Resolution Last Treating Co mments Source Name Details Category Date Date Treatment Clinician Date GI bleed GI bleed Disease [facility] 2019[facility] Amnesia Problem Active 2020-04-10 Cameron tiara [...] 2020-04-10 M emoria ve 02:00:59 l disorder, [place] systemic Hypertensi arterial ve (disorder) disorder, systemic arterial (disorder) Active Problem 04/10/2020 [facility] Hyperlipid Problem Active 2020-04-10 M emoria emia 02:00:59 l (disorder) [place] Hyperlipid emia (disorder) Active Problem 04/10/2020 [facility] Allergies, Adverse Reactions, Alerts This patient has no known allergies or adverse reactions. Social History Social Habit Start Date Stop Date Quantity Comments Source Social History 2019-11-14 2019-11-14 [facility] august 15:58:50 15:58:50 Sex Assigned At [birth year] [facility] kes - 00:00:00 00:00:00 [facility] Center Medications Ordered Filled Start Stop Current Ordering Indication Dosage Frequency Signature Comments Components Source Medication Medication Date Date Medication? Clinician (SIG) Name Name levoFLOXaci 2019-05- No 750mg QD Take [address] [facility] 07[facility] tablet [facility] - (LEVAQUIN) 00:00: 23:59 (750 mg Med ical 750 MG 00 :00 total) by Center tablet mouth daily for 4 days. levoFLOXaci 2019-05 2020- No 750mg QD Take [address] [facility] 07[facility] tablet [facility] - (LEVAQUIN) 00:00: 23:59 (750 mg Med ical 750 MG 00 :00 total) by Center tablet mouth daily for 4 days. levoFLOXaci 2019-05- No 750mg QD Take [address] [facility] 07-21 tablet [facility] - (LEVAQUIN) 00:00: 00:00 (750 mg Med ical 750 MG 00 :00 total) by Center tablet mouth daily for 4 days. levoFLOXaci 2019-05 2020- No 750mg QD Take [address] [facility] 07[facility] - (LEVAQUIN) 00:00: 00:00 (750 mg Med ical 750 MG 00 :00 total) by Center tablet mouth daily for 4 days. levoFLOXaci 2019-05 2020- No 750mg QD Take [address] [facility] 07[facility] - (LEVAQUIN) 00:00: 00:00 (750 mg Med ical 750 MG 00 :00 total) by Center tablet mouth daily for 4 days. levoFLOXaci 2019-05 No 750mg QD Take [address] [facility] 2- 12-22 tablet [facility] - (LEVAQUIN) 00:00: 00:00 (750 [...] l 24 hr 49 daily. Center capsule pantoprazol 2019-05 Yes 40mg QD Take 40 [...] Take [address] (GLUCOTROL) 2- 12-22 by mouth 2 L ukes - 5 MG tablet 12:08: 00:00 (two) Medi theo 33 :00 times Center daily before meals. lisinopriL 2019-05- No 40mg QD Take [address] (PRINIVIL,Z 2-22 12-22 by mouth Agustín es - ESTRIL) 40 12:08: 00:00 daily. Medi theo MG tablet 33 :00 Center hydroCHLORO 2019-05- No 12.5mg QD Take 12.[address] thiazide 2-22 12-22 mg by [facility] - (HYDRODIURI 12:08: 00:00 mouth Medi theo L) 12.5 MG 33 :00 daily. Center tablet pregabalin 2019-05- No 150mg Q.5D Take [address] (LYRICA) 2-22 12-22 mg by [facility] - 150 MG 12:08: 00:00 mouth 2 Medical capsule 33 :00 (two) Center times daily. hydroCHLORO 2019-05- No 12.5mg QD Take 12.[address] thiazide 2-22 12-22 mg by [facility] - (HYDRODIURI 12:08: 00:00 mouth Medi theo L) 12.5 MG 33 :00 daily. Center tablet pregabalin 2019-05 No 150mg Q.5D Take [address] (LYRICA) 2-22 12-22 mg by [facility] - 150 MG 12:08: 00:00 mouth 2 Medical capsule 33 :00 (two) Center times daily. glipiZIDE 2019-05- No 5mg Take [address] (GLUCOTROL) 2-22 12-22 by mouth 2 L ukes - 5 MG tablet 12:08: 00:00 (two) Medi theo 33 :00 times Center daily before meals. lisinopriL 2019-05- No 40mg QD Take [address] (PRINIVIL,Z 2-19 05-22 by mouth Agustín es - ESTRIL) 40 12:08: 00:00 daily. Medi theo MG tablet 33 :00 Center pregabalin 2019-05 Yes 150mg QD Take [address] (LYRICA) 2-22 capsule [facility] - 150 MG 00:00: (150 mg Medical capsule 00 total) by Center mouth daily. Max Daily Amount: 150 mg pregabalin 2019-05 Yes 150mg QD Take [address] (LYRICA) 2-22 capsule [facility] - 150 MG 00:00: (150 mg Medical capsule 00 total) by Center mouth daily. Max Daily Amount: 150 mg Aspirin 81 2019- Yes 81 mg = 1 Me moria MG Enteric 6-18 tab, PO, l Coated 15:59: Daily, 0 [place] Tablet [St. 00 Refill(s) Clay Aspirin] Diltiazem Yes 0 [facility] Hydrochlori 6-18 Refill(s) l de ER 120 15:53: [place] mg/24 hours 00 oral capsule, extended release lisinopril Yes 0 [facility] 40 mg oral 6-18 Refill(s) l tablet 15:53: [place] 00 Metformin 2019-0 Yes 0 [facility] hydrochlori 6-18 Refill(s) l de 1000 MG 15:53: [place] Oral Tablet 00 non-formula No Refill(s) M emoria ry 6-18 0 l 15:53: Sebas Lyrica Yes 150 mg, [facility] 6-18 PO, BID, 0 l 15:45: Refill(s) Sebas 00 Vital Signs Vital Name Observation Time Observation Value Comments Source Systolic blood 2020-05-19 11:00:00 150 mm[Hg] [facility] Diastolic blood 2020-05-19 11:00:00 99 mm[Hg] [facility] Heart rate 2020-05-19 11:00:00 103 /min [facility] Respiratory rate 2020-05-19 11:00:00 23 /min [facility] Oxygen saturation in 2020-05-19 11:00:00 100 /min [facility] - Arterial blood by Medical Ce nter Pulse oximetry Body temperature 2020-05-19 07:54:00 36.56 Bibi [facility] Body weight 2020-05-19 04:00:00 77.2 kg [facility] BMI 2020-05-19 04:00:00 28.32 kg/m2 [facility] Body height 2020-05-18 01:00:00 165.1 cm [facility] Systolic (mm Hg) 2019-11-14 15:39:00 Cameronmirlande Steveann Diastolic (mm Hg) 2019-11-14 15:39:00 [facility] riky Mullen Heart Rate 2019-11-14 15:39:00 [facility] Respitory Rate 2019-11-14 15:39:00 Tessa Jenkins Height 2019-11-14 15:39:00 [facility] 2019-11-14 15:39:00 [facility] BMI Calculated 2019-11-14 15:39:00 Tessa Jenkins Procedures Procedure Date / Time Performing Clinician Source Performed ECG 12-LEAD 2020-05-19 11:16:48 Laura jamil [facility] REPORT OF PROCEDURE - 2020-05-19 09:32:18 Josué [facility] REPORT OF PROCEDURE - 2020-05-19 09:29:49 Josué [facility] TISSUE EXAM 2020-05-19 08:29:00 Josué [facility] UPPER ENDOSCOPY,BIOPSY 2020-05-19 07:47:00 Josué [facility] COLONOSCOPY,BIOPSY 2020-05-19 07:47:00 Josué [facility] CBC (HEMOGRAM ONLY) 2020-05-19 05:02:00 Tez [facility] BASIC METABOLIC PANEL (7) 2020-05-19 05:02:00 Earle De [facility] OVA AND PARASITE 2020-05-18 23:00:00 Cliff Spann [facility] CBC (HEMOGRAM ONLY) 2020-05-18 22:56:00 Tez Jaimee [facility] BASIC METABOLIC PANEL (7) 2020-05-18 22:56:00 [facility] CBC (HEMOGRAM ONLY) 2020-05-18 18:24:00 Tez Jaimee [facility] BASIC METABOLIC PANEL (7) 2020-05-18 18:24:00 Earle De [facility] SARS-COV2/RT-PCR ([facility] & 2020-05-18 15:37:00 Tez Jaimee B [facility] HEPATITIS PANEL, ACUTE 2020-05-18 13:04:00 Laura jamil [facility] CALCIUM, IONIZED 2020-05-18 13:04:00 Hakeem Fu [facility] HAPTOGLOBIN 2020-05-18 13:04:00 Laura jamil [facility] BASIC METABOLIC PANEL (7) 2020-05-18 13:04:00 Earle De [facility] C. DIFFICILE GDH TOXIN 2020-05-18 13:00:00 Araceli Sanchez [facility] STOOL CULTURE + SHIGA 2020-05-18 13:00:00 Araceli Sanchez Alhaji Hastings [facility] TOXIN [facility] SHIGA TOXIN SCREEN 2020-05-18 13:00:00 Araceli Sanchezvaleri [facility] STOOL PATH CHARGE 2020-05-18 13:00:00 Araceli Sanchez [facility] BLOOD GAS, VENOUS 2020-05-18 08:55:00 Earle De [facility] ABORH, MANUAL 2020-05-18 08:55:00 Joleen Horn [facility] CBC (HEMOGRAM ONLY) 2020-05-18 06:49:00 Jaimee Reagan [facility] LIPASE 2020-05-18 06:49:00 Jaimee Reagan [facility] BASIC METABOLIC PANEL (7) 2020-05-18 06:49:00 Saleem Sanchezjamil Sweeney ed [facility] LACTATE DEHYDROGENASE 2020-05-18 06:49:00 Araceli Sanchez Alhaji Hastings [facility] ([facility]) [facility] TYPE AND SCREEN, 2020-05-18 06:49:00 Jaimee Reagan [facility] POCT-GLUCOSE METER 2020-05-18 06:48:00 Bhavesh Hutchinson [facility] US ABDOMEN LIMITED 2020-05-18 05:13:00 Jaimee Reagan [facility] POCT-GLUCOSE METER 2020-05-18 01:13:00 Bhavesh Hutchinson [facility] CBC W/PLT COUNT & AUTO 2020-05-18 00:45:[address] [facility] DIFFERENTIAL [facility] COMPREHENSIVE METABOLIC 2020-05-18 00:45:[address] [facility] - PANEL [facility] PROTHROMBIN TIME/INR 2020-05-18 00:45:00 Bhavesh [facility] LACTIC ACID, VENOUS 2020-05-18 00:45:[address] [facility] (CELLAVISION MANUAL DIFF) 2020-05-18 00:45:[address] [facility] CBC W/PLT COUNT & AUTO 2020-05-18 00:45:00 Bhavesh Hutchinson [facility] DIFFERENTIAL [facility] Plan of Care Planned Activity Planned Date Details Comments Source Future Scheduled 2030-05-[address] [facility] - Test 00:00:00 [facility] (procedure) [code = 908929899] Future Scheduled 2030-05-[address] [facility] - Test 00:00:00 [facility] colon (procedure) [code = 070548802] Future Scheduled 2021-01-[address] [facility] - Test 00:00:00 (Season Ended) [code Medical Center = INFLUENZA VACCINE (Season Ended)] Future Scheduled 2021-01-[address] [facility] - Test 00:00:00 (Season Ended) [code Medical Center = INFLUENZA VACCINE (Season Ended)] Future Scheduled 2020-05-[address] [facility] - Test 00:00:00 (12+) [code = Medical Center DEPRESSION SCREENING (12+)] Future Scheduled 2020-05-[address] [facility] - Test 00:00:00 (12+) [code = Medical Center DEPRESSION SCREENING (12+)] Future Scheduled 2020-02-[address] [facility] - Test 00:00:00 (WELCOME TO MEDICARE) Medica l Center [code = Medicare IPPE (WELCOME TO MEDICARE)] Future Scheduled 2020-02-[address] [facility] - Test 00:00:00 (WELCOME TO MEDICARE) Medica l Center [code = Medicare IPPE (WELCOME TO MEDICARE)] Future Scheduled 2007 SHINGLES VACCINES ([address] [facility] - Test 00:00:00 of 2) [code = [facility] SHINGLES VACCINES (1 of 2)] Future Scheduled 2007 SHINGLES VACCINES ([address] [facility] - Test 00:00:00 of 2) [code = [facility] SHINGLES VACCINES (1 of 2)] Future Scheduled [address] [facility] - Test 00:00:00 (procedure) [code = [facility] 91916596] Future Scheduled [address] [facility] - Test 00:00:00 (procedure) [code = [facility] 98360439] Future Scheduled [address] [facility] - Test 00:00:00 malignant neoplasm of Medica l Center cervix (procedure) [code = 865710824] Future Scheduled [address] [facility] - Test 00:00:00 malignant neoplasm of Medica l Center cervix (procedure) [code = 263845328] Future Scheduled 1976-01-15 DTAP/TDAP/TD VACCINES [facility] Test 00:00:00 (1 - Tdap) [code = Medical C enter DTAP/TDAP/TD VACCINES (1 - Tdap)] Future Scheduled 1976-01-15 DTAP/TDAP/TD VACCINES [facility] Test 00:00:00 (1 - Tdap) [code = Medical C enter DTAP/TDAP/TD VACCINES (1 - Tdap)] Future Scheduled 1969 COVID-19 VACCINE (1) [facility] - Test 00:00:00 [code = COVID-[address] VACCINE (1)] Future Scheduled 1969 COVID-19 VACCINE (1) [facility] - Test 00:00:00 [code = COVID-[address] VACCINE (1)] Future Scheduled [address] [facility] [facility] - Test 00:00:00 malignant neoplasm of Medica l Center breast (procedure) [code = 913788246] Future Scheduled [address] [facility] [facility] - Test 00:00:00 malignant neoplasm of Medica l Center breast (procedure) [code = 811124629] Encounters Start End Encounter Admission Attending Care Care Encounter Source Date/Time Date/Time Type Type Clinicians Facility Department ID 2020-06-12 2020-06-12 Outpatient MHIE IE [id number] Memoria 14:45:00 14:45:00 04 nilda Sebas 2020-05-17 2020-05-19 [facility] Salvador Valverde Enr jenni [facility] [id number] [facility] 23:44:00 15:05:00 Encounter Hakeem Fuough [facility] 2020-05-17 2020-05-19 [facility] Salvador Valverde Enr jenni [facility] [id number] [facility] 23:44:00 15:05:00 Encounter Haekem Fuough [facility] 2020-05-19 2020-05-[address] [facility] [id number] [facility] 08:11:00 09:26:00 Event Yanely Jacobson [facility] 2020-05-19 2020-05-19 Anesthesia GinnyJeremías suarez [facility] [id number] [facility] 08:11:00 09:26:00 Event Yanely Jacobson [facility] 2020-05-19 2020-05-19 Surgery Moses, [facility] [id number] 08:00:00 09:00:00 [facility] 2020-05-19 2020-05-[address] [facility] [id number] 08:00:00 09:00:00 [facility] 2020-05-18 2020-05-18 Travel [facility] [id number] [facility]00 00:00:00 [facility] 2020-05-18 2020-05-18 Travel [facility] [id number] [facility] 00:[facility] 00:00:00 [facility] 2020-05-17 2020-05-17 [facility] [id number] 00:00:00 00:00:00 Hutchinson, Luke [facility] 2020-05-17 2020-05-[address] [facility] [id number] [facility] 00:00:00 00:00:00 Casimiro Hutchinson [facility] 2020-04-06 2020-04-08 Outside nullFlavo MNA [id number] [facility]oria 15:05:10 05:59:59 Medical r Neurology 00 l Records Devonte [place] 2020-04-06 2020-04-07 Outpatient MHMISCHER MHMISCHER [id number] 09:05:10 23:59:59 00 2020-01-22 2020-01-22 Ambulatory nullFlavo MNA [id number] Mem[facility] 16:30:00 16:30:00 Pre-Reg r Neurology 03 l Devonte [place] 2020-01-22 2020-01-22 Outpatient MHIE MHIE [id number] Memoria 11:30:00 11:30:00 03 l [place] 2020-01-22 2020-01-22 Outpatient PANDA CollinsSCHER MHMISCHER [id number] 11:30:00 11:30:00 Johnson 03 Edwar 2020-01-08 2020-01-08 Ambulatory nullFlavo MNA [id number] Mem[facility] 15:30:00 15:30:00 Pre-Reg r Neurology 02 l Devonte Sebas 2020-01-08 2020-01-08 Ambulatory nullFlavo MNA [id number] [facility] 15:30:00 15:30:00 Pre-Reg r Neurology 01 l Devonte Sebas 2020-01-08 2020-01-08 Outpatient MHIE MHIE [id number] Memoria 10:30:00 10:30:00 01 nilda Sebas 2020-01-08 2020-01-08 Outpatient MHIE MHIE [id number] [facility]oria 10:30:00 10:30:00 02 nilda SteveSebas 2020-01-08 2020-01-08 Outpatient JAYLEN CollinsSCHER [id number] 10:30:00 10:30:00 Johnson 01 Edwar 2020-01-08 2020-01-08 Outpatient JAYLEN CollinsMISCHER [id number] 10:30:00 10:30:00 Johnson 02 Edwar 2019-11-14 2019-11-15 Outpatient nullFlavo MNA [id number] Memoria 15:30:00 04:59:59 r Neurology 00 l Devonte Mullen 2019-11-14 2019-11-14 Outpatient JAYLEN Collins [id number] 10:30:00 23:59:59 Johnson 00 Edwar 2019-11-14 2019-11-14 Outpatient PABLITO PABLITO [id number] Memoria 10:30:00 10:30:00 00 l Sebas Results Test Description Test Time Test Comments Results Result Sourc e Comments ECG 12 lead 2020-04-29 Interface, External Ris [facility] In - 05/23/2020 4:14 PM [facility] - 16:14:10 CSTVentricular Rate 103 M edical BPMAtrial Rate 103 Center BPMP-R Interval 170 msQRS Duration 86 msQ-T Interval 338 msQTC Calculation(Bazett) 442 msP [place] 55 degreesR [place] -35 degreesT [place] 52 degreesSinus tachycardiaPossible Left atrial enlargementLeft axis deviationAnterior infarct , age undeterminedAbnormal ECGNo previous ECGs availableConfirmed by MD HUMERA, NABEEL ([id number]) on 05/23/2020 4:14:03 PM Ova and Parasite Examination 2020-05-21 10:45:00 Test Item Value Reference Range Interpretation Comme nts O&P Direct Smear (test code = No ova or parasites seen No ova or parasites seen 15056-7) Lab Interpretation (test code = Normal 52445-8) [facility] and Parasite [id number] 10:45:00 Test Item Value Reference Range Interpretation Comments O&P Direct Smear (test No ova or parasites No ova or code = 15589-5) seen parasites seen Lab Interpretation (test Normal code = 69946-6) [facility] AND PARASITE [id number] 10:45:00 Test Item Value Reference Range Interpretation Comments DIRECT SMEAR - No ova or parasites No ova or parasites O\\T\\P (BEAKER) seen seen (test code = 196) Stool culture + Shiga [id number] 09:00:00 Test Item Value Reference Range Interpretation Comments Result (test code = No Salmonella, Shigella or 6463-4) Campylobacter isolated [facility] culture + Shiga [id number] 09:00:00 Test Item Value Reference Range Interpretation Comments Result (test code = No Salmonella, Shigella or 6463-4) Campylobacter isolated [facility] CULTURE + SHIGA [id number] 09:00:00 Test Item Value Reference Range Interpretation Comments CULTURE (BEAKER) No Salmonella, Shigella (test code = 1095) or Campylobacter isolated Tissue [id number] 08:14:00 Test Item Value Reference Range Interpretation Comments Case Report (test code Surgical Pathology = 104) Report Case: [id number] Authorizing Provider: Nicanor Moses MD Collected: 05/19/2020 08:29 AM Ordering Location: [place] [address] ICU Received: 05/19/2020 01:42 PM Pathologist: Rj Copeland MD Specimens: A) - Duodenum, Bx B) - Stomach, Random Bx C) - Colon Biopsy, Random, Bx DIAGNOSIS (test code = k2exoXRhZLTgl4auNZXyhR 3220) FuZzEwMzNcZnRuYmpcdWMx IHtccnRmMVxlcGljOTIwMF bkypSqULRthTKlG6Mvqlsz YGttYX7mLP2zaTgblHTabK GvOAUdMaTox3hjb896mZYl m1ufHVEQlhnsmEq2iDbsU4 7wk6D8TfubC91wqUFjXLzj bGFpblxmczIwIFBBUlQgQS SIZK9KHW6CPIKYJM1LY9l7 XHBhciBTTUFMTCBJTlRFU1 SQZrILRN9FM24LQOWREMDH IFBSRVNFUlZFRCBWSUxMT1 ZYKADGN2mJAXITIVPIPL7p yWNyQM6BZElGQ0QGSQHJOG BFUElUSEVMSUFMIExZTVBI L0RXVDCPFSFFKjPXVLoLHH CZTRCASXAMMATMVQNjQX8I IElOVkFTSVZFIENBUkNJTk 9NQSBTRUVOLlxwYXJccGFy IGJABaOgYbMKMG9RA99rW6 DOFHSGQyTVRP0HO2f9HICx vjUNU9TWBtCwU3hZW88HKt ETJWVPRtaOJASsN2nRKTID UfLMG9SDNrYOIC9NFYUMZK FTSUEuXHBhciBORUdBVElW FJARX4LjYNhHVNxTC7mRHU 9SIElOVkFTSVZFIENBUkNJ Tp6KWE0okZQeRHnEGgRNAJ 0aN2XWKrTUILNWDTvNGRAS UaSFKUkIN26NSXHQWCEnHV MgTkVHQVRJVkUuXHBhclxw YXIgUEFSVCBDIFJBTkRPTS ATG0xEMrQLLE7LA9a5GMDp ciBNSUxETFkgRURFTUFUT1 KCQFZBUJ2GJDPzIUAGP2HA POlBDMqpXPmOZC1LXPLYB1 TTWNGBH23ROMVCLQXGHxVQ A2sIDNlGLmivGKPlOh1iP9 lHTklGSUNBTlQgQVJDSElU CGDIQZAGQGAIFIIDA6MZOA 1LTyjyRTAmSf1kNA3ONaUI U0QXZDYSSDBPLJyQPIluNR yVFVoJI2iKSBYmV6QrFQOY G8KICMlyQ55QDMNVFW0wHT CFA4XWHTyHVd5kwSBkZB0I NWeSGE8YBZ6FAFLqZXRJZ0 DHUCQVTBmsO4UvLA4PQDZL BlLlE5GUU7nPA95JStkhZR SmfMDxhGxvynOtSPojs8Dt GOwxNZMeTW9ipVgoQTBrRE 5pRMEdB6nquW3xxcw7SvZk JHSbHhB5VKSdzvL7Iik2FT HyDTzub1bpu0YoTEYdOXy3 pIxyVmVwNUNrm2uqkwKhDb XbPQIxWWFuGRTjgWAoQ668 d8kki7kkybGomNI0DVSwSV C4FYsphfZfejR9VDgdhAEz JqI3QRcvvgOvJPsqurNdkc JcSwd3BIRtY440KDI7xHng t3hkLER3VDIeFQLmQsBoSh 2awWObX340FFQkXRLYUVAy bTv9RRUgitZschQleATAs8 19L981a1seWVBtatDqqVtV ytteg7tmF124MYJipPVyzl CdIkBjEAXdqRRbwDV7LDWd HP8rdwdcDBgdHSwlKBKxar Z3IWKohQPyN4JuELKyFE6j eqenZVY4QNyqVJBiNOB7Ir PuKBPuh6Zsozc4LlMqlc9n yz33QAO2m9XlmYaaZAG1IT T9QyZbNq7skEKdTEKtRY0k MvWpoLKqPEGszk08gTycWP wbEPL0PJNktqTpa3Gmp1uh JoDyuaLwT8ezW5DfUFCvHK OhOTUoDeThbhVyk4Svw2Te kHHruAy3l0ggVKYbDFIpoL hbs5adKRU3IHHdaQEeP4ub wR5lCGZfQL1afihvb5ndIU gsNZsaCIPozVZ6kkP5TRIr xYMqV8GvmR4xNGEhXAhcTM Rinij5AjKxBp0sxPMeePzb MFxzYmtwYWdlXHBnbmNvbn RccGduZGVjXHBsYWluXHBs YWluXGYwXGZzMjRccWxcbG FuZzEwMzNcaGljaFxmMVxk CdIpNHSmBLkxT2skXsUlVp NdUiw0NAIfbBViWAAkUvz6 HSWdeRNsIFKVlUzwkJ2nBR IzhPxleM7ghUE7OKVnstCf gOWOlI5zOPQPfK4nNeM8Dc WqWwM6LTh8VtUpgVLroS0= CPT Code(s) (test code d2rxmQGrMKMjkPF8YvSrGU = 3357) Oya3drc9EizRLsoCAiNFqg xERcpvIaow45bIF0hB97BP 3sZVMeEjS1BLJcvpV0Upt1 LFZqFCHntCMfJ363j9psb4 jhgkXlyHW1gDpwJSEfRJUw YWluXGZzMjAgODgzMDVYMy wgODgzMTJccGFyfQ== CLINICAL HISTORY (test a3fivXFjKNIqmNQ2AxDaJR code = 3356) Qzh1cmr8DfsLGwbCCsXXwg rQEqpuVejs73oLU3oT49CD 8mRYNxVmL5USTgicO5Yji0 SVFqEJCdsRFrL180j6tkl2 yrllOfiSJ8rRfmVBXnIABr XXsqALEaFkDfJ0CbsYHbiX 06IUL4qH8ouJMaBY9gexOr OJriFJQuj13tdFV1VCIxf1 e8hXRzQTA1jwy2nUUwgAHf fQ== SPECIMEN SOURCE (test y2lwlGCgZUThnCU9JiNwZJ code = 3377) War9xeu8GymVPphQRjBQvx jWMntrHfkv46qEG9zQ63NG 8cBNSdVeR8ZHHwfgD4Iff6 HKXfUZKfsMFjF931w0xev1 xztyGhcHR4lTlpJHNrAZBi GRhwJCDhCeYxJR6lBYG4p1 JnbcPoXRlraiJoSq4jHCT4 l55kQ0rjtGecMKTUYfLeO6 6rf71okTSnnA== GROSS DESCRIPTION (test z3hhaBLtCPJuzBPtNtLdKX code = 3366) FxWVXpz5zdSUAudSPoXaFh MzNcZnRuYmpcdWMxXGRlZm Yyv3ptp476gABeh3ycYKGy NuL8eUClBKMteBVdW632EJ YtNJkpu9zsq7NpXZMbkFPn x1W3XTMXyyokqCs6gMggC1 5ma6D1ElceO0mhLOHqVEOg O5VjSL5lKHHyWwo2RNF3QD F5MVEzFRWvU9NpLC8jYRYo uYKcEFp7k8uaqZgzLULbQY S4r4hvPBpuqnJ5SD4lhk6c qDb2t0yxtwBkPMGlRYNbqK NRUWYtB2GqbQgsPb9oqQq6 iGjiEyjcNUO2Axe7EG0lfv 25gvb4gYwfITIgkqfkEhY7 KTvsTBNtwwtcEFw2NSmcMH JnbDcyMFxtYXJncjcyMFxt YXJndDcyMFxtYXJnYjcyMF alMMJaZBA4AObuk812XMM3 GFnix2plg9cefUGoMoo0VN WyRiVcZimqSYnxe2Rst1eq TFZgQpH4ZCuaFO0yel93FF OlESM4ap9boFRlzAqzscCz wUFsBDomC1UfGRGvk000YV IuF8AgBATnj6H0hsHiJrFb OQBkgEM9wqS8QKGtWNx6kV VhviY8rdIfyIXxQ3thcF52 GfFqgKKaW9TzbT81SzKgpK OgF8LibA29CtGobPGhW3Gh iJ59YyLkkOMeSDVmpNCtAd 3jyOSfcPHnc8HpdDAbTLsj J94ul451UVLtbdOzO3womO FpblxwbGFpblxmMFxmczI0 JDHwjkByiQygoT7aZjDwSk MzJGdiDH4jKDZiV9keyANb JJSiXHTjE3kbPzUfsN7rzV spBGsofwUyRHVsMNIwC7Ec gvQlNVgtYIPbdt2yyGuoGE xdMzDcQXDcm2n2vWR9qUVu vVU3rTOhoFadFtLjYL4csP ZgGL4fRBgkAPplncYwn7Fw MO45pAQswsKzffAyPjS8m9 PfutYjDzYhvuHfE06jc8wh qEPsb3SjKxK9QG5dn64tdI R3pNLzfVGdJsBgX73vftUs YCJdluxartykTJ0aTEXeRA AlzSVliBNfcGD9UHDbaG1p nP33vwTusmVJSP9zkZwsHC nzlE6nMBVnIFPpM3VyqfWi TDdcBUJwny2xbFgmUKwoLs NeSKTsv2b1uOR8eZOxsUD1 fBFrbOruPvWoIX8qiWDzEO 9iPKbmUIoshgHeu8TvPK77 sTAqljFdmmCzEyH2w26kF4 onOFWsSUCip49ojDY2lqJf NgR9SWTugmCyt1P3VLCrm3 R5MRAnytZmxQOaqRFlfzVx N9pqHjGnWuJjDZ18UXXkFB I4Re1hfNIcDWPmdmG6t4Id SBqvLIBaHisykX2jYJroon ArTx2pPsLhXBz4XYDooS4c Nw9xwPBvkM3qnSYaCXqlYF Aca6v8bBK8oYPglUA3mWZv oQdnEhIlTC7uzPAjEX4dZY rdYXlhxqTik9MwMF99zUPb zxRguyOoRgZdfG6aRRLak5 WikElxmtEbIZ8wGkNuchPr B79su4zffXHfj6MadZNvkQ lwbGUgdGFuIHNvZnQgdGlz w3QjEEYcSJwrOT21pxYzNC 3gsY6aVQGbVi4qDzuyR03l r6PtnQj8eBYqCNqnPGMtuK 0xrD1eRmPySXlkpoNirWnf XBPTuKWpv0BjGTmyNXSkKS TRYGQmKOCRZZhNB0QJUHOz XHBhcn0= MICROSCOPIC DESCRIPTION x2tghAYyEYZqbMM3JeEwVS (test code = 3371) Nin6exy2YjeRXtwXZvLIjc fOMiroNdvc20aDL9oO11DI 6aCZEaHtG6MEWlqoE6Kyh2 BXVqJIKhoDJsX904n6kbh8 yxcaQeaRD0uXroTUDsATFa WNlgCRHcRjKoJVYCCt9NPA VELlxwYXJ9 SPECIAL STUDIES (test b2ykzINfBNFagLM2EqIiTE code = 3376) Srx7opy0ZyxREpwEVrEPay qDHwisQizf82aIA2pS95JU 0bAOLjAzO0OHCqseX7Gwf7 AJAmVSWzcBBuZ910MDMjBT AyxGtdzhu7sL65XQStbZ4x yRJbIUz4ZVGbicMmnCapuY 9vCeTrZaIgFqLPrDPkzB99 LAWxlcQ9NNNdo29gq3SxjP rywaLjLVIjZOjmD7x9JYSc ELUsANL8z6Oto5GunC2snA 1bwCjapS9qhEXpnUZ2gtce c8Fwe4VqW3ribWLhrYBlpa MjHVQyqcHVCO4GIdHBDZ9r Q1NRVUgTSqYBVJHWAvpgoT EbHRWlpwFbb3zrK8dyUEBt MKH6HK3hxxDjFxXgRP0xvH 13t1Wis88am61wzR6oxIHr pxZyD57snJGilXBdu9BoYW AkslTzdGE2UMTsRYtxwwcp r5d8sJJ2pRIxfESyvNH3hF IwoIBnDLCRsTKoMOJfj569 dc3mPPAuhKItbtAshH5kNS ffyzvmvULmCY0aBPSuAKHu OGZfUJ67pcGsNV6zmBDnf3 dsyzVlfQWox3ZxyYC0NXFb qZQqeczeHl9jAR17IIFeNP bfgW5upXDfnsQwGO0mPE4x A7T5oEVgUGDgodNfi3wrZQ ghCJ7jQAZibQhrMwxhDTPa YKIcsyKpwFQ0UNUwkZIdMG AksLVhRPdzqLYjj5rqr9Pg Z7zckYwgyXS7VSGvS3igsR QlrOZ1SXZ0iO6aPCvrfpIx APLns4GeOOMnLUEsZqP0qP 1nEIH2JqTYiXvwVYT7PuO3 NHzlRYEfNS7nXKsdXOboL5 IsuDZyJDSSUVThz5xaG3ed VKBxr5EozR9uaUF1yVXvZQ OioDC4QXQzHFN3MHyqrCOd HINvGRWwePQobYDjAa5mlD OcV8KfK6qysbGnjCOkpLK2 uFFrZQpqwnLrTUL3ILWiuR 5aJZ7kRFBvbUZhJJ6qiBJh HVMcPXUgYUOsUACpz0OxTF Xrer86ZXGuHlbvuRbvPUWh Xj6nJt4oYBUcmkFvHDU2Na KZCN8kdlssuMExcMciyv8i LKjcSWAJMJAnBFLxAPU0YS VhyG7vOVA1sMX3LUX0B4ac M7hwDNGusbQwFP4eKABxfC JlkfHgHPznHM9rlJFoFGRs m7XgukwuRRMwEXV5RVD2EI rsJEMxQVRwLh9tNFWndU0q L5UxREY8suBeu4NoYtXAwV TfyJ84tXMbva35WWOkDADc I6InLBAsZFQtWInbuxTxrK uxTKUem72ykWMjbnMvx5Ea ghIxPRLdN1imLTGujQLqtW Lpk4LozF9akNPqpaVgQTT4 xEKeFKFrjJ8rBZElkKpmRU EtiL4nD0XuWNrmAo4iJBPr kbqsXS9keh88PN1abmYiGS 6qymMjRF43tfQwNrIlRKh3 LPhZABeIBVd9WIFkhkJwuM WxcOXsPUGlrA2vbFZqDl6g bSBoaWdoIGNvbXBsZXhpdH kkY0hayttqOSmdjVXvb4Xs pI5siWJ9SNM8fL0nMlceIW J9 Gross assessment was [facility] performed at ([facility], = 2777) Department of Pathology, [address] [place] [address], Technical component was [facility] performed at ([facility], = 2778) Department of Pathology, [address] [place] [address], Professional component [facility] was performed at ([facility], code = 2779) Department of Pathology, [address] [place] [address], [facility] [id number] 08:14:00 Test Item Value Reference Range Interpretation Comments Case Report (test code Surgical Pathology = 104) Report Case: [id number] Authorizing Provider: Nicanor Moses MD Collected: 05/19/2020 08:29 AM Ordering Location: [place] [address] ICU Received: 05/19/2020 01:42 PM Pathologist: Rj Copeland MD Specimens: A) - Duodenum, Bx B) - Stomach, Random Bx C) - Colon Biopsy, Random, Bx DIAGNOSIS (test code = t3dluOKiULMrl2iyMCAvaS 3220) FuZzEwMzNcZnRuYmpcdWMx IHtccnRmMVxlcGljOTIwMF vqmsBfJNTcqLPkK3Mewean LPrzKW1zWZ3muZmncXBdpE CiTYCjCrAfq3mlb721oJZb q2fhJMXMtpspcFz9vEkzV5 4nh7Q9EwvrF01shKTwJIuj bGFpblxmczIwIFBBUlQgQS LBTK0CTB0VUDAIBB0FA7c2 XHBhciBTTUFMTCBJTlRFU1 CEPnWOJC8FV66RMIFBKGPE IFBSRVNFUlZFRCBWSUxMT1 QSTAMTO8uVINNVDLLJVH8w iKAuLX7YGIoBS4YKVHFLDK BFUElUSEVMSUFMIExZTVBI I4HMVNAGAAINDjISMOvVNR NDKEPPWZWBOBMLAELwHQ1V IElOVkFTSVZFIENBUkNJTk 9NQSBTRUVOLlxwYXJccGFy NBCDTfQyYfQKAX7VT34uM4 IWNEMNSaRRYY6HX1o4NKOz qzFUM8LHWyTfW3oQX27CXv DUIIYTDelDJHEpM6sXYHPU DiRJZ1KIVpCHRB4RXCFLRF FTSUEuXHBhciBORUdBVElW SRSQB4TdDHzNVAnGF3yILY 9SIElOVkFTSVZFIENBUkNJ Nz6ZND9wcZCwCQpHDxKWHW 9gZ4EBQtCFRDXITRfYYQKP UjGSDHaSO37JOHQXBVEpHR MgTkVHQVRJVkUuXHBhclxw YXIgUEFSVCBDIFJBTkRPTS SGQ4vEXhPVVH0IX0r9RZOu ciBNSUxETFkgRURFTUFUT1 ZERCNXSL6BVUHvTSHUL3UJ HBuXEFsjNRgOMU8WNIXXZ0 CSPUBRB91BUWAPIXLKBsCE U1fUWRlMVzwmCJWoSr3bQ0 lHTklGSUNBTlQgQVJDSElU TPOYCPBGOFHTUBLST9BWDZ 9CTcbeCAUcUr5yKP7RMdMS N3HQMQBJYJRBEZyWEKvtBA tJBDuQE2fVUVIlR2SqKJFF L8QENEmzH27DXPYDKP4rXH EBF7IWJUbQWd4bdNIzAP3G CGxBNA7YFJ8IUTIqZCFKU7 TNDXSKLTptT8RvPH1BIKYU WwAsY6LRT8bSK05TZlmpCS CqiBOohWtyniUjQOncq1Yx UIqbJNRlKR8dsEoqXFGhAZ 7fVQBgN3tapI5jabl4KbMf TGRdVxA0OBYvsoW2Smi3BY RhWNjlm7yvf2QnSQKsQUk7 jMzyRjLmUZHnw8uhkzCpIp BnASTdGBAsUJYbpKUmF531 t0yqf9pnfaSfbLJ0MTWfLS N2WXzqtoNmklM5TZrymBTl DcX5RPubnaFaQYjgalVjvu AqOeg7HRXdY062NGB0yFoh u3zdURB9HJCpNJSyKjLgBj 5xaNFtV859JXWdDOZQDADt qTz9CVVmzvIyivMziHVIs2 85C697x2ghPCSlbxEzyTeM gtamm5pcU623RMKhiHXspm IaRkQsDXUouJYktJZ8WVLl UV7izzasZSnxTXelOCFdxl I6IOHtxVKyO6YhFHIuHL0e szrcGDW5BCwiLPSkTSU7Io DrHTQpz8Megwp9IgSsxr0b pa07VOT1c4FgqBpcDBV5YH B2EkJtJe6tgCIoUWLeOK3o QaLwlFFfMORcyw05pDgzSY ghHKP9NVKsefZzq2Qqd5yb EoMzhyEcS6taR2ZhGLAkTU XuOUNcYcWthlNep1Rof1Qi gYMsoDz5e2wwUXUfCIKeoR lmx3sfASD9SMQcgSOiA5mv uL6rVVSpHD1uwjvqw5fqIG zdRPpwRCMifXD1ryB5LDLu fBNpX1HgdF8qQCRaXEmjZK Nbvxi1CxAsTd5poTPywWcu MFxzYmtwYWdlXHBnbmNvbn RccGduZGVjXHBsYWluXHBs YWluXGYwXGZzMjRccWxcbG FuZzEwMzNcaGljaFxmMVxk JvMeKOYnNJcfG2tvSeOePb JuFqp6TIQpmKHwWIAlKib9 KRZmkKHgRVRQoDyzhN8aDD JpdYeaeK0bbPL2CQApoiUl tPDAeM5xQYUXiW6qEsA0Sa BsWsI1KRg3AcQsxORwiO4= CPT Code(s) (test code d5jxmIYxYECxiZQ4PyXaSD = 3357) Gvw8mfs6ZceJYzaFRiIFgj hMOyfuHjfm79pTF7wF38SH 8uWSNrMxG2OWFjstC9Oef7 FXBiXAVqzIHyI337y1iyk7 xlpnCirBI9tNwzCEQzVMXq YWluXGZzMjAgODgzMDVYMy wgODgzMTJccGFyfQ== CLINICAL HISTORY (test u8skbEClDTTrxVB4KyShEG code = 3356) Cvq3zhv3ArlJHccIEfDXhs xNAlmvItvz58eEL4dF90UN 4fSFScUvR4UBNwnwK4Kgp3 ZCRtQBTjcANkN590a7oga4 jqxcRvsAE1mSydEMNaCJOm SIkiIELqWiPlH1XwdGVzcZ 24CMI4zK1znSQmSJ8addHl VIkkTBLlb30wxCR5UFOmr4 q8hDUpWNG7kmd8hFMmtJQy fQ== SPECIMEN SOURCE (test u4ktqDHtNWXqoYB8UiIjEO code = 3377) Lzo2mbo5KuxMRxyABtXBmz hMGzttVbqj22cIK0oC19RP 0jYHBiYvU5APWjzvV8Rmm8 VWXrZXTlbTXvL801k8vri1 qcubQahDI4lZwtYBJrERYw SYgoZRCeSmSzNE6aQSF4y2 DeouViYWqtmuTvOb1jHVW0 g20uZ3rpiWqvDQYTQeUyN9 3ku78slVLnvM== GROSS DESCRIPTION (test t7qrfOXlIVAfxTByPpTcDM code = 3366) QvSWBru5nzAOAjkZPtZyYk MzNcZnRuYmpcdWMxXGRlZm Rfj8flr066lNIaz2cqRWFm PxP4jJBiWFAvkIFsL015IC KjRPxhy0rkl3KnFQPajSNe v9W5TXNPdtnnfZm2yTukU6 9gr9J2LetgZ6ouFHJmCBTa X6YxNW6mXFVqQgv0RAE7RJ B4VILqLTBvX8DmML9sSCSa uNSoNZm7z9kptDybHZEhAT R2e0asCRrntjQ3GH5whc5y rVs3g2kihzCbSUUtWJKthO QRAOMeN5BnjRzvYy6iiKs7 kSmcMdmfXTG9Ecm5NX2vky 83fde8aBxpQUWidxjvDmI2 QNmuSTDeliqwMEd4YFisTC JnbDcyMFxtYXJncjcyMFxt YXJndDcyMFxtYXJnYjcyMF gyUOMuUQK3THntb001MFW4 VMsgc8hja6tcjRByXpx1OG YeToEiYhxwLZvkk9Ypy4tq MTFlQvT2EQwjQN8uhm86PK CiCWA7bk4ccEPvnJxstsHg mOHuFHyfO4BqCUUmc655JR TxR7EfYRIll3R4rwKlHnXc AYOieAT7zhM6QTMlFTg1tC GgxbO3leEdmVUhY8liqH86 AcPrhGTyG9QvdJ89RjBqoV SoW0DkvB53JcGxbZBhO6Zg kU84LvBpjOYbSYPbaNVqIz 3meILxePRae8TatBMzTFym Y39lb579MBWvufIfE1wtfM FpblxwbGFpblxmMFxmczI0 GSVkgbYlcWpagM7vUbDvQe RsBRuiLO8qWOGiY7qfyVLz CNRjSXMiG6zyWjAkyJ2hlX bmDTjnfhEmAUKkSQDbE1Gr jyUaGHviNUHinq2dtDioDU mrHuGhHIVdy3p6oEW6kKVt dYA6iYYsjBtfAkBdZZ8itM DrLR3dDSxaBCjhbfUxs3Vx PT38pNHvliAhmrIyOcP6j7 HeqpNmYaZftyBfP73wg3nh pPByz5GrOeX4KU8yh39kuE G2hQBvmJSpJmPsN48zmbJf VUKuwwbblcdgST0wDWHeLB MipMXkwEBcaNO5MTRpmX1g aF78efLiamDGPR3heHhlZA qbcO0vSGCiASBuX8QjdwJo NDtnXHBbbe2wsVwqYKgxIu IsCVOtq3s0wMX7iFWehWM2 tKBbaSyqMyTvMK4hxYGfAR 1lBQjvXGsxwkMpf3RkAD92 oCSsgdRbhwWjDtL5t80jC5 oaTJNuCQTxn63auJI3afVy AnX8HEQrerCcm0R3TQXzu0 E1KKYctsSrgKKqzVBmcnPs E5eiQgXyBaOdCT00QKAlBM H5Va5oyELtMTFbqxC2c3Hy LMzbFEZcAluwlO0yRMybkv LwOn1bAlBdLDy1YJGohP3i Zl7jfYPyxI4jxUCqKUpaFX Mzb9y6bCU5bWOhbIA5rMZj nRleRlNxXU9imOKgUE7qFD geEZowsdPus7JxFD26iVPv hnTcooItWeLqyK4bAVEcn8 GizUossdZrGK7dCmVllxUg O61gi0xgaCNbq4NaeDWqnN lwbGUgdGFuIHNvZnQgdGlz x7SaVALpTUjvVV60sbEpBI 5qoG0eNHZsDe2fEarrT82o k5TenAd2sECtLBcoQTIsbT 6cpD1hFuMlCQmumbQbuLnn MJNZeEMrw4NjXNwlQYCsGA PYUNJhEGEFMWaEG9XVBYAz XHBhcn0= MICROSCOPIC DESCRIPTION s0llbQGzEAKkhFF3UuLtTB (test code = 3371) Nwc9twa8YgzFFflTLpSLlh aVWnrnXqmr74oAN7gW27LH 5yWGMoEaG7BJQztsZ2Ueu5 MURqWYVdzZMtT315t4tfl7 njfhTuyGC3pAetQIViVUIr OAedHONmJhNqWKKBXu9RNH VELlxwYXJ9 SPECIAL STUDIES (test j4utrPGaMLSruBO7HoIsQB code = 3376) Gkm7lwk3RcrFPrgYOuHDtm wYQpoeHetx75uPO4zJ54FA 1nGTPwHaE1VTHxewX2Fms9 CKKkCFZhaLSoH926QJVbFZ UzqVisfjy4gB18WRVvbD6w xINcFSf3HADroiHopEbglY 9jJbLmExBlUxLIwELlsG99 FMZmtgE6FWXwb28fs4OehL lskpCnETMoMRkwQ5z2TLUv EIFqTKQ1e0Vlx8AtaV4xkD 5eeHnohA9apBIooFZ5ntdi x2Jyl8CrN9wqsMEznGYdbl AtGDLzfwNIUF1DWqOGYS6s G5VCBFfXVtUVQVYRDsabeQ AlTCZxmiLcv9nmK9xqHVBt IGI7JM2sfeQlIdZcXV6jjP 39x4Wep19gj88piM4sjUOp khTkM67hyCUahHZib0LuPG CglcPggDT5KNMhBSzffigw o7n0hSY8oJQbcFGbmCM7vP XhbWBrVNFByYJwBXUfa460 pf3yRSVcqJFtqfNjgV1oQB jbimcamQJkFA2gZNChFNMn ERDjBU03bwWbJU9sdKCet3 xelhYzaFIjj4IjdVQ1LHPi tWAwhpgwEw6gVM79GGCuWE xwsS3ikDEqldWbJR8cFS9z C3C8lHSdAEPdzmUzr3lxXQ yzYH2yVTUljKhjYsbbEMGm SYOcdlTnfAD1JTNvfCIeNO SfsOFmFBiwpBUcu3uec3Jx E3gunSbbfYC7OXHeZ8ixdV IavLD2TIZ6rC3yUPiwxhEu APTdb6BqOMQeFZSnAcI9oY 6wUQE0ImVCqUewUOF3SlV0 MMfoRVDtON8zQJixMSzdT2 QuxTUpKIBXJQHrx8cfF4kw GYAcu5CbxV0apDG9eVJwKY LtsXI9MOTdVQJ5BGxjpDZe KXMmUYEabFWoxOGkKe9ijN HuT1FeJ5upmfXwfUYwqVS7 zTTaLXlgkiPkKID9PIIrgW 8jZU4rFBIuqDNmBB4bfVJg MNFsANSjNQYmYPOhv3NoMG Hdte83LUQtLhnoaUxiCVDh Am6jEk7tIQJywlIfKYA1Na RLHM3tlpnydAVhvTfgzv8j ATeeSXGARKKjFFPpAAQ6GX RgeI4sYQA2cTF7PJW7N9qd G3jqBRIwfcDuQJ5sYOJngS GkemZkIZyxVN7vvHPdQTGx f9EmkphvHILxIFW8AZG9IN laUQTeCKWgFe8fZIBtxQ1q J2VbKCT7phDww8RcJaAPmJ YeuH67hUCotk77WJFiRUOc O1PbPXQePGHjGJupjePxgA cwZLQqs70ktKDzsgSbh5Ta dtFoJGEhU6inKMMbpVFnuL Pzv6TdyF1agJFshlMgMNY0 qDNaEUNwgV4vXDLajNbxFA DuzM4hC7ZxWGdrLg4kRQKt qorjBD7vqf79TO4yytJxTN 3fnnJcHV66jyYpZdMsWNf3 DUqASBqOBHn2CMNzqiWpiP IdiFPzWYCapQ8tpJYfLw1t bSBoaWdoIGNvbXBsZXhpdH iwU2uwqexsCYdcbGApr2Xb xW4qhFZ3QQG7uC4nAwyjPU J9 Gross assessment was [facility] performed at ([facility], = 2777) Department of Pathology, [address] [place] [address], Technical component was [facility] performed at ([facility], = 2778) Department of Pathology, [address] [place] [address], Professional component [facility] was performed at ([facility], code = 2779) Department of Pathology, [address] [place] [address], [facility] [id number] 08:14:00Surgical Pathology Report Case: [id number] Authorizing Provider: Nicanor Moses MD Collected: 05/19/2020 08:29 AM Ordering Location: [place] [address] ICU Received: 05/19/2020 01:42 PM Pathologist: Rj [...] INVASIVE CARCINOMA. Signing Pathologist Direct Phone Line: [phone] signed by Rj Copeland MD on 05/20/2020 at 8:14 [id number], [id number] hemorrhage associated with gastritisA. DuodenumB. StomachC. ColonA. [...] 0.2-0.7 cm submitted in toto in C1.PAT Butts, ROSMERY (ASCP)cmPERFORMED.The interpretation of this case included the use of immunohistochemistry or special stains.BLOCK B1- WARTHIN STARRYControl Slides Examined: In-house known positive controls were evaluated along with the test tissue. These control slides run alongside of the patients sample show appropriate staining. Internal positive and negative controls when available are evaluated Immunohistochemistry technicaltesting was performed at [facility], Pathology Laboratory where it was developed [...] qualified to perform high complexity clinical laboratory testing.[facility], Department of Pathology, [address] [place] [address], [facility], [facility], [address] [place] [address], [facility], [address] [place] [address], Jgg[facility] Toxin [id number] 13:22:00 Test Item Value Reference Range Interpretation Comments Shiga toxin 1 (test code = Not detected Not detected 16752-1) Shiga toxin 2 (test code = Not detected Not detected 19835-8) Lab Interpretation (test code = Normal 78151-6) [facility] [id number] 13:22:00 Test Item Value Reference Range Interpretation Comments Shiga toxin 1 (test code = Not detected Not detected 12570-4) Shiga toxin 2 (test code = Not detected Not detected 29673-9) Lab Interpretation (test code = Normal 02396-2) [facility] [id number] 13:22:00 Test Item Value Reference Range Interpretation Comments SHIGA TOXIN 1 (BEAKER) (test Not detected Not detected code = 2177) SHIGA TOXIN 2 (BEAKER) (test Not detected Not detected code = 2179) STOOL PATH [id number] 09:34:00 Test Item Value Reference Range Interpretation Comments Pathogen exam charged (test code = Done 2381) [facility] [id number] 09:34:00 Test Item Value Reference Range Interpretation Comments Pathogen exam charged (test code = Done 2381) [facility] [id number] 09:34:00 Test Item Value Reference Range Interpretation Comments PATHOGEN EXAM CHARGED (BEAKER) (test Done code = 2381) Basic Metabolic [id number] 05:37:00 Test Item Value Reference Range Interpretation Comments Sodium (test code = 136 meq/L 563-756 0044-2) Potassium (test code = 3.6 meq/L 3.5-5.1 2823-3) Chloride (test code = 111 meq/L 98-107 H 2075-0) CO2 (test code = 20 meq/L 22-29 L 2028-9) BUN (test code = 16 mg/dL 7- 3094-0) Creatinine (test code 1.09 mg/dL 0.57-1.25 = 2160-0) Glucose (test code = 124 mg/dL 70-105 H 2345-7) Calcium (test code = 7.5 mg/dL 8.4-10.2 L 75577-1) EGFR (test code = 61 mL/min/1.[place] [address]-3) NOT ACCURATE CREATININE CLEARANCE IN PREDICTING GLOMERULAR FILTRATION RATE . ESTIMATED GFR I S NOT APPLICABLE FOR DIALYSIS PATIENTS. EMA (test code = EMA) Protocol Officer ID - PIAYA L Lab Interpretation Abnormal (test code = 82612-6) [facility] [id number] 05:37:00 Test Item Value Reference Range Interpretation Comments Sodium (test code = 136 meq/L 569-363 6983-2) Potassium (test code = 3.6 meq/L 3.5-5.1 2823-3) Chloride (test code = 111 meq/L 98-107 H 2075-0) CO2 (test code = 20 meq/L 22-29 L 8-9) BUN (test code = 16 mg/dL 7- 3094-0) Creatinine (test code 1.09 mg/dL 0.57-1.25 = 2160-0) Glucose (test code = 124 mg/dL 70-105 H 2345-7) Calcium (test code = 7.5 mg/dL 8.4-10.2 L 95726-5) EGFR (test code = 61 mL/min/1.[place] [address]-6) NOT ACCURATE CREATININE CLEARANCE IN PREDICTING GLOMERULAR FILTRATION RATE . ESTIMATED GFR I S NOT APPLICABLE FOR DIALYSIS PATIENTS. EMA (test code = EMA) Protocol Officer ID - VERNON Page Lab Interpretation Abnormal (test code = 76364-9) [facility] METABOLIC [id number] 05:37:00 Test Item Value Reference Range Interpretation [...] S NOT APPLICABLE FOR DIALYSIS PATIEN TS. Protocol Officer ID - PIAYA LCBC (Hemogram only)2020-05-19 05:15:00 Test Item Value Reference Range Interpretation Comments WBC (test code = 6690-2) 11.2 See_Comment H [A utomated message] The system [employer] generated this result transmitted ref erence range: 3.5 - 10 .5 K/L. The refe rence range was not u sed to interpret this result as normal/abnor mal. RBC (test code = 789-8) 2.94 See_Comment L [Au tomated message] The system [employer] generated this result transmitted ref erence range: 3.93 - 5 .22 M/L. The refe rence range was not u sed to interpret this result as normal/abnor mal. MCHC (test code = 786-4) 31.7 See_Comment L [A utomated message] The system [employer] generated this result transmitted ref erence range: [...] L [Aut omated message] 777-3) The system [employer] generated this result transmitted ref erence range: 150 - 45 0 K/CU MM. The referen ce range was not u sed to interpret this result as normal/abnor mal. MPV (test code = 11.7 fL 9.4-12.3 66746-5) nRBC (test code = 413) 0 See_Comment [Aut omated message] The system [employer] generated this result transmitted ref erence range: 0 - 0 /1 00 WBC. The refere nce range was not u sed to interpret this result as normal/abnor mal. Lab Interpretation (test Abnormal code = 23632-6) [facility] (Hemogram only)2020-05-19 05:15:00 Test Item Value Reference Range Interpretation Comments WBC (test code = 6690-2) 11.2 See_Comment H [A utomated message] The system [employer] generated this result transmitted ref erence range: 3.5 - 10 .5 K/L. The refe rence range was not u sed to interpret this result as normal/abnor mal. RBC (test code = 789-8) 2.94 See_Comment L [Au tomated message] The system [employer] generated this result transmitted ref erence range: 3.93 - 5 .22 M/L. The refe rence range was not u sed to interpret this result as normal/abnor mal. MCHC (test code = 786-4) 31.7 See_Comment L [A utomated message] The system [employer] generated this result transmitted ref erence range: [...] L [Aut omated message] 777-3) The system [employer] generated this result transmitted ref erence range: 150 - 45 0 K/CU MM. The referen ce range was not u sed to interpret this result as normal/abnor mal. MPV (test code = 11.7 fL 9.4-12.3 13561-6) nRBC (test code = 413) 0 See_Comment [Aut omated message] The system [employer] generated this result transmitted ref erence range: 0 - 0 /1 00 WBC. The refere nce range was not u sed to interpret this result as normal/abnor mal. Lab Interpretation (test Abnormal code = 10006-6) [facility] (HEMOGRAM ONLY)2020-05-19 05:15:00 Test Item Value [...] 0-0 (test code = 413) BASIC METABOLIC [id number] 23:40:00 Test Item Value Reference Range Interpretation [...] S NOT APPLICABLE FOR DIALYSIS PATIEN TS. Protocol Officer ID - DBCBC (HEMOGRAM ONLY)2020-05-18 23:06:00 Test [...] (test code = 413) Clostridium difficile GDH [id number] 21:56:00 Test Item Value Reference Range Interpretation Comments C. Difficle Toxin Negative Negative (test code = 9756612376) C. Difficile GDH Negative Negative No indicati on of Antigen (test code = Clostri dium 0213184235) difficile infection and n o colonization. Discontinue enteric isolati on and therapy. EMA (test code = Testing performed EMA) by [employer] Rapid Cassette Assay. For GDH, published sensitivity of the assay is 98.7% compared to cytotoxicity testing. For Toxin AB, published sensitivity is 87.8% and specificity 99.4% compared to cytotoxicity testing.Verificati on of kit performance was done by the [facility] Microbiology Lab prior to clinical use. Lab Interpretation Normal (test code = 79877-4) [facility] [id number] 21:56:00 Test Item Value Reference Range Interpretation Comments C. Difficle Toxin Negative Negative (test code = 9048285890) C. Difficile GDH Negative Negative No indicati on of Antigen (test code = Clostri dium 0840066862) difficile infection and n o colonization. Discontinue enteric isolati on and therapy. EMA (test code = Testing performed EMA) by [employer] Rapid Cassette Assay. For GDH, published sensitivity of the assay is 98.7% compared to cytotoxicity testing. For Toxin AB, published sensitivity is 87.8% and specificity 99.4% compared to cytotoxicity testing.Verificati on of kit performance was done by the [facility] Microbiology Lab prior to clinical use. Lab Interpretation Normal (test code = 79855-2) [facility]. DIFFICILE GDH [id number] 21:56:00 Test Item Value Reference Range Interpretation Comments CDT TOXIN (test code Negative Negative = 7561742913) CDT GDH ANTIGEN (test Negative Negative No ind ication of code = 2733906570) Clostridi um difficile infection and n o colonization. Discontinue ent nikky isolation and t herapy. Testing performed by [employer] Rapid Cassette Assay. For GDH, published sensitivity of the assay is 98.7% compared to cytotoxicity testing. For Toxin AB, published sensitivity is 87.8% and specificity 99.4% compared to cytotoxicity testing.Verification of kit performance was done by the [facility] Microbiology Lab prior to clinical use.SARS-CoV2/RT-PCR (Asymptomatic ONLY)2020-05-18 19:33:00 Test Item Value Reference Range Interpretation Comments SARS-COV2/RT-PCR Negative Not Detected, (test code = Negative, See 95481-4) external report for linked test SARS-COV-2 [facility] PERFORMING LAB (test code = 45179-3) EMA (test code = Negative result for [...] of the Act. Fact Sheet for Healthcare Providers:https://www.DITTO.com/sites/default/f efraín/product/documents/F act_Sheet_HC_Providers_L oqy_NTQB-VoP-4.pdf Fact Sheet for Healthcare Patients:https://www.Powervation/sites/default/fi les/product/documents/Fa ct_Sheet_Patients_Lyra_S ARS-CoV-2.pdf Performing Laboratory:[facility], [place] [address] [place], [place] [address]ARS-CoV2/RT-PCR (Asymptomatic ONLY)2020-05-18 19:33:00 Test Item Value Reference Range Interpretation Comments SARS-COV2/RT-PCR Negative Not Detected, (test code = Negative, See 82725-5) external report for linked test SARS-COV-2 [facility] PERFORMING LAB (test code = 03155-4) EMA (test code = Negative result for [...] of the Act. Fact Sheet for Healthcare Providers:https://www.DITTO.com/sites/default/f efraín/product/documents/F act_Sheet_HC_Providers_L mie_MVOY-VuR-6.pdf Fact Sheet for Healthcare Patients:https://www.Powervation/sites/default/fi les/product/documents/Fa ct_Sheet_Patients_Lyra_S ARS-CoV-2.pdf Performing Laboratory:[facility] [place] [address].[place], [place] [id number] [place], [place] [address]ARS-COV2/RT-PCR ([facility])2020-05-18 19:33:00 Test Item Value Reference Range Interpretation Comments SARS-COV2/RT-PCR (test Negative Not Detected, Negative, code = 6514998) See external report for linked test SARS-COV-2 PERFORMING LAB [facility] (test code = 5566075) Negative result for this test determines that [...] 564(g) of the Act.Fact Sheet for Healthcare Providers:https://www.PLUQ/sites/default/files/product/documents/Fact_Shee n_JS_Scwfncxlb_Mper_VXCF-PnG-4.pdfFact Sheet for Healthcare Patients:https://www.PLUQ/sites/default/files/product/ documents/Okzf_Pygsw_Nxrlpbjh_Mjjc_CJLR-PvL-1.pdfPerforming Laboratory:[place] [address], [place] [address]OLXQX METABOLIC PANEL 2020-05-18 19:14:00 Test Item Value [...] S NOT APPLICABLE FOR DIALYSIS PATIEN TS. Protocol Officer ID - BSCBC (HEMOGRAM ONLY)2020-05-18 18:39:00 Test [...] 0-0 (test code = 413) Hepatitis panel, [id number] 13:55:00 Test Item Value Reference Range Interpretation Comments Hep A IgM (test code = Nonreactive Nonreactive 05972-7) Hep B C IgM (test code = Nonreactive Nonreactive 06750-2) Hepatitis C Ab (test Reactive Nonreactive A code = 11669-5) HBsAg Screen (test code Nonreactive Nonreactive = 5195-3) EMA (test code = EMA) Protocol Officer ID - BARB Bliss Lab Interpretation (test Abnormal code = 03861-1) [facility], [id number] 13:55:00 Test Item Value Reference Range Interpretation Comments Hep A IgM (test code = Nonreactive Nonreactive 54672-9) Hep B C IgM (test code = Nonreactive Nonreactive 55590-3) Hepatitis C Ab (test Reactive Nonreactive A code = 66552-1) HBsAg Screen (test code Nonreactive Nonreactive = 5195-3) EMA (test code = EMA) Protocol Officer ID Louies DAY F Lab Interpretation (test Abnormal code = 83392-9) [facility], [id number] 13:55:00 Test Item Value Reference Range Interpretation Comments HEPATITIS A IGM ANTIBODY (BEAKER) Nonreactive Nonreactive (test code = 498) HEPATITIS B CORE IGM ANTIBODY Nonreactive Nonreactive (BEAKER) (test code = 645) HEPATITIS C ANTIBODY (BEAKER) Reactive Nonreactive A (test code = 367) HEPATITIS B SURFACE ANTIGEN (2) Nonreactive Nonreactive (BEAKER) (test code = 2585) Protocol Officer ID Louise DAY FBASIC METABOLIC [id number] 13:34:00 Test Item Value Reference Range Interpretation [...] S NOT APPLICABLE FOR DIALYSIS PATIEN TS. Protocol Officer ID Louise DAY [id number] 13:33:00 Test Item Value Reference Range Interpretation Comments Haptoglobin (test code = 63 mg/dL 14-258 4542-7) EMA (test code = EMA) Protocol Officer ID - CAROLINA F Lab Interpretation (test Normal code = 59808-5) [facility]2020-[facility] 13:33:00 Test Item Value Reference Range Interpretation Comments Haptoglobin (test code = 63 mg/dL 14 4542-7) EMA (test code = EMA) Protocol Officer ID Louise Bliss Lab Interpretation (test Normal code = 42337-8) [facility] CenterHAP[facility]GLOBIN2020-12-21 13:33:00 Test Item Value Reference Range Interpretation Comments HAPTOGLOBIN (BEAKER) (test code = 63 mg/dL 366) Protocol Officer ID - BARB alcium, [id number] 13:13:00 Test Item Value Reference Range Interpretation Comments Calcium, Ion (test code = 1993-) 1.02 mmol/L 1.12-1.27 L pH, Blood (test code = 62017-7) 7.37 Lab Interpretation (test code = Abnormal 41016-7) [facility] CenterCalcium, [id number] 13:13:00 Test Item Value Reference Range Interpretation Comments Calcium, Ion (test code = 1993-) 1.02 mmol/L 1.12-1.27 L pH, Blood (test code = 42607-1) 7.37 Lab Interpretation (test code = Abnormal 23350-9) [facility] CenterCALCIUM, [id number] 13:13:00 Test Item Value Reference Range Interpretation Comments CALCIUM IONIZED (BEAKER) (test 1.02 mmol/L 1.12-1.27 L code = 698) PH, BLOOD (BEAKER) (test code = 7.37 1810) Lactate dehydrogenase (LDH)2020-05-18 11:49:00 Test Item Value Reference Range Interpretation Comments LDH (test code = 2532-0) 622 U/L 125-220 H EMA (test code = EMA) Protocol Officer MEKA Bliss Lab Interpretation (test Abnormal code = 35914-5) [facility] CenterLactate dehydrogenase (LDH)2020-05-18 11:49:00 Test Item Value Reference Range Interpretation Comments LDH (test code = 2532-0) 622 U/L 125-220 H EMA (test code = EMA) Protocol Officer ID - CAROLINA F Lab Interpretation (test Abnormal code = 56950-7) [facility] CenterLACTATE DEHYDROGENASE (LDH)2020-05-18 11:49:00 Test Item Value Reference Range Interpretation Comments LACTATE DEHYDROGENASE (BEAKER) (test 622 U/L 125-220 H code = 635) Protocol Officer MEKA DAY FBASIC METABOLIC [id number] 11:01:00 Test Item Value Reference Range Interpretation [...] 697) EGFR (BEAKER) (test 27 mL/min/1.73 ESTIMA LAIC GFR IS code = 1092) sq m NOT ACCURATE CREATININE CLEARANCE IN PREDICTING GLOMERULAR FILTRATION RATE . ESTIMATED GFR I S NOT APPLICABLE FOR DIALYSIS PATIEN TS. Protocol Officer MEKA DAY FABREN, [id number] 09:28:00 Test Item Value Reference Range Interpretation Comments ABO Grouping (test code = 2588) O Rh Factor (test code = 2589) POS [facility] CenterABORH, [id number] 09:28:00 Test Item Value Reference Range Interpretation Comments ABO Grouping (test code = 2588) O Rh Factor (test code = 2589) POS [facility] CenterBlood gas, [id number] 09:05:00 Test Item Value Reference Range Interpretation [...] O2 Sat, Matheus (test code 80.5 % 40.0-70.0 H = 2711-0) HCO3, Matheus (test code = 16 mmol/L 21-29 L 43222-3) Base Excess, Matheus (test -9.6 mmol/L -2.0-3.0 L code = 1927-3) Patient Temperature 37.0 (test code = 8310-5) Lab Interpretation Abnormal (test code = 09991-2) [facility] CenterBlood gas, [id number] 09:05:00 Test Item Value Reference Range Interpretation [...] this result as normal/abnormal . O2 Sat, Mathues (test code 80.5 % 40-70 H = 2711-0) HCO3, Matheus (test code = 16 mmol/L 21-29 L 01256-9) Base Excess, Matheus (test -9.6 mmol/L -2-3 L code = 1927-3) Patient Temperature 37.0 (test code = 8310-5) Lab Interpretation Abnormal (test code = 31695-3) [facility] CenterBLOOD GAS, [id number] 09:05:00 Test Item Value Reference Range Interpretation [...] (test code = 1818) Type and screen, [id number] 07:44:00 Test Item Value Reference Range Interpretation Comments ABO/RH AUTOMATED (BEAKER) (test O POSITIVE code = 2260) Ab Scrn (test code = 890-4) NEGATIVE [facility] CenterType and screen, [id number] 07:44:00 Test Item Value Reference Range Interpretation Comments ABO/RH AUTOMATED (BEAKER) (test O POSITIVE code = 2260) Ab Scrn (test code = 890-4) NEGATIVE [facility] CenterLipase2020-12-21 07:17:00 Test Item Value Reference Range Interpretation Comments Lipase (test code = 30 U/L 8-78 3040-3) EMA (test code = EMA) Protocol Officer ID Louise BARB F Lab Interpretation (test Normal code = 20319-2) [facility] CenterLipase2020-12-21 07:17:00 Test Item Value Reference Range Interpretation Comments Lipase (test code = 30 U/L 8-78 3040-3) EMA (test code = EMA) Protocol Officer ID Louise DAY F Lab Interpretation (test Normal code = 33062-5) [facility] CenterLIPASE2020-12-21 07:17:00 Test Item Value Reference Range Interpretation Comments LIPASE (BEAKER) (test code = 749) 30 U/L 8-78 Protocol Officer ID Louise DAY FCBC (HEMOGRAM ONLY)2020-05-18 07:04:00 Test Item [...] WBC 0-0 (test code = 413) POC-Glucose [id number] 07:01:00 Test Item Value Reference Range Interpretation Comments POC-Glucose Meter (test 126 mg/dL 70-110 H : TE STED AT [facility] code = 1538) [address] [facility], 770 30: Protocol Officer/Techni delvis ID = [id number] for EJ FINNEGAN Lab Interpretation (test Abnormal code = 55714-7) [facility]-Glucose [id number] 07:01:00 Test Item Value Reference Range Interpretation Comments POC-Glucose Meter (test 126 mg/dL 70-110 H : TE STED AT [facility] code = 1538) [address] [facility], 770 30: Protocol Officer/Techni delvis ID = [id number] for EJ FINNEGAN Lab Interpretation (test Abnormal code = 41505-3) [facility]-GLUCOSE [id number] 07:01:00 Test Item Value Reference Range Interpretation Comments POC-GLUCOSE METER 126 mg/dL 70-110 H : TESTED A T [facility] 6720 (BEAKER) (test code = [facility], 1538) [address]: Protocol Officer/Techni delvis ID = [id number] for EJ ARVIZU U/S, ABDOMINAL, [id number] 06:19:00Abdomen limited area? Add comment if clarification is needed.->Right upper quadrantReason for exam :->Pancreatitis [facility] : 1955 Sex: FFINAL REPORT [...] MDReport Verified Date/Time: 05/18/2020 06:19:22 US abdomen [id number] 06:19:00 Interface, External Ris In - 05/18/2020 [...] Brett Egan MDReport Verified Date/Time: 05/18/2020 06:19:22 [facility] with platelet count + automated [id number] 05:22:00 Test Item Value Reference Range Interpretation Comments WBC (test code = 6690-2) 14.0 See_Comment H [A utomated message] The system [employer] generated this result transmitted ref erence range: 3.5 - 10 .5 K/L. The refe rence range was not u sed to interpret this result as normal/abnor mal. RBC (test code = 789-8) 3.09 See_Comment L [Au tomated message] The system [employer] generated this result transmitted ref erence range: 3.93 - 5 .22 M/L. The refe rence range was not u sed to interpret this result as normal/abnor mal. MCHC (test code = 786-4) 30.0 See_Comment L [A utomated message] The system [employer] generated this result transmitted ref erence range: [...] L [Aut omated message] 777-3) The system [employer] generated this result transmitted ref erence range: 150 - 45 0 K/CU MM. The referen ce range was not u sed to interpret this result as normal/abnor mal. MPV (test code = 11.9 fL 9.4-12.3 78471-9) nRBC (test code = 413) 0 See_Comment [Aut omated message] The system [employer] generated this result transmitted ref erence range: 0 - 0 /1 00 WBC. The refere nce range was not u sed to interpret this result as normal/abnor mal. Lab Interpretation (test Abnormal code = 63663-9) [facility] CenterManual [id number] 05:22:00 Test Item Value Reference Range Interpretation [...] # Bands (test code = 2.24 K/uL 0.00-0.80 H 2840) # Atypical Lymphs 0.14 K/uL 0.00-0.00 H (test code = 2858) Total Counted [...] Spherocytes (test 1+ few code = 768) Sonia Cells (test code 2+ moderate = 474) Platelet Conc (test Decreased code = 3438) EMA (test code = EMA) Protocol Officer ID - Ted Lezama comments: Slide comments: Lab Interpretation Abnormal (test code = 75394-1) [facility] with platelet count + automated [id number] 05:22:00 Test Item Value Reference Range Interpretation Comments WBC (test code = 6690-2) 14.0 See_Comment H [A utomated message] The system [employer] generated this result transmitted ref erence range: 3.5 - 10 .5 K/L. The refe rence range was not u sed to interpret this result as normal/abnor mal. RBC (test code = 789-8) 3.09 See_Comment L [Au tomated message] The system [employer] generated this result transmitted ref erence range: 3.93 - 5 .22 M/L. The refe rence range was not u sed to interpret this result as normal/abnor mal. MCHC (test code = 786-4) 30.0 See_Comment L [A utomated message] The system [employer] generated this result transmitted ref erence range: [...] L [Aut omated message] 777-3) The system [employer] generated this result transmitted ref erence range: 150 - 45 0 K/CU MM. The referen ce range was not u sed to interpret this result as normal/abnor mal. MPV (test code = 11.9 fL 9.4-12.3 41425-8) nRBC (test code = 413) 0 See_Comment [Aut omated message] The system whic h generated this result transmitted ref erence range: 0 - 0 /1 00 WBC. The refere nce range was not u sed to interpret this result as normal/abnor mal. Lab Interpretation (test Abnormal code = 50771-1) [facility] CenterManual [id number] 05:22:00 Test Item Value Reference Range Interpretation [...] Spherocytes (test 1+ few code = 768) [place] Cells (test code 2+ moderate = 474) Platelet Conc (test Decreased code = 3438) EMA (test code = EMA) Protocol Officer ID - Ted Axel Lezama comments: Slide comments: Lab Interpretation Abnormal (test code = 34440-0) [facility] CenterCB W/PLT COUNT & AUTO [id number] 05:22:00 Test Item Value Reference Range Interpretation [...] (BEAKER) (test code = 1+ few 768) SONIA CELLS (BEAKER) (test code = 2+ moderate 474) PLATELET CONCENTRATION Decreased (CELLAVISION)(BEAKER) (test code = 3438) Protocol Officer ID - Ted Lezama comments: Slide comments:POCT- GLUCOSE [id number] 03:39:00 Test Item Value Reference Range Interpretation Comments POC-GLUCOSE METER 104 mg/dL 70-110 : TESTED A T [facility] 6720 (BEAKER) (test code = [place], 1538) [address]: Protocol Officer/Techni delvis ID = [id number] for JASON TATYANA CRIS Comprehensive metabolic [id number] 02:08:00 Test Item Value Reference Range Interpretation Comments Protein, Total (test 7.2 See_Comment [Autom ated code = 2885-2) message] The system which generated this result transmit laci reference range : 6.0 - 8.3 gm/dL . The reference range was not u sed to interpret th is result as normal/abnormal . Albumin (test code = 2.7 g/dL 3.5-5.0 L 68420-4) Alkaline Phosphatase 104 U/L 40-150 (test code = 6768-6) Total Bilirubin (test 0.6 mg/dL 0.2-1.2 code = 1975-2) Sodium (test code = 134 meq/L 136-145 L 2951-2) Potassium (test code 3.9 meq/L 3.5-5.1 = 2823-3) Chloride (test code = 110 meq/L 98-107 H 2074-0) CO2 (test code = 12 meq/L 22-29 L 2027-) BUN (test code = 27 mg/dL 7-21 H 3094-0) Creatinine (test code 2.40 mg/dL 0.57-1.25 H = 2160-0) Glucose (test code = 193 mg/dL 70-105 H 2345-7) Calcium (test code = 7.1 mg/dL 8.4-10.2 L 95499-2) AST (test code = 136 U/L 5-34 H 1920-8) ALT (test code = 75 U/L 6-55 H 1742-6) EGFR (test code = 25 mL/min/1.73 [place] [address]-4) NOT ACCURATE CREATININE CLEARANCE IN PREDICTING GLOMERULAR FILTRATION RATE . ESTIMATED GFR I S NOT APPLICABLE FOR DIALYSIS PATIEN TSJs EMA (test code = EMA) Protocol Officer ID - DB Lab Interpretation Abnormal (test code = 91712-4) [facility] CenterComprehensive metabolic [id number] 02:08:00 Test Item Value Reference Range Interpretation Comments Protein, Total (test 7.2 See_Comment [Autom ated code = 2885-2) message] The system which generated this result transmit laci reference range : 6.0 - 8.3 gm/dL . The reference range was not u sed to interpret th is result as normal/abnormal . Albumin (test code = 2.7 g/dL 3.5-5 L 13277-7) Alkaline Phosphatase 104 U/L 40-150 (test code [...] (test code = 7.1 mg/dL 8.4-10.2 L 63616-2) AST (test code = 136 U/L 5-34 H 1920-8) ALT (test code = 75 U/L 6-55 H 1742-6) EGFR (test code = 25 mL/min/1.73 [place] [address]-3) NOT ACCURATE CREATININE CLEARANCE IN PREDICTING GLOMERULAR FILTRATION RATE . ESTIMATED GFR I S NOT APPLICABLE FOR DIALYSIS PATIEN EMA (test code = EMA) Protocol Officer ID - DB Lab Interpretation Abnormal (test code = 61026-6) [facility] CenterCOMPREHENSIVE METABOLIC [id number] 02:08:00 Test Item Value Reference Range Interpretation [...] S NOT APPLICABLE FOR DIALYSIS PATIEN TS. Protocol Officer ID - DBProthrombin time/[id number] 02:02:00 Test Item Value Reference Interpretation Comments [...] valves. Lab Interpretation Abnormal (test code = 38557-0) [facility] CenterProthrombin time/[id number] 02:02:00 Test Item Value Reference Interpretation Comments [...] valves. Lab Interpretation Abnormal (test code = 62247-9) [facility] CenterPROTHROMBIN TIME/[id number] 02:02:00 Test Item Value Reference Range Interpretation [...] for patients wiht mechanical heart valves.Lactic acid, [id number] 01:57:00 Test Item Value Reference Range Interpretation Comments Lactate, Venous (test code = 1.06 mmol/L 0.50-2.20 2872) EMA (test code = EMA) Protocol Officer ID - DB Lab Interpretation (test Normal code = 99320-7) [facility] CenterLactic acid, [id number] 01:57:00 Test Item Value Reference Range Interpretation Comments Lactate, Venous (test code = 1.06 mmol/L 0.5-2.2 2872) EMA (test code = EMA) Protocol Officer ID - DB Lab Interpretation (test Normal code = 76062-5) [facility] CenterLACTIC ACID, [id number] 01:57:00 Test Item Value Reference Range Interpretation Comments LACTATE BLOOD VENOUS (2) (BEAKER) 1.06 mmol/L 0.50-2.20 (test code = 2872) Protocol Officer ID - DB
[2021-02-10] MEDS ORDERED: NA CHLORIDE 0.9% 1,000 ML ONE ×2 (16:41→17:05)
[2021-02-10] MEDS ORDERED: CALCIUM GLUCONATE 1gm/100 ML NS (4.65 mEq/100mL) IV ONE ×2 (17:00)
[2021-02-10 17:05] LABS: Protime INR 1.05
[2021-02-10 17:06] LABS: Absolute Lymphocytes (CBC) 4.2 K/uL (0.7-4.9); Basophils % 0.5 % (0-1.3); Hematocrit 25.6 % (36.0-45.0); Lymphocytes % 48.3 % (15.3-44.8); MPV 9.1 fL (7.6-11.3); RBC Red Blood Cell Count 2.38 M/uL (3.86-4.86)
--- NOTE | 2021-02-10 17:13 | RAD REPORT ---
EXAM DESCRIPTION: CT - Head Brain Wo Cont - 02/10/2021 5:06 pm CLINICAL HISTORY: low blood pressure Headache, drowsiness COMPARISON: Head Brain Wo Cont dated 08/10/2019 TECHNIQUE: All CT scans are performed using dose optimization technique as appropriate and may inclu de automated exposure control or mA/KV adjustment according to patient size. FINDINGS: No intracranial hemorrhage, hydrocephalus or extra-axial fluid collection.No areas of brai n edema or evidence of midline shift. The paranasal sinuses and mastoids are clear. The calvarium is intact. IMPRESSION: No acute intracranial abnormality.
--- NOTE | 2021-02-10 17:22 | RAD REPORT ---
EXAM DESCRIPTION: RAD - Chest Single View - 02/10/2021 5:12 pm CLINICAL HISTORY: r/o pneumonia Chest pain. COMPARISON: Chest Single View dated 01/23/2021; Chest Single View dated 08/10/2019; Chest Single View dated 07/01/2019 FINDINGS: Portable technique limits examination quality. The lungs are grossly clear. The heart is normal in size. No displaced fractures. IMPRESSION: No acute intrathoracic process suspected.
[2021-02-10 17:32] LABS: ALT/SGPT 45 U/L (12-78); AST/SGOT 48 U/L (15-37); Alkaline Phosphatase 111 U/L (45-117); BUN Blood Urea Nitrogen 31 mg/dL (7-18); Bicarbonate 17 mmol/L (21-32); Bilirubin Direct 0.2 mg/dL (0-0.2); Bilirubin Total 0.3 mg/dL (0.2-1.0); Glucose Level 68 mg/dL (74-106); Lipase 179 U/L (73-393); Magnesium 2.2 mg/dL (1.8-2.4); NT PRO-BNP 173 pg/mL (<125); Potassium 3.6 mmol/L (3.5-5.1); Protein, Total 6.9 g/dL (6.4-8.2); Sodium Level 142 mmol/L (136-145); Troponin (Emerg Dept Use Only) < 0.02 ng/mL (0.0-0.045)
--- NOTE | 2021-02-10 18:04 | EDPHYS ---
Physician Documentation [facility] Name: Josr Parra Age: 66 yrs Sex: Female : 1955 Arrival Date: 02/10/2021 Time: 16:06 Bed 6 Private MD: ED Physician Nathanael Coy HPI: 02/10 16:12 This 66 yrs old Black Female presents to ER via Unassigned with complaints of Low Blood rn Pressure. 16:12 The patient presents with decreased mental status, decreased responsiveness. Onset: The rn symptoms/episode began/occurred 2 day(s) ago. Possible causes: unknown. Associated signs and symptoms: Pertinent positives: weakness, Pertinent negatives: abdominal pain, chest pain, diarrhea, headache, seizure, shortness of breath. Current symptoms: In the emergency department the patient's symptoms are unchanged from the initial presentation. It is unknown whether or not the patient has had similar symptoms in the past. It is unknown whether or not the patient has recently seen a physician. EMS reports family called 911 for altered mental status, state altered mental status over the last 2 days, no fever/cough/chest pain/abdominal pain/vomiting or diarrhea. No known head injury. Patient with known atrial fibrillation and has multiple duplicates of her cardiac medication in her bag. Family concerned that may be taking extra medication accidentally. Patient denies focal pain. Reports currently just feels like needs to use the bathroom. EMS reports blood pressure 80 systolic with a heart rate in the 50s to 60s.. Historical: - PMHx: 17:43 Asthma; Diabetes - NIDDM; elevatedliver enzymes; Hepatitis; c; lumbar spine issues/pain;aj2 - Immunization history:: Client reports having NOT received the Covid vaccine. - Social history:: Smoking status: Patient reports the use of cigarette tobacco products, unknown amount. - Family history:: not pertinent. - Hospitalizations: : No recent hospitalization is reported. ROS: 16:12 Constitutional: Negative for fever, chills, and weight loss, Eyes: Negative for injury, rn pain, redness, and discharge, ENT: Negative for injury, pain, and discharge, Neck: Negative for injury, pain, and swelling, Cardiovascular: Negative for chest pain, palpitations, and edema, Respiratory: Negative for shortness of breath, cough, wheezing, and pleuritic chest pain, Abdomen/GI: Negative for abdominal pain, nausea, vomiting, diarrhea, and constipation, Back: Negative for injury and pain, : Negative for injury, bleeding, discharge, and swelling, MS/Extremity: Negative for injury and deformity, Skin: Negative for injury, rash, and discoloration, Neuro: Negative for headache, numbness, tingling, and seizure. 16:12 All other systems are negative. Exam: 16:12 Constitutional: This is a well developed, well nourished patient who is somnolent but rn awakens to voice, and in no acute distress. Head/Face: Normocephalic, atraumatic. Eyes: Periorbital areas with no swelling, redness, or edema. ENT: Dry mucous membranes, no stridor Cardiovascular: Irregular rhythm, bradycardic. No pulse deficits. Respiratory: Speaking full sentences, unlabored. No increased work of breathing, no retractions or nasal flaring. Abdomen/GI: Soft, non-tender Skin: Warm, dry MS/ Extremity: Pulses equal, no cyanosis. Neuro: Patient somnolent, but awakens easily to voice. GCS 15. Oriented to person place and time. Moves all 4 extremities with 4- out of 5 strength and equal bilaterally. Sensation grossly intact. 16:31 ECG was reviewed by the Attending Physician. rn Vital Signs: 17:35 BP 75 / 58; Pulse 54; Resp 16; Temp 97.7; Pulse Ox 100% ; Weight 79.83 kg; Height 5 ft. aj2 5 in. (165.10 cm); 18:51 BP 123 / 53; Pulse 52; Resp 19; Temp 97.7; Pulse Ox 100% ; ss 19:15 BP 105 / 52; Pulse 52; Resp 16; Pulse Ox 100% ; cc4 19:30 BP 99 / 55; Pulse 59; Resp 20; Pulse Ox 100% on R/A; cc4 20:06 BP 106 / 50; Pulse 54; Resp 14; Pulse Ox 98% ; vg1 20:20 BP 105 / 51; Pulse 53; Resp 18; Pulse Ox 100% on R/A; cc4 20:30 BP 119 / 55; Pulse 54; Resp 17; Temp 98.3; Pulse Ox 100% ; Pain 0/10; wr 20:45 BP 122 / 55; Pulse 52; Resp 15; Pulse Ox 100% ; wr 21:00 BP 111 / 55; Pulse 52; Resp 15; Pulse Ox 100% ; wr 17:35 Body Mass Index 29.29 (79.83 kg, 165.10 cm) aj2 Procedures: 17:55 Central Line: the site was prepped with Betadine, in sterile fashion, a triple lumen rn catheter was inserted, in the right femoral vein, in 1 attempts. placement was verified, by blood return, the site was dressed with Tegaderm, using sterile technique, the patient tolerated the procedure, well. MDM: 16:06 Patient medically screened. rn 16:19 ED course: Patient hypotensive initiated fluid resuscitation.. rn 17:20 ED course: Patient was in CAT scan, so nurse states fluids just started. Rectal exam rn performed, negative Hemoccult. No grossly melanotic or bloody stool noted.. 17:55 ED course: Patient persistently hypotensive, decision made to place central line for rn central IV access.. 18:00 Differential Diagnosis: electrolyte abnormality, pneumonia, sepsis, UTI, volume rn depletion, GI bleed. Data reviewed: vital signs, nurses notes, lab test result(s), radiologic studies, CT scan, plain films, and as a result, I will admit patient. Data interpreted: groundwater monitoring technician: rate is 54 beats/min, rhythm is sinus bradycardia, with no ectopy, Interpretation: bradycardia, Pulse oximetry: on room air is 100 %. Interpretation: normal. Test interpretation: by ED physician or midlevel provider: ECG, plain radiologic studies, Chest x-ray negative for acute findings. Counseling: I had a detailed discussion with the patient and/or guardian regarding: the historical points, exam findings, and any diagnostic results supporting the discharge/admit diagnosis, lab results, radiology results, the need for further work-up and treatment in the hospital. Response to treatment: the patient's symptoms have mildly improved after treatment, and as a result, I will admit patient. Admission orders: after a detailed discussion of the patient's condition and case, the admit orders are written by me. 02/10 16:10 Order name: COVID-19 : Document "Date of Symptom Onset" if Symptomatic. rn 02/10 16:10 Order name: Lactate rn 02/10 16:10 Order name: Urine Culture rn 02/10 16:10 Order name: Urine Microscopic Only; Complete Time: 19:15 rn 02/10 16:51 Order name: Basic Metabolic Panel; Complete Time: 17:35 EDMT 02/10 16:51 Order name: Liver (Hepatic) Function; Complete Time: 17:35 [facility] 02/10 16:51 Order name: Troponin (Emerg Dept Use Only); Complete Time: 17:35 [facility] 02/10 16:51 Order name: NT PRO-BNP; Complete Time: 17:35 [facility] 02/10 16:51 Order name: Magnesium; Complete Time: 17:35 [facility] 02/10 16:51 Order name: Lipase; Complete Time: 17:35 [facility] 02/10 16:51 Order name: Procalcitonin; Complete Time: 17:50 EDMT 02/10 16:51 Order name: CBC with Automated Diff; Complete Time: 18:18 [facility] 02/10 16:51 Order name: Protime (+INR); Complete Time: 17:14 [facility] 02/10 16:51 Order name: PTT, Activated Partial Thromb; Complete Time: 17:14 [facility] 02/10 16:51 Order name: Blood Culture [facility] 02/10 16:51 Order name: Blood Culture [facility] 02/10 18:15 Order name: Manual Differential; Complete Time: 18:18 [facility] 02/10 18:17 Order name: Urine Dipstick-Ancillary; Complete Time: 18:18 [facility] 02/10 19:15 Order name: Folic Acid,Serum (folate) [facility] 02/10 19:15 Order name: B12 [facility] 02/10 19:15 Order name: TIBC [facility] 02/10 19:15 Order name: Iron Level [facility] 02/10 20:10 Order name: Hemoglobin [facility] 02/10 20:10 Order name: Hematocrit [facility] 02/10 20:10 Order name: Hemoglobin [facility] 02/10 20:10 Order name: Hematocrit [facility] 02/10 20:15 Order name: Type And Screen [facility] 02/10 20:16 Order name: Type and Screen [facility] 02/10 21:43 Order name: Urinalysis [facility] 02/10 21:43 Order name: CBC with Automated Diff [facility] 02/10 21:43 Order name: CBC with Automated Diff [facility] 02/10 21:43 Order name: CBC with Automated Diff [facility] 02/10 21:43 Order name: CBC with Automated Diff [facility] 02/10 21:43 Order name: CBC with Automated Diff [facility] 02/10 21:43 Order name: Comprehensive Metabolic Panel [facility] 02/10 21:43 Order name: Comprehensive Metabolic Panel [facility] 02/10 21:43 Order name: Comprehensive Metabolic Panel [facility] 02/10 21:43 Order name: Comprehensive Metabolic Panel [facility] 02/10 21:43 Order name: Comprehensive Metabolic Panel [facility] 02/10 21:43 Order name: Creatine Phosphokinase [facility] 02/10 21:43 Order name: Creatine Phosphokinase [facility] 02/10 21:43 Order name: Hemoglobin A1c [facility] 02/10 21:43 Order name: Hemoglobin A1c [facility] 02/10 21:43 Order name: Lipid Profile [facility] 02/10 21:43 Order name: Lipid Profile [facility] 02/10 21:43 Order name: Magnesium [facility] 02/10 21:43 Order name: Magnesium [facility] 02/10 21:43 Order name: Magnesium [facility] 02/10 16:09 Order name: EKG; Complete Time: 18:18 02/10 16:09 Order name: Cardiac monitoring; Complete Time: 16:30 02/10 16:09 Order name: EKG - Nurse/Tech; Complete Time: 16:30 02/10 16:09 Order name: IV Saline Lock; Complete Time: 16:30 02/10 16:09 Order name: Labs collected and sent; Complete Time: 16:30 02/10 16:09 Order name: O2 Per Protocol; Complete Time: 16:30 02/10 16:09 Order name: O2 Sat Monitoring; Complete Time: 16:30 02/10 16:09 Order name: Urine Dipstick-Ancillary (obtain specimen); Complete Time: 18:20 02/10 16:19 Order name: Chest Single View; Complete Time: 17:28 [facility] 02/10 16:56 Order name: Head Brain Wo Cont; Complete Time: 17:14 [facility] 02/10 18:43 Order name: CT Chest Abdomen Pelvis W/O Contrast; Complete Time: 20:06 [facility] 02/10 18:43 Order name: NPO; Complete Time: 19:24 02/10 18:50 Order name: Misc. Order: REPEAT HGB/HCT at 2000; Complete Time: 20:29 [facility] 02/10 21:43 Order name: CONS Physician Consult [facility] 02/10 21:43 Order name: Clear Liquid EDMT 02/10 21:43 Order name: NPO EDMT 02/10 21:43 Order name: Echo with Doppler EDMT 02/10 21:43 Order name: Magnesium [facility] 02/10 21:43 Order name: Magnesium [facility] 02/10 21:43 Order name: T4 Free EDMT 02/10 21:44 Order name: T4 Free [facility] 02/10 21:44 Order name: Thyroid Stimulating Hormone [facility] 02/10 21:44 Order name: Thyroid Stimulating Hormone [facility] 02/10 21:44 Order name: Uric Acid EDMT 02/10 21:44 Order name: Uric Acid [facility] 02/10 21:44 Order name: Renal Ultrasound-Complete [facility] 02/10 21:44 Order name: Procalcitonin [facility] 02/10 21:44 Order name: Procalcitonin [facility] 02/10 21:44 Order name: Procalcitonin [facility] 02/10 22:31 Order name: Glucose, Ancillary Testing [facility] 02/10 23:08 Order name: SARS-COV-2 RT PCR EDMT 02/11 07:50 Order name: Glucose, Ancillary Testing EDMT 02/11 12:32 Order name: Glucose, Ancillary Testing EDMT 02/11 17:19 Order name: Glucose, Ancillary Testing EDMT EC:31 Rate is 58 beats/min. Rhythm is regular. QRS [place] is Normal. VT interval is prolonged rn at 238 msec. QRS interval is normal. QT interval is normal. No Q waves. T waves are Normal. No ST changes noted. Clinical impression: 1st degree heart block and Sinus bradycardia. Interpreted by me. Reviewed by me. Administered Medications: 16:30 Drug: NS 0.9% 1000 ml Route: IV; Rate: 1000 ml; Site: right antecubital; vg1 18:20 Follow up: IV Status: Completed infusion; IV Intake: 1000ml ss 16:40 Drug: Calcium Gluconate 1 grams Route: IVPB; Infused Over: 60 mins; Site: right ss antecubital; 19:24 Follow up: IV Status: Completed infusion ss 16:44 Drug: NS 0.9% 1000 ml Route: IV; Rate: 1000 ml; Site: right antecubital; aj2 19:22 Follow up: IV Status: Completed infusion; IV Intake: 1000ml ss 18:46 Drug: Levophed (norepinephrine) (4 mg/250 mL D5W 4 mcg/min Route: IV; Rate: calculated ss rate; Site: right femoral; 19:40 Drug: ProTONIX (pantoprazole) 40 mg Route: IVP; Site: right antecubital; vg1 20:29 Follow up: Response: No adverse reaction vg1 20:00 Drug: Cefepime 1 grams Route: IVPB; Rate: 200 ml/hr; Infused Over: 30 mins; Site: right vg1 antecubital; 20:29 Follow up: Response: No adverse reaction; IV Status: Completed infusion vg1 20:04 Drug: D5-1/2 NS with KCl 20 mEq/L 1000 ml Route: IV; Rate: 100 ml/hr; Site: right vg1 femoral; Point of Care Testing: Guaiac: 17:19 Stool Guaiac: Negative; Stool Hemoccult Control: Pass; rn Disposition: 18:00 Critical Care:. 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 Total time: 40 rn minutes Signatures: Dispatcher [employer] EDMS Nathanael Coy MD MD rn Smirch, Shelby, RN RN ss Slava Bell, MANAGER FURNITURE-C MANAGER FURNITURE-Cla1 Gala Barker, RN RN tl1 Damari Torres, RN RN vg1 Graciela Cesar2 Corrections: (The following items were deleted from the chart) 16:56 16:19 CT-HEAD/BRAIN W/O CONTRAST ordered. EDMS EDMS 18:21 18:18 BASIC METABOLIC PANEL+C.LAB.BRZ ordered. EDMS EDMS 18:21 18:18 CBC+H.LAB.BRZ ordered. EDMS EDMS 18:21 18:18 HEPATIC FUNCTION+C.LAB.BRZ ordered. EDMS EDMS 18:21 18:18 LIPASE+C.LAB.BRZ ordered. EDMS EDMS 18:21 18:18 MAGNESIUM+C.LAB.BRZ ordered. EDMS EDMS 18:21 18:18 PROTIME (+INR)+COAG.LAB.BRZ ordered. EDMS EDMS 18:21 18:18 PTT, ACTIVATED+COAG.LAB.BRZ ordered. EDMS EDMS 18:21 18:18 TROPONIN (EMERG DEPT USE ONLY)+C.LAB.BRZ ordered. EDMS EDMS 18:21 18:18 PROBNP+C.LAB.BRZ ordered. EDMS EDMS 18:21 18:18 Head Brain Wo Cont+CT.RAD.BRZ ordered. EDMS EDMS 18:21 18:18 PCT+C.LAB.BRZ ordered. EDMS EDMS 18:22 18:18 BLOOD CULTURE*+BA.LAB.BRZ ordered. EDMS EDMS 18:46 18:43 Urine Dipstick-Ancillary ordered. la1 ss 19:15 19:15 FERRITIN+C.LAB.BRZ ordered. EDMS EDMS 19:19 18:18 Chest Single View+RAD.RAD.BRZ ordered. EDMS EDMS 20:15 18:04 Intensive Care Unit rn tl1 20:15 18:04 rn tl1 20:16 19:15 Hemoglobin+H.LAB.BRZ ordered. EDMS EDMS 20:16 19:15 Hematocrit+H.LAB.BRZ ordered. EDMS EDMS
--- NOTE | 2021-02-10 18:04 | ER ---
Nurse's Notes [facility] Name: Josr Parra Age: 66 yrs Sex: Female : 1955 Arrival Date: 02/10/2021 Time: 16:06 Bed 6 Private MD: Diagnosis: Altered mental status, unspecified;Hypotension, unspecified;Muscle weakness (generalized);Acute kidney failure, unspecified Presentation: 02/10 17:35 Chief complaint: Patient states: Reports weakness and low b/p x 1day. Coronavirus aj2 screen: At this time, unable to obtain information related to travel outside the [place] Ebola Screen: No symptoms or risks identified at this time. Initial Sepsis Screen:. Risk Assessment: Do you want to hurt yourself or someone else? Patient reports no desire to harm self or others. Patient reports desire/thoughts of hurting themselves or someone else. Provider notified. Onset of symptoms is unknown. 17:35 Method Of Arrival: EMS: [facility] aj2 17:35 Acuity: JAM 3 aj2 Triage Assessment: 17:43 General: Appears Hypotensive with weakness.. General: Behavior is calm, drowsy. Pain: aj2 Denies pain. Historical: - PMHx: 17:43 Asthma; Diabetes - NIDDM; elevatedliver enzymes; Hepatitis; c; lumbar spine issues/pain;aj2 - Immunization history:: Client reports having NOT received the Covid vaccine. - Social history:: Smoking status: Patient reports the use of cigarette tobacco products, unknown amount. - Family history:: not pertinent. - Hospitalizations: : No recent hospitalization is reported. Screenin:46 Abuse screen: Denies threats or abuse. Denies injuries from another. Nutritional aj2 screening: No deficits noted. Tuberculosis screening: No symptoms or risk factors identified. Fall Risk None identified. Assessment: 18:26 Reassessment: Large, soft BM noted. Used bedpan. ss 18:47 Reassessment:. ss 19:13 Reassessment: See vitals signs. \T\ 1900 patient resting in bed A\T\Ox4,, respirations even ss and unlabored, skin warm and dry to touch. Denies any complaints at this time. Levophed infusing per order with no adverse reactions.Report given to Natalya MAGAÑA . 19:13 General:. ss 20:06 Reassessment: Patient appears in no apparent distress at this time. Patient and/or vg1 family updated on plan of care and expected duration. Pain level reassessed. Patient is alert, oriented x 3, equal unlabored respirations, skin warm/dry/pink. pt stated 'im feeling better than I did earlier'. Pt also stated was hungry; notified pt NPO status. Vital Signs: 17:35 BP 75 / 58; Pulse 54; Resp 16; Temp 97.7; Pulse Ox 100% ; Weight 79.83 kg; Height 5 ft. aj2 5 in. (165.10 cm); 18:51 BP 123 / 53; Pulse 52; Resp 19; Temp 97.7; Pulse Ox 100% ; ss 19:15 BP 105 / 52; Pulse 52; Resp 16; Pulse Ox 100% ; cc4 19:30 BP 99 / 55; Pulse 59; Resp 20; Pulse Ox 100% on R/A; cc4 20:06 BP 106 / 50; Pulse 54; Resp 14; Pulse Ox 98% ; vg1 20:20 BP 105 / 51; Pulse 53; Resp 18; Pulse Ox 100% on R/A; cc4 20:30 BP 119 / 55; Pulse 54; Resp 17; Temp 98.3; Pulse Ox 100% ; Pain 0/10; wr 20:45 BP 122 / 55; Pulse 52; Resp 15; Pulse Ox 100% ; wr 21:00 BP 111 / 55; Pulse 52; Resp 15; Pulse Ox 100% ; wr 17:35 Body Mass Index 29.29 (79.83 kg, 165.10 cm) aj2 Vitals: 17:46 Cardiac Rhythm Assessment Sinus romana. aj2 18:51 Cardiac Rhythm Assessment Sinus romana. ED Course: 16:06 Patient arrived in ED. ss 16:06 Nathanael Coy MD is Attending Physician. rn 16:11 Graciela Cesar is Primary Nurse. aj2 16:25 Maintain EMS IV. Dressing intact. Good blood return noted. Site clean \T\ dry. Gauge \T\ vg 1 site: 20 R AC. 16:27 Initial lab(s) drawn, by me, sent to lab. vg1 16:30 First set of blood cultures drawn by ED staff. vg1 17:06 Head Brain Wo Cont In Process Unspecified. EDMS 17:12 Chest Single View In Process Unspecified. EDMS 17:43 Triage completed. aj2 17:43 Arm band placed on. aj2 17:46 No apparent distress. No apparent distress. Appears combative. Appears to be sleeping. aj2 No apparent distress. Appears angry. No apparent distress. sleep, but ariuseable. 17:46 No provider procedures requiring assistance completed. IV is patent, is intact. aj2 17:46 Patient has correct armband on for positive identification. aj2 18:00 Assisted provider with central line placement. Set up central line tray. Triple lumen ss line placed in right femoral. Line placed by Nathanael Coy MD Placement verified by blood return, Dressed with Tegaderm, Patient tolerated well. 18:03 Chan Rodrigez DO is Hospitalizing Provider. rn 18:25 Straight cath inserted, using sterile technique, 16 Fr. Specimen obtained. Returned ss kyle urine. Patient tolerated well. 18:25 Patient admitted, IV remains in place. ss 18:51 Resting quietly. ss 18:51 Awaiting bed assignment. ss 18:51 IV is patent, is intact. ss 19:50 CT Chest Abdomen Pelvis W/O Contrast In Process Unspecified. EDMS 20:30 Repeat lab(s) drawn. by nj, sent to lab. vg1 02/11 07:03 Primary Nurse role handed off by Graciela Cesar 07:03 Hakeem Duarte, RN is Primary Nurse. [facility] Administered Medications: 02/10 16:30 Drug: NS 0.9% 1000 ml Route: IV; Rate: 1000 ml; Site: right antecubital; vg1 18:20 Follow up: IV Status: Completed infusion; IV Intake: 1000ml ss 16:40 Drug: Calcium Gluconate 1 grams Route: IVPB; Infused Over: 60 mins; Site: right ss antecubital; 19:24 Follow up: IV Status: Completed infusion ss 16:44 Drug: NS 0.9% 1000 ml Route: IV; Rate: 1000 ml; Site: right antecubital; aj2 19:22 Follow up: IV Status: Completed infusion; IV Intake: 1000ml ss 18:46 Drug: Levophed (norepinephrine) (4 mg/250 mL D5W 4 mcg/min Route: IV; Rate: calculated ss rate; Site: right femoral; 19:40 Drug: ProTONIX (pantoprazole) 40 mg Route: IVP; Site: right antecubital; vg1 20:29 Follow up: Response: No adverse reaction vg1 20:00 Drug: Cefepime 1 grams Route: IVPB; Rate: 200 ml/hr; Infused Over: 30 mins; Site: right vg1 antecubital; 20:29 Follow up: Response: No adverse reaction; IV Status: Completed infusion vg1 20:04 Drug: D5-1/2 NS with KCl 20 mEq/L 1000 ml Route: IV; Rate: 100 ml/hr; Site: right vg1 femoral; Point of Care Testing: Guaiac: 17:19 Stool Guaiac: Negative; Stool Hemoccult Control: Pass; electrical engineering intern: 18:20 IV: 1000ml; Total: 1000ml. ss 19:22 IV: 1000ml; Total: 2000ml. ss Output: 18:26 Urine: 200ml (Philippe); Total: 200ml. ss Outcome: 18:04 Decision to Hospitalize by Provider. rn 18:25 Instructed on the need for admit. ss 21:26 Condition: improved wr 02/11 18:40 Patient left the ED. Signatures: Dispatcher [employer] EDMS Nathanael Coy MD MD rn Smirch, Shelby, RN RN ss Baxter, Heather, RN RN hb Garcia, Victoria, RN RN 1 Graciela Cesar Christopher, LUIS RN Joanna Hernandez Willena wr Corrections: (The following items were deleted from the chart) 02/10 19:21 19:13 Reassessment: See vitals signs. Patient resting in bed A\T\Ox4,, respirations even ss and unlabored, skin warm and dry to touch. Denies any complaints at this time. Levophed infusing per order with no adverse reactions.Report given to Natalya SMITH. . ss 21:25 20:30 BP 203 / 058; Pulse 54bpm; Resp 17bpm; Pulse Ox 100%; Temp 98.3F; Pain 0/10; wr wr
[2021-02-10 18:15] LABS: Blood Morphology Comment NOTED (NOT SEEN); Macrocytosis 1+; Platelet Estimate DECR; Polychromasia SLIGHT
[2021-02-10 18:17] LABS: Urine Blood Negative (Negative); Urine Glucose Negative (Negative); Urine Protein Trace (Negative)
[2021-02-10] MEDS ORDERED: NOREPINEPHRINE 8 MG in D5W 500 ML IV PRN (18:17)
[2021-02-10 18:51] LABS: Urine Bacteria <20 /HPF (<20); Urine RBC <5 /HPF (NONE SEEN)
[2021-02-10] MEDS ORDERED: PANTOPRAZOLE 40 MG INJ ONE ×2 (19:56→22:56)
[2021-02-10] MEDS ORDERED: D5.45NS W/KCL 20MEQ 1,000 ML IV ONE (19:57)
[2021-02-10] MEDS ORDERED: CEFEPIME/SWI 1gm 10 ML ONE (19:57)
--- NOTE | 2021-02-10 20:05 | RAD REPORT ---
EXAM DESCRIPTION: CT - Chest Abd Pelvis Wo Con - 02/10/2021 7:50 pm CLINICAL HISTORY: Chest and abdomen pain. Hypotension, bradycardia, flank pain COMPARISON: No comparisons TECHNIQUE: A limited noncontrast study was performed. All CT scans are performed using dose optimization technique as appropriate and may include automated exposure control or mA/KV adjustment according to patient size. FINDINGS: Mild COPD is present. Small opacities are present in the periphery of both lungs.No pleura l or pericardial effusion.No intrathoracic adenopathy. Cirrhotic liver is present. There is no aggressive liver lesion evident. The spleen, pancreas, adrena l glands and kidneys show no acute process. No bowel obstruction, free air, free fluid or abscess. Normal appendix. Mild wall thickening of the t ransverse colon. Cecum appears distended mildly and mild wall thickening noted. No pathologic lymphad enopathy in the abdomen or pelvis. No worrisome osseous finding. IMPRESSION: Small peripherally oriented lung opacities are nonspecific but have been described in ea rly COVID infection. Mild nonspecific colitis is likely present with distention of the cecum evident. Liver cirrhosis.
--- NOTE | 2021-02-10 20:47 | P.HP ---
Certification for Inpatient Patient admitted to: Inpatient With expected LOS: >2 Midnights Patient will require the following post-hospital care: None Practitioner: I am a practitioner with admitting privileges, knowledge of patient current condition, hospital course, and medical plan of care. Services: Services provided to patient in accordance with Admission requirements found in Title 42 Section 412.3 of the Code of Federal Regulations Patient History Date of Service: 02/10/21 Primary Care Provider: Erinn braden Reason for admission: Hypotension, acute renal failure History of Present Illness: 66-year-old -[place] female with history of asthma, diabetes type 2, hepatitis C, possible GI bleed, atrial fibrillation not on chronic anticoagulation therapy presents emergency department for altered mental status, weakness. Upon arrival to the emergency room patient very hypotensive with blood pressure around 70/40, mentation quickly improved evaluation in the ER with labs significant for white blood cell count 8.7 hemoglobin 8.1 hematocrit 25.6 MCV 107.5 chloride 116 CO2 17 BUN 31 creatinine 2.24 GFR 27 glucose 68 calcium 7.8 procalcitonin 0.35 chest x-ray unremarkable urinalysis negative CT chest abdomen pelvis without contrast demonstrates small peripheral oriented lung opacities are nonspecific but have been described in early COVID-19 infection, mild nonspecific colitis is likely present with distention of the cecum evident, liver cirrhosis present without any aggressive liver lesions noted. Patient was transferred for GI bleed with similar symptoms in the past, Hemoccult was performed to the emergency department and reported by ED provider to be "trace positive" stool is dark brown on exam and formed no melena or hematemesis or hematochezia noted. Patient received 30 cc/kg fluid bolus in the ER currently on Levophed drip to maintain blood pressure heart rate between 50 and 60 at this time. ED very wishes to admit to ICU for further evaluation and management. Allergies codeine Allergy (Unverified 08/26/14 10:32) Unknown - Past Medical/Surgical History -: Diabetes mellitus type 2 -: Hypertension -: Atrial fibrillation? -: Hepatitis C -: Asthma/tobacco abuse -: Tubal ligation Psychosocial/ Personal History: Lives at home with son. - Family History Family History: Reviewed- Non-Contributory - Social History Smoking Status: Current every day smoker Alcohol use: No CD- Drugs: No Caffeine use: Yes Place of Residence: Home Review of Systems 10-point ROS is otherwise unremarkable General: Weakness, Malaise Physical Examination - Physical Exam General: Alert, In no apparent distress, Oriented x3 HEENT: Atraumatic, PERRLA, Mucous membr. moist/pink, EOMI, Sclerae nonicteric Neck: Supple, 2+ carotid pulse no bruit, No LAD, Without JVD or thyroid abnormality Respiratory: Clear to auscultation bilaterally, Normal air movement Cardiovascular: Regular rate/rhythm, Normal S1 S2 Gastrointestinal: Normal bowel sounds, No tenderness Musculoskeletal: No tenderness Integumentary: No rashes Neurological: Normal speech, Normal strength at 5/5 x4 extr, Normal tone, Normal affect Lymphatics: No axilla or inguinal lymphadenopathy - Studies Laboratory Data (last 24 hrs) 02/10/21 19:15: Hgb Cancelled, Hct Cancelled 02/10/21 16:27: PT 12.1, INR 1.05, APTT 26.0 02/10/21 16:27: WBC 8.70, Hgb 8.1 L, Hct 25.6 L, Plt Count 129 L 02/10/21 16:27: Sodium 142, Potassium 3.6, BUN 31 H, Creatinine 2.24 H, Glucose 68 L, Magnesium 2.2 D, Total Bilirubin 0.3, AST 48 H, ALT 45, Alkaline Phosphatase 111, Lipase 179 02/10/21 16:09: PT Cancelled, INR Cancelled, APTT Cancelled 02/10/21 16:09: WBC Cancelled, Hgb Cancelled, Hct Cancelled, Plt Count Cancelled 02/10/21 16:09: Sodium Cancelled, Potassium Cancelled, BUN Cancelled, Creatinine Cancelled, Glucose Cancelled, Magnesium Cancelled, Total Bilirubin Cancelled, AST Cancelled, ALT Cancelled, Alkaline Phosphatase Cancelled, Lipase Cancelled Assessment and Plan - Plan Assessment: Hypotension, bradycardia Possible history of A. 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 Patient also with history of GI bleed with transfer to tertiary center in the past for evaluation, patient unable to provide information about what was done or what she was told, family not at bedside and unreachable by phone at this time. Hemoccult performed in the ER was "trace positive" stools dark brown and formed, patient denies any melena, hematemesis, hematochezia. Patient also in acute renal failure and appears dehydrated. Continue with IV fluids, Levophed as necessary CT did demonstrate possible nonspecific enteritis pattern will cover with antibiotics Rocephin/Flagyl at this time although procalcitonin only mildly elevated white blood cell count normal. Will transfuse to maintain hemoglobin greater than 7.5. Nephrology and gastroenterology consulted, echocardiogram ordered. Will attempt to wean patient off of Levophed this evening, patient only on small doses at this time. Repeat hemoglobin/Medicare pending at this time. Will also continue with Protonix. Possible history of A. fib: Patient unaware if she has a history of irregular heart rhythm but is prescribed Cardizem, not on any blood thinners, family not available for questioning, no history to suggest atrial fibrillation in chart. Currently in sinus bradycardia, continue to monitor on telemetry and hold Cardizem at this time. Acute renal failure: Nephrology consulted, aggressive IV fluids, renal ultrasound. Diabetes mellitus type 2 with hypoglycemia: Initial blood sugar 68, continue with IV fluids containing dextrose at this time. May switch after sugars improved and patient is tolerating p.o. 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 DVT PPX: SCDs Code status: FULL Discharge Plan: Home Plan to discharge in: Greater than 2 days - Advance Directives Does patient have a Living Will: No Does patient have a Durable POA for Healthcare: No - Code Status/Comfort Care Code Status Assessed: Yes (Full code) Critical Care: No Time Spent Managing Pts Care (In Minutes): 55
[2021-02-10 20:50] LABS: Hematocrit 27.3 % (36.0-45.0)
[2021-02-10] MEDS ORDERED: SODIUM CHLORIDE 0.9% 10ML INJ IV PRN (21:42)
[2021-02-10] MEDS: PANTOPRAZOLE 40 MG INJ IVP SCH (21:42)
[2021-02-10] MEDS: INSULIN -REGULAR HUMAN 50 UNIT/0.5 ML ML SQ SCH (21:42)
[2021-02-10] MEDS ORDERED: ONDANSETRON 4 MG/2 ML VIAL IV PRN (21:42)
[2021-02-10] MEDS: D5 0.45 NS 1,000 ML IV SCH (21:42)
[2021-02-10] MEDS ORDERED: CIPROFLOXACIN 400mg IV 400 MG/200 ML BAG IV SCH (22:00)
[2021-02-10 22:33] LABS: Ferritin 242.2 ng/mL (8-388)
[2021-02-10] MEDS ORDERED: INSULIN -REGULAR HUMAN 50 UNIT/0.5 ML ML ONE (22:55)
[2021-02-10] MEDS ORDERED: CIPROFLOXACIN 400mg IV 400 MG/200 ML BAG IV ONE (22:56)
[2021-02-10] MEDS ORDERED: D5 0.45 NS 1,000 ML IV ONE (22:56)
[2021-02-10 23:35] VITALS: BMI 28.9
[2021-02-11] MEDS ORDERED: METRONIDAZOLE 500mg IVPB 500 MG/100 ML BAG IV SCH (01:00)
[2021-02-11] MEDS ORDERED: METRONIDAZOLE 500mg IVPB 500 MG/100 ML BAG IV ONE (01:45)
[2021-02-11 03:38] VITALS: O2SAT 100
[2021-02-11 04:47] LABS: Albumin 2.1 g/dL (3.4-5.0); Bilirubin Total 0.4 mg/dL (0.2-1.0); Magnesium 1.9 mg/dL (1.8-2.4); Potassium 3.8 mmol/L (3.5-5.1); Protein, Total 6.8 g/dL (6.4-8.2); Thyroid Stimulating Hormone 0.989 uIU/mL (0.360-3.740); Uric Acid 9.6 mg/dL (2.6-6.0)
[2021-02-11 05:03] LABS: Absolute Lymphocytes (CBC) 1.3 K/uL (0.7-4.9); Basophils % 0.3 % (0-1.3); Hematocrit 25.1 % (36.0-45.0); Lymphocytes % 15.2 % (15.3-44.8); MPV 9.1 fL (7.6-11.3); RBC Red Blood Cell Count 2.35 M/uL (3.86-4.86)
[2021-02-11] MEDS: D5 0.45 NS 1,000 ML IV SCH (05:42)
--- NOTE | 2021-02-11 06:32 | P.PN ---
Subjective Date of Service: 02/11/21 Primary Care Provider: [facility] Chief Complaint: Hypotension, acute renal failure Subjective: Improving, Doing well Physical Examination - Vital Signs Blood Pressure: 122/67 Pulse: 62 Respirations: 18 Pulse Ox (%): 97 - Studies Laboratory Data (last 24 hrs) 02/10/21 19:15: Hgb Cancelled, Hct Cancelled 02/10/21 16:27: PT 12.1, INR 1.05, APTT 26.0 02/10/21 16:27: WBC 8.70, Hgb 8.1 L, Hct 25.6 L, Plt Count 129 L 02/10/21 16:27: Sodium 142, Potassium 3.6, BUN 31 H, Creatinine 2.24 H, Glucose 68 L, Magnesium 2.2 D, Total Bilirubin 0.3, AST 48 H, ALT 45, Alkaline Phospha tase 111, Lipase 179 02/10/21 16:09: PT Cancelled, INR Cancelled, APTT Cancelled 02/10/21 16:09: WBC Cancelled, Hgb Cancelled, Hct Cancelled, Plt Count Cancelled 02/10/21 16:09: Sodium Cancelled, Potassium Cancelled, BUN Cancelled, Creatinine Cancelled, Glucose Cancelled, Magnesium Cancelled, Total Bilirubin Cancelled, AST Cancelled, ALT Cancelled, Alkaline Phosphatase Cancelled, Lipase Cancelled Assessment & Plan Discharge Plan: Home Plan to discharge in: 24 Hours Physician Review Additional Text: COVID: negative CT Head: COMPARISON: Head Brain Wo Cont dated 08/10/2019 TECHNIQUE: All CT scans are performed using dose optimization technique as appropriate and may include automated exposure control or mA/KV adjustment according to patient size. FINDINGS: No intracranial hemorrhage, hydrocephalus or extra-axial fluid collection.No areas of brain edema or evidence of midline shift. The paranasal sinuses and mastoids are clear. The calvarium is intact. IMPRESSION: No acute intracranial abnormality. CT scan: FINDINGS: Mild COPD is present. Small opacities are present in the periphery of both lungs.No pleural or pericardial effusion.No intrathoracic adenopathy. Cirrhotic liver is present. There is no aggressive liver lesion evident. The spleen, pancreas, adrenal glands and kidneys show no acute process. No bowel obstruction, free air, free fluid or abscess. Normal appendix. Mild wall thickening of the transverse colon. Cecum appears distended mildly and mild wall thickening noted. No pathologic lymphadenopathy in the abdomen or pelvis. No worrisome osseous finding. IMPRESSION: Small peripherally oriented lung opacities are nonspecific but have been described in early COVID infection. Mild nonspecific colitis is likely present with distention of the cecum evident. Liver cirrhosis. Renal US: COMPARISON: Abdomen Pelvis Wo Contrast dated 05/17/2020 FINDINGS: The right kidney measures 10.9 x 4.6 x 4.8 cm. The left kidney measures 10.1 x 5.0 x 4.4 cm. Cortical thickness is normal. There is bilateral increased cortical echogenicity consistent with underlying medical renal disease. No hydronephrosis or suspicious renal mass. Small sub centimeter anechoic to hypoechoic mass lower pole right kidney is most likely an incidental cyst. No worrisome parenchymal process at this time. No bladder wall thickening or mass. Echogenic debris is seen within the lumen. IMPRESSION: Medical renal disease without hydronephrosis or suspicious renal mass Physical exam: General: Alert, In no apparent distress, Oriented x3 HEENT: Atraumatic, PERRLA, Mucous membr. moist/pink, EOMI, Sclerae nonicteric Neck: Supple, 2+ carotid pulse no bruit, No LAD, Without JVD or thyroid abnormality Respiratory: Clear to auscultation bilaterally, Normal air movement Cardiovascular: Regular rate/rhythm, Normal S1 S2 Gastrointestinal: Normal bowel sounds, No tenderness Musculoskeletal: No tenderness Integumentary: No rashes Neurological: Normal speech, Normal strength at 5/5 x4 extr, Normal tone, Normal affect Lymphatics: No axilla or inguinal lymphadenopathy Impression: Hypotension, bradycardia Possible history of A. 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 There are some question of overmedication. Blood pressures have been stable. Continue to hold her blood pressure medications at this time. All medications reviewed. Patient taking clonidine 0.1 mg 1 pill twice daily, hydrochlorothiazide 12.5 mg daily, and diltiazem 240 mg daily. We will monitor the patient closely. Continue off medication at this time. No evidence of GI bleed. No evidence of infection. Case discussed with pulmonology. Possible discharge later today if blood pressure stable. Will check orthostatics and have physical therapy evaluate ambulation. If doing well then will plan for discharge if not tomorrow. Will reassess later today. Patient no longer on IV Levophed. Possible history of A. fib: Patient remains in sinus rhythm. Will monitor closely. Acute on chronic renal disease stage IV: Improved with hydration. Overall stable. Case discussed with nephrology who agrees with with above plan of care. Recommend to discontinue ibuprofen or other nonsteroidal anti-inflammatories. Diabetes mellitus type 2 with hypoglycemia: Continue to monitor closely. Patient takes glipizide. Hemoglobin A1c 5.1. Recommend to discontinue glipizide at this time. Continue diet to control diabetes. Continue to hold blood side if blood sugar less than 140. 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 No evidence of bleed. Will monitor closely. Needs to follow-up with GI as an outpatient to further address. Continue with Protonix. Recommend to discontinue ibuprofen. Recommend no further use of and also anti-inflammatories. Anemia of chronic disease: Continue iron supplementation. Will monitor closely. No evidence of GI bleed. DVT PPX: SCDs Code status: FULL Advanced care planning: Home at discharge Time Spent Managing Pts Care (In Minutes): 55
[2021-02-11] MEDS: INSULIN -REGULAR HUMAN 50 UNIT/0.5 ML ML SQ SCH ×3 (07:30→16:30)
--- NOTE | 2021-02-11 08:06 | RAD REPORT ---
EXAM DESCRIPTION: US - Renal Ultrasound-Complete - 02/10/2021 11:06 pm CLINICAL HISTORY: ARF COMPARISON: Abdomen Pelvis Wo Contrast dated 05/17/2020 FINDINGS: The right kidney measures 10.9 x 4.6 x 4.8 cm. The left kidney measures 10.1 x 5.0 x 4.4 cm. Cortical thickness is normal. There is bilateral increased cortical echogenicity consistent with underlying medical renal disease. No hydronephrosis or suspicious renal mass. Small sub centimeter an echoic to hypoechoic mass lower pole right kidney is most likely an incidental cyst. No worrisome par enchymal process at this time. No bladder wall thickening or mass. Echogenic debris is seen within the lumen. IMPRESSION: Medical renal disease without hydronephrosis or suspicious renal mass.
[2021-02-11] MEDS ORDERED: PANTOPRAZOLE 40 MG INJ ONE (08:29)
[2021-02-11] MEDS: PANTOPRAZOLE 40 MG INJ IVP SCH (09:00)
[2021-02-11] MEDS ORDERED: NA CHLORIDE 0.9% 500 ML ONE (16:22)
[2021-02-11] MEDS ORDERED: NA CHLORIDE 0.9% 500 ML IV ONE (17:00)
--- NOTE | 2021-02-11 17:31 | P.DS ---
Admission Date: 02/10/21 Discharge Date: 02/11/21 Primary Care Provider: [facility] Disposition: ROUTINE DISCHARGE Discharge Condition: GOOD Reason for Admission: Hypotension, acute renal failure Consultations: Nephrology-Dr. Mendoza Procedures: COVID: negative CT Head: COMPARISON: Head Brain Wo Cont dated 08/10/2019 TECHNIQUE: All CT scans are performed using dose optimization technique as appropriate and may include automated exposure control or mA/KV adjustment according to patient size. FINDINGS: No intracranial hemorrhage, hydrocephalus or extra-axial fluid collection.No areas of brain edema or evidence of midline shift. The paranasal sinuses and mastoids are clear. The calvarium is intact. IMPRESSION: No acute intracranial abnormality. CT scan: FINDINGS: Mild COPD is present. Small opacities are present in the periphery of both lungs.No pleural or pericardial effusion.No intrathoracic adenopathy. Cirrhotic liver is present. There is no aggressive liver lesion evident. The spleen, pancreas, adrenal glands and kidneys show no acute process. No bowel obstruction, free air, free fluid or abscess. Normal appendix. Mild wall thickening of the transverse colon. Cecum appears distended mildly and mild wall thickening noted. No pathologic lymphadenopathy in the abdomen or pelvis. No worrisome osseous finding. IMPRESSION: Small peripherally oriented lung opacities are nonspecific but have been described in early COVID infection. Mild nonspecific colitis is likely present with distention of the cecum evident. Liver cirrhosis. Renal US: COMPARISON: Abdomen Pelvis Wo Contrast dated 05/17/2020 FINDINGS: The right kidney measures 10.9 x 4.6 x 4.8 cm. The left kidney measures 10.1 x 5.0 x 4.4 cm. Cortical thickness is normal. There is bilateral increased cortical echogenicity consistent with underlying medical renal disease. No hydronephrosis or suspicious renal mass. Small sub centimeter anechoic to hypoechoic mass lower pole right kidney is most likely an incidental cyst. No worrisome parenchymal process at this time. No bladder wall thickening or mass. Echogenic debris is seen within the lumen. IMPRESSION: Medical renal disease without hydronephrosis or suspicious renal mass Medical Problem List: Hypotension, bradycardia Possible history of A. 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 Upon arrival to the emergency room patient very hypotensive with blood pressure around 70/40, mentation quickly improved evaluation in the ER with labs significant for white blood cell count 8.7 hemoglobin 8.1 hematocrit 25.6 MCV 107.5 chloride 116 CO2 17 BUN 31 creatinine 2.24 GFR 27 glucose 68 calcium 7.8 procalcitonin 0.35 chest x-ray unremarkable urinalysis negative CT chest abdomen pelvis without contrast demonstrates small peripheral oriented lung opacities are nonspecific but have been described in early COVID-19 infection, mild nonspecific colitis is likely present with distention of the cecum evident, liver cirrhosis present without any aggressive liver lesions noted. Patient admitted for evaluation. Hospital Course: Patient presented with hypotension with bradycardia. She is taking Clonidine 0.3 mg one pill twice daily, Diltiazem 240 mg one pill daily and Hydrochlorothiazide 12. 5 mg daily. Patient was admitted for further evaluation and treatment. All her medications were held. Patient received IV fluids with improvement. Patient worked with physical therapy to ambulate. Recheck orthostatics were within normal range. Patient remained stable off medication at this time. In review of her medications will recommend to hold all medications at this time. Recommend to monitor her blood pressures daily. Recommend to maintain blood pressure less than 130/80. If blood pressure starts to increase greater than 140/90 she may restart diltiazem 240 mg daily. She is to monitor her blood pressure thereafter. If the blood pressure remains above 140/90 she may restart hydrochlorothiazide 12.5 mg daily. Recommend to follow-up with her PCP within 5 days to further address her medications. I will recommend that she follow-up with a PCP in the local area so that she can establish care and further address her blood pressure. If blood pressure remains further elevated additional medication may be required. I will not recommend that she take clonidine along with diltiazem as this may drop her blood pressure and heart rate. Recommend follow-up with her PCP to further address. Patient with acute on chronic renal disease stage IV. Patient received IV fluids with improvement. Patient was seen by nephrology. Recommend to recheck labBMP in 1 week. Recommend follow-up with nephrology in 1 week to further address. Recommend no further use of nonsteroidal anti-inflammatories. Especially with her history of cirrhosis of the liver related to hepatitis C. Patient had been taking ibuprofen. Recommend to discontinue ibuprofen. Patient with cirrhosis of the liver secondary to hepatitis C. This was confirmed with CT scan. As recommended recommend no further use of nonsteroidal anti-inflammatories. Recommend no further use of ibuprofen. Recommend follow-up with GI as an outpatient to further address. Patient with anemia chronic disease. Overall stable. Patient may continue with iron supplementation daily. Patient likely with underlying GERD. At discharge she will continue with Protonix 40 mg daily. Patient with diabetes mellitus type 2. Hemoglobin A1c 5.1. There was some question of hypoglycemia. Patient has been taking glipizide. Recommend to discontinue glipizide as this will increase the risk of hypoglycemia. Patient will continue with a 1800-Malagasy diabetic diet. Recommend to monitor blood sugars at least twice daily. Recommend to maintain blood sugars less than 140 fasting and less than 200 for meals. If blood sugars remain above 200 she is to contact her PCP for further recommendation. If blood sugars remain above 200 patient may require medication. Glipizide may need to be restarted but recommend to restart at half dose then have her PCP adjust appropriately. Vital Signs/Physical Exam: Temp Pulse Resp BP Pulse Ox 98.4 F 80 17 126/76 97 02/11/21 12:00 02/11/21 16:00 02/11/21 16:00 02/11/21 16:00 02/11/21 16:00 General: Alert, In no apparent distress, Oriented x3, Cooperative HEENT: Atraumatic Neck: Supple Respiratory: Clear to auscultation bilaterally, Normal air movement Cardiovascular: Normal pulses, Regular rate/rhythm Gastrointestinal: Normal bowel sounds, No ascites, No tenderness, No masses, No rebound, No guarding Musculoskeletal: No erythema, No tenderness, No warmth Integumentary: No tenderness/swelling Neurological: Normal speech, Normal strength at 5/5 x4 extr, Normal tone Laboratory Data at Discharge: WBC 8.70 K/uL (4.3-10.9) 02/11/21 04:12 Hgb 8.2 g/dL (12.0-15.0) L 02/11/21 04:12 Hct 25.1 % (36.0-45.0) L 02/11/21 04:12 Plt Count 121 K/uL (152-406) L 02/11/21 04:12 PT 12.1 SECONDS (9.5-12.5) 02/10/21 16:27 INR 1.05 02/10/21 16:27 APTT 26.0 SECONDS (24.3-36.9) 02/10/21 16:27 Sodium 141 mmol/L (136-145) 02/11/21 04:12 Potassium 3.8 mmol/L (3.5-5.1) 02/11/21 04:12 BUN 27 mg/dL (7-18) H 02/11/21 04:12 Creatinine 1.61 mg/dL (0.55-1.3) H 02/11/21 04:12 Glucose 249 mg/dL (74-106) H 02/11/21 04:12 Uric Acid 9.6 mg/dL (2.6-6.0) H 02/11/21 04:12 Magnesium 1.9 mg/dL (1.8-2.4) 02/11/21 04:12 Total Bilirubin 0.4 mg/dL (0.2-1.0) 02/11/21 04:12 AST 36 U/L (15-37) 02/11/21 04:12 ALT 41 U/L (12-78) 02/11/21 04:12 Alkaline Phosphatase 92 U/L (45-117) 02/11/21 04:12 Triglycerides 165 mg/dL (<150) H 02/11/21 04:12 Cholesterol 81 mg/dL (<200) 02/11/21 04:12 HDL Cholesterol 26 mg/dL (40-60) L 02/11/21 04:12 Cholesterol/HDL Ratio 3.12 02/11/21 04:12 Lipase 179 U/L (73-393) 02/10/21 16:27 Home Medications: Diltiazem HCl [Diltiazem 24Hr Cd] 240 mg PO DAILY 02/11/21 Ferrous Sulfate [Ferrous Sulfate*] 325 mg PO DAILY 02/11/21 Pantoprazole [Protonix Tab] 40 mg PO DAILY #30 tab 02/11/21 Pregabalin 1 cap PO TID 02/11/21 New Medications: Pantoprazole [Protonix Tab] 40 mg PO DAILY #30 tab Physician Discharge Instructions: Patient presented with hypotension with bradycardia. She is taking Clonidine 0.3 mg one pill twice daily, Diltiazem 240 mg one pill daily and Hydrochlorothiazide 12. 5 mg daily. Patient was admitted for further evaluation and treatment. All her medications were held. Patient received IV fluids with improvement. Patient worked with physical therapy to ambulate. Recheck orthostatics were within normal range. Patient remained stable off medication at this time. In review of her medications will recommend to hold all medications at this time. Recommend to monitor her blood pressures daily. Recommend to maintain blood pressure less than 130/80. If blood pressure starts to increase greater than 140/90 she may restart diltiazem 240 mg daily. She is to monitor her blood pressure thereafter. If the blood pressure remains above 140/90 she may restart hydrochlorothiazide 12.5 mg daily. Recommend to follow-up with her PCP within 5 days to further address her medications. I will recommend that she follow-up with a PCP in the local area so that she can establish care and further address her blood pressure. If blood pressure remains further elevated additional medication may be required. I will not recommend that she take clonidine along with diltiazem as this may drop her blood pressure and heart rate. Recommend follow-up with her PCP to further address. Patient with acute on chronic renal disease stage IV. Patient received IV fluids with improvement. Patient was seen by nephrology. Recommend to recheck labBMP in 1 week. Recommend follow-up with nephrology in 1 week to further address. Recommend no further use of nonsteroidal anti-inflammatories. Especially with her history of cirrhosis of the liver related to hepatitis C. Patient had been taking ibuprofen. Recommend to discontinue ibuprofen. Patient with cirrhosis of the liver secondary to hepatitis C. This was confirmed with CT scan. As recommended recommend no further use of nonsteroidal anti-inflammatories. Recommend no further use of ibuprofen. Recommend follow- up with GI as an outpatient to further address. Patient with anemia chronic disease. Overall stable. Patient may continue with iron supplementation daily. Patient likely with underlying GERD. At discharge she will continue with Protonix 40 mg daily. Patient with diabetes mellitus type 2. Hemoglobin A1c 5.1. There was some question of hypoglycemia. Patient has been taking glipizide. Recommend to discontinue glipizide as this will increase the risk of hypoglycemia. Patient will continue with a 1800-Malagasy diabetic diet. Recommend to monitor blood sugars at least twice daily. Recommend to maintain blood sugars less than 140 fasting and less than 200 for meals. If blood sugars remain above 200 she is to contact her PCP for further recommendation. If blood sugars remain above 200 patient may require medication. Glipizide may need to be restarted but recommend to restart at half dose then have her PCP adjust appropriately. Diet: AHA Activity: Ad maninder Followup: Unknown,U [Primary Care Provider] - Time spent managing pt's care (in minutes): 55
--- NOTE | 2021-02-11 18:13 | CON ---
Date of Consultation: 02/11/2021 Reason For Consultation: Elevated BUN and creatinine. History Of Present Illness: This is a pleasant 66-year-old female with significant past medical history of diabetes since 2015 complicated with neuropathy, no retinopathy, hypertension , atrial fibrillation, hep C, bronchial asthma. The patient is no known to have chronic kidney disea se with baseline creatinine 1.4, GFR of 46. As of December 2020, the patient came to the hospital bill use of dizziness and fainting. Upon arrival to the hospital, the patient found low blood pressure do wn to the 70 with elevation of BUN and creatinine, creatinine 2.2, GFR of 27. For that reason, we rose ve been consulted. The patient denied any chest pain. No palpitation. In fact, the patient was bra dycardiac. The patient was started on gentle hydration. Kidney function has been improved. Creatin ine down from 2.2 to 1.6, which is close to her baseline. The patient denied taking any nonsteroidal . Past Medical History: 1.Diabetes complicated with neuropathy. 2.Hypertension. 3.Atrial fibrillation. 4.Hep C. 5.Bronchial asthma. Allergies: NO KNOWN DRUGS ALLERGY. Past Surgical History: Tubal ligation. Social History: Active smoker. Denied alcohol. Denied drug abuse. Family History: Positive for hypertension. Review of Systems: Head and Neck: No red eye. No ear pain. GI: No nausea, no vomiting. : No polyuria, no dysuria, no hematuria. 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 Respiratory: No shortness of breath. Cardiovascular: No chest pain. Endocrine: No polydipsia. Skin: No rash. Neuro: Has fainting and dizziness. Musculoskeletal: Generalized fatigue. Physical Examination: When I saw the patient; Vital Signs: Blood pressure 91/47, pulse of 84. The patient had urine output of 400. Chest: Clear to auscultation. Heart: S1, S2. Systolic murmur. Abdomen: Soft. Nontender. Extremities: No edema. Neurological: Alert, oriented x3. No focal. Laboratory Data: Sodium 141, potassium 3.8, bicarb 18, BUN 27, creatinine 1.6, GFR of 39, uric acid 9.6, calcium 7.3, magnesium 1.9 yesterday, creatinine 2.2, GFR 2.7. WBC 8.7, H and H 8.2/25.1 curren t. Renal ultrasound , no hydronephrosis, showing subcentimeter renal cyst. Assessment And Plan: 1.Acute kidney injury, secondary to poor perfusion; acute tubular necrosis secondary to overdiuresis . I agree with holding the Lasix. I am going to start the patient on gentle hydration. We will con tinue on IV fluid. We will change it to D5 half normal. Continue current rate and we will monitor i f consecutive kidney function continued to improve. The patient is cleared from the renal standpoint for discharge planning. 2.Hold all blood pressure medication for the time being. 3.Hypertension with the presence of low blood pressure. Hold all blood pressure medications. 4.Acidosis, secondary to renal failure. I am going to start the patient on sodium bicarb orally and we will follow up the patient. 5.Diabetes as by primary. DURGA/QUIANA Voice ID: [id number] Report ID: [id number]
[2021-02-11 18:25] VITALS: BP 124/78; TEMP 98.1
[2021-02-11] MEDS ORDERED: SODIUM BICARB 325 MG TAB PO SCH (21:00)
--- NOTE | 2021-02-12 07:45 | ECHO ---
HEIGHT: 5 ft 5 in WEIGHT: 174 lb 0 oz DATE OF STUDY: 02/11/[address]: Slava Bell NP 2-DIMENSIONAL: YES M.MODE: YES DOPPLER: YES COLOR FLOW: YES TDS: PORTABLE: DEFINITY: BUBBLE STUDY: DIAGNOSIS: HYPOTENSION, BRADYCARDIA CARDIAC HISTORY: CATHERIZATION: NO SURGERY: NO PROSTHETIC VALVE: NO PACEMAKER: NO MEASUREMENTS (cm) DIASTOLIC (NORMALS) SYSTOLIC (NORMALS) IVSd 0.9 (0.6-1.2) LA Diam 2.5 (1.9-4.0) LVEF 65% LVIDd 4.1 (3.5-5.7) LVIDs 2.6 (2.0-3.5) %FS 35% LVPWd 1.0 (0.6-1.2) Ao Diam 2.6 (2.0-3.7) 2 DIMENSIONAL ASSESSMENT: RIGHT ATRIUM: NORMAL LEFT ATRIUM: NORMAL RIGHT VENTRICLE: NORMAL LEFT VENTRICLE: NORMAL TRICUSPID VALVE: MILD TRICUSPID REGURGITATION MITRAL VALVE: MILD MITRAL REGURGITATION PULMONIC VALVE: NORMAL AORTIC VALVE: NORMAL PERICARDIAL EFFUSION: NONE AORTIC ROOT: NORMAL LEFT VENTRICULAR WALL MOTION: NORMAL DOPPLER/COLOR FLOW: SEE BELOW COMMENTS: NORMAL LEFT VENTRICULAR EJECTION FRACTION 60-65%. NORMAL WALL MOTION. MILD MITRAL REGURGITATION. MILD TRICUSPID REGURGITATION. TECHNOLOGIST: PERLA COTTON
[2021-02-12] MEDS ORDERED: FERROUS SULFATE 325 MG TAB PO SCH (09:00)
== END 2021-02-11 18:05 | disposition home health service (06) ==
LOC: ER 16:04 → INTOOBSV 20:08 → ERHOLD 20:08
PROVIDERS: ADMIT Family Medicine; ATTEND Family Medicine
DX: I95.9 Hypotension, unspecified (principal); R00.1 Bradycardia, unspecified; E11.65 Type 2 diabetes mellitus with hyperglycemia; I12.9 Hypertensive chronic kidney disease with stage 1 through stage 4 chronic kidney disease, or unspecified chronic kidney disease; E11.22 Type 2 diabetes mellitus with diabetic chronic kidney disease; N18.4 Chronic kidney disease, stage 4 (severe); N17.0 Acute kidney failure with tubular necrosis; E87.2 Acidosis; D63.1 Anemia in chronic kidney disease; E11.40 Type 2 diabetes mellitus with diabetic neuropathy, unspecified; B19.20 Unspecified viral hepatitis C without hepatic coma; K74.60 Unspecified cirrhosis of liver; J45.909 Unspecified asthma, uncomplicated; F17.210 Nicotine dependence, cigarettes, uncomplicated; Z20.822 Contact with and (suspected) exposure to COVID-19; Z88.6 Allergy status to analgesic agent; Z98.51 Tubal ligation status; Z82.49 Family history of ischemic heart disease and other diseases of the circulatory system
CPT/HCPCS: 93005; 93306; 87040 ×2; 87088; 85025 ×2; 87086; 80048; 36415; 86900; 83735 ×2; 86850; 82550; 85610; 80061; 86901; 82947 ×4; 80076; 84550; 83605; 85730; 84443; 85018; 85014; 83036; 84484; 84439; 82728; 82746; 82607; 83690; 83540; 80053; 84145 ×2; 83880; 84466; 70450; 71250; 74176; 71045; 76770; 97116; 97161; 51702; 99285; U0003; J0610; C9113 ×2; J0692; J7060; J7799; J7040; J7030 ×2; J0744; G0378 ×3; 81003; 81015

== ENCOUNTER 2023-07-12 10:01 | Inpatient (IN) | payer OTHER ==
[2023-07-12] MEDS ORDERED: ONDANSETRON 4 MG/2 ML VIAL ONE (10:14)
[2023-07-12] MEDS ORDERED: NA CHLORIDE 0.9% 1,000 ML ONE (10:14)
[2023-07-12 10:38] LABS: Absolute Lymphocytes (CBC) 2.9 K/uL (0.7-4.9); Hematocrit 43.2 % (36.0-45.0); Lymphocytes % 26.3 % (15.3-44.8); MCV 97.3 fL (80-100); Platelets 210 thou/uL (152-406); RBC Red Blood Cell Count 4.44 M/uL (3.86-4.86)
[2023-07-12 10:54] LABS: Albumin 2.4 g/dL (3.4-5.0); Bilirubin Total 0.6 mg/dL (0.2-1.0); Potassium 3.5 mEq/L (3.5-5.1); Protein, Total 8.4 g/dL (6.4-8.2)
--- NOTE | 2023-07-12 12:19 | RAD REPORT ---
EXAM DESCRIPTION: CT - Abdomen Pelvis Wo Contrast - 07/12/2023 11:04 am CLINICAL HISTORY: nausea/vomiting, cirrhosis COMPARISON: Abdomen W/Wo Contrast dated 11/10/2022; Abdomen Pelvis Wo Contrast dated 09/12/2022; Abd omen Pelvis Wo Contrast dated 05/17/2020; Chest Abd Pelvis Wo Con dated 02/10/2021 TECHNIQUE: Thin cut axial CT imaging of the abdomen and pelvis was performed without IV contrast. Mu ltiplanar reformats were generated and reviewed. All CT scans are performed using dose optimization technique as appropriate and may include automated exposure control or mA/KV adjustment according to patient size. FINDINGS: No suspicious findings in the lung bases. The liver is again enlarged, with nodular contour and segmental left lobe hypertrophy suggesting cirr hosis. Adrenal glands, spleen, and pancreas show no suspicious findings. Gallbladder and biliary tree are also without suspicious finding. Symmetric renal contour, without suspicious parenchymal findings within limits of noncontrast techniq ue. No evidence of radiopaque calculi or hydroureteronephrosis. No dilated bowel loops or bowel wall thickening. No free air, free fluid or inflammatory stranding. N o hernia, mass or bulky lymphadenopathy. Stable partially mineralized ovoid mass measuring 4.2 x 3.4 cm in the left adnexal region, may represent an ovarian partially calcified mass/ cyst or fibroid. Th e urinary bladder is decompressed limiting evaluation. No suspicious bony findings. IMPRESSION: No acute intra-abdominal process. Stable findings including stigmata of liver cirrhosis, and a left adnexal partially calcified mass as above.
--- NOTE | 2023-07-12 12:22 | RAD REPORT ---
EXAM DESCRIPTION: CT - Head Brain Wo Cont - 07/12/2023 11:04 am CLINICAL HISTORY: HTN, headache, vomiting COMPARISON: Head Brain Wo Cont dated 02/10/2021; Head Brain Wo Cont dated 08/10/2019 TECHNIQUE: Noncontrast head CT images were obtained without IV contrast. Multiplanar reformats were generated and reviewed. All CT scans are performed using dose optimization technique as appropriate and may include automated exposure control or mA/KV adjustment according to patient size. FINDINGS: No intracranial hemorrhage, mass, or edema. Midline structures are unremarkable, apart fro m stable partially empty sella. Normal ventricular caliber for age. Taylor-white matter differentiation is preserved, without evidence of acute infarct. No abnormal extra- axial fluid collections. Mastoid air cells and visualized portions of the paranasal sinuses are clear. No acute bony findings. IMPRESSION: No evidence of an acute intracranial process.
[2023-07-12] MEDS ORDERED: cloNIDine HCL 0.1 MG TAB ONE (12:35)
[2023-07-12 12:38] LABS: Specific Gravity 1.019 (1.005-1.030); Urine Bacteria None Seen /HPF (<20); Urine Bilirubin NEGATIVE (Negative); Urine Blood 1+ (Negative); Urine Clarity Turbid (Clear); Urine Color Yellow (Yellow); Urine Glucose NEGATIVE (Negative); Urine Protein 3+ (Negative); Urine Urobilinogen 1+ (Normal); Urine pH 6.5 (5.0-7.0)
[2023-07-12] MEDS ORDERED: PROMETHAZINE INJ 25 MG/ML AMP ONE (13:12)
--- NOTE | 2023-07-12 13:27 | ER ---
Nurse's Notes [facility] Name: Josr Parra Age: 68 yrs Sex: Female : 1955 Arrival Date: 07/12/2023 Time: 10:01 Bed 2 Private MD: Diagnosis: Essential (primary) hypertension;Intractable vomiting;Muscle weakness (generalized) Presentation: 07/12 10:02 Chief complaint: EMS states: "Nausea and vomiting x1 week and has been unable to keep rs5 anything down.". Coronavirus screen: At this time, the client does not indicate any symptoms associated with coronavirus-19. Ebola Screen: No symptoms or risks identified at this time. Initial Sepsis Screen: Does the patient meet any 2 criteria? HR > 90 bpm. Yes Does the patient have a suspected source of infection? No. Patient's initial sepsis screen is negative. Risk Assessment: Do you want to hurt yourself or someone else? Patient reports no desire to harm self or others. Onset of symptoms was July 05, 2023. 10:02 Method Of Arrival: EMS: [facility] rs5 10:02 Acuity: JAM 3 rs5 10:07 Care prior to arrival: IV initiated. 20 GA, in the left antecubital area. rs5 Historical: - Allergies: 10:05 Codeine; rs5 - Home Meds: 12:15 clonidine HCl 0.2 mg Oral tablet [Active]; losartan 25 mg oral tablet [Active]; mb9 Diltiazem Oral [Active]; - PMHx: 10:05 Asthma; Diabetes - NIDDM; elevatedliver enzymes; Hepatitis; c; lumbar spine issues/pain;rs5 - PSHx: 10:05 None; rs5 - Immunization history:: Adult Immunizations up to date. - Social history:: Smoking status: Patient denies any tobacco usage or history of. - Family history:: not pertinent. - Hospitalizations: : No recent hospitalization is reported. Screenin:05 [facility] ED Fall Risk Assessment (Adult) History of falling in the last 3 months, rs5 including since admission No falls in past 3 months (0 pts) Confusion or Disorientation No (0 pts) Intoxicated or Sedated No (0 pts) Impaired Gait No (0 pts) Mobility Assist Device Used No (0 pt) Altered Elimination No (0 pt) Score/Fall Risk Level 0 - 2 = Low Risk Oriented to surroundings, Maintained a safe environment. Abuse screen: Denies threats or abuse. Nutritional screening: No deficits noted. Tuberculosis screening: No symptoms or risk factors identified. Assessment: 10:32 General: Appears in no apparent distress. Behavior is calm, cooperative. Pain: Denies mb9 pain. Neuro: Calle Agitation-Sedation Scale (RASS): 0 - Alert and Calm Level of Consciousness is awake, alert, obeys commands, Oriented to person, place, time, situation, Appropriate for age. Cardiovascular: Heart tones S1 S2 present Patient's skin is warm and dry. Respiratory: Airway is patent Respiratory effort is even, unlabored, Respiratory pattern is regular, symmetrical, Breath sounds are clear bilaterally. GI: Abdomen is round non-distended, Bowel sounds present X 4 quads. Abd is soft and non tender X 4 quads. Reports nausea, vomiting. : No signs and/or symptoms were reported regarding the genitourinary system. EENT: No signs and/or symptoms were reported regarding the EENT system. Derm: Skin is pink, warm \\T\\ dry. 11:24 Reassessment: No changes from previously documented assessment. Patient and/or family mb9 updated on plan of care and expected duration. Pain level reassessed. Patient is alert, oriented x 3, equal unlabored respirations, skin warm/dry/pink. 12:16 Reassessment: No changes from previously documented assessment. Patient and/or family mb9 updated on plan of care and expected duration. Pain level reassessed. Patient is alert, oriented x 3, equal unlabored respirations, skin warm/dry/pink. 12:16 Reassessment: ERP notified of pts BP of 204/99. mb9 12:57 Reassessment: No changes from previously documented assessment. Patient and/or family mb9 updated on plan of care and expected duration. Pain level reassessed. Patient is alert, oriented x 3, equal unlabored respirations, skin warm/dry/pink. 14:00 Reassessment: No changes from previously documented assessment. Patient and/or family mb9 updated on plan of care and expected duration. Pain level reassessed. Patient is alert, oriented x 3, equal unlabored respirations, skin warm/dry/pink. 14:20 Reassessment: attempted to call report to admitting nurse. mb9 Vital Signs: 10:02 BP 179 / 128; Pulse 110; Resp 18; Temp 98.2(O); Pulse Ox 99% ; rs5 11:24 BP 178 / 80; Pulse 88; Resp 18; Pulse Ox 100% on R/A; mb9 12:15 BP 204 / 99; Pulse 101; Resp 18; Pulse Ox 100% ; mb9 12:57 BP 205 / 101; Pulse 98; Resp 16; Pulse Ox 99% ; mb9 13:42 BP 195 / 105; Pulse 90; Resp 16; Pulse Ox 100% on R/A; mb9 14:28 BP 168 / 71; Pulse 90; Resp 16; Pulse Ox 100% ; mb9 ED Course: 10:02 Patient arrived in ED. rs5 10:02 Nathanael Coy MD is Attending Physician. rn 10:05 Triage completed. rs5 10:05 Patient has correct armband on for positive identification. Bed in low position. Call rs5 light in reach. Side rails up X2. 10:06 Lucía Clifton RN is Primary Nurse. mb9 10:07 No provider procedures requiring assistance completed. rs5 10:31 CBC with Diff Sent. mb9 10:31 CMP Sent. mb9 10:31 Lipase Sent. mb9 10:33 Inserted saline lock: 20 gauge in right forearm, using aseptic technique. mb9 10:34 Arm band placed on. mb9 11:04 Abdomen In Process Unspecified. EDMS 11:05 CT Head Brain wo Cont In Process Unspecified. EDMS 13:26 Rob Coy MD is Hospitalizing Provider. rn 14:28 Patient admitted, IV remains in place. mb9 Administered Medications: 10:31 Drug: NS 0.9% IV 1000 ml IV at 1 bolus Per protocol; 1000 mL bolus Route: IV; Rate: 1 mb9 bolus; Site: right forearm; 13:42 Follow up: Response: No adverse reaction mb9 14:28 Follow up: Response: No adverse reaction; IV Status: Completed infusion mb9 10:31 Drug: Ondansetron IVP 4 mg IVP once; over 2 minutes Route: IVP; Site: right forearm; mb9 11:27 Follow up: Response: No adverse reaction mb9 12:36 Drug: cloNIDine PO 0.2 mg PO once Route: PO; mb9 13:43 Follow up: Response: No adverse reaction mb9 13:13 Drug: Promethazine IVP 12.5 mg IVP once Route: IVP; Site: right forearm; mb9 13:43 Follow up: Response: No adverse reaction mb9 13:50 Drug: hydrALAZINE IVP 10 mg IVP once Route: IVP; Site: right forearm; mb9 14:28 Follow up: Response: No adverse reaction mb9 13:55 Drug: Pantoprazole IVP 40 mg IVP once Route: IVP; Site: right forearm; mb9 14:28 Follow up: Response: No adverse reaction mb9 Medication: 10:34 VIS not applicable for this client. mb9 Outcome: 13:27 Decision to Hospitalize by Provider. rn 14:40 Admitted to Med/surg accompanied by tech, via wheelchair, room 204, with chart, Report mb9 called to LUIS Cadet 14:40 Condition: stable 14:40 Instructed on the need for admit, 14:40 Patient left the ED. mb9 Signatures: Dispatcher [employer] EDMS Nathanael Coy MD MD rn Breneman, Lucía Jensen RN RN mb9 Wilder Gibbons RN RN rs5 Corrections: (The following items were deleted from the chart) 11:27 11:24 Pulse 88bpm; Resp 18bpm; Pulse Ox 100% RA; mb9 mb9
--- NOTE | 2023-07-12 13:27 | EDPHYS ---
Physician Documentation [facility] Name: Josr Parra Age: 68 yrs Sex: Female : 1955 Arrival Date: 07/12/2023 Time: 10:01 Bed 2 Private MD: ED Physician Nathanael Coy HPI: 07/12 10:28 This 68 yrs old Black Female presents to ER via EMS with complaints of nausea/vomiting. rn 10:28 The patient presents to the emergency department with nausea, vomiting. Onset: The rn symptoms/episode began/occurred 3 day(s) ago. Possible causes: unknown. The symptoms are aggravated by nothing. The symptoms are alleviated by nothing. Associated signs and symptoms: Pertinent positives: nausea, vomiting, Pertinent negatives: fever, GI bleeding. Severity of symptoms: At their worst the symptoms were moderate in the emergency department the symptoms are unchanged. The patient has experienced similar episodes in the past. The patient has not recently seen a physician. Patient reports nausea/vomiting for 3 days. Decreased appetite. Mild abdominal discomfort but no focal pain. Patient reports history of cirrhosis. Reports mild headache. No focal weakness or numbness. No seizures. No chest pain. Denies any recent sick contacts.. Historical: - Allergies: 10:05 Codeine; rs5 - Home Meds: 12:15 clonidine HCl 0.2 mg Oral tablet [Active]; losartan 25 mg oral tablet [Active]; mb9 Diltiazem Oral [Active]; - PMHx: 10:05 Asthma; Diabetes - NIDDM; elevatedliver enzymes; Hepatitis; c; lumbar spine issues/pain;rs5 - PSHx: 10:05 None; rs5 - Immunization history:: Adult Immunizations up to date. - Social history:: Smoking status: Patient denies any tobacco usage or history of. - Family history:: not pertinent. - Hospitalizations: : No recent hospitalization is reported. ROS: 10:28 Constitutional: Negative for fever, chills, and weight loss, Eyes: Negative for injury, rn pain, redness, and discharge, Neck: Negative for injury, pain, and swelling, Cardiovascular: Negative for chest pain, palpitations, and edema, Respiratory: Negative for shortness of breath, cough, wheezing, and pleuritic chest pain, Abdomen/GI: Positive for nausea/vomiting, negative for diarrhea, negative for bleeding Back: Negative for injury and pain, MS/Extremity: Negative for injury and deformity, Skin: Negative for injury, rash, and discoloration, Neuro: Positive for generalized weakness. Negative for focal weakness or numbness. No seizure. Exam: 10:28 Constitutional: This is a well developed, well nourished patient who is awake, alert, rn and in no acute distress. Head/Face: Normocephalic, atraumatic. ENT: Dry mucous membranes Neck: No Meningismus. Cardiovascular: Tachycardic, regular. No pulse deficits. Respiratory: No increased work of breathing, no retractions or nasal flaring. Abdomen/GI: Soft, nontender, no guarding or peritoneal signs MS/ Extremity: Pulses equal, no cyanosis. Neuro: Awake and alert, GCS 15, oriented to person, place, time, and situation. Cranial nerves II-XII grossly intact. Motor strength 4/5 in all extremities. Sensory grossly intact. Vital Signs: 10:02 BP 179 / 128; Pulse 110; Resp 18; Temp 98.2(O); Pulse Ox 99% ; rs5 11:24 BP 178 / 80; Pulse 88; Resp 18; Pulse Ox 100% on R/A; mb9 12:15 BP 204 / 99; Pulse 101; Resp 18; Pulse Ox 100% ; mb9 12:57 BP 205 / 101; Pulse 98; Resp 16; Pulse Ox 99% ; mb9 13:42 BP 195 / 105; Pulse 90; Resp 16; Pulse Ox 100% on R/A; mb9 14:28 BP 168 / 71; Pulse 90; Resp 16; Pulse Ox 100% ; mb9 MDM: 10:02 Patient medically screened. rn 13:22 Differential diagnosis: Nonspecific abd pain, gastritis, pancreatitis, appendicitis, rn diverticulitis, viral gastroenteritis, gastroenteritis, Hypertensive emergency/urgency, CVA, hemorrhage. Data reviewed: vital signs, nurses notes, lab test result(s), EKG, radiologic studies, CT scan, and as a result, I will admit patient. Consideration of Admission/Observation Patient was admitted/placed on observation. Escalation of care including admission/observation considered. Care significantly affected by the following chronic conditions: Hypertension, Liver Disease. Counseling: I had a detailed discussion with the patient and/or guardian regarding the historical points, exam findings, and any diagnostic results supporting the discharge/admit diagnosis, the presence of at least one elevated blood pressure reading (>120/80) during this emergency department visit, lab results, radiology results, the need for further work-up and treatment in the hospital. Response to treatment: There is no appreciated change of the patient's symptoms at this time, and as a result, I will admit patient. ED course: Patient with uncontrolled hypertension, CT head and abdomen no acute findings, still with intractable vomiting. Similar presentation in the past with hypertension and intractable vomiting. Will admit to hospitalist for further blood pressure control and management.. 07/12 10:08 Order name: CBC with Diff; Complete Time: 11:03 rn 07/12 10:08 Order name: CMP; Complete Time: 11:03 rn 07/12 10:08 Order name: Lipase; Complete Time: 11:03 rn 07/12 10:08 Order name: Urinalysis w/ reflexes; Complete Time: 12:57 rn 07/12 10:08 Order name: CT Head Brain wo Cont; Complete Time: 12:29 rn 07/12 11:04 Order name: Abdomen ; Complete Time: 12:29 EDMS 07/12 10:08 Order name: IV Saline Lock; Complete Time: 10:31 rn 07/12 10:08 Order name: Labs collected and sent; Complete Time: 10:31 rn Administered Medications: 10:31 Drug: NS 0.9% IV 1000 ml IV at 1 bolus Per protocol; 1000 mL bolus Route: IV; Rate: 1 mb9 bolus; Site: right forearm; 13:42 Follow up: Response: No adverse reaction mb9 14:28 Follow up: Response: No adverse reaction; IV Status: Completed infusion mb9 10:31 Drug: Ondansetron IVP 4 mg IVP once; over 2 minutes Route: IVP; Site: right forearm; mb9 11:27 Follow up: Response: No adverse reaction mb9 12:36 Drug: cloNIDine PO 0.2 mg PO once Route: PO; mb9 13:43 Follow up: Response: No adverse reaction mb9 13:13 Drug: Promethazine IVP 12.5 mg IVP once Route: IVP; Site: right forearm; mb9 13:43 Follow up: Response: No adverse reaction mb9 13:50 Drug: hydrALAZINE IVP 10 mg IVP once Route: IVP; Site: right forearm; mb9 14:28 Follow up: Response: No adverse reaction mb9 13:55 Drug: Pantoprazole IVP 40 mg IVP once Route: IVP; Site: right forearm; mb9 14:28 Follow up: Response: No adverse reaction mb9 Disposition Summary: 07/12/23 13:27 Hospitalization Ordered Notes: Hospitalization Status: Observation rn Provider: Rob Coy rn Location: Telemetry/MedSurg (observation) rn Condition: Stable rn Problem: new rn Symptoms: are unchanged rn Bed/Room Type: Standard rn Room Assignment: 204(07/12/23 14:11) as6 Diagnosis - Essential (primary) hypertension rn - Intractable vomiting rn - Muscle weakness (generalized) rn Forms: - Medication Reconciliation Form rn - SBAR form rn - Leadership Thank You Letter rn Signatures: Dispatcher [employer] EDMS Nathanael Coy MD MD rn Attema, Lee, SHAFT TENDER-C SHAFT TENDER-Cla1 Saleem Castro RN RN as6 Lucía Clifton RN RN mb9 Wilder Gibbons, RN RN rs5 Corrections: (The following items were deleted from the chart) 11:04 10:09 Abdomen Pelvis W Con+CT.RAD.BRZ ordered. EDMN EDMN 14:11 13:27 rn as6
[2023-07-12] MEDS ORDERED: HYDRALAZINE HCL 20 MG/ML VIAL ONE (13:47)
[2023-07-12] MEDS ORDERED: PANTOPRAZOLE 40 MG INJ ONE (13:47)
[2023-07-12 14:41] VITALS: BMI 28.3
--- NOTE | 2023-07-12 15:01 | P.HP ---
Certification for Inpatient Patient admitted to: Observation With expected LOS: <2 Midnights Patient will require the following post-hospital care: None Practitioner: I am a practitioner with admitting privileges, knowledge of patient current condition, hospital course, and medical plan of care. Services: Services provided to patient in accordance with Admission requirements found in Title 42 Section 412.3 of the Code of Federal Regulations Patient History Date of Service: 07/12/23 History of Present Illness: 68-year-old female with history of GERD, hypertension, diabetes mellitus type 2insulin-dependent, COPD, hepatitis C/cirrhosis, CKD presents emergency department chief complaint of intractable nausea/vomiting. Family reports she has been having episodes monthly for the past couple of years with a few episodes requiring hospitalization. In July 2022 she was hospitalized here and treated for suspected esophagitis with Carafate and IV Protonix with improvement in her symptoms. Family reports patient saw GI doctor with endoscopy performed about 6 months ago which noted small nonbleeding/gastritis. At home she is taking Protonix daily. Labs today are significant for white blood cell 11 chloride 113 creatinine 1.78 BUN 26 GFR 31 AST 99 ALT 77 alk phos 155 UA not concerning for urinary tract infection CT head negative for acute findings CT abdomen pelvis shows cirrhosis of the liver no acute findings. Patient with mild STELLA, intractable vomiting will need to be to be admitted under observation. Allergies amlodipine Allergy (Verified 09/14/22 11:43) Nausea/Vomiting codeine Allergy (Verified 02/10/21 22:44) Unknown Home Medications: Diltiazem HCl [Diltiazem 24Hr Cd] 240 mg PO DAILY 02/11/21 Pregabalin 150 mg PO BID 02/11/21 Atorvastatin Calcium [Lipitor*] 10 mg PO BEDTIME 09/14/22 Losartan Potassium [Cozaar] 100 mg PO DAILY 09/14/22 Pantoprazole Sodium [Protonix] 40 mg PO DAILY 30 Days #30 tab 09/14/22 Sucralfate [Carafate*] 1 gm PO QID #28 tab 09/14/22 cloNIDine HCL [Catapres*] 0.3 mg PO BID 09/14/22 glipiZIDE [Glipizide ER] 5 mg PO BID 09/14/22 hydroCHLOROthiazide [Hydrochlorothiazide] 12.5 mg PO DAILY 09/14/22 traMADol HCL [Ultram*] 50 mg PO BID PRN #10 tab 09/14/22 - Past Medical/Surgical History -: Diabetes mellitus type 2 -: Hypertension -: Asthma -: Hepatitis C/cirrhosis -: COPD -: GERD -: CKD -: Tubal ligation Psychosocial/ Personal History: Lives at home with daughter - Family History Family History: Reviewed- Non-Contributory - Social History Alcohol use: No CD- Drugs: No Caffeine use: Yes Place of Residence: Home Review of Systems 10-point ROS is otherwise unremarkable Gastrointestinal: Nausea, Vomiting, Constipation Physical Examination - Physical Exam General: Alert, In no apparent distress, Oriented x3 HEENT: Atraumatic, PERRLA Neck: Supple, 2+ carotid pulse no bruit, No LAD Respiratory: Clear to auscultation bilaterally, Normal air movement Cardiovascular: Regular rate/rhythm, Normal S1 S2 Gastrointestinal: Normal bowel sounds, No tenderness Musculoskeletal: No tenderness Integumentary: No rashes Neurological: Normal speech, Normal strength at 5/5 x4 extr, Normal tone, Normal affect - Studies Laboratory Data (last 24 hrs) 07/12/23 07/12/23 10:30 10:30 WBC 11.00 H Hgb 14.6 Hct 43.2 Plt Count 210 Sodium 141 Potassium 3.5 BUN 26 H Creatinine 1.78 H Glucose 96 Total Bilirubin 0.6 AST 99 H ALT 77 H Alkaline Phosphatase 155 H Lipase 45 Assessment and Plan - Plan Assessment: Intractable nausea/vomiting History of GERD/esophagitis Diabetes mellitus type 2insulin-dependent STELLA on CKD Hypertension Hyperlipidemia History of hepatitis C/cirrhosis Plan: Intractable nausea/vomiting History of GERD/esophagitis Increase once daily PPI to twice daily IV PPI Initiate liquid Carafate given history of esophagitis/GERD Clear liquid diet, advance as tolerated GI consult Reports EGD 6 months ago with gastritis/bleeding Scheduled for colonoscopy in July Diabetes mellitus type 2insulin-dependent ACHS Accu-Chek, sliding scale insulin STELLA on CKD Continue gentle IV fluids Recheck chemistry in the morning Consider nephrology consult if worsening/not improving Hypertension Hyperlipidemia Continue home medications History of hepatitis C/cirrhosis Monitor LFTs, supportive care. DVT PPX: Lovenox Code status: Full Discharge Plan: Home Plan to discharge in: 24 Hours - Advance Directives Does patient have a Living Will: No Does patient have a Durable POA for Healthcare: No - Code Status/Comfort Care Code Status Assessed: Yes (Full code) Critical Care: No Time Spent Managing Pts Care (In Minutes): 70
[2023-07-12] MEDS ORDERED: ONDANSETRON 4 MG/2 ML VIAL IV PRN (15:12)
[2023-07-12] MEDS ORDERED: SODIUM CHLORIDE 0.9% 10ML INJ IV PRN (15:12)
[2023-07-12] MEDS: NA CHLORIDE 0.9% 1,000 ML IV SCH (15:50)
[2023-07-12] MEDS: ENOXAPARIN 40 MG/0.4 ML SQ SCH (15:51)
[2023-07-12] MEDS: SUCRALFATE 1GM/10ML UCUP PO SCH (15:52)
[2023-07-12] MEDS: INSULIN REGULAR (HUMAN) 100 UNIT/ML SQ SCH (16:30)
[2023-07-12] MEDS: INFLUENZA VACCINE (for 6+ mo) 0.5 ML DOSE IMVAC ONE (17:00)
[2023-07-12] MEDS: ONDANSETRON 4 MG/2 ML VIAL IV PRN (20:23)
[2023-07-12] MEDS: MORPHINE 2 MG/ML SYR IV ONE (21:50)
[2023-07-13 03:45] LABS: Absolute Lymphocytes (CBC) 3.5 K/uL (0.7-4.9); Hematocrit 35.5 % (36.0-45.0); Lymphocytes % 34.1 % (15.3-44.8); MCV 98.8 fL (80-100); Platelets 168 thou/uL (152-406)
[2023-07-13 03:53] LABS: Albumin 1.9 g/dL (3.4-5.0); Bilirubin Total 0.7 mg/dL (0.2-1.0); Magnesium 2.1 mg/dL (1.6-2.4); Potassium 3.5 mEq/L (3.5-5.1); Protein, Total 6.9 g/dL (6.4-8.2)
[2023-07-13] MEDS: ACETAMINOPHEN 325 MG TABLET PO PRN (05:28)
[2023-07-13] MEDS ORDERED: hydroCHLOROthiazide 12.5 MG CAP PO SCH (09:00)
[2023-07-13] MEDS: DILTIAZEM HCL 120 MG SR CAP PO SCH (09:18)
[2023-07-13] MEDS: CLONIDINE HCL 0.3 MG TAB PO SCH (09:19)
[2023-07-13] MEDS: LOSARTAN POTASSIUM 50 MG TABLET PO SCH (09:19)
[2023-07-13] MEDS: PREGABALIN 150 MG CAP PO SCH (09:29)
[2023-07-13] MEDS: ENOXAPARIN 30 MG/0.3 ML SQ SCH (09:30)
[2023-07-13] MEDS: PANTOPRAZOLE 40 MG INJ IVP SCH (09:32)
--- NOTE | 2023-07-13 10:29 | P.PN ---
Date of Service: 07/13/23 Subjective: Still nauseous, no vomiting overnight Complains of headache No other acute events overnight ROS: 10 point ROS as noted above, otherwise negative Physical exam GEN: Alert, oriented, NAD HEENT: Normal conjunctiva, sclera anicteric CV: Regular rate and rhythm, no edema Pulm: Nonlabored respirations on room air ABD: Soft, nontender, nondistended MSK: No joint tenderness Integumentary: No rashes Neuro: Normal speech, normal affect Vitals reviewed Assessment: Intractable nausea/vomiting History of GERD/esophagitis Diabetes mellitus type 2insulin-dependent STELLA on CKD Hypertension Hyperlipidemia History of hepatitis C/cirrhosis Plan: Intractable nausea/vomiting History of GERD/esophagitis Increase once daily PPI to twice daily IV PPI Initiate liquid Carafate given history of esophagitis/GERD Clear liquid diet, advance as tolerated GI saw patient, agrees with current recommendations Patient has appointment in July with chiropractic teacher Also considering chronic pancreatitis as etiology for recurrent episodes of nausea/vomiting Reports EGD 6 months ago with gastritis/bleeding Scheduled for colonoscopy in July Diabetes mellitus type 2insulin-dependent ACHS Accu-Chek, sliding scale insulin STELLA on CKD Continue gentle IV fluids Recheck chemistry in the morning Consider nephrology consult if worsening/not improving Hypertension Hyperlipidemia Continue home medications History of hepatitis C/cirrhosis Monitor LFTs, supportive care. DVT PPX: Lovenox Code status: Full Discharge Plan: Home Time Spent Managing Pts Care (In Minutes): 35
[2023-07-13] MEDS: TRAMADOL HCL 50 MG TAB PO ONE (11:17)
[2023-07-13] MEDS ORDERED: D10W 250 ML BAG IV PRN (15:24)
[2023-07-13] MEDS ORDERED: GLUCAGON 1 MG/VIAL IM PRN (15:24)
[2023-07-13] MEDS: INSULIN REGULAR (HUMAN) 100 UNIT/ML IV ONE (17:07)
[2023-07-13] MEDS: NA CHLORIDE 0.9% 1,000 ML IV SCH (17:13)
--- NOTE | 2023-07-13 18:31 | CON ---
Date of Consultation: 07/13/2023 Reason For Consultation: Elevated BUN and creatinine, fluid management. History Of Present Illness: This is a pleasant 68-year-old female with significant past medical hist ory of diabetes complicated with neuropathy and nephropathy, hypertension, AFib, hep C complicated wi th cirrhosis, bronchial asthma, chronic kidney disease, baseline creatinine 1.3, GFR of 44 as of September of 2022. The patient was in her regular state of health. The patient for the last couple of weeks f eeling nausea, vomiting, and throwing up. The patient denied taking any nonsteroidal. No IV contras t. The patient denied taking any diuresis. The patient came to the hospital, found to have elevatio n in creatinine 1.7 with GFR of 31, and . For that reason, we have been consulted. The pa irena was started on IV hydration. The patient today is feeling better. Past Medical History: Includes: 1.Hypertension. 2.Hyperlipidemia. 3.Diabetes complicated with neuropathy. 4.Atrial fibrillation. 5.Hep C complicated with cirrhosis. 6.Bronchial asthma. 7.Chronic kidney disease stage 3 secondary to hypertension, nephrosclerosis, diabetes, nephropathy, hepatorenal, baseline creatinine 1.3, GFR of 46. Allergies: AMLODIPINE AND CODEINE. Home Medications: Include diltiazem, Lyrica, atorvastatin, losartan 100, pantoprazole, Carafate, yareli nidine, glipizide, hydrochlorothiazide, tramadol. Past Surgical History: Include tubal ligation. Family History: Positive for hypertension. Social History: Denied smoking. Denied drinking. Denied drug abuse. Review of Systems: Head and Neck: No red eye. No ear pain. GI: Has nausea, vomiting. No diarrhea. : No polyuria, no dysuria, no hematuria. Has foamy urine. Hand Tapper: No vaginal discharge. Respiratory: No shortness of breath. Cardiovascular: No chest pain. Endocrine: No polydipsia. Skin: No rash. Neuro: Has neuropathy. Musculoskeletal: Generalized fatigue. Physical Examination: General: When I saw the patient, the patient is lying in bed, comfortable. Vital Signs: Blood pressure 116/65, pulse of 80, afebrile. Chest: Clear to auscultation. Heart: S1, S2. Regular. Abdomen: Soft, nontender. Extremity: No edema. Neurologic: Alert. No focality. Laboratory Data: CT abdomen and pelvis did not show any obstructive uropathy, has a chronic scarring on the kidney as WBC 10.2, hemoglobin 12. Sodium 140, potassium 3.5, bicarb 22, BUN 21, creatinine 1.7. Yesterday, creatinine 1.7, GFR of 31. Urinalysis; specific gravity of 1.019, negative for infe ction. Current Medications: The patient on, includes: 1.IV fluid. 2.Lovenox. 3.Atorvastatin. 4.Clonidine 0.3 t.i.d. 5.Diltiazem. 6.Losartan. 7.Zofran. 8.Carafate. Assessment And Plan: 1.Acute kidney injury secondary to prerenal superimposed with hydrochlorothiazide, normal size kidne y. Obstructive uropathy has been ruled out. I agree with holding hydrochlorothiazide. Continue IV fluid. We will monitor the patient. I am going to go ahead and send for basic workup and we will fo llow up. 2.Hypertension with the presence of acute kidney injury. Hold hydrochlorothiazide and hold losartan and we will follow up the patient. 3.Foamy urine. We will send for quantification of the PC ratio. 4.Cirrhosis. Currently, the patient has normal volume. We will follow up with primary. 5.Gastroenteritis. Continue symptomatic treatment. 6.Hypokalemia, we will supplement. We will follow up magnesium level. Thank you Dr. Coy for allowing us to participate in the care of your patient. Time spent examining the patient [id number], reviewing data, lab and radiology, placing order, discussing the case with the patient, discussing the case with the steam drier operator including hospitalist and nursing staff more t luevano 75 minutes. DURGA/QUIANA Voice ID: [id number] Report ID: [id number]
[2023-07-13] MEDS: ATORVASTATIN 10 MG TAB PO SCH (20:40)
[2023-07-14] MEDS: TRAMADOL HCL 50 MG TAB PO ONE (06:54)
[2023-07-14 07:08] LABS: Absolute Lymphocytes (CBC) 3.6 K/uL (0.7-4.9); Lymphocytes % 41.2 % (15.3-44.8); MCV 100.3 fL (80-100); MPV 8.3 fL (7.6-11.3); Platelets 147 thou/uL (152-406); RBC Red Blood Cell Count 3.29 M/uL (3.86-4.86)
[2023-07-14 07:23] LABS: UR PROTEIN 432.3 mg/dL (<11.9); Urine Protein/Creatinine Ratio 4.5 ratio (<0.15)
[2023-07-14 07:38] LABS: Albumin 1.7 g/dL (3.4-5.0); Bilirubin Total 0.3 mg/dL (0.2-1.0); Magnesium 1.9 mg/dL (1.6-2.4); Phosphorus 2.3 mg/dL (2.5-4.9); Potassium 4.2 mEq/L (3.5-5.1); Protein, Total 6.2 g/dL (6.4-8.2); Thyroid Stimulating Hormone 2.68 uIU/mL (0.358-3.740); Uric Acid 4.9 mg/dL (2.6-6.0)
[2023-07-14] MEDS: INFLUENZA VACCINE (for 6+ mo) 0.5 ML DOSE IMVAC ONE (09:00)
[2023-07-14] MEDS: AMLODIPINE 10 MG TAB PO SCH (10:14)
--- NOTE | 2023-07-14 10:58 | P.PN ---
Subjective Date of Service: 07/14/23 Subjective: Other (No urinary complaints) Physical Examination - Vital Signs Temperature: 97.4 F Blood Pressure: 197/94 Pulse: 75 Respirations: 23 Pulse Ox (%): 98 - Physical Exam General: Other (appears as her stated age) HEENT: Atraumatic, Normocephalic Neck: Supple, JVD not distended Respiratory: Other (symmetric chest expansion) Cardiovascular: No rubs, No murmurs Gastrointestinal: Soft and benign, No guarding Musculoskeletal: No clubbing Integumentary: No warmth Neurological: Normal tone Urinary: Other (No bladder distention) External genitalia: Deferred Rectal: Deferred Assessment And Plan - Plan 1. Acute kidney injury secondary to prerenal state, hydrochlorothiazide use, & accelerated Htn. SCr plateaued at 1.7. BP control. [place] po fluid intake at least 2L/day. 2. Accelerated/resistant hypertension. BNP sig elevated. TTE in Jan 2021 showed normal LVEF 60-65%. BP meds adjusted. 3. 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 Random UPCR 4.5g. Proteinuria workup as outpt. 4. HCV liver cirrhosis. Per Hepatology. 5. Nausea & vomiting. Symptomatic/supportive care. 6. HypoK, hypoPhos. Lytes repletion prn. 7. Anemia. Monitor CBC.
[2023-07-14] MEDS: MORPHINE 2 MG/ML SYR IV ONE ×2 (12:07→21:49)
--- NOTE | 2023-07-14 14:49 | P.PN ---
Date of Service: 07/14/23 Subjective: Tolerating diet Complaining of intermittent headache/dizziness which seem to be associated with elevated blood pressures ROS: 10 point ROS as noted above, otherwise negative Physical exam GEN: Alert, oriented, NAD HEENT: Normal conjunctiva, sclera anicteric CV: Regular rate and rhythm, no edema Pulm: Nonlabored respirations on room air ABD: Soft, nontender, nondistended MSK: No joint tenderness Integumentary: No rashes Neuro: Normal speech, normal affect Vitals reviewed Assessment: Intractable nausea/vomiting History of GERD/esophagitis Diabetes mellitus type 2insulin-dependent STELLA on CKD Hypertension Hyperlipidemia History of hepatitis C/cirrhosis Plan: Intractable nausea/vomiting History of GERD/esophagitis Increase once daily PPI to twice daily IV PPI Initiate liquid Carafate given history of esophagitis/GERD Tolerating GI soft diet GI saw patient, agrees with current recommendations Patient has appointment in July with sweet dough mixer Also considering chronic pancreatitis as etiology for recurrent episodes of nausea/vomiting Scheduled for colonoscopy in July Improved with Carafate, twice daily Protonix Diabetes mellitus type 2insulin-dependent ACHS Accu-Chek, sliding scale insulin STELLA on CKD Continue gentle IV fluids Recheck chemistry in the morning Consider nephrology consult if worsening/not improving Hypertension Uncontrolled primary hypertension Holding hydrochlorothiazide given persistent vomiting, acute kidney injury Blood pressures are elevated, also symptomatic with headaches Requiring titration of blood pressure medications to maintain blood pressures under 200 systolic Amlodipine 10 mg added today If blood pressure is better controlled and headaches improve likely can discharge tomorrow History of hepatitis C/cirrhosis Monitor LFTs, supportive care. DVT PPX: Lovenox Code status: Full Discharge Plan: Home Time Spent Managing Pts Care (In Minutes): 35
[2023-07-15 03:21] LABS: Absolute Lymphocytes (CBC) 3.1 K/uL (0.7-4.9); Hematocrit 34.8 % (36.0-45.0); Lymphocytes % 33.5 % (15.3-44.8); MCV 99.6 fL (80-100); MPV 9.3 fL (7.6-11.3); Platelets 164 thou/uL (152-406); RBC Red Blood Cell Count 3.49 M/uL (3.86-4.86)
[2023-07-15 03:45] LABS: Albumin 1.8 g/dL (3.4-5.0); Bilirubin Total 0.3 mg/dL (0.2-1.0); Potassium 4.2 mEq/L (3.5-5.1); Protein, Total 6.7 g/dL (6.4-8.2)
--- NOTE | 2023-07-15 07:56 | P.DS ---
Admission Date: 07/14/23 Discharge Date: 07/15/23 Disposition: ROUTINE DISCHARGE Discharge Condition: GOOD Consultations: GIDr. Velazquez NephrologyDr. Yan/Kirill Brief History of Present Illness: 68-year-old female with history of GERD, hypertension, diabetes mellitus type 2insulin-dependent, COPD, hepatitis C/cirrhosis, CKD presents emergency department chief complaint of intractable nausea/vomiting. Family reports she has been having episodes monthly for the past couple of years with a few episodes requiring hospitalization. In July 2022 she was hospitalized here and treated for suspected esophagitis with Carafate and IV Protonix with improvement in her symptoms. Family reports patient saw GI doctor with endoscopy performed about 6 months ago which noted small nonbleeding/gastritis. At home she is taking Protonix daily. Labs today are significant for white blood cell 11 chloride 113 creatinine 1.78 BUN 26 GFR 31 AST 99 ALT 77 alk phos 155 UA not concerning for urinary tract infection CT head negative for acute findings CT abdomen pelvis shows cirrhosis of the liver no acute findings. Patient with mild STELLA, intractable vomiting will need to be to be admitted under observation. Hospital Course: Patient was admitted to the hospital for intractable nausea/vomiting. She was treated for suspected worsening of her GERD with twice daily PPI and liquid Carafate. She had significant treatment in her nausea and vomiting and was able to tolerate her diet. She also had a mild acute kidney injury, for that reason on admission her hydrochlorothiazide had been held, her blood pressures were elevated during her hospitalization and she also complained of some headaches. Additional blood pressure medication amlodipine 10 mg was added which she advised she is not allergic to as listed in her chart. She has been tolerating her diet and feeling much better today. GI was consulted and recommended further evaluation as an outpatient. Patient also with history of cirrhosis secondary to hepatitis C, LFTs mildly elevated throughout hospitalization but stable. Recommend follow-up with methods specialist engineer, patient reports he has an appointment in July to follow-up with hepatology. Medications: Please discontinue hydrochlorothiazide-monitor blood pressure medications New medications: Amlodipine 10 mg daily for blood pressure Carafate liquid 10 mL before meals and before bedtime for 1 month Protonix 40 mg by mouth twice daily for 1 month Please follow-up with your primary care doctor in 1 to 2 weeks Follow-up with GIDr. Velazquez in 2 to 3 weeks Keep your appointment with hepatology in July Assessment: Intractable nausea/vomiting History of GERD/esophagitis Diabetes mellitus type 2insulin-dependent STELLA on CKD Hypertension Hyperlipidemia History of hepatitis C/cirrhosis Vital Signs/Physical Exam: Temp Pulse Resp BP Pulse Ox 97.4 F 75 23 H 197/94 H 98 07/15/23 06:55 07/15/23 06:55 07/15/23 06:55 07/15/23 06:55 07/15/23 06:55 General: Alert, In no apparent distress, Oriented x3 HEENT: Atraumatic, PERRLA Neck: Supple, JVD not distended Respiratory: Clear to auscultation bilaterally, Normal air movement Cardiovascular: Regular rate/rhythm, Normal S1 S2 Gastrointestinal: Normal bowel sounds, No tenderness Musculoskeletal: No tenderness Integumentary: No rashes Neurological: Normal speech, Normal tone, Normal affect Lymphatics: No axilla or inguinal lymphadenopathy Laboratory Data at Discharge: WBC 9.20 thou/uL (4.3-10.9) 07/15/23 02:42 Hgb 11.7 g/dL (12.0-15.0) L 07/15/23 02:42 Hct 34.8 % (36.0-45.0) L 07/15/23 02:42 Plt Count 164 thou/uL (152-406) 07/15/23 02:42 Sodium 139 mEq/L (136-145) 07/15/23 02:42 Potassium 4.2 mEq/L (3.5-5.1) 07/15/23 02:42 BUN 22 mg/dL (7-18) H 07/15/23 02:42 Creatinine 1.54 mg/dL (0.55-1.02) H 07/15/23 02:42 Glucose 163 mg/dL (74-106) H 07/15/23 02:42 Uric Acid 4.9 mg/dL (2.6-6.0) 07/14/23 06:25 Phosphorus 3.0 mg/dL (2.5-4.9) 07/15/23 02:42 Magnesium 2.0 mg/dL (1.6-2.4) 07/15/23 02:42 Total Bilirubin 0.3 mg/dL (0.2-1.0) 07/15/23 02:42 AST 67 U/L (15-37) H 07/15/23 02:42 ALT 63 U/L (13-56) H 07/15/23 02:42 Alkaline Phosphatase 197 U/L (45-117) H D 07/15/23 02:42 Lipase 45 U/L (13-75) 07/12/23 10:30 Home Medications: Diltiazem HCl [Diltiazem 24Hr Cd] 240 mg PO DAILY 02/11/21 Pregabalin 150 mg PO TID 02/11/21 Atorvastatin Calcium [Lipitor*] 10 mg PO BEDTIME 09/14/22 Losartan Potassium [Cozaar] 100 mg PO DAILY 09/14/22 cloNIDine HCL [Catapres*] 0.3 mg PO BID 09/14/22 glipiZIDE [Glipizide ER] 10 mg PO BID 09/14/22 Insulin Glargine,Hum.rec.anlog [Lantus Solostar] 22 unit SQ BEDTIME 07/12/23 Liraglutide [Victoza 2-Lamin] 1.2 mg SQ DAILY 07/12/23 Amlodipine [Norvasc*] 10 mg PO DAILY #30 tab 07/15/23 Pantoprazole [Protonix Tab] 40 mg PO BID #60 tab 07/15/23 Sucralfate [Carafate Liq] 10 ml PO ACHS 30 Days #1200 ml 07/15/23 New Medications: Sucralfate [Carafate Liq] 10 ml PO ACHS 30 Days #1200 ml Amlodipine [Norvasc*] 10 mg PO DAILY #30 tab Pantoprazole [Protonix Tab] 40 mg PO BID #60 tab Physician Discharge Instructions: Patient was admitted to the hospital for intractable nausea/vomiting. She was treated for suspected worsening of her GERD with twice daily PPI and liquid Carafate. She had significant treatment in her nausea and vomiting and was able to tolerate her diet. She also had a mild acute kidney injury, for that reason on admission her hydrochlorothiazide had been held, her blood pressures were elevated during her hospitalization and she also complained of some headaches. Additional blood pressure medication amlodipine 10 mg was added which she advised she is not allergic to as listed in her chart. She has been tolerating her diet and feeling much better today. GI was consulted and recommended further evaluation as an outpatient. Patient also with history of cirrhosis secondary to hepatitis C, LFTs mildly elevated throughout hospitalization but stable. Recommend follow-up with methods specialist engineer, patient reports he has an appointment in July to follow-up with hepatology. Medications: Please discontinue hydrochlorothiazide-monitor blood pressure medications New medications: Amlodipine 10 mg daily for blood pressure Carafate liquid 10 mL before meals and before bedtime for 1 month Protonix 40 mg by mouth twice daily for 1 month Please follow-up with your primary care doctor in 1 to 2 weeks Follow-up with GIDr. Velazquez in 2 to 3 weeks Keep your appointment with hepatology in July Diet: ADA Activity: Ad maninder Followup: Suzie Velazquez MD [OUTSIDE PHYSICIAN] - 1-2 Weeks [place] Moore FNP [Primary Care Provider] - 1 Week Time spent managing pt's care (in minutes): 35
[2023-07-15 08:23] VITALS: O2SAT 98
[2023-07-15 11:20] VITALS: BP 171/92; TEMP 97.7
--- NOTE | 2023-07-16 02:38 | PN ---
Date of Progress Note: 07/15/2023 History: Acute kidney injury secondary to prerenal state, . Review of Systems: Denies chest pain, palpitations. Physical Examination: Lungs: Clear to auscultation bilaterally. Heart: S1, S2. Abdomen: Soft. Extremities: Slight edema in both ankles. Impression And Plan: 1.Acute chronic kidney injury secondary to prerenal state due to hydrochlorothiazide use and acceler ated hypertension. Serum creatinine level plateau is plateauing at 1.7. Blood pressure is controlle d. The patient will continue p.o. hydration. 2.Accelerated hypertension. BNP is elevated. TTE in January 2021, showed an ejection fraction of 60% to 65%. Patient has diastolic congestive heart failure. 3.Nephrotic range proteinuria likely secondary to diabetic nephropathy. Random ciaun-vlbpsoo-crhwea nine ratio is 4.5 g. Proteinuria workup will be done outpatient. The patient needs to follow up wit h Nephrology Clinic. 4.Automatic implantable cardioverter-defibrillator. Liver cirrhosis per Hepatology. 5.Nausea, vomiting. Symptomatic and supportive care per primary team. 6.Anemia. Monitor hemoglobin level. 7.Hypokalemia, hypophosphatemia. Electrolyte repletion as needed. EB/MODL Voice ID: [id number] Report ID: [id number]
== END 2023-07-15 10:55 | disposition home or self-care (01) | DRG 683 ==
LOC: ER 10:01 → ERHOLD 13:49 → 2ND 14:30 → OBSVTOIN 07-14 14:46
PROVIDERS: ADMIT Hospitalist; ATTEND Hospitalist
DX: N17.9 Acute kidney failure, unspecified (principal); I13.0 Hypertensive heart and chronic kidney disease with heart failure and stage 1 through stage 4 chronic kidney disease, or unspecified chronic kidney disease; I50.32 Chronic diastolic (congestive) heart failure; K21.00 Gastro-esophageal reflux disease with esophagitis, without bleeding; N18.30 Chronic kidney disease, stage 3 unspecified; E11.22 Type 2 diabetes mellitus with diabetic chronic kidney disease; E11.40 Type 2 diabetes mellitus with diabetic neuropathy, unspecified; D63.1 Anemia in chronic kidney disease; K74.60 Unspecified cirrhosis of liver; K52.9 Noninfective gastroenteritis and colitis, unspecified; E78.5 Hyperlipidemia, unspecified; I48.91 Unspecified atrial fibrillation; E87.6 Hypokalemia; E83.39 Other disorders of phosphorus metabolism; J44.9 Chronic obstructive pulmonary disease, unspecified; T50.2X5A Adverse effect of carbonic-anhydrase inhibitors, benzothiadiazides and other diuretics, initial encounter; B19.20 Unspecified viral hepatitis C without hepatic coma; R79.89 Other specified abnormal findings of blood chemistry; Z79.4 Long term (current) use of insulin; Z88.5 Allergy status to narcotic agent; Z98.51 Tubal ligation status; Z79.84 Long term (current) use of oral hypoglycemic drugs; Z79.899 Other long term (current) drug therapy; Z95.810 Presence of automatic (implantable) cardiac defibrillator
CPT/HCPCS: 36415; 70450; 74176; 80053; 80069; 81001; 82550; 82570; 82947; 83690; 83735; 83970; 84156; 84443; 84550; 85025; 96361; 96374; 96375; 99285; C9113; G0378; J0360; J1650; J1815; J2270; J2405; J2550; J7030

== ENCOUNTER 2023-12-27 09:47 | Emergency (ER) | payer OTHER ==
[2023-12-27 10:58] LABS: Absolute Basophils 0.2 K/uL (0-0.5); Absolute Eosinophils 0.2 K/uL (0-0.5); Absolute Lymphocytes (CBC) 2.6 K/uL (0.7-4.9); Absolute Monocytes 0.8 K/uL (0.1-1.3); Absolute Neutrophil 4.8 K/uL (1.8-8.0); Basophils % 2.1 % (0-1.3); Hematocrit 32.7 % (36.0-45.0); Hemoglobin 10.8 g/dL (12.0-15.0); Lymphocytes % 30.2 % (15.3-44.8); MCH 32.3 pg (27.0-35.0); MCV 97.7 fL (80-100); MPV 8.3 fL (7.6-11.3); Monocytes % 9.4 % (3.3-12.3); Neutrophils % 56.3 % (41.7-73.7); Platelets 194 thou/uL (152-406); RBC Red Blood Cell Count 3.35 M/uL (3.86-4.86); Red Cell Distribution Width 16.8 % (12.1-15.2)
[2023-12-27 11:14] LABS: Albumin 1.5 g/dL (3.4-5.0); Albumin/Globulin Ratio 0.3 (1.1-1.8); Anion Gap 8.2 mEq/L (5.0-15.0); Bilirubin Total 0.3 mg/dL (0.2-1.0); Globulin 5.1 g/dL (2.3-3.5); Magnesium 2.3 mg/dL (1.6-2.4); Potassium 4.2 mEq/L (3.5-5.1); Protein, Total 6.6 g/dL (6.4-8.2)
--- NOTE | 2023-12-27 11:46 | RAD REPORT ---
EXAM DESCRIPTION: CT - Abdomen Pelvis Wo Contrast - 12/27/2023 10:54 am CLINICAL HISTORY: Abd pain;Flank pain COMPARISON: Abdomen Pelvis Wo Contrast dated 10/11/2023; Abdomen Pelvis Wo Contrast dated 07/12/19 24; Abdomen W/Wo Contrast dated 11/10/2022; Abdomen Pelvis Wo Contrast dated 09/12/2022 TECHNIQUE: Thin cut axial CT imaging of the abdomen and pelvis was performed without IV contrast. Mu ltiplanar reformats were generated and reviewed. All CT scans are performed using dose optimization technique as appropriate and may include automated exposure control or mA/KV adjustment according to patient size. FINDINGS: No suspicious findings in the lung bases. The liver again shows diffusely nodular contour and relative right lobe atrophy changes, suggesting c irrhosis. Adrenal glands, spleen, and pancreas show no suspicious findings. Gallbladder and biliary t ree are also without suspicious finding. Symmetric renal contour, without suspicious parenchymal findings within limits of noncontrast techniq ue. No evidence of radiopaque calculi or hydroureteronephrosis. No dilated bowel loops or bowel wall thickening. No free air, fluid collections, or inflammatory stra nding. Mild free ascites and mesenteric fat stranding, new since the prior exam. Left calcified seros al fibroid versus calcified adnexal lesion. No hernia, mass or bulky lymphadenopathy. The urinary eulalia dder is without significant finding. No suspicious bony findings. IMPRESSION: Stigmata of cirrhosis. Progressive mild free a situs and mesenteric fat stranding, may relate to sequelae of portal hyperten margarita. No other acute intra-abdominal process.
[2023-12-27 12:24] LABS: Blood Morphology Comment NOT SEEN (NOT SEEN); Platelet Estimate ADEQ; White Blood Cell Scan OK (OK)
--- NOTE | 2023-12-27 12:28 | EDPHYS ---
Physician Documentation [facility] Name: Josr Parra Age: 68 yrs Sex: Female : 1955 Arrival Date: 12/27/2023 Time: 09:47 Bed 15 Private MD: ED Physician Keeley Rodriguez HPI: 12/26 11:18 This 68 yrs old Black Female presents to ER via Ambulatory with complaints of Low Back sd2 Pain. 11:18 68-year-old female presents with chief complaint of left-sided flank pain, fatigue and sd2 generalized weakness that has been ongoing for the past month. She reports that she was told that she needed to be on dialysis but is not wanting to proceed forward with that option at this time. Her last GFR she reports was 17. She denies any fevers, nausea, vomiting, diarrhea or significant pain otherwise. She has not taken anything for the pain.. Historical: - Allergies: 10:06 Codeine; ll1 - PMHx: 10:06 Diabetes - NIDDM; elevatedliver enzymes; Asthma; lumbar spine issues/pain; Hepatitis; c;ll1 - PSHx: 10:06 tubes tied (Hepatitis); ll1 - Immunization history:: Adult Immunizations up to date. - Infectious Disease History:: Denies. - Social history:: Smoking status: Patient reports the use of cigarette tobacco products, smokes .25 packs per day. ROS: 11:18 Constitutional: Negative for fever, chills, and weight loss, Eyes: Negative for injury, sd2 pain, redness, and discharge, Cardiovascular: Negative for chest pain, palpitations, and edema, Respiratory: Negative for shortness of breath, cough, wheezing. Abdomen/GI: Negative for abdominal pain, nausea, vomiting, diarrhea. 11:18 : Negative for dysuria, urinary frequency, hesitancy, urgency and hematuria. MS/Extremity: Negative for injury and deformity, Skin: Negative for injury, rash, and discoloration, Neuro: Negative for headache, numbness and tingling. 11:18 Back: Positive for flank pain, Negative for injury or acute deformity, pain with movement, Exam: 11:18 Constitutional: This is a well developed, well nourished patient who is awake, alert, sd2 and in no acute distress. Head/Face: Normocephalic, atraumatic. Eyes: EOMI, normal conjunctiva bilaterally Chest/axilla: Normal chest wall appearance and motion. Nontender with no deformity. Cardiovascular: Regular rate and rhythm with a normal S1 and S2. No gallops, murmurs, or rubs. 2+ distal pulses. Respiratory: Lungs have equal breath sounds bilaterally, clear to auscultation and percussion. No rales, rhonchi or wheezes noted. No increased work of breathing, no retractions or nasal flaring. Abdomen/GI: Soft, non-tender, with normal bowel sounds. No guarding or rebound. No evidence of tenderness throughout. 11:18 Skin: Warm, dry with normal turgor. Normal color with no rashes, no lesions, and no evidence of cellulitis. MS/ Extremity: Pulses equal, no cyanosis. Neurovascular intact. Full, normal range of motion. Psych: Awake, alert, with orientation to person, place and time. Behavior, mood, and affect are within normal limits. 11:18 Back: pain, CVA tenderness, is noted on the left, 11:18 ECG was reviewed by the Attending Physician. NSR, rate 71, no STEMI criteria sd2 Vital Signs: 10:07 BP 158 / 83; Pulse 80; Resp 16; Temp 97.6(O); Pulse Ox 99% on R/A; Weight 65.32 kg; ll1 Height 5 ft. 5 in. ; Pain 10/10; 12:33 BP 122 / 74; Pulse 78; Resp 18; Pulse Ox 100% ; mb9 10:07 Body Mass Index 23.96 (65.32 kg, 165.1 cm) ll1 10:07 Pain Scale: Adult ll1 MDM: 10:05 Patient medically screened. sd2 12:24 Differential diagnosis: CKD, ESRD, anemia, dehydration, electrolyte abnormality, among sd2 others. Data reviewed: vital signs, nurses notes, lab test result(s), EKG, radiologic studies. Care significantly affected by the following chronic conditions: Diabetes, Liver Disease, CKD. Counseling: I had a detailed discussion with the patient and/or guardian regarding the historical points, exam findings, and any diagnostic results supporting the discharge/admit diagnosis, lab results, radiology results, the need for outpatient follow up, to return to the emergency department if symptoms worsen or persist or if there are any questions or concerns that arise at home. ED course: Labs reviewed and grossly within normal clinical limits. Troponin negative. EKG with no ischemic changes. CT scan with no acute findings. The patient is aware of her cirrhosis already. She was advised to follow-up with her kiss mixer as there are no signs of acute renal failure but the patient is in end-stage renal disease. She has already been told that she will likely need dialysis and this has been recommended. I advised her to have another conversation with her kiss mixer regarding this as this is the likely source of why she is starting to feel worse. She is comfortable with plan for discharge and outpatient follow-up and verbalizes understanding of strict return precautions.. 12/26 10:37 Order name: CBC with Diff; Complete Time: 12:29 sd2 12/26 10:37 Order name: CMP; Complete Time: 11:15 sd2 12/26 10:37 Order name: Magnesium; Complete Time: 11:15 sd2 12/26 10:37 Order name: Troponin High Sensitivity; Complete Time: 11:15 sd2 12/26 10:37 Order name: BNP; Complete Time: 11:15 sd2 12/26 12:24 Order name: CBC Smear Scan; Complete Time: 12:29 EDMS 12/26 10:37 Order name: CT Abd/Pelvis - Without Contrast; Complete Time: 11:55 sd2 12/26 10:37 Order name: EKG - Nurse/Tech; Complete Time: 10:50 sd2 12/26 10:50 Order name: IV Saline Lock; Complete Time: 10:50 mb9 Administered Medications: No medications were administered Disposition Summary: 12/27/23 12:28 Discharge Ordered Problem: an ongoing problem sd2 Symptoms: are unchanged sd2 Condition: Stable sd2 Diagnosis - Other malaise and fatigue sd2 - Left flank pain sd2 Followup: sd2 - With: Private Physician - When: 2 - 3 days - Reason: Recheck today's complaints, Continuance of care, Re-evaluation by your physician Discharge Instructions: - Discharge Summary Sheet sd2 - Flank Pain, Adult sd2 - Food Basics for Chronic Kidney Disease sd2 - Chronic Kidney Disease, Adult sd2 Forms: - Medication Reconciliation Form sd2 - Antibiotic Education sd2 - Prescription Opioid Use sd2 - Patient Portal Instructions sd2 - Leadership Thank You Letter sd2 Signatures: Dispatcher [employer] EDMS Jeremías, Lynsay, RN RN ll1 Keeley Rodriguez MD MD sd2 Edgar, Lucía Jensen RN RN [id number]
--- NOTE | 2023-12-27 12:28 | ER ---
Nurse's Notes [facility] Name: Josr Parra Age: 68 yrs Sex: Female : 1955 Arrival Date: 12/27/2023 Time: 09:47 Bed 15 Private MD: Diagnosis: Other malaise and fatigue;Left flank pain Presentation: 12/26 10:07 Chief complaint: Patient states: L lower back pain for 1 month. No fever or N/V/D. ll1 Coronavirus screen: Client denies travel out of the [place] in the last 14 days. At this time, the client does not indicate any symptoms associated with coronavirus-19. Ebola Screen: Patient denies travel to an Ebola-affected area in the 21 days before illness onset. Initial Sepsis Screen: Does the patient meet any 2 criteria? No. Patient's initial sepsis screen is negative. Does the patient have a suspected source of infection? No. Patient's initial sepsis screen is negative. Risk Assessment: Do you want to hurt yourself or someone else? Patient reports no desire to harm self or others. Onset of symptoms was November 26, 2023. 10:07 Method Of Arrival: Ambulatory ll1 10:07 Acuity: JAM 3 ll1 Historical: - Allergies: 10:06 Codeine; ll1 - PMHx: 10:06 Diabetes - NIDDM; elevatedliver enzymes; Asthma; lumbar spine issues/pain; Hepatitis; c;ll1 - PSHx: 10:06 tubes tied (Hepatitis); ll1 - Immunization history:: Adult Immunizations up to date. - Infectious Disease History:: Denies. - Social history:: Smoking status: Patient reports the use of cigarette tobacco products, smokes .25 packs per day. Screenin:29 [facility] ED Fall Risk Assessment (Adult) History of falling in the last 3 months, mb9 including since admission No falls in past 3 months (0 pts) Confusion or Disorientation No (0 pts) Intoxicated or Sedated No (0 pts) Impaired Gait No (0 pts) Mobility Assist Device Used No (0 pt) Altered Elimination No (0 pt) Score/Fall Risk Level 0 - 2 = Low Risk Oriented to surroundings, Maintained a safe environment, Educated pt \T\ family on fall prevention, incl call for assistance when getting out of bed. Abuse screen: Denies threats or abuse. Nutritional screening: No deficits noted. Tuberculosis screening: No symptoms or risk factors identified. Assessment: 10:27 General: Appears in no apparent distress. Behavior is calm, cooperative. Pain: mb9 Complains of pain in back Pain radiates to left flank Pain currently is 8 out of 10 on a pain scale. Quality of pain is described as throbbing, Pain began 1 month ago Is continuous. Neuro: [place] Agitation-Sedation Scale (RASS): 0 - Alert and Calm Level of Consciousness is awake, alert, obeys commands, Oriented to person, place, time, situation, Appropriate for age. Cardiovascular: Patient's skin is warm and dry. Respiratory: Airway is patent Respiratory effort is even, unlabored, Respiratory pattern is regular, symmetrical. GI: Abdomen is flat, non-distended, Abd is soft and non tender X 4 quads. : No signs and/or symptoms were reported regarding the genitourinary system. EENT: No signs and/or symptoms were reported regarding the EENT system. Derm: Skin is pink, warm \T\ dry. Musculoskeletal: Range of motion: intact in all extremities. 12:06 Reassessment: No changes from previously documented assessment. Patient and/or family mb9 updated on plan of care and expected duration. Pain level reassessed. Patient is alert, oriented x 3, equal unlabored respirations, skin warm/dry/pink. Vital Signs: 10:07 BP 158 / 83; Pulse 80; Resp 16; Temp 97.6(O); Pulse Ox 99% on R/A; Weight 65.32 kg; ll1 Height 5 ft. 5 in. ; Pain 10/10; 12:33 BP 122 / 74; Pulse 78; Resp 18; Pulse Ox 100% ; mb9 10:07 Body Mass Index 23.96 (65.32 kg, 165.1 cm) ll1 10:07 Pain Scale: Adult ll1 ED Course: 09:55 Patient arrived in ED. ra3 09:57 Keeley Rodriguez MD is Attending Physician. sd2 10:06 Arm band placed on Patient placed in an exam room, on a stretcher. ll1 10:08 Triage completed. ll1 10:27 Lucía Hernández RN is Primary Nurse. mb9 10:29 Placed in gown. Bed in low position. Call light in reach. Side rails up X 1. Provided mb9 Education on: press call light if needing anything. Client placed on continuous cardiac and pulse oximetry monitoring. NIBP monitoring applied. Door closed. Noise minimized. Warm blanket given. Pillow given. 10:45 Initial lab(s) drawn, by me, sent to lab. Inserted saline lock: 22 gauge in right mb9 antecubital area, using aseptic technique. Blood collected. Flushed with 10 mL NS. 10:45 No provider procedures requiring assistance completed. mb9 10:50 BNP Sent. mb9 10:50 Troponin High Sensitivity Sent. mb9 10:50 Magnesium Sent. mb9 10:50 CMP Sent. mb9 10:50 CBC with Diff Sent. mb9 10:55 CT Abd/Pelvis - Without Contrast In Process Unspecified. EDMS 11:03 EKG done, by ED staff, reviewed by Keeley oRdriguez MD. mb9 12:33 IV discontinued, intact, bleeding controlled, No redness/swelling at site. Pressure mb9 dressing applied. Administered Medications: No medications were administered Medication: 10:30 VIS not applicable for this client. mb9 Outcome: 12:28 Discharge ordered by . sd2 12:34 Discharged to home ambulatory, with family, mb9 12:34 Condition: stable 12:34 Discharge instructions given to patient, family, Instructed on discharge instructions, follow up and referral plans. Demonstrated understanding of instructions, follow-up care, 12:34 Patient left the ED. mb9 Signatures: Dispatcher [employer] Lupe Lanza, LUIS RN ll1 Keeley Rodriguez MD MD sd2 Lucía Hernández RN RN mb9 Marisol Huizar 3
[2023-12-27 16:34] VITALS: TEMP 97.6
[2023-12-27 16:48] VITALS: BP 122/74; O2SAT 100
--- NOTE | 2023-12-29 13:38 | EKG ---
Test Date: 2023-12-27 Test Time: 11:00:31 Clerk To Justice: MB MEASUREMENT RESULTS: Intervals: Rate: 71 [place]: 192 QRSD: 86 QT: 444 QTc: 482 [place]: P: 76 [place]: 192 QRS: -55 T: 59 INTERPRETIVE STATEMENTS: Normal sinus rhythm Left axis deviation Anteroseptal infarct, age undetermined Abnormal ECG Compared to ECG 09/12/2022 19:50:57 No significant changes Electronically Signed On 12-29-23 13:32:28 CDT by Santos Huizar
== END 2023-12-27 12:34 | disposition home or self-care (01) ==
LOC: ER 09:47
DX: R53.81 Other malaise (principal); R53.83 Other fatigue; R10.32 Left lower quadrant pain
CPT/HCPCS: 36415; 74176; 80053; 83735; 83880; 84484; 85025; 93005; 99284

== ENCOUNTER 2024-05-08 14:43 | Inpatient (IN) | payer OTHER ==
--- NOTE | 2024-05-08 15:57 | RAD REPORT ---
EXAMINATION: ONE VIEW CHEST XR CLINICAL INDICATION: SOB TECHNIQUE: Frontal chest projection is submitted. Examination is limited by patient positioning and t echnique. COMPARISON: 09/12/2022 FINDINGS: The lungs are diffusely emphysematous but grossly clear. The heart is normal in size. No displaced fr actures identified. IMPRESSION: COPD without an acute process suspected.
[2024-05-08 16:31] LABS: PT Prothrombin Time 11.3 SECONDS (9.4-12.5); Protime INR 1.01
[2024-05-08 16:33] LABS: Absolute Eosinophils 0.2 K/uL (0-0.5); Absolute Lymphocytes (CBC) 2.7 K/uL (0.7-4.9); Absolute Monocytes 0.9 K/uL (0.1-1.3); Absolute Neutrophil 5.1 K/uL (1.8-8.0); Basophils % 0.2 % (0-1.3); Eosinophils % 2.3 % (0-4.4); Hematocrit 21.9 % (36.0-45.0); Hemoglobin 7.2 g/dL (12.0-15.0); Lymphocytes % 30.4 % (15.3-44.8); MCH 33.6 pg (27.0-35.0); MCV 101.6 fL (80-100); MPV 9.6 fL (7.6-11.3); Monocytes % 10.2 % (3.3-12.3); Neutrophils % 56.9 % (41.7-73.7); Nucleated Red Blood Cells % 0.2 % (0-0); Platelets 196 thou/uL (152-406); RBC Red Blood Cell Count 2.16 M/uL (3.86-4.86); Red Cell Distribution Width 15.4 % (12.1-15.2)
[2024-05-08 16:48] LABS: ALT/SGPT 29 U/L (13-56); AST/SGOT 39 U/L (15-37); Albumin 1.8 g/dL (3.4-5.0); Albumin/Globulin Ratio 0.3 (1.1-1.8); Alkaline Phosphatase 231 U/L (45-117); Anion Gap 10.7 mEq/L (5.0-15.0); BUN Blood Urea Nitrogen 94 mg/dL (7-18); Bicarbonate 18 mEq/L (21-32); Bilirubin Total 0.2 mg/dL (0.2-1.0); Globulin 5.2 g/dL (2.3-3.5); Glomerular Filtration Rate 7 ml/min (=/>90); Glucose Level 195 mg/dL (74-106); NT PRO-BNP 1241 pg/mL (<125); Potassium 4.7 mEq/L (3.5-5.1); Sodium Level 141 mEq/L (136-145); Troponin High Sensitivity 11.2 pg/mL (<58.9)
[2024-05-08 16:49] LABS: Bilirubin Direct < 0.2 mg/dL (0-0.2)
--- NOTE | 2024-05-08 18:22 | EDPHYS ---
Physician Documentation [facility] Name: Josr Parra Age: 69 yrs Sex: Female : 1955 Arrival Date: 05/08/2024 Time: 14:43 Bed 26 Private MD: ED Physician Rigoberto Jeff HPI: 05/08 15:05 This 69 yrs old Black Female presents to ER via Wheelchair with complaints of Abnormal pm1 Lab Results. 15:05 Onset: The symptoms/episode began/occurred yesterday. Associated signs and symptoms: pm1 Pertinent negatives: chest pain, shortness of breath. Modifying factors: The patient symptoms are alleviated by nothing, the patient symptoms are aggravated by nothing. The patient has been recently seen by a physician: the patient's primary care provider, yesterday. 69F presents to the ER with complaints of abnormal labs from her PCP visit yesterday. She went to her PCP yesterday for annual exam. She had labs drawn and was informed today to report to the ER for evaluation of her anemia - Hgb 6 - and for her worsening kidney function. . Historical: - Allergies: 14:52 Codeine; ll1 - PMHx: 14:52 Asthma; Diabetes - NIDDM; elevatedliver enzymes; Hepatitis; c; lumbar spine issues/pain;ll1 - PSHx: 14:52 tubes tied (ti); ll1 - Immunization history:: Adult Immunizations up to date. - Infectious Disease History:: Denies. - Social history:: Smoking status: Patient reports the use of cigarette tobacco products, smokes one pack cigarettes per day. ROS: 15:05 Constitutional: Negative for fever, chills, and weight loss, pm1 15:05 MS/Extremity: Negative for injury and deformity, Skin: Negative for injury, rash, and discoloration, Neuro: Negative for headache, weakness, numbness, tingling, and seizure, 15:05 Cardiovascular: Negative for chest pain, 15:05 Respiratory: Negative for shortness of breath, 15:05 Abdomen/GI: Negative for abdominal pain, nausea, vomiting, and diarrhea, 15:05 All other systems are negative, Exam: 15:05 Constitutional: This is a well developed, well nourished patient who is awake, alert, pm1 and in no acute distress. Head/Face: Normocephalic, atraumatic. 15:05 Skin: Warm, dry with normal turgor. Normal color with no rashes, no lesions, and no evidence of cellulitis. MS/ Extremity: Pulses equal, no cyanosis. Neurovascular intact. Full, normal range of motion. 15:05 Cardiovascular: Exam negative for acute changes, Rate: normal, Rhythm: regular, Pulses: no pulse deficits are appreciated, Heart sounds: normal, normal S1and S2, 15:05 Respiratory: Exam negative for acute changes, respiratory distress, shortness of breath, Breath sounds: are clear throughout, 15:05 Abdomen/GI: Exam negative for acute changes, Inspection: abdomen appears normal, Palpation: abdomen is soft and non-tender, in all quadrants, 15:05 Neuro: Exam negative for acute changes, Orientation: is normal, Mentation: is normal, Motor: moves all fours, 15:05 ECG was reviewed by the Attending Physician. pm1 Vital Signs: 14:53 BP 161 / 70; Pulse 87; Resp 17; Temp 97.6; Pulse Ox 98% ; Weight 67.13 kg; Height 5 ft. ll1 5 in. ; Pain 0/10; 16:00 BP 149 / 76; Pulse 75; Resp 16; Pulse Ox 100% ; bp 18:55 BP 171 / 80; Pulse 75; Resp 16; Pulse Ox 100% ; bp 19:00 BP 188 / 85; Pulse 85; Resp 18; Pulse Ox 100% on R/A; al5 12 01:10 BP 149 / 79; Pulse 84; Resp 18; Temp 98.2; Pulse Ox 100% on R/A; kl 05/08 14:53 Body Mass Index 24.63 (67.13 kg, 165.1 cm) ll1 05/08 14:53 Pain Scale: Adult ll1 MDM: 05/08 14:55 Medical Screening Exam initiated pm1 17:35 Data reviewed: vital signs. pm1 18:01 Counseling: I had a detailed discussion with the patient and/or guardian regarding the pm1 historical points, exam findings, and any diagnostic results supporting the discharge/admit diagnosis, lab results, radiology results, the need for further work-up and treatment in the hospital, Patient presenting with fatigue and possible anemia with Hgb 6.0. Hgb 7.2 Patient does not need a transfusion of blood. Kidney function as significantly worsened from prior labs. Discussed with patient admission for evaluation by NephrologyMark. 18:53 Management of patient was discussed with the following: Intelligence Applications: Mark. Will see pm1 the patient tomorrow. 05/08 15:04 Order name: Type And Screen pm1 05/08 15:04 Order name: Basic Metabolic Panel; Complete Time: 16:51 pm1 05/08 15:04 Order name: CBC with Diff; Complete Time: 16:51 pm1 05/08 15:04 Order name: LFT's; Complete Time: 16:51 pm1 05/08 15:04 Order name: NT PRO-BNP; Complete Time: 16:51 pm1 05/08 15:04 Order name: PT-INR; Complete Time: 16:31 pm1 05/08 15:04 Order name: Troponin HS; Complete Time: 16:51 pm1 05/08 18:46 Order name: Urinalysis W/Microscopic pm1 05/08 20:45 Order name: Urinalysis w/ reflexes EDMS 05/08 20:45 Order name: CBC with Automated Diff EDMS 05/08 20:45 Order name: CBC with Automated Diff EDMS 05/08 20:45 Order name: Comprehensive Metabolic Panel EDMS 05/08 20:45 Order name: Comprehensive Metabolic Panel EDMS 05/08 20:45 Order name: Magnesium EDMS 05/08 20:45 Order name: Magnesium EDMS 05/08 20:45 Order name: Phosphorus EDMS 05/08 20:45 Order name: Phosphorus EDMS 05/08 15:04 Order name: XRAY Chest (1 view); Complete Time: 16:00 pm1 05/08 18:46 Order name: CT Abd/Pelvis - Without Contrast; Complete Time: 20:20 pm1 05/08 20:47 Order name: Hip Right 2 View; Complete Time: 21:32 EDMS 05/08 15:04 Order name: EKG; Complete Time: 15:05 pm1 05/08 20:45 Order name: CONS Physician Consult EDMS 05/08 15:04 Order name: Cardiac monitoring; Complete Time: 15:09 pm1 05/08 15:04 Order name: EKG - Nurse/Tech; Complete Time: 15:31 pm1 05/08 15:04 Order name: IV Saline Lock; Complete Time: 15:31 pm1 05/08 15:04 Order name: Labs collected and sent; Complete Time: 15:31 pm1 05/08 15:04 Order name: O2 Per Protocol; Complete Time: 15:09 pm1 05/08 15:04 Order name: O2 Sat Monitoring; Complete Time: 15:09 pm1 05/08 15:47 Order name: Labs - recollect needed: recollect all tubes, re band pt; Complete Time: bd 16:19 EC:05 Rate is 81 beats/min. Rhythm is regular, Normal Sinus Rhythm. QRS [place] is Normal. [place] pm1 interval is normal. QRS interval is normal. QT interval is normal. No Q waves. T waves are Normal. No ST changes noted. Clinical impression: Normal sinus rhythm, anterior infarct, age undetermined, abnormal ECG. Administered Medications: No medications were administered Disposition Summary: 05/08/24 18:21 Hospitalization Ordered Notes: Hospitalization Status: Inpatient Admission pm1 Provider: Forrest Charles pm1 Location: Telemetry/MedSurg (Inpatient) pm1 Condition: Stable pm1 Problem: new pm1 Symptoms: have improved pm1 Bed/Room Type: Standard pm1 Room Assignment: 403(05/09/24 00:11) [facility] Diagnosis - Acute Kidney Injury pm1 - Anemia, unspecified pm1 - Other fatigue pm1 Forms: - Medication Reconciliation Form pm1 - SBAR form pm1 - Leadership Thank You Letter pm1 Addendum: 05/10/2024 21:35 I was immediately available on-site in the Emergency Department for consultation in the m s3 care of the patient. Signatures: Dispatcher [employer] EDMiracle Higuera Patrick, BUD BONER MEAT pm1 Eddi Rodriguez RN RN bp Lupe Veronica RN RN ll1 Rigoberto Jeff DO DO ms3 Snehal Carrasquillo [facility] Corrections: (The following items were deleted from the chart) 05/08 18:10 18:01 Counseling: I had a detailed discussion with the patient and/or guardian pm1 regarding the historical points, exam findings, and any diagnostic results supporting the discharge/admit diagnosis, lab results, radiology results, the need for further work-up and treatment in the hospital, Patient presenting with fatigue and possible anemia with Hgb 6.0. Hgb 7.2 Patient does not need a transfusion of blood. Kidney function as significantly worsened from prior labs. Discussed with patient admission for evaluation by Nephrology, pm1 05/09 00:11 05/08 18:21 pm1 chey
--- NOTE | 2024-05-08 18:22 | ER ---
Nurse's Notes [facility] Name: Josr Parra Age: 69 yrs Sex: Female : 1955 Arrival Date: 05/08/2024 Time: 14:43 Bed 26 Private MD: Diagnosis: Acute Kidney Injury;Anemia, unspecified;Other fatigue Presentation: 05/08 14:53 Chief complaint: Patient states: Had labs drawn yesterday for yearly check. Was told to ll1 come to ED for low HGB 6.0 and her kidney function is getting worse. Coronavirus screen: Client denies travel out of the [place] in the last 14 days. At this time, the client does not indicate any symptoms associated with coronavirus-19. Ebola Screen: Patient denies travel to an Ebola-affected area in the 21 days before illness onset. Initial Sepsis Screen: Does the patient meet any 2 criteria? No. Patient's initial sepsis screen is negative. Does the patient have a suspected source of infection? No. Patient's initial sepsis screen is negative. Risk Assessment: Do you want to hurt yourself or someone else? Patient reports no desire to harm self or others. Onset of symptoms was May 07, 2024. 14:53 Method Of Arrival: Wheelchair ll1 14:53 Acuity: JAM 2 ll1 Triage Assessment: 15:00 General: Appears in no apparent distress. comfortable, Behavior is calm, cooperative, bp appropriate for age. Pain: Denies pain. EENT: No deficits noted. Neuro: No deficits noted. Cardiovascular: No deficits noted. Respiratory: No deficits noted. GI: No signs and/or symptoms were reported involving the gastrointestinal system. : No signs and/or symptoms were reported regarding the genitourinary system. Derm: No deficits noted. Musculoskeletal: No deficits noted. Historical: - Allergies: 14:52 Codeine; ll1 - PMHx: 14:52 Asthma; Diabetes - NIDDM; elevatedliver enzymes; Hepatitis; c; lumbar spine issues/pain;ll1 - PSHx: 14:52 tubes tied (ti); ll1 - Immunization history:: Adult Immunizations up to date. - Infectious Disease History:: Denies. - Social history:: Smoking status: Patient reports the use of cigarette tobacco products, smokes one pack cigarettes per day. Screenin:26 [facility] ED Fall Risk Assessment (Adult) History of falling in the last 3 months, bp including since admission No falls in past 3 months (0 pts) Confusion or Disorientation No (0 pts) Intoxicated or Sedated No (0 pts) Impaired Gait No (0 pts) Mobility Assist Device Used No (0 pt) Altered Elimination No (0 pt) Score/Fall Risk Level 0 - 2 = Low Risk Oriented to surroundings. Abuse screen: Denies threats or abuse. Denies injuries from another. Nutritional screening: No deficits noted. Tuberculosis screening: No symptoms or risk factors identified. Assessment: 15:00 General: Appears in no apparent distress. Behavior is appropriate for age. bp 18:55 Reassessment: Patient appears in no apparent distress at this time. Patient is alert, bp oriented x 3, equal unlabored respirations, skin warm/dry/pink. 19:50 Reassessment: Patient and/or family updated on plan of care and expected duration. Pain ha1 level reassessed. Patient is alert, oriented x 3, equal unlabored respirations, skin warm/dry/pink. 23:00 Reassessment: Patient and/or family updated on plan of care and expected duration. Pain ha1 level reassessed. Patient is alert, oriented x 3, equal unlabored respirations, skin warm/dry/pink. Patient states feeling better. Patient states symptoms have improved. 05/09 01:00 Reassessment: Patient and/or family updated on plan of care and expected duration. Pain ha1 level reassessed. Patient is alert, oriented x 3, equal unlabored respirations, skin warm/dry/pink. Vital Signs: 05/08 14:53 BP 161 / 70; Pulse 87; Resp 17; Temp 97.6; Pulse Ox 98% ; Weight 67.13 kg; Height 5 ft. ll1 5 in. ; Pain 0/10; 16:00 BP 149 / 76; Pulse 75; Resp 16; Pulse Ox 100% ; bp 18:55 BP 171 / 80; Pulse 75; Resp 16; Pulse Ox 100% ; bp 19:00 BP 188 / 85; Pulse 85; Resp 18; Pulse Ox 100% on R/A; al5 05/09 01:10 BP 149 / 79; Pulse 84; Resp 18; Temp 98.2; Pulse Ox 100% on R/A; kl 12/11 14:53 Body Mass Index 24.63 (67.13 kg, 165.1 cm) ll1 05/08 14:53 Pain Scale: Adult ll1 ED Course: 05/08 14:47 Patient arrived in ED. ra3 14:54 Triage completed. ll1 14:54 Arm band placed on. ll1 14:55 Benito Irvin NP is PHCP. pm1 14:55 Rigoberto Jeff DO is Attending Physician. pm1 15:03 Patient placed in an exam room, on a stretcher. tm6 15:09 Eddi Rodriguez, RN is Primary Nurse. bp 15:32 Initial lab(s) drawn, by mi, sent to lab. Inserted saline lock: 20 gauge in right bp antecubital area, using aseptic technique. Blood collected. Flushed with 10 mL NS. 15:48 XRAY Chest (1 view) In Process Unspecified. EDMS 16:26 Patient has correct armband on for positive identification. bp 18:21 Forrest Charles MD is Hospitalizing Provider. pm1 19:37 CT Abd/Pelvis - Without Contrast In Process Unspecified. EDMS 12 01:12 No provider procedures requiring assistance completed. Patient admitted, IV remains in kl place. Administered Medications: No medications were administered Medication: 01:00 VIS not applicable for this client. ha1 Outcome: 05/08 18:21 Decision to Hospitalize by Provider. pm1 05/09 01:11 Admitted to Tele accompanied by tech, room 403, Report called to Rosemarie leavitt Condition: stable Discharge instructions given to patient, family, Instructed on the need for admit, Demonstrated understanding of instructions, 01:15 Patient left the ED. kl Signatures: Dispatcher [employer] EDMS Carmela Veronica RN RN kl Marinas, Patrick, NP DIRECTOR OF MARKETING COMMUNICATIONS pm1 Eddi Rodriguez RN RN bp Lewis, Lynsay, RN RN 1 Salena Levin RN RN 1 Martin Menjivar RN RN 6 Marisol Huizar ra3 Divya Kemp RN RN al5
--- NOTE | 2024-05-08 19:57 | RAD REPORT ---
EXAMINATION: CT ABDOMEN AND PELVIS WITHOUT CONTRAST CLINICAL INDICATION: STELLA TECHNIQUE: CT abdomen and pelvis was performed, without IV contrast, as per department protocol. Axia l, sagittal and coronal reconstructions were obtained. One or more of the following dose reduction techniques were used: Automated exposure control, adjustment of the mA and kV according to the patien t size, and iterative reconstruction. Unless otherwise specified, incidental findings do not require dedicated imaging follow-up. COMPARISON: 12/27/2023 FINDINGS: The lack of intravenous contrast limits the sensitivity of this exam for evaluation of solid visceral organs, vascular structures, and retroperitoneum. LOWER CHEST: The visualized lung bases are clear. LIVER:Moderate liver cirrhosis. Trace free fluid anterior to the right lobe liver. Grossly unremarkab le gallbladder. SPLEEN: Normal size. No focal lesion. PANCREAS: No mass, ductal dilation, or nae-pancreatic fluid. ADRENALS: Normal; no mass. KIDNEYS AND URETERS: Normal size and contour. No hydronephrosis. URINARY BLADDER: Normal contour. GASTROINTESTINAL TRACT: No evidence of bowel obstruction, significant free fluid, free air or abscess . Moderate stool is present throughout the colon with mild wall thickening. APPENDIX: Normal appendix. LYMPH NODES: No lymphadenopathy. MUSCULOSKELETAL: Moderate degenerative changes. ADDITIONAL FINDINGS: None. IMPRESSION: Moderate cirrhosis. Moderate stool retained throughout the colon with mild wall thickening could indicate stercoral colit is.
--- NOTE | 2024-05-08 20:36 | P.HP ---
Certification for Inpatient Patient admitted to: Inpatient With expected LOS: >2 Midnights Practitioner: I am a practitioner with admitting privileges, knowledge of patient current condition, hospital course, and medical plan of care. Services: Services provided to patient in accordance with Admission requirements found in Title 42 Section 412.3 of the Code of Federal Regulations Patient History Date of Service: 05/08/24 Reason for admission: abnormal labs History of Present Illness: 69-year-old female with chronic kidney disease, diabetes presents to the ER with complaints of abnormal labs. The patient reports her main symptoms included weakness recently. She reports that she recently had blood work done and was told to come to the emergency room. She denies any recent fevers, chills, nausea, vomiting, diarrhea, dark stools or blood in her stool. She does have history of chronic kidney disease she does follow with nephrology. She was noted to have worsening renal function. Patient does have chronic anemia. She also reports having some right hip pain and had had a fall recently Allergies amlodipine Allergy (Verified 07/12/23 15:30) Nausea/Vomiting codeine Allergy (Verified 07/12/23 15:30) Unknown Home Medications: Diltiazem HCl [Diltiazem 24Hr Cd] 240 mg PO DAILY 02/11/21 Pregabalin 150 mg PO TID 02/11/21 Atorvastatin Calcium [Lipitor*] 10 mg PO BEDTIME 09/14/22 cloNIDine HCL [Catapres*] 0.3 mg PO BID 09/14/22 glipiZIDE [Glipizide ER] 10 mg PO BID 09/14/22 Insulin Glargine,Hum.rec.anlog [Lantus Solostar] 22 unit SQ BEDTIME 07/12/23 Amlodipine [Norvasc*] 10 mg PO DAILY #30 tab 07/15/23 Pantoprazole [Protonix Tab*] 40 mg PO BID #60 tab 07/15/23 Sodium Bicarbonate 1,300 mg PO BID #120 tab 10/16/23 - Past Medical/Surgical History Diabetic: Yes -: Diabetes mellitus type 2 -: Hypertension -: Asthma -: Hepatitis C/cirrhosis -: COPD -: GERD -: CKD -: Tubal ligation Psychosocial/ Personal History: Lives at home with daughter - Social History Alcohol use: No CD- Drugs: No Caffeine use: Yes Review of Systems 10-point ROS is otherwise unremarkable General: Weakness Physical Examination - Physical Exam General: Alert, Oriented x3 HEENT: Atraumatic, Normocephalic Respiratory: Clear to auscultation bilaterally, Normal air movement Cardiovascular: Normal pulses, Regular rate/rhythm Gastrointestinal: Normal bowel sounds, Non-distended Musculoskeletal: No clubbing Integumentary: No rashes Neurological: Normal gait, Normal speech - Studies Laboratory Data (last 24 hrs) 05/08/24 05/08/24 05/08/24 16:17 16:17 16:17 WBC 9.00 Hgb 7.2 L Hct 21.9 L Plt Count 196 PT 11.3 INR 1.01 Sodium 141 Potassium 4.7 BUN 94 H Creatinine 6.42 H Glucose 195 H Total Bilirubin 0.2 AST 39 H ALT 29 Alkaline Phosphatase 231 H Assessment and Plan - Problems (Diagnosis) (1) Anemia Current Visit: Yes Status: Acute (2) Acute worsening of stage 3 chronic kidney disease Current Visit: No Status: Acute (3) Essential hypertension Current Visit: No Status: Acute (4) Type 2 diabetes mellitus Current Visit: No Status: Chronic Qualifiers: - Plan acute on chronic kidney disease -- Unclear etiology of worsening renal disease -- Follows with nephrology, nephrology consulted in ER -- Urinalysis pending -- CT abdomen pelvis done Anemia --Likely secondary to chronic disease will monitor Weakness -- Could be multifactorial including anemia, recent fall Right hip pain -- Right hip x-ray Insulin-dependent diabetes -- Await medication reconciliation History of hepatitis C Liver cirrhosis -- Monitor liver function Constipation -- Order stool regimen - Advance Directives Does patient have a Living Will: No Does patient have a Durable POA for Healthcare: No
[2024-05-08] MEDS ORDERED: D10W 125 ML IV PRN (20:42)
[2024-05-08] MEDS ORDERED: GLUCAGON 1 MG/VIAL IM PRN (20:42)
[2024-05-08] MEDS ORDERED: DOCUSATE NA/SENNA CONC 1 TAB PO PRN (20:45)
[2024-05-08] MEDS: LACTULOSE 20 GM/30 ML UCUP PO ONE (20:45)
[2024-05-08] MEDS: NA CHLORIDE 0.9% 1,000 ML IV SCH (21:00)
[2024-05-08] MEDS: INSULIN REGULAR (HUMAN) 100 UNIT/ML SQ SCH (21:00)
--- NOTE | 2024-05-08 21:19 | RAD REPORT ---
EXAMINATION: XR RIGHT HIP CLINICAL INDICATION: . hip pain RIGHT TECHNIQUE: Multiple views of the right hip were obtained. COMPARISON: No prior exam. FINDINGS: No evidence of fracture or dislocation. Normal alignment. No radiographic evidence of AVN. Mild arthritic changes. IMPRESSION: No acute fracture or dislocation. Mild arthritic changes.
[2024-05-09 01:21] VITALS: O2SAT 100
[2024-05-09 05:07] LABS: Specific Gravity 1.013 (1.005-1.030); Sqamous Epithelial <5 /HPF (None Seen); Urine Bacteria None Seen /HPF (<20); Urine Bilirubin NEGATIVE (Negative); Urine Blood Trace (Negative); Urine Clarity Clear (Clear); Urine Color Light-Yellow (Yellow); Urine Culture Reflex Order NOT NEEDED; Urine Glucose 2+ (Negative); Urine Ketones NEGATIVE (Negative); Urine Microscopic Reflex YN ORDER UMIC; Urine Nitrite NEGATIVE (Negative); Urine Protein 3+ (Negative); Urine RBC <5 /HPF (None Seen); Urine Urobilinogen Normal (Normal); Urine WBC <5 /HPF (<5); Urine pH 6.5 (5.0-7.0)
[2024-05-09] MEDS: HYDRALAZINE HCL 20 MG/ML VIAL IV PRN (06:40)
[2024-05-09 07:08] LABS: Absolute Basophils 0.1 K/uL (0-0.5); Absolute Eosinophils 0.3 K/uL (0-0.5); Absolute Lymphocytes (CBC) 3.7 K/uL (0.7-4.9); Absolute Monocytes 1.1 K/uL (0.1-1.3); Absolute Neutrophil 3.6 K/uL (1.8-8.0); Eosinophils % 3.1 % (0-4.4); Hematocrit 22.9 % (36.0-45.0); Hemoglobin 7.4 g/dL (12.0-15.0); Lymphocytes % 42.6 % (15.3-44.8); MCH 32.7 pg (27.0-35.0); MCHC 32.2 g/dL (32.0-36.0); MCV 101.7 fL (80-100); MPV 10.1 fL (7.6-11.3); Monocytes % 12.9 % (3.3-12.3); Neutrophils % 40.4 % (41.7-73.7); Nucleated Red Blood Cells % 0.1 % (0-0); Platelets 145 thou/uL (152-406); RBC Red Blood Cell Count 2.25 M/uL (3.86-4.86); Red Cell Distribution Width 14.9 % (12.1-15.2)
[2024-05-09 07:28] LABS: Albumin 1.7 g/dL (3.4-5.0); Albumin/Globulin Ratio 0.3 (1.1-1.8); Anion Gap 10.3 mEq/L (5.0-15.0); Bilirubin Total 0.2 mg/dL (0.2-1.0); Globulin 4.9 g/dL (2.3-3.5); Magnesium 2.1 mg/dL (1.6-2.4); Phosphorus 6.3 mg/dL (2.5-4.9); Potassium 4.3 mEq/L (3.5-5.1); Protein, Total 6.6 g/dL (6.4-8.2)
[2024-05-09] MEDS: AMLODIPINE 10 MG TAB PO SCH (09:00)
[2024-05-09] MEDS: PREGABALIN 150 MG CAP PO SCH (09:11)
[2024-05-09] MEDS: CLONIDINE HCL 0.3 MG TAB PO SCH (09:11)
[2024-05-09] MEDS: FLU (Fluarix Triv) TS24-25(6MOS UP)/PF 45 MCG/0.5 ML Syringe IM ONE (09:12)
[2024-05-09] MEDS: EPOETIN ALFA-EPBX 10,000 UNIT/ML VIAL SQ ONE (11:39)
--- NOTE | 2024-05-09 13:52 | P.PN ---
Subjective Date of Service: 05/09/24 Chief Complaint: abnormal labs Patient is complaining of pain in her bilateral toes. She relates the pain to diabetic neuropathy. Blood pressure readings are significantly elevated. Physical Examination - Vital Signs Temperature: 98.1 F Blood Pressure: 192/88 Pulse: 93 Respirations: 18 Pulse Ox (%): 99 - Studies Laboratory Data (last 24 hrs) 05/08/24 05/08/24 05/08/24 16:17 16:17 16:17 WBC 9.00 Hgb 7.2 L Hct 21.9 L Plt Count 196 PT 11.3 INR 1.01 Sodium 141 Potassium 4.7 BUN 94 H Creatinine 6.42 H Glucose 195 H Total Bilirubin 0.2 AST 39 H ALT 29 Alkaline Phosphatase 231 H Assessment And Plan - Plan Physical examination General: Alert and oriented x3, NAD, HEENT: Conjunctiva not pale, anicteric sclera Neck: Supple, no elevated JVD Heart: Heart sounds 1 and 2 normal, regular rhythm, normal rate, no pedal edema Lungs: Clear to auscultation bilaterally, adequate breath sounds bilaterally, no rhonchi or crackles. Abdomen: Soft, nondistended, nontender, normal bowel sounds. Extremities: No tenderness, no deformity Skin: Normal skin turgor, no rash, no nodules or ulcers. Neuro: No focal motor deficit. Normal speech. Psychiatry: Normal mood, no agitation. Assessment and plan A cute on chronic kidney disease stage IV Patient evaluated by nephrology Dr. Roy. Patient with a diagnosis of diabetes nephropathy. She has declined hemodialysis previously per Nephrology IV hydration Monitor renal function Anemia of chronic kidney disease Nephrology is managing. Patient started on Epogen. Generalized weakness/fatigue Likely secondary to anemia and chronic kidney disease Patient started on Epogen Activity as tolerated. Diabetic nephropathy Lyrica and [place] as needed for pain control Insulin-independent diabetes Insulin sliding scale. Hold glipizide as inpatient. History of hepatitis C Liver cirrhosis Monitor LFT. Outpatient follow-up Functional constipation Stool. shortness and laxatives ordered DVT prophylaxis: Heparin SQ. Advanced directive: Full code.
[2024-05-09] MEDS: HYDROCODONE/APAP 5/325 MG TAB PO PRN (14:41)
[2024-05-09] MEDS: HYDRALAZINE HCL 25 MG TABLET PO SCH (14:42)
[2024-05-09] MEDS: SODIUM BICARB 325 MG TAB PO SCH (14:42)
--- NOTE | 2024-05-09 15:22 | CON ---
Date of Consultation: 05/09/2024 Reason For Consultation: Elevated BUN and creatinine, fluid management. History Of Present Illness: This is a pleasant 69-year-old female, well known to me from the office with significant past medical history of hep C since 2009, cirrhosis, chronic kidney disease advanced stage 4/5, normal size kidney 10.6/10.9 with nephrotic range of proteinuria secondary to diabetes ne phropathy, confirmed with biopsy back in September 2023 with severe interstitial fibrosis, diabetes since 2 014, complicated with neuropathy and retinopathy, hyperlipidemia, hypertension. The patient last see n in the office back in October 2023. The patient was in her regular state of health. The patient done lab with her PCP, found to be severely anemic and elevation in BUN and creatinine. For that reason, was sent to the hospital. At the physician office, hemoglobin 6.8. Upon arrival to the hospital, h emoglobin 7.2, creatinine 6.4, GFR of 7. The patient denied taking any nonsteroidal. The patient de nied any melena or hematochezia. The patient had decreased intake lately without any diarrhea. No f ever or chills. Overnight, we started the patient on hydration. Kidney function, creatinine down to 5.9, BUN 78. The patient slightly feeling better. Past Medical History: Includes: 1.Diabetes, complicated with neuropathy and nephropathy since 2013. 2.Hep C since 2009 complicated with cirrhosis. 3.Hypertension. 4.Hyperlipidemia. 5.Chronic kidney disease stage 4/5, normal size kidney with nephrotic range of proteinuria secondary to diabetes nephropathy, confirmed with biopsy. Allergies: TO AMLODIPINE AND CODEINE. Home Medications: Include diltiazem, Lyrica, atorvastatin, clonidine, glipizide, amlodipine, pantopr azole, sodium bicarb. Past Surgical History: Includes tubal ligation. Social History: Lives with family. Denied smoking. Denied drinking. Denied drugs abuse. Review of Systems: Head and Neck: No red eye. No ear pain. GI: Decreased intake. No diarrhea. No nausea. No vomiting. : No polyuria, no dysuria, no hematuria. 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 Respiratory: No shortness of breath. Cardiovascular: No chest pain. Endocrine: No polydipsia. Skin: No rash. Neuro: Has neuropathy. Musculoskeletal: No joint pain. Physical Examination: Vital Signs: Blood pressure 184/84, pulse of 87, afebrile. Chest: Clear to auscultation. Heart: S1, S2. Systolic murmur. Abdomen: Soft, nontender. No ascites. Extremities: No edema. Neurologic: Alert, no focality, no tremor. Lab Data: Yesterday, creatinine 6.4, BUN 94, bicarb 18, today sodium 141, potassium 4.3, bicarb 18, BUN 78, creatinine 5.9. Calcium 7, phosphorus 6.3. Alkaline phosphatase 259, albumin 1.7. Urinalys is negative for infection. CT abdomen, no hydronephrosis, the patient has constipation. Current Medications: The patient on IV fluid, Lyrica, amlodipine, clonidine, hydralazine. Assessment And Plan: 1.Acute kidney injury on advanced chronic kidney disease secondary to progression of the disease/pre renal secondary to dehydration, marginal uremic symptoms. I spoke with the patient and the patient s till hesitant to initiate dialysis. I spoke to the daughter, , and she realized that the patient is still hesitant on the dialysis. Again, there are no clear uremic symptoms. No hyperkale krunal. Marginal acidosis. I do not see the urgency to initiate dialysis yet. I am going to continue hydration. We will correct acidosis with oral bicarb and will monitor. 2.Anemia, secondary to chronic kidney disease, rule out iron deficiency anemia, we will send further workup, we will start the patient on HANNAH. 3.Secondary hyperpara with hyperphosphatemia, start the patient on Tums. 4.Acidosis, non-anion gap metabolic acidosis secondary to renal failure, resume bicarb and will foll ow up. 5.Diabetes, as by the primary. 6.Hypertension, not controlled. Start the patient on hydralazine and beta sayda and we will follo w up the patient. Thank you, Dr. Whitley, for allowing us to participate in the care of your patient. Time spent examin ing the patient [id number], reviewing data, lab and radiology, placing order, discussing the case w ith the patient and the daughter over the phone discussing the case with the team coordinator including ho spitalist and nursing staff more than 75 minutes. DURGA/QUIANA Voice ID: [id number] Report ID: [id number]
[2024-05-09] MEDS: carvediloL 12.5 MG TAB PO SCH (18:20)
[2024-05-09] MEDS: HEPARIN 5000 UNIT/ML 1 ML VIAL SQ SCH (18:20)
[2024-05-09] MEDS: ZOLPIDEM TARTRATE 5 MG TABLET PO PRN (20:44)
[2024-05-09] MEDS: POLYETHYL GLY 3350 17 GM/DOSE PO SCH (21:00)
[2024-05-09] MEDS: NA CHLORIDE 0.9% 100 ML ONE (21:02)
[2024-05-10 05:29] VITALS: BMI 24.6
[2024-05-10 06:56] LABS: Absolute Basophils 0.1 K/uL (0-0.5); Absolute Eosinophils 0.2 K/uL (0-0.5); Absolute Lymphocytes (CBC) 3.3 K/uL (0.7-4.9); Absolute Neutrophil 2.8 K/uL (1.8-8.0); Basophils % 0.9 % (0-1.3); Eosinophils % 3.2 % (0-4.4); Lymphocytes % 44.4 % (15.3-44.8); MCH 32.4 pg (27.0-35.0); MCHC 32.2 g/dL (32.0-36.0); MCV 100.5 fL (80-100); MPV 9.2 fL (7.6-11.3); Monocytes % 13.9 % (3.3-12.3); Neutrophils % 37.6 % (41.7-73.7); Nucleated Red Blood Cells % 0.3 % (0-0); Percent Reticulocyte Count 4.14 % (0.4-2.05); Platelets 163 thou/uL (152-406); RBC Red Blood Cell Count 1.79 M/uL (3.86-4.86); Red Cell Distribution Width 14.4 % (12.1-15.2)
[2024-05-10 07:06] LABS: Hemoglobin 5.8 g/dL (12.0-15.0)
[2024-05-10 07:39] LABS: Albumin 1.4 g/dL (3.4-5.0); Anion Gap 9.4 mEq/L (5.0-15.0); Ferritin 34.6 ng/mL (8-252); Uric Acid 6.7 mg/dL (2.6-6.0)
[2024-05-10 07:40] LABS: Potassium 4.4 mEq/L (3.5-5.1); Thyroid Stimulating Hormone 7.36 uIU/mL (0.358-3.740)
[2024-05-10 08:24] LABS: Hemoglobin 6.1 g/dL (12.0-15.0)
[2024-05-10] MEDS ORDERED: NA CHLORIDE 0.9% 250 ML IV SCH (12:00)
--- NOTE | 2024-05-10 14:00 | P.PN ---
Subjective Date of Service: 05/10/24 Chief Complaint: abnormal labs Patient has no new complaint. She reports he had feet pain is much better. Her hemoglobin dropped to 6.1 Blood pressure readings are significantly elevated. Physical Examination - Vital Signs Temperature: 97.7 F Blood Pressure: 163/77 Pulse: 76 Respirations: 18 Pulse Ox (%): 100 Assessment And Plan - Plan Physical examination General: Alert and oriented x3, NAD, HEENT: Anicteric sclera Neck: Supple, no elevated JVD Heart: Heart sounds 1 and 2 normal, regular rhythm, normal rate, no pedal edema Lungs: Clear to auscultation bilaterally, adequate breath sounds bilaterally, no rhonchi or crackles. Abdomen: Soft, nondistended, nontender, normal bowel sounds. Extremities: No tenderness, no deformity Skin: Normal skin turgor, no rash, no nodules or ulcers. Neuro: No focal motor deficit. Normal speech. Psychiatry: Normal mood, no agitation. Assessment and plan A cute on chronic kidney disease stage IV Patient evaluated by nephrology Dr. Roy. Patient with a diagnosis of diabetes nephropathy. She has declined hemodialysis previously per Nephrology Serum creatinine is trending down. Continue IV hydration Monitor renal function Anemia of chronic kidney disease Hemoglobin dropped to 6.1. No evidence of active bleeding. Drop in hemoglobin probably dilutional. Transfuse 2 unit PRBC Patient is on erythropoietin per nephrology. Monitor CBC. Generalized weakness/fatigue Likely secondary to anemia and chronic kidney disease Patient started on Epogen 2 unit PRBC transfusion ordered Activity as tolerated. Diabetic nephropathy Lyrica and [place] as needed for pain control Insulin-independent diabetes Insulin sliding scale. Hold glipizide as inpatient. History of hepatitis C Liver cirrhosis Monitor LFT. Outpatient follow-up Functional constipation Continue stool softeners and laxatives ordered. Hypocalcemia Hypophosphatemia Secondary hyperparathyroidism Nephrology is following. Patient started on calcitriol and oral calcium supplementation. DVT prophylaxis: Heparin SQ. Advanced directive: Full code.
[2024-05-10] MEDS: CALCITROL 0.25 MCG CAP PO SCH (14:37)
--- NOTE | 2024-05-10 15:51 | EKG ---
Test Date: 2024-05-08 Test Time: 15:18:10 Supervisory Cbp Officer: BP MEASUREMENT RESULTS: Intervals: Rate: 81 MA: 206 QRSD: 76 QT: 394 QTc: 457 [place]: P: 58 MA: 206 QRS: -25 T: 46 INTERPRETIVE STATEMENTS: Normal sinus rhythm Anterior infarct, age undetermined Abnormal ECG Compared to ECG 12/27/2023 11:00:31 Left-axis deviation no longer present Myocardial infarct finding still present Electronically Signed On 05-10-24 15:48:06 LOBBYIST by Jon Coles
[2024-05-10] MEDS: CALCIUM CARBONATE CHEW 500MG TAB PO SCH (16:30)
--- NOTE | 2024-05-10 23:58 | PN ---
Date of Progress Note: 05/10/2024 Chief Complaint: Elevated BUN and creatinine, acute on chronic and advanced chronic kidney disease. Subjective: The patient is admitted to the hospital because of uncontrolled hypertension, worsening renal function. Serum creatinine level went up to 5.9. Previously creatinine level was 6.4 during t his admission and GFR was 7. BUN is up to 78. The patient is a 69-year-old woman with past medical history of liver cirrhosis; hepatitis C; chronic kidney disease, stage 4 advancing to stage 5; nephro tic range proteinuria secondary to diabetic nephropathy, concern by biopsy in September 2023 with severe in terstitial fibrosis. The patient has diabetes mellitus, which was diagnosed back in 2013, complicate d with neuropathy, retinopathy, hyperlipidemia, and hypertension. Review of Systems: Denies chest pain, palpitation. Physical Examination: Lungs: Clear to auscultation bilaterally. Heart: S1, S2. Abdomen: Soft, benign. Extremities: Slight edema. Impression And Plan: 1.Acute on chronic kidney injury. The patient has advanced chronic kidney disease, likely she will need dialysis in near future. She has prerenal azotemia and nonoliguric acute tubular necrosis. She does not have significant uremic symptoms, although she has hyperazotemia and she may need to start dialysis during this admission to prevent uremia. 2.Anemia secondary to chronic kidney disease. to rule out iron deficiency anemia. 3.Secondary hyperparathyroidism and hyperphosphatemia. The patient is started on Tums to prevent hy perphosphatemia. 4.Acidosis, non-anion gap metabolic acidosis secondary to renal failure. The patient is on bicarbon ate tablet. Monitor renal. 5.Diabetes mellitus per primary team. 6.Hypertension. Medications were increased. Blood pressure is uncontrolled and is elevated. Hydra lazine was increased to 50 mg 3 times per day. EB/MODL Voice ID: [id number] Report ID: [id number]
[2024-05-11 06:58] LABS: Absolute Basophils 0.1 K/uL (0-0.5); Absolute Eosinophils 0.3 K/uL (0-0.5); Absolute Lymphocytes (CBC) 3.1 K/uL (0.7-4.9); Absolute Monocytes 1.4 K/uL (0.1-1.3); Absolute Neutrophil 3.6 K/uL (1.8-8.0); Basophils % 0.9 % (0-1.3); Eosinophils % 3.1 % (0-4.4); Hematocrit 27.2 % (36.0-45.0); Hemoglobin 9.1 g/dL (12.0-15.0); Lymphocytes % 36.7 % (15.3-44.8); MCH 30.9 pg (27.0-35.0); MCHC 33.3 g/dL (32.0-36.0); MCV 92.6 fL (80-100); Monocytes % 16.4 % (3.3-12.3); Neutrophils % 42.9 % (41.7-73.7); Nucleated Red Blood Cells % 0.1 % (0-0); Platelets 139 thou/uL (152-406); RBC Red Blood Cell Count 2.93 M/uL (3.86-4.86); Red Cell Distribution Width 18.6 % (12.1-15.2)
[2024-05-11 07:09] LABS: Albumin 1.5 g/dL (3.4-5.0); Anion Gap 8.6 mEq/L (5.0-15.0); Phosphorus 5.8 mg/dL (2.5-4.9); Potassium 4.6 mEq/L (3.5-5.1)
[2024-05-11] MEDS: HYDRALAZINE HCL 25 MG TABLET PO SCH (09:53)
[2024-05-11] MEDS: carvediloL 12.5 MG TAB PO ONE (09:54)
--- NOTE | 2024-05-11 13:08 | P.PN ---
Subjective Date of Service: 05/11/24 Chief Complaint: abnormal labs Subjective: No new changes Physical Examination - Vital Signs Temperature: 98.0 F Blood Pressure: 178/84 Pulse: 90 Respirations: 16 Pulse Ox (%): 100 - Physical Exam General: Other (chronically ill-appearing) HEENT: Atraumatic, Normocephalic Neck: Supple, JVD not distended Respiratory: Other (symmetric chest expansion) Cardiovascular: No rubs, No murmurs Gastrointestinal: Soft and benign, No guarding Musculoskeletal: No clubbing Integumentary: No warmth Neurological: Normal speech Urinary: Other (no bladder distention) External genitalia: Deferred Rectal: Deferred Assessment And Plan - Plan 1. Acute on chronic kidney injury. The patient has advanced chronic kidney disease, likely she will need dialysis in the near future, but no acute indication for dialysis at this time. She has prerenal azotemia and nonoliguric acute tubular necrosis. Renal diet. drink fluids via obey your thirst strategy. 2. Anemia secondary to chronic kidney disease. monitor CBC and iron panel. 3. Secondary hyperparathyroidism and hyperphosphatemia. continue phosphorus binder. 4. Acidosis, non-anion gap metabolic acidosis secondary to renal failure. The patient is on bicarbonate tablet. 5. Diabetes mellitus 2. Mngt per primary team. 6. Hypertension. BP meds adjusted. 7. Dispo. okay to DC to home today. Follow-up in renal clinic in 2 weeks.
[2024-05-11] MEDS: CLONIDINE HCL 0.3 MG TAB PO SCH (13:45)
--- NOTE | 2024-05-11 15:14 | P.DS ---
Admission Date: 05/08/24 Discharge Date: 05/11/24 Disposition: ROUTINE DISCHARGE Discharge Condition: FAIR Reason for Admission: abnormal labs Brief History of Present Illness: 69-year-old female with chronic kidney disease, diabetes presented to the ER with complaints of abnormal labs. The patient reported generalized weakness. She reports that she recently had blood work done and was told to come to the emergency room. She does have history of chronic kidney disease followed by copy center specialist Dr. Roy. Blood work suggest worsening renal function. Patient does have chronic anemia. Patient was hospitalized for further ma nagement. Hospital Course: Acute on chronic kidney disease stage IV Patient evaluated by nephrology Dr. Roy. Patient with a diagnosis of diabetes nephropathy. She has declined hemodialysis previously per Nephrology Serum creatinine trended down with IV hydration. From 6.4 to 5.07. Nephrology recommend close outpatient follow-up for preparation for dialysis as needed. Anemia of chronic kidney disease Hemoglobin dropped to 6.1. No evidence of active bleeding. Patient transfused 2 unit PRBC Patient also given erythropoietin per nephrology. Posttransfusion hemoglobin is up to 9.1 Generalized weakness/fatigue Likely secondary to anemia and chronic kidney disease Patient started on Epogen 2 unit PRBC transfused Diabetic nephropathy Managed with Lyrica and [place] as needed for pain control Insulin-independent diabetes Patient did not require insulin therapy during the hospital stay. Held glipizide as inpatient and resumed it at a reduced dose 5 mg daily( as compared to home 10 mg twice daily) on discharge. History of hepatitis C Liver cirrhosis Stable Outpatient follow-up Functional constipation Managed with stool softeners and laxatives. Hypocalcemia Hypophosphatemia Secondary hyperparathyroidism Managed by nephrology. Patient started on calcitriol and oral calcium supplementation. Vital Signs/Physical Exam: Temp Pulse Resp BP Pulse Ox 98.0 F 90 16 178/84 H 100 05/11/24 13:08 05/11/24 14:11 05/11/24 13:08 05/11/24 14:11 05/11/24 13:08 General: Alert, In no apparent distress, Oriented x3 HEENT: Mucous membr. moist/pink Neck: JVD not distended Respiratory: Clear to auscultation bilaterally, Normal air movement Cardiovascular: No edema, Regular rate/rhythm, Normal S1 S2 Gastrointestinal: Normal bowel sounds, Soft and benign, Non-distended, No tenderness Musculoskeletal: No swelling, No tenderness Integumentary: No rashes, No cyanosis Neurological: Normal strength at 5/5 x4 extr, Cranial nerves 3-12 intact Laboratory Data at Discharge: WBC 8.50 thou/uL (4.3-10.9) 05/11/24 06:17 Hgb 9.1 g/dL (12.0-15.0) L D 05/11/24 06:17 Hct 27.2 % (36.0-45.0) L 05/11/24 06:17 Plt Count 139 thou/uL (152-406) L 05/11/24 06:17 PT 11.3 SECONDS (9.4-12.5) 05/08/24 16:17 INR 1.01 05/08/24 16:17 Sodium 143 mEq/L (136-145) 05/11/24 06:17 Potassium 4.6 mEq/L (3.5-5.1) 05/11/24 06:17 BUN 73 mg/dL (7-18) H 05/11/24 06:17 Creatinine 5.08 mg/dL (0.55-1.02) H 05/11/24 06:17 Glucose 112 mg/dL (74-106) H 05/11/24 06:17 Uric Acid 6.7 mg/dL (2.6-6.0) H 05/10/24 06:17 Phosphorus 5.8 mg/dL (2.5-4.9) H 05/11/24 06:17 Magnesium 2.1 mg/dL (1.6-2.4) 05/09/24 06:36 Total Bilirubin 0.2 mg/dL (0.2-1.0) 05/09/24 06:36 AST 44 U/L (15-37) H 05/09/24 06:36 ALT 29 U/L (13-56) 05/09/24 06:36 Alkaline Phosphatase 259 U/L (45-117) H 05/09/24 06:36 Home Medications: Diltiazem HCl [Diltiazem 24Hr Cd] 240 mg PO DAILY 02/11/21 Atorvastatin Calcium [Lipitor*] 10 mg PO BEDTIME 09/14/22 Furosemide 40 mg PO DAILY 05/09/24 Pantoprazole [Protonix Tab*] 40 mg PO DAILY 05/09/24 Pregabalin 75 mg PO BID 05/09/24 Calcitrol [Rocaltrol*] 0.5 mcg PO Q48H #15 cap 05/11/24 Calcium Carbonate [Tums Regular*] 1,000 mg PO AC #60 tab 05/11/24 Docusate/Senna [Senokot-S*] 2 tab PO BEDTIME PRN #30 tab 05/11/24 Glipizide [Glipizide ER] 5 mg PO DAILY #30 tab 05/11/24 Hydralazine [Apresoline*] 50 mg PO TID #90 tab 05/11/24 Polyethyl Gly 3350 [Glycolax*] 17 gm PO BID PRN #60 udbot 05/11/24 Sodium Bicarbonate 1,300 mg PO TID #180 tab 05/11/24 cloNIDine HCL [Catapres*] 0.3 mg PO TID #90 tab 05/11/24 New Medications: Hydralazine [Apresoline*] 50 mg PO TID #90 tab cloNIDine HCL [Catapres*] 0.3 mg PO TID #90 tab Glipizide [Glipizide ER] 5 mg PO DAILY #30 tab Polyethyl Gly 3350 [Glycolax*] 17 gm PO BID PRN #60 udbot PRN Reason: Constipation Calcitrol [Rocaltrol*] 0.5 mcg PO Q48H #15 cap Docusate/Senna [Senokot-S*] 2 tab PO BEDTIME PRN #30 tab PRN Reason: Constipation Sodium Bicarbonate 1,300 mg PO TID #180 tab Calcium Carbonate [Tums Regular*] 1,000 mg PO AC #60 tab Diet: ADA Activity: Ad maninder Followup: Celso Roy MD [ACTIVE - CAN ADMIT] - 1 Week Lenore Anderson NP [Primary Care Provider] - 1-2 Weeks Time spent managing pt's care (in minutes): 38
[2024-05-11] MEDS ORDERED: carvediloL 12.5 MG TAB PO SCH (18:00)
[2024-05-12 09:06] VITALS: BP 178/84; TEMP 98
[2024-05-15 18:36] LABS: 1,25 Dihydroxy Vitamin D3 <8 pg/mL; Vitamin D 1,25-Dihydroxy Total 10 pg/mL (18-72); Vitamin D,1,25-OH2, D2 10 pg/mL
== END 2024-05-11 16:50 | disposition home or self-care (01) | DRG 683 ==
LOC: ER 14:43 → ERHOLD 20:37 → 4TH 05-09 01:11
PROVIDERS: ADMIT Internal Medicine; ATTEND Internal Medicine
DX: N17.0 Acute kidney failure with tubular necrosis (principal); E87.21 Acute metabolic acidosis; E11.22 Type 2 diabetes mellitus with diabetic chronic kidney disease; I12.9 Hypertensive chronic kidney disease with stage 1 through stage 4 chronic kidney disease, or unspecified chronic kidney disease; N18.4 Chronic kidney disease, stage 4 (severe); Z79.4 Long term (current) use of insulin; E11.40 Type 2 diabetes mellitus with diabetic neuropathy, unspecified; E11.319 Type 2 diabetes mellitus with unspecified diabetic retinopathy without macular edema; D63.1 Anemia in chronic kidney disease; R53.1 Weakness; Z88.5 Allergy status to narcotic agent; B19.20 Unspecified viral hepatitis C without hepatic coma; K74.60 Unspecified cirrhosis of liver; Z98.51 Tubal ligation status; J44.9 Chronic obstructive pulmonary disease, unspecified; M25.551 Pain in right hip; K21.9 Gastro-esophageal reflux disease without esophagitis; K59.04 Chronic idiopathic constipation; E78.5 Hyperlipidemia, unspecified; E21.3 Hyperparathyroidism, unspecified
CPT/HCPCS: 36415; 71045; 74176; 80048; 80053; 80069; 80076; 81001; 82607; 82652; 82728; 82947; 83540; 83735; 83880; 83970; 84100; 84439; 84443; 84466; 84484; 84550; 85014; 85018; 85025; 85044; 85610; 86850; 86900; 86901; 86920; 93005; 99285; J0360; J1644; J7030; J7050; P9016; Q5106

== ENCOUNTER 2024-06-26 15:42 | Inpatient (IN) | payer OTHER ==
[2024-06-26] MEDS ORDERED: D50W 25 GM/50 ML SYRINGE IV ONE (15:58)
[2024-06-26 16:19] LABS: Absolute Basophils 0.1 K/uL (0-0.5); Absolute Eosinophils 0.1 K/uL (0-0.5); Absolute Lymphocytes (CBC) 1.6 K/uL (0.7-4.9); Absolute Neutrophil 9.9 K/uL (1.8-8.0); Basophils % 0.5 % (0-1.3); Eosinophils % 0.8 % (0-4.4); Hematocrit 21.7 % (36.0-45.0); Hemoglobin 7.3 g/dL (12.0-15.0); Lymphocytes % 12.8 % (15.3-44.8); MCH 30.8 pg (27.0-35.0); MCHC 33.7 g/dL (32.0-36.0); MCV 91.3 fL (80-100); MPV 9.1 fL (7.6-11.3); Monocytes % 7.8 % (3.3-12.3); Neutrophils % 78.1 % (41.7-73.7); Nucleated Red Blood Cells % 0.1 % (0-0); Platelets 168 thou/uL (152-406); RBC Red Blood Cell Count 2.38 M/uL (3.86-4.86); Red Cell Distribution Width 19.4 % (12.1-15.2)
[2024-06-26 16:30] LABS: PT Prothrombin Time 11.4 SECONDS (9.4-12.5); PTT, Activated Partial Thromb 32.7 SECONDS (24.3-36.9); Protime INR 1.09
[2024-06-26 16:42] LABS: ALT/SGPT 25 U/L (13-56); AST/SGOT 38 U/L (15-37); Albumin 1.7 g/dL (3.4-5.0); Albumin/Globulin Ratio 0.3 (1.1-1.8); Alkaline Phosphatase 157 U/L (45-117); Anion Gap 16.3 mEq/L (5.0-15.0); BUN Blood Urea Nitrogen 75 mg/dL (7-18); Bicarbonate 11 mEq/L (21-32); Bilirubin Total 0.2 mg/dL (0.2-1.0); Globulin 5.3 g/dL (2.3-3.5); Glomerular Filtration Rate 6 ml/min (=/>90); Glucose Level 290 mg/dL (74-106); Potassium 4.3 mEq/L (3.5-5.1); Sodium Level 136 mEq/L (136-145); Troponin High Sensitivity 27.8 pg/mL (<58.9)
[2024-06-26 16:43] LABS: Bilirubin Direct < 0.2 mg/dL (0-0.2)
--- NOTE | 2024-06-26 16:51 | RAD REPORT ---
EXAM: CT Ct Stroke Brain Wo Cont HISTORY: STROKE ALERT COMPARISON: 07/12/2023 TECHNIQUE: Multiple contiguous axial images were obtained for a CT of the brain without contrast. Sag ittal and coronal reformats were performed. One or more of the following dose reduction techniques were used: Automated exposure control, adjus tment of the mA and kV according to patient size, and iterative reconstruction. Unless otherwise specified, incidental findings do not require dedicated imaging follow-up. FINDINGS: No evidence of hydrocephalus, intracranial hemorrhage, or extra-axial fluid collection. The brain is normal in morphology. The calvarium is intact. The visualized paranasal sinuses and mastoid air cells are essentially clear . IMPRESSION: No evidence of acute intracranial abnormality. THIS REPORT CONTAINS FINDINGS THAT MAY BE CRITICAL TO PATIENT CARE. The findings were verbally commun icated via telephone to Nathanael Coy on 06/26/2024 4:48 PM.
--- NOTE | 2024-06-26 16:54 | RAD REPORT ---
EXAMINATION: ONE VIEW CHEST XR CLINICAL INDICATION: Female, 69 years old.,ams TECHNIQUE: Frontal chest projection is submitted. Examination is limited by patient positioning and t echnique. COMPARISON: 05/08/2024 FINDINGS: The lungs are mildly hyperinflated and clear. No pneumothorax or sizable effusion. The heart is norm al in size. Mediastinal contours are unremarkable. IMPRESSION: No acute intrathoracic abnormalities.
[2024-06-26] MEDS ORDERED: NITROGLYCERIN 0.4 MG/TAB SL ONE (17:18)
[2024-06-26] MEDS ORDERED: D5W 1,000 ML IV ONE (17:18)
[2024-06-26] MEDS ORDERED: OCTREOTIDE ACETATE 100 MCG/ML ONE (18:28)
--- NOTE | 2024-06-26 18:35 | EDPHYS ---
Physician Documentation [facility] Name: Josr Parra Age: 69 yrs Sex: Female : 1955 Arrival Date: 06/26/2024 Time: 15:42 Bed 2 Private MD: ED Physician John Anaya HPI: 06/26 16:34 This 69 yrs old Black Female presents to ER via EMS with complaints of Chest Pain. rt 16:34 Patient presents to the ED with reported chest pain, slurred speech, reportedly onset rt yesterday but worsening today. Patient was noted to be mildly hyperglycemic, was given glucose by EMS. Slurred speech is continued. Denies other acute complaints at this time, symptoms are moderate in severity, no other aggravating or alleviating factors.. Historical: - Allergies: 16:08 Codeine; cm10 16:08 Promethazine; cm10 - PMHx: 16:08 Asthma; Diabetes - NIDDM; elevatedliver enzymes; Hepatitis; c; lumbar spine cm10 issues/pain; Cirrhosis of liver; Kidney disease; - PSHx: 16:08 tubes tied; cm10 - Immunization history:: Adult Immunizations unknown. - Infectious Disease History:: Denies. - Social history:: Smoking status: Patient reports the use of cigarette tobacco products, smokes one-half pack cigarettes per day. - Family history:: not pertinent. ROS: 16:34 Constitutional: Negative for fever, chills, and weight loss, Respiratory: Negative for rt shortness of breath, cough, wheezing, and pleuritic chest pain, Abdomen/GI: Negative for abdominal pain, nausea, vomiting, diarrhea, and constipation, MS/Extremity: Negative for injury and deformity, Skin: Negative for injury, rash, and discoloration, 16:34 Cardiovascular: Positive for chest pain, Negative for edema, 16:34 Neuro: Positive for speech changes, weakness, Negative for Exam: 16:34 Constitutional: This is a well developed, well nourished patient who is awake, alert, rt and in no acute distress. Head/Face: Normocephalic, atraumatic. Chest/axilla: Normal chest wall appearance and motion. Nontender with no deformity. No lesions are appreciated. Cardiovascular: Regular rate and rhythm with a normal S1 and S2. No gallops, murmurs, or rubs. Normal PMI, no JVD. No pulse deficits. Respiratory: Lungs have equal breath sounds bilaterally, clear to auscultation and percussion. No rales, rhonchi or wheezes noted. No increased work of breathing, no retractions or nasal flaring. Abdomen/GI: Soft, non-tender, with normal bowel sounds. No distension or tympany. No guarding or rebound. No evidence of tenderness throughout. 16:34 Neuro: Slurred speech, dysarthria noted, no cranial nerve deficits, strength and sensation intact in upper and lower extremities, 17:11 ECG was reviewed by the Attending Physician. rt Vital Signs: 16:05 BP 199 / 121; Pulse 102; Resp 15; Temp 97.6(O); Pulse Ox 100% on R/A; Weight 74.84 kg cm10 (M); Height 5 ft. 6 in. ; Pain 5/10; 16:54 BP 206 / 102; Pulse 100; Resp 19; Pulse Ox 100% ; cm10 17:00 BP 201 / 116; Pulse 103; Resp 18; Pulse Ox 100% ; cm10 17:30 BP 192 / 109; Pulse 112; Resp 23; Pulse Ox 100% ; cm10 18:00 BP 195 / 111; Pulse 106; Resp 17; Pulse Ox 100% on R/A; cm10 18:30 BP 203 / 110; Pulse 104; Resp 18; Pulse Ox 100% ; cm10 19:00 BP 200 / 113; Pulse 98; Resp 17; Pulse Ox 100% ; cm10 19:30 BP 184 / 95; Pulse 98; Resp 15; Pulse Ox 100% ; cm10 20:30 BP 195 / 119; Pulse 100; Resp 15; Pulse Ox 100% ; cm10 20:45 BP 179 / 95; Pulse 87; Resp 15; Pulse Ox 100% ; cm10 21:30 BP 196 / 98; Pulse 88; Resp 15; Pulse Ox 100% ; cm10 16:05 Body Mass Index 26.63 (74.84 kg, 167.64 cm) cm10 16:05 Pain Scale: Adult cm10 MDM: 15:53 Medical Screening Exam initiated rt 06/26 16:05 Order name: Basic Metabolic Panel; Complete Time: 16:51 rt 06/26 16:52 Interpretation: CA 6.8. rt 06/26 16:05 Order name: CBC with Diff; Complete Time: 16:51 rt 06/26 16:05 Order name: Hepatic Function; Complete Time: 16:51 rt 06/26 16:05 Order name: High Sensitivity Troponin; Complete Time: 16:51 rt 06/26 16:05 Order name: Protime (+inr); Complete Time: 16:51 rt 06/26 16:05 Order name: Ptt, Activated; Complete Time: 16:51 rt 06/26 16:05 Order name: UAM rt 06/26 16:09 Order name: Glucose, Ancillary Testing; Complete Time: 16:51 EDMS 06/26 17:09 Order name: Glucose, Ancillary Testing; Complete Time: 17:11 EDMS 06/26 18:33 Order name: Glucose, Ancillary Testing EDMS 06/26 18:51 Order name: Urinalysis w/ reflexes EDMS 06/26 19:45 Order name: Glucose, Ancillary Testing EDMS 06/26 16:05 Order name: CT Stroke Brain w/o Contrast; Complete Time: 16:56 rt 06/26 16:05 Order name: Stroke CXR 1 View; Complete Time: 16:56 rt 06/26 16:05 Order name: Accucheck; Complete Time: 16:11 rt 06/26 16:05 Order name: Cardiac monitoring; Complete Time: 17:11 rt 06/26 16:05 Order name: EKG - Nurse/Tech; Complete Time: 17:11 rt 06/26 16:05 Order name: IV Saline Lock; Complete Time: 16:11 rt 06/26 16:05 Order name: Labs collected and sent; Complete Time: 16:11 rt 06/26 16:05 Order name: NPO; Complete Time: 16:11 rt 06/26 16:05 Order name: O2 Per Protocol; Complete Time: 16:11 rt 06/26 16:05 Order name: O2 Sat Monitoring; Complete Time: 16:11 rt 06/26 16:05 Order name: Stroke Swallow Screen; Complete Time: 16:11 rt EC:11 Rate is 100 beats/min. Rhythm is regular, Normal Sinus Rhythm with No ectopy. QRS [place] rt is Normal. OK interval is normal. QRS interval is normal. QT interval is normal. No Q waves. No ST changes noted. Interpreted by me. Administered Medications: 16:01 Drug: D50W IVP 50 ml IVP once; (1 amp) Route: IVP; Site: right antecubital; jb4 17:00 Follow up: Response: No adverse reaction cm10 17:24 Drug: D5W IV 1000 ml IV at 100 ml/hr continuous Route: IV; Rate: 100 ml/hr; Site: right cm10 antecubital; 18:37 Follow up: Rate change 125 ml/hr cm10 22:05 Follow up: Response: No adverse reaction; IV Status: Infusion continued upon admission cm10 17:24 Drug: Nitroglycerin Sublingual 0.4 mg Sublingual once Route: Sublingual; cm10 17:39 Follow up: Response: No adverse reaction; Pain is decreased cm10 18:37 Drug: Octreotide Sub-Q 50 mcg Sub-Q once Route: Sub-Q; Site: abdomen; cm10 19:07 Follow up: Response: No adverse reaction cm10 20:48 Drug: Labetalol IV 10 mg IV at calculated rate once {Note: BP 208/103.} Route: IV; cm10 Rate: calculated rate; Site: right antecubital; 20:55 Follow up: Response: No adverse reaction; IV Status: Completed infusion; IV Intake: 2ml cm10 Point of Care Testing: Blood Glucose: 16:00 Blood Glucose: 34 mg/dL; cm10 17:12 Blood Glucose: 78 mg/dL; cm10 18:21 Blood Glucose: 86 mg/dL; cm10 19:45 Blood Glucose: 77 mg/dL; cm10 22:02 Blood Glucose: 106 mg/dL; cm10 Ranges: Critical Glucose Levels:Adult <50 mg/dl or >400 mg/dl <40 mg/dl or >180 mg/dl Disposition Summary: 06/26/24 18:35 Hospitalization Ordered Notes: Hospitalization Status: Observation rt Provider: Matheus Hutchinson rt Location: Telemetry/MedSurg (observation) rt Condition: Serious rt Problem: new rt Symptoms: have improved rt Bed/Room Type: Standard rt Room Assignment: 217(06/26/24 20:31) rv1 Diagnosis - Recurrent hypoglycemia rt Forms: - Medication Reconciliation Form rt - SBAR form rt - Leadership Thank You Letter rt Signatures: Dispatcher [employer] Otto Weinstein RN RN jb4 John Anaya MD MD rt Miri Cline rv1 Sandy Solis RN RN cm10 Corrections: (The following items were deleted from the chart) 16: 16:06 CT-STROKE BRAIN W/O CONTRAST+CT.RAD.BRZ ordered. EDMS EDMS 16:06 16:06 Chest Single View+RAD.RAD.BRZ ordered. EDMS EDMS 20:31 18:35 rt rv1
--- NOTE | 2024-06-26 18:35 | ER ---
Nurse's Notes [facility] Name: Josr Parra Age: 69 yrs Sex: Female : 1955 Arrival Date: 06/26/2024 Time: 15:42 Bed 2 Private MD: Diagnosis: Recurrent hypoglycemia Presentation: 06/26 16:05 Chief complaint: EMS states: Called to patient's home due to patient being lethargic, cm10 having slurred speech and chest pain. EMS reports upon arrival pt's BGL was 58 and pt received oral glucose. Pt arrived to ER lethargic with slurred speech. BGL checked and was 34. IV initiated and pt received D50. Pt's speech improved after. Coronavirus screen: Client denies travel out of the [place] in the last 14 days. Ebola Screen: Patient denies travel to an Ebola-affected area in the 21 days before illness onset. Initial Sepsis Screen: Does the patient meet any 2 criteria? HR > 90 bpm. Does the patient have a suspected source of infection? No. Patient's initial sepsis screen is negative. Risk Assessment: Do you want to hurt yourself or someone else? Patient reports no desire to harm self or others. Onset of symptoms was June 26, 2024. 16:05 Method Of Arrival: EMS: [facility] cm10 16:05 Acuity: JAM 2 cm10 Triage Assessment: 16:05 General: Appears ill, Behavior is drowsy. Pain: Complains of pain in chest Pain cm10 currently is 8 out of 10 on a pain scale. Neuro: No deficits noted. Level of Consciousness is lethargic, Oriented to person, place, time, situation, Speech is slurred. Respiratory: No deficits noted. Airway is patent Respiratory effort is even, unlabored, Respiratory pattern is regular, symmetrical. Historical: - Allergies: 16:08 Codeine; cm10 16:08 Promethazine; cm10 - PMHx: 16:08 Asthma; Diabetes - NIDDM; elevatedliver enzymes; Hepatitis; c; lumbar spine cm10 issues/pain; Cirrhosis of liver; Kidney disease; - PSHx: 16:08 tubes tied; cm10 - Immunization history:: Adult Immunizations unknown. - Infectious Disease History:: Denies. - Social history:: Smoking status: Patient reports the use of cigarette tobacco products, smokes one-half pack cigarettes per day. - Family history:: not pertinent. Screenin:05 [facility] ED Fall Risk Assessment (Adult) History of falling in the last 3 months, cm10 including since admission No falls in past 3 months (0 pts) Confusion or Disorientation Yes (5 pts) Intoxicated or Sedated No (0 pts) Impaired Gait Yes (1 pt) Mobility Assist Device Used Yes (1 pt) Altered Elimination No (0 pt) Score/Fall Risk Level 3 or more points = High Risk Oriented to surroundings, Maintained a safe environment, Hourly rounding (assess needs \T\ fall precautionary measures) done. Abuse screen: Denies threats or abuse. Denies injuries from another. Nutritional screening: No deficits noted. Tuberculosis screening: No symptoms or risk factors identified. Assessment: 17:12 Reassessment: Patient appears in no apparent distress at this time. Patient and/or cm10 family updated on plan of care and expected duration. Pain level reassessed. Patient is alert, oriented x 3, equal unlabored respirations, skin warm/dry/pink. Patient states feeling better. Patient states symptoms have improved. General: Appears in no apparent distress. comfortable, Behavior is calm, cooperative. Neuro: Level of Consciousness is awake, alert, obeys commands, Oriented to person, place, time, situation, Appropriate for age Speech is normal. Respiratory: No deficits noted. Airway is patent Respiratory effort is even, unlabored, Respiratory pattern is regular, symmetrical. 17:15 Cardiovascular: Rhythm is regular. cm10 17:15 Pain: Complains of pain in chest Pain radiates to left arm Pain began suddenly. cm10 18:22 Reassessment: Patient appears in no apparent distress at this time. Patient and/or cm10 family updated on plan of care and expected duration. Pain level reassessed. Patient is alert, oriented x 3, equal unlabored respirations, skin warm/dry/pink. 20:30 Reassessment: Patient appears in no apparent distress at this time. Patient and/or cm10 family updated on plan of care and expected duration. Pain level reassessed. Patient is alert, oriented x 3, equal unlabored respirations, skin warm/dry/pink. 21:21 General: Dr. Hutchinson made aware of patient's BP. Per Dr. Hutchinson, pt can go upstairs with cm10 current blood pressure and he will put in PRN medications.. Vital Signs: 16:05 BP 199 / 121; Pulse 102; Resp 15; Temp 97.6(O); Pulse Ox 100% on R/A; Weight 74.84 kg cm10 (M); Height 5 ft. 6 in. ; Pain 5/10; 16:54 BP 206 / 102; Pulse 100; Resp 19; Pulse Ox 100% ; cm10 17:00 BP 201 / 116; Pulse 103; Resp 18; Pulse Ox 100% ; cm10 17:30 BP 192 / 109; Pulse 112; Resp 23; Pulse Ox 100% ; cm10 18:00 BP 195 / 111; Pulse 106; Resp 17; Pulse Ox 100% on R/A; cm10 18:30 BP 203 / 110; Pulse 104; Resp 18; Pulse Ox 100% ; cm10 19:00 BP 200 / 113; Pulse 98; Resp 17; Pulse Ox 100% ; cm10 19:30 BP 184 / 95; Pulse 98; Resp 15; Pulse Ox 100% ; cm10 20:30 BP 195 / 119; Pulse 100; Resp 15; Pulse Ox 100% ; cm10 20:45 BP 179 / 95; Pulse 87; Resp 15; Pulse Ox 100% ; cm10 21:30 BP 196 / 98; Pulse 88; Resp 15; Pulse Ox 100% ; cm10 16:05 Body Mass Index 26.63 (74.84 kg, 167.64 cm) cm10 16:05 Pain Scale: Adult cm10 ED Course: 15:52 Patient arrived in ED. cm10 15:52 John Anaya MD is Attending Physician. rt 16:05 Patient has correct armband on for positive identification. Bed in low position. Call cm10 light in reach. Side rails up X2. Provided Education on: ER process and procedures.. Client placed on continuous cardiac and pulse oximetry monitoring. NIBP monitoring applied. cardiac monitor on. 16:08 Triage completed. cm10 16:09 Arm band placed on right wrist. Patient placed in an exam room, on a stretcher, on cm10 pulse oximetry. 16:09 Initial lab(s) drawn, by me, sent to lab. Inserted saline lock: 18 gauge in right cm10 antecubital area, using aseptic technique. Blood collected. Flushed with 10 mL NS. 16:11 Basic Metabolic Panel Sent. cm10 16:11 CBC with Diff Sent. cm10 16:11 Hepatic Function Sent. cm10 16:11 High Sensitivity Troponin Sent. cm10 16:11 Protime (+inr) Sent. cm10 16:11 Ptt, Activated Sent. cm10 16:25 Stroke CXR 1 View In Process Unspecified. EDMS 16:36 CT Stroke Brain w/o Contrast In Process Unspecified. EDMS 16:41 Sandy Solis, RN is Primary Nurse. cm10 18:34 Matheus Hutchinson MD is Hospitalizing Provider. rt 19:35 Blood glucose 77. rk3 21:59 No provider procedures requiring assistance completed. Patient admitted, IV remains in cm10 place. Patient maintains SpO2 saturation greater than 95% on room air. Administered Medications: 16:01 Drug: D50W IVP 50 ml IVP once; (1 amp) Route: IVP; Site: right antecubital; jb4 17:00 Follow up: Response: No adverse reaction cm10 17:24 Drug: D5W IV 1000 ml IV at 100 ml/hr continuous Route: IV; Rate: 100 ml/hr; Site: right cm10 antecubital; 18:37 Follow up: Rate change 125 ml/hr cm10 22:05 Follow up: Response: No adverse reaction; IV Status: Infusion continued upon admission cm10 17:24 Drug: Nitroglycerin Sublingual 0.4 mg Sublingual once Route: Sublingual; cm10 17:39 Follow up: Response: No adverse reaction; Pain is decreased cm10 18:37 Drug: Octreotide Sub-Q 50 mcg Sub-Q once Route: Sub-Q; Site: abdomen; cm10 19:07 Follow up: Response: No adverse reaction cm10 20:48 Drug: Labetalol IV 10 mg IV at calculated rate once {Note: BP 208/103.} Route: IV; cm10 Rate: calculated rate; Site: right antecubital; 20:55 Follow up: Response: No adverse reaction; IV Status: Completed infusion; IV Intake: 2ml 10 Medication: 22:04 VIS not applicable for this client. 10 Point of Care Testing: Blood Glucose: 16:00 Blood Glucose: 34 mg/dL; cm10 17:12 Blood Glucose: 78 mg/dL; cm10 18:21 Blood Glucose: 86 mg/dL; cm10 19:45 Blood Glucose: 77 mg/dL; cm10 22:02 Blood Glucose: 106 mg/dL; cm10 Ranges: Intake: 20:55 IV: 2ml; Total: 2ml. 10 Outcome: 18:35 Decision to Hospitalize by Provider. rt 22:03 Admitted to Med/surg accompanied by tech, via stretcher, room 217, 10 22:03 Condition: good 22:03 Instructed on the need for admit, 22:05 Patient left the ED. 10 Signatures: Dispatcher [employer] EDMS Otto Ceballos RN RN jb4 John Anaya MD MD rt Sandy Solis RN RN cm10 Gage Gallegos rk3 Corrections: (The following items were deleted from the chart) 16:11 16:09 Blood Glucose: Blood Glucose Reading=34 mg/dL. 10 10 17:12 17:09 Blood Glucose: Blood Glucose Reading=79 mg/dL. 10 cm10 19:56 19:49 BP 184 / 95; Pulse 98bpm; Resp 15bpm; Pulse Ox 100%; cm10 cm10
--- NOTE | 2024-06-26 18:47 | P.HP ---
Certification for Inpatient Patient admitted to: Inpatient With expected LOS: >2 Midnights Practitioner: I am a practitioner with admitting privileges, knowledge of patient current condition, hospital course, and medical plan of care. Services: Services provided to patient in accordance with Admission requirements found in Title 42 Section 412.3 of the Code of Federal Regulations Patient History Date of Service: 06/27/24 Reason for admission: Hyperglycemia History of Present Illness: 69 yrs old Female with past medical history of diabetes, hypertension, hyperlipidemia, ESRD, hepatitis C, history of cirrhosis liver, asthma, anxiety, chronic pain who was brought to ER with slurred speech and altered mental status which has been going on for the last 2 days and has been worsening and was brought to ER. Patient is a poor historian hence most of the history is obtained from chart review and talking to the ER physician and also talking to the family member at the bedside. Patient has not been doing well for the last 3 days and has been progressively getting more and more weak and slurred speech. Patient was noted to be hypoglycemic. Denies any fever or chills. No nausea vomiting or diarrhea. No sick contacts. Patient was assessed in the ER and found to be recurrent hypoglycemic and was admitted for further management Allergies amlodipine Allergy (Verified 05/09/24 01:53) Nausea/Vomiting codeine Allergy (Verified 05/09/24 01:53) Unknown Home medications list reviewed: Yes Home Medications: Diltiazem HCl [Diltiazem 24Hr Cd] 240 mg PO DAILY 02/11/21 Atorvastatin Calcium [Lipitor*] 10 mg PO BEDTIME 09/14/22 Furosemide 40 mg PO DAILY 05/09/24 Pantoprazole [Protonix Tab*] 40 mg PO DAILY 05/09/24 Pregabalin 75 mg PO BID 05/09/24 Calcitrol [Rocaltrol*] 0.5 mcg PO Q48H #15 cap 05/11/24 Calcium Carbonate [Tums Regular*] 1,000 mg PO AC #60 tab 05/11/24 Docusate/Senna [Senokot-S*] 2 tab PO BEDTIME PRN #30 tab 05/11/24 Glipizide [Glipizide ER] 5 mg PO DAILY #30 tab 05/11/24 Hydralazine [Apresoline*] 50 mg PO TID #90 tab 05/11/24 Polyethyl Gly 3350 [Glycolax*] 17 gm PO BID PRN #60 udbot 05/11/24 Sodium Bicarbonate 1,300 mg PO TID #180 tab 05/11/24 cloNIDine HCL [Catapres*] 0.3 mg PO TID #90 tab 05/11/24 - Past Medical/Surgical History Diabetic: Yes Past Medical History: Reviewed- Non-Contributory -: Diabetes mellitus type 2 -: Hypertension -: Asthma -: Hepatitis C/cirrhosis -: COPD -: GERD -: CKD Past Surgical History: Reviewed- Non-Contributory -: Tubal ligation Psychosocial/ Personal History: Lives at home with daughter - Family History Mother -: Kidney disease - Social History Smoking Status: Never smoker Alcohol use: No CD- Drugs: No Caffeine use: Yes Review of Systems 10-point ROS is otherwise unremarkable Physical Examination - Vital Signs Temperature: 97.9 F Blood Pressure: 208/106 Pulse: 94 Respirations: 18 Pulse Ox (%): 94 - Physical Exam General: Alert, Oriented x2, Mild distress HEENT: Atraumatic, Normocephalic Neck: Supple Respiratory: Clear to auscultation bilaterally, Normal air movement Cardiovascular: Regular rate/rhythm, Normal S1 S2 Capillary refill: <2 Seconds Gastrointestinal: Soft and benign, W/out hepatosplenomegaly Musculoskeletal: No clubbing, No swelling Integumentary: No rashes Neurological: Other (Alert, Awake, non focal ) Lymphatics: No axilla or inguinal lymphadenopathy - Studies Laboratory Data (last 24 hrs) 06/26/24 06/26/24 06/26/24 16:15 16:15 16:15 WBC 12.70 H Hgb 7.3 L Hct 21.7 L Plt Count 168 PT 11.4 INR 1.09 APTT 32.7 Sodium 136 Potassium 4.3 BUN 75 H Creatinine 7.37 H Glucose 290 H Total Bilirubin 0.2 AST 38 H ALT 25 Alkaline Phosphatase 157 H Assessment and Plan - Plan Recurrent hypoglycemia On oral antihyperglycemic agents Will hold OHA Started on D51/2NS Monitor Accu-Chek every 6 Leukocytosis Monitor CBC in a.m. Chest x-ray normal Slurring of speech CT head negative for any acute changes Hypocalcemia Replace calcium Hypertensive urgency Antihypertensives titrated Continue home medications and titrate as needed Hydralazine as needed Hyperlipidemia Continue statin ESRD Monitor renal parameters Electrolytes monitor and replace accordingly Nephrology consulted Diabetes Insulin sliding scale Accu-Chek before every 6 hours Anemia of chronic disease Monitor H&H closely No overt bleeding at this time GI/DVT prophylaxis Advanced directive full code Discharge Plan: Home Plan to discharge in: 48 Hours - Advance Directives Does patient have a Living Will: No Does patient have a Durable POA for Healthcare: No - Code Status/Comfort Care Code Status: Full Code Time Spent Managing Pts Care (In Minutes): 58
[2024-06-26] MEDS ORDERED: LABETALOL 20 MG/4ML SYRINGE IV ONE (19:47)
[2024-06-26] MEDS: CALCIUM GLUCONATE 1 GM IVPB 1 GM/50 ML BAG IV ONE (22:24)
[2024-06-26] MEDS: D5 0.45 NS 1,000 ML IV SCH (22:24)
[2024-06-26] MEDS: MORPHINE 2 MG/ML SYR IV PRN (22:36)
[2024-06-26] MEDS: ONDANSETRON 4 MG/2 ML VIAL IV PRN (22:36)
[2024-06-26] MEDS: HYDRALAZINE HCL 20 MG/ML VIAL IV PRN (22:38)
[2024-06-27] MEDS: ACETAMINOPHEN 500 MG TAB PO PRN (03:50)
[2024-06-27 06:02] LABS: Absolute Basophils 0.2 K/uL (0-0.5); Absolute Eosinophils 0.7 K/uL (0-0.5); Absolute Lymphocytes (CBC) 3.8 K/uL (0.7-4.9); Absolute Monocytes 1.6 K/uL (0.1-1.3); Basophils % 1.1 % (0-1.3); Eosinophils % 4.6 % (0-4.4); Hematocrit 22.4 % (36.0-45.0); Hemoglobin 7.4 g/dL (12.0-15.0); Lymphocytes % 26.8 % (15.3-44.8); MCH 30.4 pg (27.0-35.0); MCHC 33.2 g/dL (32.0-36.0); MCV 91.8 fL (80-100); MPV 8.8 fL (7.6-11.3); Monocytes % 11.5 % (3.3-12.3); Nucleated Red Blood Cells % 0.1 % (0-0); Platelets 184 thou/uL (152-406); RBC Red Blood Cell Count 2.44 M/uL (3.86-4.86); Red Cell Distribution Width 19.1 % (12.1-15.2)
[2024-06-27] MEDS: METOCLOPRAMIDE 10 MG/2mL INJ IV ONE (06:30)
[2024-06-27 06:34] LABS: Albumin 1.8 g/dL (3.4-5.0); Albumin/Globulin Ratio 0.3 (1.1-1.8); Anion Gap 13.6 mEq/L (5.0-15.0); Bilirubin Total 0.3 mg/dL (0.2-1.0); Globulin 5.3 g/dL (2.3-3.5); Potassium 4.6 mEq/L (3.5-5.1); Protein, Total 7.1 g/dL (6.4-8.2)
[2024-06-27] MEDS ORDERED: GLUCAGON 1 MG/VIAL IM PRN (07:45)
[2024-06-27] MEDS ORDERED: D10W 125 ML IV PRN (07:45)
[2024-06-27] MEDS ORDERED: DOCUSATE NA/SENNA CONC 1 TAB PO PRN (07:48)
[2024-06-27] MEDS: D5 0.45 NS 1,000 ML IV SCH (08:00)
[2024-06-27] MEDS: HYDRALAZINE HCL 25 MG TABLET PO SCH (09:12)
[2024-06-27] MEDS: CLONIDINE HCL 0.3 MG TAB PO SCH (09:12)
[2024-06-27] MEDS: DILTIAZEM HCL 120 MG SR CAP PO SCH (09:12)
[2024-06-27] MEDS: CALCITROL 0.25 MCG CAP PO SCH (09:12)
[2024-06-27] MEDS: SODIUM BICARB 325 MG TAB PO SCH (09:13)
[2024-06-27] MEDS: CALCIUM CARBONATE CHEW 500MG TAB PO SCH (11:30)
--- NOTE | 2024-06-27 13:15 | P.PN ---
Subjective Date of Service: 06/27/24 Chief Complaint: Hyperglycemia Subjective: No new changes, Improving Patient stated she is doing fine, denied any palpitation or agitation or other hypoglycemic symptoms. She denied any chest pain or shortness of breath or pedal penile edema. Patient confirmed that she has not started any renal replacement therapy yet. Review of Systems Other: Consitutional; fever(-), chills (-), rigor(-), night sweat(-), unintentional weight loss(-), malaise (-) HEENT; diplopia (-), rhinorrhea (-), epistaxis (-), otorrhea (-), otalgia (-) Respiratory; shortness of breath (-), wheezing (-), cough (-), sputum (-), pleuritic chest pain (-) Cardiovascular; chest pain (-), peripheral edema (-), paroxysmal nocturnal dyspnea (-), orthopnea (-) Gastrointestinal; nausea (-), vomiting (-), abdominal pain (-), diarrhea (-), constipation (-), melena (-), hematochezia (-) Genitourinary; urinary frequency (-), dysuria (-), urgency (-), flank pain (-), gross hematuria (-), incontinence (-) Skin; rash (-), 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 General: Not acutely ill looking, in no apparent distress,. HEENT: Normocephalic, atraumatic, nonicteric sclera, nonanemic conjunctive. Neck: Supple, without JVD or goiter or thyroid mass. Respiratory: Normal breathing effort, clear to auscultation bilaterally, no crackles no wheezing or rhonchi. Cardiovascular: Regular rate and rhythm, S1, S2 normal, no murmur no gallop. Gastrointestinal: Normal bowel sounds, nondistended, nontender, No ascites, , No masses, no hepatosplenomegaly. Extremities : No clubbing, No peripheral edema,. Integumentary: No rashes, petechia, suspected lesions. Lymphatics: No axilla or cervical lymphadenopathy. Neurology; alert awake oriented x3, no focal neurologic deficit, normal affection . mood and behavior. - Studies Laboratory Data (last 24 hrs) 06/26/24 06/26/24 06/26/24 16:15 16:15 16:15 WBC 12.70 H Hgb 7.3 L Hct 21.7 L Plt Count 168 PT 11.4 INR 1.09 APTT 32.7 Sodium 136 Potassium 4.3 BUN 75 H Creatinine 7.37 H Glucose 290 H Total Bilirubin 0.2 AST 38 H ALT 25 Alkaline Phosphatase 157 H Assessment And Plan - Plan 69 yrs old Female with past medical history of diabetes, hypertension, hyperlipidemia, none dialysis dependent CKD, hepatitis C, history of cirrhosis liver, asthma, anxiety, chronic pain who was brought to ER with slurred speech and altered mental status which has been going on for the last 2 days.. Patient was noted to be hypoglycemic on glipizide #1 Recurrent hypoglycemia on glipizide in the setting of CKD Acute glipizide on hold, fasting blood sugar 41 but asymptomatic, I will increase D5 infusion rate to 75 mL/h, continue monitor blood sugar by fingerstick , old chart review, hemoglobin A1c 6.3 in 2022, will obtain new hemoglobin A1c, patient likely need to discontinued glipizide permanently for overcorrection with hypoglycemia. 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
[2024-06-27] MEDS: HEPARIN 5000 UNIT/ML 1 ML VIAL SQ SCH (16:16)
[2024-06-27] MEDS ORDERED: EPOETIN ALFA 10,000 UNIT/ML VIAL IV SCH (18:15)
--- NOTE | 2024-06-27 18:35 | CON ---
Date of Consultation: 06/27/2024 Additional Consulting Physician: Hospitalist. Reason For Consultation: Elevated BUN and creatinine, fluid management. History Of Present Illness: This is a pleasant 69-year-old female, well known to me from the office with significant past medical history of hyperlipidemia, chronic kidney disease stage 5, cirrhosis, anxiety, chronic kidney disease stage 5 secondary to hypertension, nephrosclerosis, cardiorenal and hepatorenal syndrome. The patient used to refuse dialysis. The patient was in her regular state of health. The patient started having low blood sugar, low appetite, and shortness of breath even at rest. For that reason, reported to the hospital. Upon arrival to the hospital, the patient found elevation in BUN and creatinine, over volume. For that reason, we have been consulted. The patient denied taking any nonsteroidal. No IV contrast. Past Medical History: Includes: 1. Diabetes complicated with neuropathy and nephropathy. 2. Hypertension. 3. Congestive heart failure. 4. COPD. 5. Chronic kidney disease stage 5 secondary to diabetes, nephropathy, cardiorenal and hepatorenal. Past Surgical History: Includes tubal ligation. Home Medications: Include diltiazem, Lasix, calcitriol, glipizide, hydralazine, sodium bicarb, clonidine. Family History: Positive for diabetes, end-stage renal disease. Social History: Denied smoking. Denied alcohol. Denied drugs abuse. Review of Systems: Head and Neck: No red eye. No ear pain. GI: Has decreased intake. : No polyuria. No dysuria. No hematuria. 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 Respiratory: Has shortness of breath. Cardiovascular: Has orthopnea. Has leg swelling. Endocrine: No polydipsia. Skin: No rash. Physical Examination: General: When I saw the patient, the patient is lying in bed. Vital Signs: Blood pressure 159/82, pulse of 99. Chest: Crackles bilateral. Heart: S1, S2. Systolic murmur. Abdomen: Soft, nontender. Extremities: +2 edema. Neurologic: Alert. No focality. Laboratory Data: WBC 14.3, hemoglobin 7.4. Sodium 136, potassium 4.6, bicarb 13, BUN 75, creatinine 7.4, GFR of 6, calcium 7.5. Urinalysis not done. Current Medications: The patient is on include: 1. Atorvastatin. 2. Clonidine. 3. Diltiazem. 4. Hydralazine. 5. Labetalol. 6. Sodium bicarb. 7. Metoprolol. 8. D5 half normal. 9. Calcitriol. Assessment And Plan: 1. Chronic kidney disease stage 5, progression to end-stage renal disease. I had long discussion with the patient in the presence of the daughter the need to initiate renal replacement therapy as the patient started being uremic. After long discussion, the patient agreed. We will consult Surgery to place tunneled hemodialysis catheter. Then, we will proceed with dialysis. 2. Acidosis secondary to renal failure. Will be corrected with dialysis. We will start bicarb drip. 3. Anemia of chronic kidney disease. We will send for anemia workup. 4. Uremia. We will initiate dialysis. 5. Over volume. We will start aggressive diuresis. We will challenge the patient tomorrow. 6. Secondary hyperparathyroidism. Continue calcitriol. We will follow up phosphorus. 7. Diabetes, as by Primary. Thank you for allowing us to participate in the care of your patient. Time spent examining the patient [id number] reviewing data lab and an audiology placing order discussing the case with the patient discussing the case with the team facilitator including hospitalist and nursing staff more than 55-minute ZAIDA Voice ID: [id number] Report ID: [id number] AYAH
[2024-06-27] MEDS: D5W 1,000 ML with NA BICARB 8.4% 150 MEQ IV SCH (20:58)
[2024-06-27] MEDS: ATORVASTATIN 10 MG TAB PO SCH (21:00)
[2024-06-27] MEDS: GLUCERNA SHAKE 237 ML CAN PO SCH (21:00)
[2024-06-27] MEDS: HYDROCODONE/APAP 5/325 MG TAB PO PRN (21:30)
[2024-06-28 04:37] LABS: Percent Reticulocyte Count 3.25 % (0.4-2.05); RBC Red Blood Cell Count 2.13 M/uL (3.86-4.86)
[2024-06-28 05:46] LABS: Albumin 1.7 g/dL (3.4-5.0); Anion Gap 12.3 mEq/L (5.0-15.0); Ferritin 171.8 ng/mL (8-252); Phosphorus 7.2 mg/dL (2.5-4.9); Potassium 4.3 mEq/L (3.5-5.1); Uric Acid 8.5 mg/dL (2.6-6.0)
[2024-06-28 05:53] LABS: Thyroid Stimulating Hormone 7.36 uIU/mL (0.358-3.740)
[2024-06-28] MEDS: DEXTROSE 10%-WATER 500 ML IV SCH (07:30)
[2024-06-28 11:08] LABS: Hepatitis B Core IgM Nonreactive (Nonreactive); Hepatitis B surface AG Interp. Nonreactive (Nonreactive)
[2024-06-28 12:55] LABS: Hepatitis B Surface Ab - Quant < 3.10 mIU/mL (<8.0)
[2024-06-28 12:56] LABS: HBsAG Nonreactive Report Report
--- NOTE | 2024-06-28 13:07 | P.PN ---
Subjective Date of Service: 06/28/24 Chief Complaint: Hyperglycemia Subjective: No new changes Her fasting blood sugar is 34 point no symptoms for hypoglycemia she is fasting for a Ruperto catheter placement to initiate hemodialysis however patient refused to get dialyzed.. Review of Systems Other: Consitutional; fever(-), chills (-), rigor(-), night sweat(-), unintentional weight loss(-), malaise (+) HEENT; diplopia (-), rhinorrhea (-), epistaxis (-), otorrhea (-), otalgia (-) Respiratory; shortness of breath (-), wheezing (-), cough (-), sputum (-), pleuritic chest pain (-) Cardiovascular; chest pain (-), peripheral edema (-), paroxysmal nocturnal dyspnea (-), orthopnea (-) Gastrointestinal; nausea (-), vomiting (-), abdominal pain (-), diarrhea (-), constipation (-), melena (-), hematochezia (-) Genitourinary; urinary frequency (-), dysuria (-), urgency (-), flank pain (-), gross hematuria (-), incontinence (-) Skin; rash (-), 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 General: Not acutely ill looking, in no apparent distress,. HEENT: Normocephalic, atraumatic, nonicteric sclera, nonanemic conjunctive. Neck: Supple, without JVD or goiter or thyroid mass. Respiratory: Normal breathing effort, clear to auscultation bilaterally, no crackles no wheezing or rhonchi. Cardiovascular: Regular rate and rhythm, S1, S2 normal, no murmur no gallop. Gastrointestinal: Normal bowel sounds, n ondistended, nontender, No ascites, , No masses, no hepatosplenomegaly. Extremities : No clubbing, No peripheral edema,. Integumentary: No rashes, petechia, suspected lesions. Lymphatics: No axilla or cervical lymphadenopathy. Neurology; alert awake oriented x3, no focal neurologic deficit, normal affection . mood and behavior. Assessment And Plan - Plan 69 yrs old Female with past medical history of diabetes, hypertension, hyperlipidemia, none dialysis dependent CKD, hepatitis C, history of cirrhosis liver, asthma, anxiety, chronic pain who was brought to ER with slurred speech and altered mental status which has been going on for the last 2 days.. Patient was noted to be hypoglycemic on glipizide #1 Recurrent hypoglycemia on glipizide in the setting of CKD her glipizide on hold, fasting blood sugar 34 but asymptomatic, I will i change D5 to D10 at 50 mL/h, continue on hypoglycemic protocol with monitor blood sugar by fingerstick , old chart review, hemoglobin A1c 6.3 in 2022, new hemoglobin A1c pending, patient likely need to discontinued glipizide permanently for overcorrection with hypoglycemia. 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
--- NOTE | 2024-06-28 20:30 | CON ---
Date of Consultation: 06/28/2024 Diagnosis: Renal failure. History Of Present Illness: This is a case of a 69-year-old patient admitted to the hospital with di abetes, hypertension, hyperlipidemia, end-stage renal disease, hepatitis C, cirrhosis of the liver, a sthma, anxiety, chronic abdominal pain. I was contacted by the renal service for placement of hemodi alysis catheter. Allergies: CODEINE, AMLODIPINE. Medications: Reviewed. Past Medical History: As above. Past Surgical History: Tubal ligation. Family History: Kidney disease. Social History: She does not smoke. She does not drink alcohol. Review of Systems: No abdominal pain. No fever. No shortness of breath. No chest pain at this moment. Physical Examination: Vital Signs: Reviewed. General: The patient is awake, alert, oriented x3. HEENT: Pupils are equal and reactive. Anicteric. Neck: Supple. Chest: Clear. Abdomen: Soft and depressible. No guarding or rebound. Extremities: Good capillary refill. Laboratory Data: Blood work shows a WBC count of 14, hemoglobin of 7.4 with platelets of 184. INR i s 1.09. Glucose at least initially was 34. This has been corrected by the primary doctors. Chlorid e is 115, bicarb is 15, creatinine is 7.83. Assessment: A 69-year-old patient in need of hemodialysis catheter. We were ready today. We will p ut her on the schedule, but she does not want to receive dialysis and she does not want to put in the catheter either to the point that she even ordered some [employer] food and ate in the front of the nurses. We once again discussed with her pros and cons of hemodialysis catheter placement, which in clude, but not limited to infection, bleeding, damage to adjacent structures, anesthesia complication , DVTs, PE, pneumothorax, chronic infection, endocarditis, VT, and even . At the same time if s he does not receive dialysis, then medically compromise her life and be life-threatening. She is sti ll awake and alert, and she says no. We do not want this at this moment and unfortunately we had to cancel the case for today. The primary doctors are working on the case and hopefully they will get h er workup. Hopefully, she will never need a catheter in the future, but if she does, hopefully she c an be explained once again the need for that and then re-consult when is ready. LEIGH/QUIANA Voice ID: [id number] Report ID: [id number]
[2024-06-28] MEDS: FUROSEMIDE 40 MG/4 ML VIAL IV SCH (21:25)
[2024-06-28] MEDS: NACHLORIDE 0.45% 1,000 ML with NA BICARB 8.4% 50 MEQ IV SCH (22:00)
--- NOTE | 2024-06-29 00:56 | PN ---
Date of Progress Note: 06/28/2024 Chief Complaint: Acute kidney injury, hepatorenal syndrome. The patient was found to have metabolic acidosis, hypokalemia. Subjective: The patient is a 69-year-old female with past medical history significant for hyperlipidemia; chronic kidney disease, stage 5; cirrhosis; anxiety; hypertensive heart and kidney disease; nephrosclerosis; cardiorenal and hepatorenal syndrome. The patient previously refused dialysis. The patient came to the hospital because of hypoglycemia, low appetite, failure to thrive. She was found to have elevated BUN and creatinine level, electrolyte abnormalities . Past Medical History: Diabetes mellitus complicated with nephropathy and neuropathy, hypertension, congestive heart failure, COPD, chronic kidney disease secondary to diabetes mellitus, hypertensive heart and kidney disease, cardiorenal syndrome and hepatorenal syndrome. Review of Systems: Denies chest pain, palpitation. Physical Examination: Lungs: Clear to auscultation bilaterally. Heart: S1, S2. Abdomen: Soft. Extremities: Slight edema. Impression And Plan: 1. Advanced chronic kidney disease, stage 5, complicated by electrolyte abnormalities. Monitor renal panel and continue supplementation according to lab results. 2. Chronic kidney disease, stage 5, progression to end stage, plan is to initiate dialysis. 3. Acidosis secondary to renal failure. The patient was started on bicarbonate drip. Monitor renal panel. 4. Uremia, plan to initiate dialysis. 5. Secondary hyperparathyroidism, continue calcitriol. Monitor phosphorus and calcium level. JEFF/QUIANA Voice ID: [id number] Report ID: [id number] AYAH
[2024-06-29] MEDS: SUMATRIPTAN SUCC 6MG/0.5ML VIAL SQ ONE (02:16)
[2024-06-29 05:07] LABS: Albumin 1.5 g/dL (3.4-5.0); Anion Gap 16.6 mEq/L (5.0-15.0); Phosphorus 8.2 mg/dL (2.5-4.9); Potassium 4.6 mEq/L (3.5-5.1)
[2024-06-29] MEDS: SEVELAMER CARBONATE 800 MG TABLET PO SCH (08:36)
[2024-06-29] MEDS: NACHLORIDE 0.45% 1,000 ML with NA BICARB 8.4% 50 MEQ IV SCH (09:29)
--- NOTE | 2024-06-29 13:37 | P.PN ---
Subjective Date of Service: 06/29/24 Chief Complaint: Hypoglycemia Subjective: Improving Her fasting blood sugar is 86, fingerstick over 70 on D10 infusion, no hypoglycemic symptom, she is complaining of nausea and malaise but no vomiting Review of Systems Other: Consitutional; fever(-), chills (-), rigor(-), night sweat(-), unintentional weight loss(-), malaise (+) HEENT; diplopia (-), rhinorrhea (-), epistaxis (-), otorrhea (-), otalgia (-) Respiratory; shortness of breath (-), wheezing (-), cough (-), sputum (-), pleuritic chest pain (-) Cardiovascular; chest pain (-), peripheral edema (-), paroxysmal nocturnal dyspnea (-), orthopnea (-) Gastrointestinal; nausea (+), vomiting (-), abdominal pain (-), diarrhea (-), constipation (-), melena (-), hematochezia (-) Genitourinary; urinary frequency (-), dysuria (-), urgency (-), flank pain (-), gross hematuria (-), incontinence (-) Skin; rash (-), 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 General: Not acutely ill looking, in no apparent distress,. HEENT: Normocephalic, atraumatic, nonicteric sclera, nonanemic conjunctive. Neck: Supple, without JVD or goiter or thyroid mass. Respiratory: Normal breathing effort, clear to auscultation bilaterally, no crackles no wheezing or rhonchi. Cardiovascular: Regular rate and rhythm, S1, S2 normal, no murmur no gallop. Gastrointestinal: Normal bowel sounds, nondistended, nontender, No ascites, , No masses, no hepatosplenomegaly. Extremities : No clubbing, No peripheral edema,. Integumentary: No rashes, petechia, suspected lesions. Lymphatics: No axilla or cervical lymphadenopathy. Neurology; alert awake oriented x3, no focal neurologic deficit, normal affection . mood and behavior. Assessment And Plan - Plan 69 yrs old Female with past medical history of diabetes, hypertension, hyperlipidemia, none dialysis dependent CKD, hepatitis C, history of cirrhosis liver, asthma, anxiety, chronic pain who was brought to ER with slurred speech and altered mental status which has been going on for the last 2 days.. Patient was noted to be hypoglycemic on glipizide #1 Recurrent hypoglycemia on glipizide in the setting of CKD her glipizide on hold, blood glucose level improving on D10 infusion,, continue on hypoglycemic protocol with D10 infusion, hemoglobin A1c less than 3.5, overcorrected, , patient need to discontinue glipizide permanently. 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
--- NOTE | 2024-06-29 23:56 | PN ---
Date of Progress Note: 06/29/2024 Subjective: The patient declined dialysis earlier. Her creatinine continued to increase. I explain ed the risk of declining dialysis including uremia, fluid overload, and . The patient stated sh e will do dialysis. We will contact Dr. Solis for dialysis catheter placement on Monday. Continu e bicarbonate drip. Objective: Vital Signs: Temperature 98.1, pulse rate 88, blood pressure 140/65. General: Awake, alert, not in distress. Neck: Supple. No elevated JVD. Heart: Regular rate and rhythm. Normal S1, S2. Chest: Clear to auscultation bilaterally. No rales or wheezes. Abdomen: Soft, nontender. Extremities: No edema. Laboratory Data: White count 14.3, hemoglobin 7.4. Sodium 138, potassium 4.6, BUN 80, creatinine 8. 3, calcium 6.7, albumin 1.5. Assessment And Plan: 1. End-stage renal disease. The patient declined dialysis earlier. Stated right now she wants to do dialysis. We will consult Surgery for dialysis catheter placement on Monday. We will proceed with dialysis. The patient agreed. If the patient continued to decline, then we will recommend comfort c are. 2. Metabolic acidosis. Continue bicarbonate drip. 3. Hypertension. Blood pressure controlled. 4. Hypocalcemia. Corrected calcium is about 1.8. We will start the patient on calcitriol. 5. Anemia of chronic disease. Low iron stores. We will start the patient on IV iron and Epogen. 6. Metabolic bone disease. The patient has hypocalcemia and hyperparathyroidism. Continue calcitrio l as of now. Once calcium improves, we will start the patient on Sensipar. Thanks for allowing me to participate in the patient's care. Total time spent 55 minutes including d ocumentation, reviewing labs, and placing orders. ROSANNE/QUIANA Voice ID: [id number] Report ID: [id number]
[2024-06-30 05:46] LABS: Albumin 1.7 g/dL (3.4-5.0); Anion Gap 11.5 mEq/L (5.0-15.0); Phosphorus 8.1 mg/dL (2.5-4.9); Potassium 4.5 mEq/L (3.5-5.1)
[2024-06-30] MEDS: SOD FERRIC GLUC COMPLX/SUCROSE 125 MG in NA CHLORIDE 0.9% 100 ML IV SCH (10:48)
--- NOTE | 2024-06-30 11:21 | P.PN ---
Subjective Date of Service: 06/30/24 Chief Complaint: Hypoglycemia Subjective: Improving Her fasting blood sugar 148, random blood sugar over 200 on D10 infusion,,she is complaining of nausea and malaise and headache. Patient decided to go for dialysis. Review of Systems Other: Consitutional; fever(-), chills (-), rigor(-), night sweat(-), unintentional weight loss(-), malaise (+) HEENT; diplopia (-), rhinorrhea (-), epistaxis (-), otorrhea (-), otalgia (-) Respiratory; shortness of breath (-), wheezing (-), cough (-), sputum (-), pleuritic chest pain (-) Cardiovascular; chest pain (-), peripheral edema (-), paroxysmal nocturnal dyspnea (-), orthopnea (-) Gastrointestinal; nausea (+), vomiting (-), abdominal pain (-), diarrhea (-), constipation (-), melena (-), hematochezia (-) Genitourinary; urinary frequency (-), dysuria (-), urgency (-), flank pain (-), gross hematuria (-), incontinence (-) Skin; 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 General: Not acutely ill looking, in no apparent distress,. HEENT: Normocephalic, atraumatic, nonicteric sclera, nonanemic conjunctive. Neck: Supple, without JVD or goiter or thyroid mass. Respiratory: Normal breathing effort, clear to auscultation bilaterally, no crackles no wheezing or rhonchi. Cardiovascular: Regular rate and rhythm, S1, S2 normal, no murmur no gallop. Gastrointestinal: Normal bowel sounds, nondistended, nontender, No ascites, , No masses, no hepatosplenomegaly. Extremities : No clubbing, No peripheral edema,. Integumentary: No rashes, petechia, suspected lesions. Lymphatics: No axilla or cervical lymphadenopathy. Neurology; alert awake oriented x3, no focal neurologic deficit, normal affection . mood and behavior. Assessment And Plan - Plan 69 yrs old Female with past medical history of diabetes, hypertension, hyperlipidemia, none dialysis dependent CKD, hepatitis C, history of cirrhosis liver, asthma, anxiety, chronic pain who was brought to ER with slurred speech and altered mental status which has been going on for the last 2 days.. Patient was noted to be hypoglycemic on glipizide #1 Recurrent hypoglycemia on glipizide in the setting of CKD her glipizide on hold, blood glucose level improving on D10 infusion,, I will discontinue D10 infusion today and keep her on hypoglycemic protocol hemoglobin A1c less than 3.5, overcorrected, , patient need to discontinue glipizide permanently. 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
[2024-07-01 06:30] LABS: Albumin 1.7 g/dL (3.4-5.0); Albumin/Globulin Ratio 0.4 (1.1-1.8); Anion Gap 11.1 mEq/L (5.0-15.0); Bilirubin Total 0.3 mg/dL (0.2-1.0); Globulin 4.6 g/dL (2.3-3.5); Magnesium 2.2 mg/dL (1.6-2.4); Phosphorus 8.4 mg/dL (2.5-4.9); Potassium 5.1 mEq/L (3.5-5.1); Protein, Total 6.3 g/dL (6.4-8.2)
[2024-07-01 08:10] LABS: Hemoglobin 6.2 g/dL (12.0-15.0); MCH 29.8 pg (27.0-35.0); MCHC 32.5 g/dL (32.0-36.0); MCV 91.9 fL (80-100); MPV 8.4 fL (7.6-11.3); Platelets 178 thou/uL (152-406); RBC Red Blood Cell Count 2.06 M/uL (3.86-4.86); Red Cell Distribution Width 18.7 % (12.1-15.2)
[2024-07-01] MEDS: LORAZEPAM 0.5 MG TABLET PO ONE (09:27)
[2024-07-01 10:19] LABS: Absolute Basophils 0.1 K/uL (0-0.5); Absolute Eosinophils 0.7 K/uL (0-0.5); Absolute Lymphocytes (CBC) 3.4 K/uL (0.7-4.9); Absolute Monocytes 1.5 K/uL (0.1-1.3); Absolute Neutrophil 5.2 K/uL (1.8-8.0); Basophils % 0.9 % (0-1.3); Eosinophils % 6.2 % (0-4.4); Hematocrit 18.9 % (36.0-45.0); Hemoglobin 6.3 g/dL (12.0-15.0); Lymphocytes % 31.4 % (15.3-44.8); MCH 30.7 pg (27.0-35.0); MCHC 33.3 g/dL (32.0-36.0); MCV 92.1 fL (80-100); MPV 8.6 fL (7.6-11.3); Monocytes % 14.1 % (3.3-12.3); Neutrophils % 47.4 % (41.7-73.7); Nucleated Red Blood Cells % 0.2 % (0-0); Platelets 173 thou/uL (152-406); RBC Red Blood Cell Count 2.05 M/uL (3.86-4.86); Red Cell Distribution Width 18.5 % (12.1-15.2)
[2024-07-01] MEDS: NA CHLORIDE 0.9% 250 ML ONE (12:38)
[2024-07-01] MEDS ORDERED: NA CHLORIDE 0.9% 250 ML IV SCH (13:00)
--- NOTE | 2024-07-01 17:05 | P.PN ---
Date of Service: 07/01/24 subjective Mild anxiety, nephrology following to initiate hemodialysis Family at bedside Review of Systems 10-point ROS is otherwise unremarkable Physical Examination - Vital Signs reviewed - Physical Exam General: Alert, Oriented x2, no acute distress HEENT: Atraumatic, Normocephalic Neck: Supple Respiratory: Clear to auscultation bilaterally, Normal air movement Cardiovascular: Regular rate/rhythm, Normal S1 S2 Capillary refill: <2 Seconds Gastrointestinal: Soft and benign, W/out hepatosplenomegaly Musculoskeletal: No clubbing, No swelling Integumentary: No rashes Neurological: Other (Alert, Awake, non focal deficits) Assessment and Plan - Plan Acute on chronic renal failure ESRD Monitor renal parameters Electrolytes monitor and replace accordingly Nephrology consulted Surgery consulted to initiate hemodialysis catheter Checks x-ray, hepatitis panel ordered for outpatient hemodialysis anemia of secondary to end-stage renal disease Type and cross, transfuse during dialysis Monitor H&H closely No overt bleeding at this time Recurrent hypoglycemia resolved On oral antihyperglycemic agents Will hold OHA Started on D51/2NS Monitor Accu-Chek every 6 Leukocytosis resolved Monitor CBC in a.m. Chest x-ray normal Slurring of speech resolved CT head negative for any acute changes Hypocalcemia Replace calcium as needed Hypertensive urgency Antihypertensives titrated Continue home medications and titrate as needed Hydralazine as needed Hyperlipidemia Continue statin Diabetes Insulin sliding scale Accu-Chek before every 6 hours GI/DVT prophylaxis Advanced directive full code Discharge Plan: Home Plan to discharge in: 48 Hours - Advance Directives Does patient have a Living Will: No Does patient have a Durable POA for Healthcare: No - Code Status/Comfort Care Code Status: Full Code Time Spent Managing Pts Care (In Minutes): 35 <Kiana Miller - Last Filed: 07/01/24 17:06> Patient was seen and examined. Events of the last 24 hours have been noted. Spoke with with FRANCES regarding patient's clinical picture after evaluating and ex amining the patient independently. I performed a substantial part of the MDM during this patient's care today. I personally made or approved the documented management plan and acknowledge its risk of complications. I agree with the findings and documentation provided in the FRANCES's notes. Patient with end-stage renal disease; arranging for outpatient hemodialysis. <Alexandra Masters - Last Filed: 07/08/24 05:01>
[2024-07-01] MEDS: FUROSEMIDE 40 MG/4 ML VIAL ONE (18:04)
--- NOTE | 2024-07-01 18:33 | RAD REPORT ---
EXAMINATION: CT HEAD WITHOUT CONTRAST-cerebral cortical CLINICAL INDICATION: Female, 69 years old.Stroke Protocol TECHNIQUE: Axial CT images from the skull base to the vertex without intravenous contrast using a str jasmina protocol. Coronal and sagittal reformatted images were created from the data set. One or more of the following dose reduction techniques were used: Automated exposure control, adjustment of the m A and/or kV according to patient size, and/or iterative reconstruction. Unless otherwise specified, incidental findings do not require dedicated imaging follow-up. [id number]. COMPARISON: 06/26/2024 FINDINGS: INTRACRANIAL: No acute intracranial hemorrhage. No hydrocephalus. No mass effect or midline shift. No significant white matter disease. VASCULATURE: No visualized abnormalities in the arteries or dural venous sinuses. SCALP/SKULL: No significant soft tissue or osseous abnormalities. SINUSES: The visualized paranasal sinuses and mastoid air cells are predominantly clear. IMPRESSION: No acute intracranial abnormality. THIS REPORT CONTAINS FINDINGS THAT MAY BE CRITICAL TO PATIENT CARE. Regarding negative stroke CT, erin wesley were communicated to Dr. Masters on 07/01/2024 6:30 PM.
--- NOTE | 2024-07-01 18:34 | RAD REPORT ---
EXAM: Chest Single View HISTORY: rapid breathing` COMPARISON: 06/26/2024 FINDINGS: LUNGS/PLEURA: No definite acute process identified. MEDIASTINUM: The mediastinal silhouette is within normal limits. CARDIAC: The cardiac silhouette is within normal limits. UPPER ABDOMEN: No significant abnormality. BONES: No acute abnormality. LINES/TUBES/OTHER: N/A IMPRESSION: No acute process or significant change compared with 06/26/2024.
[2024-07-01] MEDS ORDERED: TENECTEPLASE 50 MG/10 ML VIAL IV ONE (18:52)
[2024-07-01] MEDS: TENECTEPLASE 50 MG/10 ML VIAL IV STA (19:08)
[2024-07-01 19:48] LABS: PT Prothrombin Time 11.2 SECONDS (9.4-12.5); PTT, Activated Partial Thromb 37.1 SECONDS (24.3-36.9); Protime INR 1.07
[2024-07-01 19:55] LABS: Anion Gap 11.6 mEq/L (5.0-15.0); Potassium 4.6 mEq/L (3.5-5.1)
--- NOTE | 2024-07-01 19:55 | P.PN ---
Date of Service: 07/01/24 Subjective Patient is a 69-year-old female who was scheduled for Tesio catheter today but her hemoglobin was low so this was to be done in the morning after we gave patient a couple pints of blood. Patient hemoglobin was 6.2 and she was given 1 pint of blood. Around 1700, patient developed altered mentation. Prior to that time. She was interacting appropriately. However at 1700 she was confused and aphasic and having a hard time catching her words. She was also diffusely weak. Her left side had a drift and she had dysarthria. Patient NIH is stroke scale was 9. And we consulted neurology after CT of the head without contrast was negative patient was given TNK. We did speak to the family regarding the risks and they decided that they would wanted to proceed. Patient also will need hemodialysis as we need CT angio of the head and neck to rule out large vessel occlusion. MRI of the brain tomorrow as long as clinically doing well. If there is any changes in her mentation she will need a stat CT scan. At this time patient will be admitted to the ICU. Physical Examination - Vital Signs reviewed - Physical Exam General: Alert, Oriented x2, Mild distress Respiratory: Clear to auscultation bilaterally, Normal air movement Cardiovascular: Regular rate/rhythm, Normal S1 S2 Gastrointestinal: Soft and benign, W/out hepatosplenomegaly Musculoskeletal: No clubbing, No swelling Integumentary: No rashes Neurological: Assessment and Plan - Assessment and Plan 1. 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 MRI is pending. CT angio without any acute abnormality. CT of the head with no hemorrhagic conversion. TNK given. Neurology consultation pending. Will do physical therapy and occupational therapy as well as speech therapy. Check lipid profile. Continue with DVT prophylaxis after 24 hours. 2. ESRD; Plan to start hemodialysis in 24 hours after TNK is at the patient's system. Will keep patient NPO with speech therapy consultation. Appreciate Nephrology consultation. 3. Hypocalcemia; continue with phoslo and oscal 4. Hypertensive urgency; Antihypertensives titrated. Continue home medications and titrate as needed. Hydralazine as needed 5. Diabetes mellitus type 2; Accu-Chek before every 6 hours 6. Anemia of chronic disease; Monitor H&H closely. No overt bleeding at this time GI/DVT prophylaxis Advanced directive full code Discharge Plan: Home Plan to discharge in: 48-72 Hours - Advance Directives Does patient have a Living Will: No Does patient have a Durable POA for Healthcare: No - Code Status/Comfort Care Code Status: [employer] Specialist Spent Managing Pts Care (In Minutes): 58 Critical care: Yes Time Spent: 60 minutes
[2024-07-01 20:14] LABS: Absolute Basophils 0.1 K/uL (0-0.5); Absolute Eosinophils 0.8 K/uL (0-0.5); Absolute Lymphocytes (CBC) 3.1 K/uL (0.7-4.9); Eosinophils % 7.9 % (0-4.4); Hematocrit 23.5 % (36.0-45.0); Hemoglobin 7.9 g/dL (12.0-15.0); Lymphocytes % 31.3 % (15.3-44.8); MCHC 33.8 g/dL (32.0-36.0); MCV 91.6 fL (80-100); MPV 9.3 fL (7.6-11.3); Monocytes % 9.6 % (3.3-12.3); Neutrophils % 50.2 % (41.7-73.7); Nucleated Red Blood Cells % 0.2 % (0-0); Platelets 170 thou/uL (152-406); RBC Red Blood Cell Count 2.56 M/uL (3.86-4.86); Red Cell Distribution Width 17.7 % (12.1-15.2)
--- NOTE | 2024-07-01 23:44 | RAD REPORT ---
EXAM: CT Angiography Head With Intravenous Contrast CLINICAL HISTORY: The patient is 69 years old and is Female; Stroke TECHNIQUE: Axial computed tomographic angiography images of the head with intravenous contrast. S agittal and coronal reformatted images were created and reviewed. This CT exam was performed using one or more of the following dose reduction techniques: automated exposure control, adjustmen t of the mA and/or kV according to patient size, and/or use of iterative reconstruction technique. MIP reconstructed images were created and reviewed. COMPARISON: No relevant prior studies available. FINDINGS: Right internal carotid artery: No acute findings. Intracranial segment is patent with no signif icant stenosis. No aneurysm. Right anterior cerebral artery: Unremarkable. No occlusion or significant stenosis. No aneury sm. Right middle cerebral artery: Unremarkable. No occlusion or significant stenosis. No aneurysm . Right posterior cerebral artery: Unremarkable. No occlusion or significant stenosis. No aneur ysm. Right vertebral artery: Unremarkable as visualized. Left internal carotid artery: No acute findings. Intracranial segment is patent with no signifi cant stenosis. No aneurysm. Left anterior cerebral artery: Unremarkable. No occlusion or significant stenosis. No aneurys m. Left middle cerebral artery: Unremarkable. No occlusion or significant stenosis. No aneurysm. Left posterior cerebral artery: Unremarkable. No occlusion or significant stenosis. No aneury sm. Left vertebral artery: Unremarkable as visualized. Basilar artery: Unremarkable. No occlusion or significant stenosis. No aneurysm. * A single impression for all exams can be found at the end of this report EXAM: CT Angiography Neck With Intravenous Contrast CLINICAL HISTORY: The patient is 69 years old and is Female; Stroke TECHNIQUE: Routine carotid CT angiography protocol was performed with intravenous contrast. NASCE T criteria using the distal ICAs for comparison were used for evaluation of stenoses. Sagittal and coronal reformatted images were created and reviewed. This CT exam was performed using one or m ore of the following dose reduction techniques: automated exposure control, adjustment of the mA and/or kV according to patient size, and/or use of iterative reconstruction technique. MIP reconstr ucted images were created and reviewed. COMPARISON: None. FINDINGS: VASCULATURE: Right common carotid artery: Unremarkable. No occlusion or significant stenosis. No dissectio n. Right internal carotid artery: Unremarkable. Extracranial segment is patent with no occlusion o r significant stenosis. No dissection. Right external carotid artery: Unremarkable. No occlusion. Right vertebral artery: Unremarkable. No occlusion or significant stenosis. No dissection. Left common carotid artery: Unremarkable. No occlusion or significant stenosis. No dissection . Left internal carotid artery: Unremarkable. Extracranial segment is patent with no occlusion or significant stenosis. No dissection. Left external carotid artery: Unremarkable. No occlusion. Left vertebral artery: Unremarkable. No occlusion or significant stenosis. No dissection. NECK: Bones/joints: Unremarkable. No acute fracture. Soft tissues: Unremarkable. Lung apices: Emphysematous changes in the lung apices. Pleural space: Small left pleural effusion. CAROTID STENOSIS REFERENCE USING NASCET CRITERIA: % ICA stenosis = (1 - narrowest ICA diameter/diameter of distal cervical ICA) x 100. Mild - <50% stenosis. Moderate - 50-69% stenosis. Severe - 70-94% stenosis. Near occlusion - 95-99% stenosis. Occluded - 100% stenosis. * A single impression for all exams can be found at the end of this report IMPRESSION: CT Angiography Head With Intravenous Contrast: No occlusion or significant stenosis. No aneurysm. CT Angiography Neck With Intravenous Contrast: No significant stenosis. No dissection or occlusion. Electronically signed by: Satnam Gomez MD 07/01/2024 11:40 PM [facility] 8 Due to temporary technical issues with the PACS/[employer] reporting system, reports are being erin d by the in-house radiologist without review as a courtesy to ensure prompt reporting the interpreting radiologist is fully responsible for the content of the report. Transcribed Date/Time: 07/01/2024 11:44 PM
--- NOTE | 2024-07-01 23:45 | RAD REPORT ---
EXAM: CT Angiography Head With Intravenous Contrast CLINICAL HISTORY: The patient is 69 years old and is Female; Stroke TECHNIQUE: Axial computed tomographic angiography images of the head with intravenous contrast. S agittal and coronal reformatted images were created and reviewed. This CT exam was performed using one or more of the following dose reduction techniques: automated exposure control, adjustmen t of the mA and/or kV according to patient size, and/or use of iterative reconstruction technique. MIP reconstructed images were created and reviewed. COMPARISON: No relevant prior studies available. FINDINGS: Right internal carotid artery: No acute findings. Intracranial segment is patent with no signif icant stenosis. No aneurysm. Right anterior cerebral artery: Unremarkable. No occlusion or significant stenosis. No aneury sm. Right middle cerebral artery: Unremarkable. No occlusion or significant stenosis. No aneurysm . Right posterior cerebral artery: Unremarkable. No occlusion or significant stenosis. No aneur ysm. Right vertebral artery: Unremarkable as visualized. Left internal carotid artery: No acute findings. Intracranial segment is patent with no signifi cant stenosis. No aneurysm. Left anterior cerebral artery: Unremarkable. No occlusion or significant stenosis. No aneurys m. Left middle cerebral artery: Unremarkable. No occlusion or significant stenosis. No aneurysm. Left posterior cerebral artery: Unremarkable. No occlusion or significant stenosis. No aneury sm. Left vertebral artery: Unremarkable as visualized. Basilar artery: Unremarkable. No occlusion or significant stenosis. No aneurysm. * A single impression for all exams can be found at the end of this report EXAM: CT Angiography Neck With Intravenous Contrast CLINICAL HISTORY: The patient is 69 years old and is Female; Stroke TECHNIQUE: Routine carotid CT angiography protocol was performed with intravenous contrast. NASCE T criteria using the distal ICAs for comparison were used for evaluation of stenoses. Sagittal and coronal reformatted images were created and reviewed. This CT exam was performed using one or m ore of the following dose reduction techniques: automated exposure control, adjustment of the mA and/or kV according to patient size, and/or use of iterative reconstruction technique. MIP reconstr ucted images were created and reviewed. COMPARISON: None. FINDINGS: VASCULATURE: Right common carotid artery: Unremarkable. No occlusion or significant stenosis. No dissectio n. Right internal carotid artery: Unremarkable. Extracranial segment is patent with no occlusion o r significant stenosis. No dissection. Right external carotid artery: Unremarkable. No occlusion. Right vertebral artery: Unremarkable. No occlusion or significant stenosis. No dissection. Left common carotid artery: Unremarkable. No occlusion or significant stenosis. No dissection . Left internal carotid artery: Unremarkable. Extracranial segment is patent with no occlusion or significant stenosis. No dissection. Left external carotid artery: Unremarkable. No occlusion. Left vertebral artery: Unremarkable. No occlusion or significant stenosis. No dissection. NECK: Bones/joints: Unremarkable. No acute fracture. Soft tissues: Unremarkable. Lung apices: Emphysematous changes in the lung apices. Pleural space: Small left pleural effusion. CAROTID STENOSIS REFERENCE USING NASCET CRITERIA: % ICA stenosis = (1 - narrowest ICA diameter/diameter of distal cervical ICA) x 100. Mild - <50% stenosis. Moderate - 50-69% stenosis. Severe - 70-94% stenosis. Near occlusion - 95-99% stenosis. Occluded - 100% stenosis. * A single impression for all exams can be found at the end of this report IMPRESSION: CT Angiography Head With Intravenous Contrast: No occlusion or significant stenosis. No aneurysm. CT Angiography Neck With Intravenous Contrast: No significant stenosis. No dissection or occlusion. Electronically signed by: Satnam Gomez MD 07/01/2024 11:40 PM [facility] 8 Due to temporary technical issues with the PACS/[employer] reporting system, reports are being erin d by the in-house radiologist without review as a courtesy to ensure prompt reporting the interpreting radiologist is fully responsible for the content of the report. Transcribed Date/Time: 07/01/2024 11:45 PM
[2024-07-02] MEDS: NITROGLYCERIN 0.4 MG/TAB SL ONE ×2 (05:14→05:25)
[2024-07-02 06:02] LABS: Hematocrit 21.1 % (36.0-45.0); MCH 30.5 pg (27.0-35.0); MCHC 33.3 g/dL (32.0-36.0); MCV 91.5 fL (80-100); MPV 8.8 fL (7.6-11.3); Platelets 164 thou/uL (152-406); RBC Red Blood Cell Count 2.31 M/uL (3.86-4.86); Red Cell Distribution Width 17.4 % (12.1-15.2)
[2024-07-02 06:19] LABS: Albumin 1.7 g/dL (3.4-5.0); Albumin/Globulin Ratio 0.3 (1.1-1.8); Anion Gap 11.7 mEq/L (5.0-15.0); Bilirubin Total 0.2 mg/dL (0.2-1.0); Globulin 4.9 g/dL (2.3-3.5); Magnesium 2.1 mg/dL (1.6-2.4); Phosphorus 8.7 mg/dL (2.5-4.9); Potassium 4.7 mEq/L (3.5-5.1); Protein, Total 6.6 g/dL (6.4-8.2)
--- NOTE | 2024-07-02 08:25 | RAD REPORT ---
EXAMINATION: ONE VIEW CHEST XR CLINICAL INDICATION: Female, 69 years old.,for OP HD. Hypertension TECHNIQUE: Frontal chest projection is submitted. Examination is limited by patient positioning and t echnique. COMPARISON: 07/01/2024 FINDINGS: The lungs are well inflated and clear. Mild hyperinflation again seen No pneumothorax or sizable effu margarita. The heart is normal in size. Mediastinal contours are unremarkable. IMPRESSION: No acute intrathoracic abnormalities.
[2024-07-02] MEDS: HEPARIN 5000 UNIT/ML 1 ML VIAL ONE (09:59)
[2024-07-02] MEDS: BUPIVACAINE 0.5% PF 10 ML VIAL ONE (09:59)
[2024-07-02] MEDS: NA CHLORIDE 0.9% 0 ML ONE (10:00)
[2024-07-02] MEDS: NA CHLORIDE 0.9% 100 ML ONE (11:32)
--- NOTE | 2024-07-02 12:16 | EKG ---
Test Date: 2024-07-01 Test Time: 00:29:32 Senior Teradata Developer: SID MEASUREMENT RESULTS: Intervals: Rate: 86 PA: 190 QRSD: 82 QT: 422 QTc: 504 [place]: P: 57 PA: 190 QRS: -5 T: 50 INTERPRETIVE STATEMENTS: Normal sinus rhythm Low voltage QRS Cannot rule out Anteroseptal infarct, age undetermined Abnormal ECG Compared to ECG 06/26/2024 17:01:00 Low QRS voltage now present Myocardial infarct finding still present Electronically Signed On 07-02-24 12:13:04 MECHANICAL LEAD by Jon Coles
--- NOTE | 2024-07-02 12:39 | EKG ---
Test Date: 2024-06-26 Test Time: 17:01:00 Senior Mortgage Loan Processor: SOPHIA MEASUREMENT RESULTS: Intervals: Rate: 100 CO: 176 QRSD: 84 QT: 378 QTc: 487 [place]: P: 57 CO: 176 QRS: -15 T: 44 INTERPRETIVE STATEMENTS: Normal sinus rhythm Anterior infarct, age undetermined Abnormal ECG Compared to ECG 05/08/2024 15:18:10 No significant changes Electronically Signed On 07-02-24 12:23:37 COMBINATION WINDOW INSTALLER by Jon Coles
[2024-07-02] MEDS: CALCITROL 0.25 MCG CAP PO SCH (13:02)
--- NOTE | 2024-07-02 14:24 | PN ---
Date of Progress Note: 07/01/2024 Subjective: The patient declined dialysis earlier, although she agreed to have dialysis catheter supa supriya, and dialysis catheter will be placed tomorrow. The patient developed altered mental status and was transferred to ICU. Review of Systems: The patient denies complaints. Physical Examination: Lungs: Diminished breath sounds at bases. Heart: S1, S2. Abdomen: Soft. Extremities: Minimal edema. Impression And Plan: 1. End-stage renal disease. The patient previously declined dialysis. She is agreeable to have dial ysis catheter placed and proceeding is scheduled for tomorrow. 2. Metabolic acidosis, on bicarbonate drip. Monitor electrolytes. 3. Hypertension, blood pressure controlled. 4. Hypocalcemia. Corrected calcium is in acceptable range. The patient was started on calcitriol. Monitor phosphorus with calcium. Intact PTH level. 5. Anemia of chronic disease. The patient is on IV iron and Epogen. 6. Metabolic bone disease with hypocalcemia and hyperparathyroidism. Continue calcitriol. EB/MODL Voice ID: [id number] Report ID: [id number]
--- NOTE | 2024-07-02 14:24 | PN ---
Date of Progress Note: 07/02/2024 Diagnosis: Renal insufficiency. Subjective: Ms. Parra is a 69-year-old patient renal insufficiency. She was booked last week for a procedure, but she changed her mind. She did not want dialysis to be given, although we c an, we have been working with her, explained to her once again the importance of hemodialysis. Yeste rday, she decided then to proceed but we found also hemoglobin to be in the low 6. So because of the vascular procedure, our recommendation is to have blood available and transfuse and proceed with the placement of the catheter with the risks including, but not limited to, infection, bleeding, damage to adjacent structures, anesthesia complication, DVTs, PEs, IL, and even . Unfortunately, she a lso had another medical problem, which is a possible stroke. They have to get emergent wh ich right now make the placement of hemodialysis catheter little more difficult or at least a high ch ance for bleeding. So they asked me to at least wait until tomorrow and we are just going to make dumont re that we have 24 hours and her stroke is ruled out or ruled in and treated. At the same time, we e xplained to the patient's family that we might have to do it while she is awake at bedside and in the form of hopefully, over the next 24 hours, we can proceed. LEIGH/QUIANA Voice ID: [id number] Report ID: [id number]
--- NOTE | 2024-07-02 14:39 | PN ---
Date of Progress Note: 07/02/2024 Subjective: The patient was admitted to the hospital with CHF with exacerbation. The patient has worsening kidney function. The patient developed CVA yesterday, status post tPA. The patient still slurred speech with weakness on the left side. Physical Examination: Vital Signs: Blood pressure 154/58, pulse of 85. Chest: Clear to auscultation. Heart: S1, S2. Systolic murmur. Abdomen: Soft, nontender. Extremities: Trace edema. Neurologic: Alert. Hemiparesis, slurred speech. Laboratory Data: WBC 11.2, hemoglobin 7. Sodium 137, potassium 4.7, bicarb 21, BUN 82, creatinine 8.3, GFR of 5, calcium 7.1, phosphorus 8.7, magnesium 2.1, albumin 1.7. Current Medications: The patient on include IV iron, Epogen, Atorvastatin, clonidine, diltiazem, hydralazine, nitroglycerin patch, Lasix, Renvela. Assessment And Plan: 1. Chronic kidney disease, progression to end-stage renal disease. The patient over the weekend decline dialysis, then agreed. Apparently yesterday, she developed CVA. For that reason, we could not put catheter. The patient has tPA. We cannot place any catheter right now till we pass 24 hours. I am going to go ahead and start the patient on bicarb drip to minimize the acute kidney injury secondary to the contrast and hold the Lasix over the night. We will resume it tomorrow and we will monitor the patient. 2. Hypertension, controlled, optimal. Continue current treatment. 3. Acidosis secondary to renal failure. We will start gentle bicarb drip. 4. Anemia of iron deficiency anemia. Continue IV iron. The patient planned for transfusion today. Continue HANNAH. 5. Secondary SHPT We will continue Renvela. Start on calcitriol and we will follow up the patient. 6. Cerebrovascular accident, status post tPA. Follow up with Neurology and Intensive Care Unit. Time spent examining the patient [id number] reviewing data lab and an audiology placing order discussing the case with the patient discussing the case with the team driver including hospitalist and nursing staff more than 55-minute DURGA/QUIANA Voice ID: [id number] Report ID: [id number] AYAH
[2024-07-02 14:58] LABS: 1,25 Dihydroxy Vitamin D3 <8 pg/mL; Vitamin D 1,25-Dihydroxy Total <8 pg/mL (18-72); Vitamin D,1,25-OH2, D2 <8 pg/mL
[2024-07-02] MEDS: ALBUMIN HUMAN 25% 200 ML IV ONE (15:35)
[2024-07-02] MEDS ORDERED: GABAPENTIN 300 MG CAP PO SCH (16:19)
[2024-07-02] MEDS ORDERED: GABAPENTIN 100 MG CAP PO ONE (17:00)
[2024-07-02] MEDS: GABAPENTIN 300 MG CAP PO ONE (17:00)
--- NOTE | 2024-07-02 17:25 | RAD REPORT ---
EXAMINATION: MRI BRAIN WITHOUT CONTRAST CLINICAL INDICATION: Female, 69 years old. stroke TECHNIQUE: Multiplanar multisequence MR images of the brain were obtained without intravenous contras t. Unless otherwise specified, incidental findings do not require dedicated imaging follow-up. [id number]. COMPARISON: 07/01/2024 FINDINGS: INTRACRANIAL: No acute infarct identified. No significant mass effect or midline shift.No hydrocepha barby. Minimal chronic small vessel ischemic changes. Moderate cerebral atrophy. VASCULATURE: Normal signal voids in the larger intracranial arteries and dural venous sinuses. SINUSES: The paranasal sinuses are clear.No mastoid effusions. BONE: The marrow signal pattern is within normal limits. IMPRESSION: No acute intracranial abnormality. Specifically, no evidence of acute infarct.
[2024-07-02] MEDS: ASPIRIN EC 81 MG TAB PO SCH (21:11)
--- NOTE | 2024-07-03 00:56 | P.PN ---
Date of Service: 07/02/24 Subjective Patient is clinically doing much better. Symptoms have much improved. MRI of the brain pending. Plan to start dialysis after catheter placed tomorrow. Physical Examination - Vital Signs reviewed - Physical Exam General: Alert, Oriented x2-3, Mild distress Respiratory: Clear to auscultation bilaterally, Normal air movement Cardiovascular: Regular rate/rhythm, Normal S1 S2 Gastrointestinal: Soft and benign, W/out hepatosplenomegaly Musculoskeletal: No clubbing, No swelling Integumentary: No rashes Neurological: aphasia and right sided weakness Assessment and Plan - Assessment and Plan 1. 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 MRI is pending. CT angio without any acute abno rmality. CT of the head with no hemorrhagic conversion. TNK given. Neurology consultation pending. Will do physical therapy and occupational therapy as well as speech therapy. Check lipid profile. Continue with DVT prophylaxis after 24 hours. 2. ESRD; Plan to start hemodialysis tomorrow >24hrs after TNK. Will keep patient NPO with speech therapy consultation. Appreciate Nephrology consultation. 3. Hypocalcemia; continue with phoslo and oscal 4. Hypertensive urgency; Antihypertensives titrated. Allowing for permissive HTN; Continue home medications and titrate as needed. Hydralazine as needed 5. Diabetes mellitus type 2; Accu-Chek before every 6 hours 6. Anemia of chronic disease; Monitor H&H closely. No overt bleeding at this time Discharge Plan: Home Plan to discharge in: 2-3 days - Advance Directives Does patient have a Living Will: No Does patient have a Durable POA for Healthcare: No - Code Status/Comfort Care Code Status: Precision Crop Manager Spent Managing Pts Care (In Minutes): 58 Critical care: Yes Time Spent: 40 minutes
--- NOTE | 2024-07-03 00:57 | P.PN ---
Date of Service: 07/03/24 Subjective Patient continues to improve. Arrange for hemodialysis. MRI of the brain was negative. Physical Examination - Vital Signs reviewed - Physical Exam General: Alert, Oriented x2-3, Mild distress Respiratory: Clear to auscultation bilaterally, Normal air movement Cardiovascular: Regular rate/rhythm, Normal S1 S2 Gastrointestinal: Soft and benign, W/out hepatosplenomegaly Musculoskeletal: No clubbing, No swelling Integumentary: No rashes Neurological: aphasia and right sided weakness Assessment and Plan - Assessment and Plan 1. 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 MRI is pending. CT angio without any acute abnormality. CT of the head with no hemorrhagic conversion. TNK given. Neurology consultation pending. Will do physical therapy and occupational therapy as well as speech therapy. Check lipid profile. Continue with DVT prophylaxis after 24 hours. 2. ESRD; Plan to start hemodialysis tomorrow >24hrs after TNK. Will keep patient NPO with speech therapy consultation. Appreciate Nephrology consultation. 3. Hypocalcemia; continue with phoslo and oscal 4. Hypertensive urgency; Antihypertensives titrated. Allowing for permissive HTN; Continue home medications and titrate as needed. Hydralazine as needed 5. Diabetes mellitus type 2; Accu-Chek before every 6 hours 6. Anemia of chronic disease; Monitor H&H closely. No overt bleeding at this time Discharge Plan: Home Plan to discharge in: 2-3 days - Advance Directives Does patient have a Living Will: No Does patient have a Durable POA for Healthcare: No - Code Status/Comfort Care Code Status: Work Distributor Spent Managing Pts Care (In Minutes): 58 Critical care: Yes Time Spent: 30 minutes
[2024-07-03 05:44] LABS: Absolute Basophils 0.1 K/uL (0-0.5); Absolute Eosinophils 0.7 K/uL (0-0.5); Absolute Lymphocytes (CBC) 2.7 K/uL (0.7-4.9); Absolute Monocytes 1.6 K/uL (0.1-1.3); Absolute Neutrophil 6.7 K/uL (1.8-8.0); Basophils % 0.8 % (0-1.3); Eosinophils % 5.9 % (0-4.4); Hematocrit 23.7 % (36.0-45.0); Hemoglobin 8.2 g/dL (12.0-15.0); Lymphocytes % 23.1 % (15.3-44.8); MCH 31.4 pg (27.0-35.0); MCHC 34.5 g/dL (32.0-36.0); MCV 91.1 fL (80-100); MPV 9.2 fL (7.6-11.3); Monocytes % 13.7 % (3.3-12.3); Neutrophils % 56.5 % (41.7-73.7); Nucleated Red Blood Cells % 0.1 % (0-0); Platelets 140 thou/uL (152-406); RBC Red Blood Cell Count 2.61 M/uL (3.86-4.86); Red Cell Distribution Width 16.8 % (12.1-15.2)
[2024-07-03 06:03] LABS: Albumin 1.7 g/dL (3.4-5.0); Albumin/Globulin Ratio 0.3 (1.1-1.8); Anion Gap 12.4 mEq/L (5.0-15.0); Bilirubin Total 0.3 mg/dL (0.2-1.0); Globulin 4.9 g/dL (2.3-3.5); Magnesium 2.3 mg/dL (1.6-2.4); Phosphorus 7.9 mg/dL (2.5-4.9); Potassium 4.4 mEq/L (3.5-5.1); Protein, Total 6.6 g/dL (6.4-8.2)
[2024-07-03 06:05] LABS: PT Prothrombin Time 11.8 SECONDS (9.4-12.5); PTT, Activated Partial Thromb 36.3 SECONDS (24.3-36.9); Protime INR 1.13
[2024-07-03 06:23] VITALS: BMI 28.2
[2024-07-03] MEDS: HEPARIN 5000 UNIT/ML 1 ML VIAL SQ SCH (09:00)
[2024-07-03] MEDS: NA CHLORIDE 0.9% 500 ML ONE (09:30)
[2024-07-03] MEDS: NA CHLORIDE 0.9% 100 ML ONE (09:45)
[2024-07-03] MEDS ORDERED: propofoL 200 MG/20 ML VIAL IV ONE (10:24)
[2024-07-03] MEDS ORDERED: LIDOCAINE 2% MPF 5 ML VIAL ONE (10:24)
[2024-07-03] MEDS ORDERED: ONDANSETRON 4 MG/2 ML VIAL ONE (10:24)
[2024-07-03] MEDS ORDERED: FENTANYL CITR 100 MCG/2 ML ONE (10:24)
[2024-07-03] MEDS: CEFAZOLIN SODIUM 1 GM/VIAL ONE (10:36)
[2024-07-03] MEDS: HEPARIN 5000 UNIT/ML 1 ML VIAL ONE (11:17)
--- NOTE | 2024-07-03 11:30 | P.BOP ---
Preoperative diagnosis: ESRD Postoperative diagnosis: same Primary procedure: 1. Placement of cuffed tunneled hemodialysis catheter Secondary procedure: 2. Interpretation of fluoroscopy Other procedure(s): 3. right neck ultrasound Estimated blood loss: <10cc Specimen: none Findings: as above Anesthesia: MAC Complications: None Transferred to: Recovery Room Condition: Good
--- NOTE | 2024-07-03 11:32 | EKG ---
Test Date: 2024-07-01 Test Time: 23:02:05 Fur Finisher: SUKHDEEP MEASUREMENT RESULTS: Intervals: Rate: 86 WI: 176 QRSD: 86 QT: 424 QTc: 507 [place]: P: 54 WI: 176 QRS: 38 T: 12 INTERPRETIVE STATEMENTS: Normal sinus rhythm Septal infarct, age undetermined Abnormal ECG Compared to ECG 07/01/2024 00:29:32 No significant changes Electronically Signed On 07-03-24 11:29:57 BROKERAGE CLERK by oJn Coles
--- NOTE | 2024-07-03 12:17 | RAD REPORT ---
EXAM: Fluoroscopy use, Fluoroscopy <1 Hour HISTORY: HD CATH PLACEMENT COMPARISON: None FINDINGS: Multiple images were sent to PACS, during a fluoroscopically guided procedure. No radiologi st was involved in protocoling or performance of the study, and no radiologist was present for the duration of the procedure. No interpretation of the saved images will be provided. Total fluoroscopy time: 0.5 minutes. IMPRESSION: Documentation of fluoroscopy use as above. Transcribed Date/Time: 07/03/2024 12:17 PM
--- NOTE | 2024-07-03 12:19 | RAD REPORT ---
EXAMINATION: ONE VIEW CHEST XR CLINICAL INDICATION: s/p HD cath TECHNIQUE: Frontal chest projection is submitted. Examination is limited by patient positioning and t echnique. COMPARISON: 07/02/2024 FINDINGS: Mild interstitial pulmonary edema. The heart is upper limit of normal in size. Right-sided venous cat heter has tip in SVC. No pneumothorax. IMPRESSION: No postprocedure pneumothorax.
--- NOTE | 2024-07-03 14:45 | PN ---
Date of Progress Note: 07/03/2024 Subjective: The patient was admitted with overvolume, uremic symptoms. The patient had a CVA. The patient has tPA. Has no deficit. Back to her baseline. Objective: Vital Signs: Blood pressure 153/66, pulse of 78, afebrile. Chest: Faint rales, bilateral. Heart: S1, S2. Systolic murmur. Abdomen: Soft, nontender. Extremities: Trace edema. Neurologic: Alert. No focality. Laboratory Data: Hemoglobin 8.2, sodium 136, potassium 4.4, bicarb 21, BUN 81, creatinine 8.3, calcium 7.1, phosphorus 7.9, magnesium 2.3, albumin is 1.7, corrected calcium is 8.7. Current Medications: The patient on include IV iron, Epogen, calcium carbonate, diltiazem, clonidine, nitroglycerin patch, gabapentin, Renvela, sodium bicarb, calcitriol. Assessment And Plan: 1. Chronic kidney disease stage 5, progression to end-stage renal disease. Plan for TDC placement today. I am going to initiate dialysis today. 2. Acidosis, recovered. Discontinue bicarb. 3. Contrast exposure with chronic kidney disease advanced. We will dialyze today and tomorrow and we will follow up the patient. 4. Iron-deficiency anemia. Continue IV iron. 5. Secondary hyperparathyroidism. Continue Renvela. 6. Cerebrovascular accident. Follow up with the Neurology. Time spent examining the patient [id number] reviewing data lab and an audiology placing order discussing the case with the patient discussing the case with the steamboat captain including hospitalist and nursing staff more than 55-minute ZAIDA Voice ID: [id number] Report ID: [id number] AYAH
--- NOTE | 2024-07-03 15:39 | PN ---
Ms. Parra is a 69-year-old patient in need of hemodialysis. She has some other medical issues that h as been delaying her for the next few days. Also, she did not feel back having dialysis or even a ca theter few days ago. The case having to postpone for her personal reasons. Today, she once again fe els strongly to have the catheter done. She is in the ICU. She had TPK about a day and a half ago. She is recovering nice. She has been downgraded to the normal floor. I discussed the case with todd rologist, Dr. Landeros. Discussed the case with Anesthesia and discussed the case with the primary, Dr. Masters; with the patient; with the family. Renal service, Dr. Roy still wants catheter in. S he needs dialysis, so we discussed putting her the HemoSplit soft one in the upper body. We discusse d also the Ruperto. Obviously, she does not want to be completely awake in the floor to have this do ne and she preferred not to have a Ruperto, which is a Mahurkar strong catheter. She wanted a soft H emoSplit. So after discussing with everybody, they do not see any contraindication to at least try. So, we going to put a HemoSplit if possible under fluoroscopy with benefits, alternatives, and risks as explained before including not need limited to infection, bleeding, damage to adjacent structures , anesthesia complication, stroke, MIs, DVTs, pulmonary emboli, endocarditis, LA, even . She al so understands this may not relieve any symptoms. She might need more than 1 surgical intervention. I explained to her if by any chance vital signs does not look appropriate or we see the need to not be able to use the upper body or even put a HemoSplit, we might have to use the Mahurkar, but once ag ain, she has asked me to try the other one first. So far, she has stable vital signs. We have clear ance to go. We are going to trying to use a minimal amount of sedation we can, but at the same time gave her some comfort. LEIGH/MODL Voice ID: [id number] Report ID: [id number]
[2024-07-03] MEDS: SOD FERRIC GLUC COMPLX/SUCROSE 125 MG in NA CHLORIDE 0.9% 100 ML IV SCH (16:48)
[2024-07-03] MEDS: EPOETIN ALFA 10,000 UNIT/ML VIAL IV SCH (20:15)
[2024-07-03] MEDS: ATORVASTATIN 40 MG TAB PO SCH (21:30)
[2024-07-03] MEDS: MORPHINE 2 MG/ML SYR IV PRN (21:31)
--- NOTE | 2024-07-03 21:54 | OP ---
Date of Procedure: 07/03/2024 Surgeon: Ishan Solis MD Preoperative Diagnosis: End-stage renal disease. Postoperative Diagnosis: End-stage renal disease. Procedures: 1. Placement of a cuffed tunneled hemodialysis catheter. 2. Interpretation of fluoroscopy. 3. Right neck ultrasound. Estimated Blood Loss: Less than 10 cc. Specimen: None. Anesthesia: MAC plus local. Complications: None. Indications: This is a case of a 69-year-old patient who comes to us with a renal failure, has some other medical issues that need to be done. The patient was fully explained the benefits, alternative s, and risks of a hemodialysis catheter placement, which include, but not limited to infection, bleed ing, damage to adjacent structures, anesthesia complication, pneumothorax, hemothorax, DVTs, PEs, car diac tamponade, pericarditis, NE, and even . She also understands this may not relieve the symp toms. She might need more than one surgical intervention. She and her family also understand this i s a temporary catheter. If she is going to continue dialysis in the future, she is going to have to find a vascular surgeon who can put a more permanent access. She understood the importance to keep t his area clean. Follow up with the renal service, recommendations about use, and proper maintenance. She signed a consent. Description Of Procedure: The patient was brought to the operating room, placed in supine position. Anesthesia was done without complication. Chest and neck were prepped and draped in a sterile fashi on. A time-out was called. The patient was placed in Trendelenburg position. Using an ultrasound, we identified the internal jugular veins and seemed to be patent. After injecting local anesthetic, we placed an 18-gauge needle using ultrasound guidance on the right internal jugular vein at the firs t attempt. Guidewire was passed through, needle was removed. Then, we tunneled the catheter from th e right upper chest into the neck region. We put serial dilators through the introducer under fluoro scopy guidance, put the introducer sheath at the end, removed the guidewire and then fed the catheter into the introducer sheath and the introducer sheath was peeled off. This was done under fluoroscop y. Excellent backflow and inflow. The line was flushed with heparinized solution and secured in supa ce with 3-0 nylon and covered with sterile dressings. Sponge count and instrument counts were correc t. All this was done in Trendelenburg position. So, the patient was brought back to normal position . The patient was sent to recovery in stable condition. Chest x-ray was requested stat. LEIGH/MODKaylee Voice ID: [id number] Report ID: [id number]
[2024-07-04] MEDS: HYDROCODONE/APAP 5/325 MG TAB PO PRN (04:31)
[2024-07-04 05:50] LABS: Absolute Basophils 0.1 K/uL (0-0.5); Absolute Eosinophils 0.5 K/uL (0-0.5); Absolute Lymphocytes (CBC) 2.8 K/uL (0.7-4.9); Absolute Monocytes 1.8 K/uL (0.1-1.3); Absolute Neutrophil 6.2 K/uL (1.8-8.0); Basophils % 0.8 % (0-1.3); Eosinophils % 4.5 % (0-4.4); Hematocrit 22.9 % (36.0-45.0); Hemoglobin 7.7 g/dL (12.0-15.0); Lymphocytes % 24.7 % (15.3-44.8); MCHC 33.5 g/dL (32.0-36.0); MCV 92.8 fL (80-100); MPV 8.9 fL (7.6-11.3); Monocytes % 15.6 % (3.3-12.3); Neutrophils % 54.4 % (41.7-73.7); Nucleated Red Blood Cells % 0.2 % (0-0); Platelets 146 thou/uL (152-406); RBC Red Blood Cell Count 2.47 M/uL (3.86-4.86); Red Cell Distribution Width 16.8 % (12.1-15.2)
[2024-07-04 06:30] LABS: Magnesium 2.2 mg/dL (1.6-2.4)
[2024-07-04 13:30] LABS: Hepatitis B Core IgM Nonreactive (Nonreactive); Hepatitis B surface AG Interp. Nonreactive (Nonreactive); Hepatitis C Virus Ab Reactive (Nonreactive)
[2024-07-04 13:31] LABS: HBsAG Nonreactive Report Report
[2024-07-04] MEDS ORDERED: CALCITROL 0.25 MCG CAP PO SCH (14:00)
[2024-07-04] MEDS: HYDRALAZINE HCL 25 MG TABLET PO SCH (14:11)
--- NOTE | 2024-07-04 17:31 | PN ---
Date of Progress Note: 07/04/2024 Subjective: The patient was admitted with acute kidney injury on advanced chronic kidney disease secondary to cardiorenal. The patient had CVA. The patient was initiated on dialysis. The patient had tPA for the prior CVA. Patient recovered completely. No residual. Objective: Vital Signs: Blood pressure 180/79, pulse of 90, afebrile. Chest: Faint rales, bilateral. Heart: S1, S2. Regular. Abdomen: Soft, nontender. Extremities: Trace edema. Neurologic: Alert. No focality. Laboratory Data: Hemoglobin 7.7, sodium 136, potassium 4, bicarb 25, BUN 56, creatinine 6, calcium 7, phosphorus 7.9, magnesium 2.2. Iron saturation 7.9. PTH of 590. Current Medications: The patient on, it includes: 1. Aspirin. 2. IV iron. 3. Epogen. 4. Calcium carbonate. 5. Atorvastatin. 6. Diltiazem. 7. Tylenol. 8. Renvela. Assessment And Plan: 1. End-stage renal disease, initiated on dialysis. We will continue dialysis. We will do another session tomorrow and we will follow up. 2. Hypertension, not controlled. I am going to start the patient on lisinopril. Increase her hydralazine and we will start challenging the patient on dialysis. Resume Lasix. 3. Anemia of chronic kidney disease/iron-deficiency anemia. Continue IV iron and HANNAH. 4. Cerebrovascular accident. Follow up with Neurology. 5. Secondary hyperparathyroidism. We will start the patient on calcitriol and we will follow up the patient. Continue Renvela. Time spent examining the patient [id number] reviewing data lab and an audiology placing order discussing the case with the patient discussing the case with the user experience team lead including hospitalist and nursing staff more than 55-minute ZAIDA Voice ID: [id number] Report ID: [id number] AYAH
[2024-07-04] MEDS: ONDANSETRON 4 MG/2 ML VIAL IV ONE (17:38)
[2024-07-04] MEDS: FUROSEMIDE 40 MG/4 ML VIAL IV SCH (17:39)
[2024-07-04] MEDS ORDERED: PROMETHAZINE 25 MG TABLET PO PRN (18:30)
--- NOTE | 2024-07-04 20:06 | RAD REPORT ---
EXAM: CT brain without contrast HISTORY: Head and neck WO contrast COMPARISON: 07/01/2024 TECHNIQUE: Multiple contiguous axial images were obtained and a CT of the brain without contrast. Sag ittal and coronal reformats were performed. FINDINGS: Patient positioning and somewhat right lateral decubitus position, and beam hardening artifact from t he right parietal aspect of the skull Limited evaluation. No evidence of hydrocephalus, intracranial hemorrhage, or extra-axial fluid collection. The brain is normal in morphology. The calvarium is intact. The visualized paranasal sinuses and mastoid air cells are essentially clear . IMPRESSION: No evidence of acute intracranial abnormality. EXAM: CT of the cervical spine without contrast HISTORY: Head and neck WO contrast COMPARISON: None TECHNIQUE: Multiple contiguous axial images were obtained in a CT of the cervical spine without contr ast. Sagittal and coronal reformats were performed. FINDINGS: The vertebral bodies demonstrate normal height and alignment. No evidence of acute fracture or subluxation.. Mild degenerative changes are present most notably at C1-2 articulation. No prevertebral soft tissue swelling is seen. The posterior facets are well aligned. Normal alignment of the skull base with the cervical spine is seen. Retropharyngeal soft tissue fullness extending to the level of the upper trachea, nonspecific, and ma y be accentuated by tortuosity of the carotid vessels. The prevertebral soft tissues show no significant swelling. The lung apices are unremarkable. IMPRESSION: No evidence of acute osseous abnormality of the cervical spine. Prominence of the retropharyngeal soft tissues, probably relating to tortuosity of the carotid vessel s. Mild degenerative changes.
[2024-07-04] MEDS ORDERED: METOCLOPRAMIDE 10 MG/2mL INJ IV PRN (23:01)
[2024-07-04] MEDS: LABETALOL 20 MG/4ML SYRINGE IV PRN (23:27)
[2024-07-04] MEDS: METOCLOPRAMIDE 10 MG/2mL INJ IV PRN (23:33)
[2024-07-05 04:55] LABS: Anion Gap 8.6 mEq/L (5.0-15.0); Magnesium 1.8 mg/dL (1.6-2.4); Potassium 3.6 mEq/L (3.5-5.1)
[2024-07-05] MEDS: lisinopriL 10 MG TAB PO SCH (09:00)
[2024-07-05] MEDS: NEPRO SHAKE 237 ML CAN PO SCH (09:00)
[2024-07-05] MEDS: METOPROLOL TARTRATE 5 MG/5 ML INJ IV STA ×2 (09:07→12:42)
[2024-07-05] MEDS: MAGNESIUM SULFATE 1 gm IVPB 1 GM/100 ML BAG IV ONE (10:03)
[2024-07-05] MEDS ORDERED: METOPROLOL XL 50 MG TAB PO SCH (14:00)
[2024-07-05] MEDS: METOPROLOL TAR 50 MG TAB PO SCH (14:00)
[2024-07-06 06:07] LABS: Anion Gap 13.7 mEq/L (5.0-15.0); Magnesium 2.2 mg/dL (1.6-2.4); Potassium 3.7 mEq/L (3.5-5.1)
--- NOTE | 2024-07-06 16:56 | P.DS ---
Admission Date: 06/26/24 Discharge Date: 07/06/24 Reason for Admission: Hypoglycemia Brief History of Present Illness: 69 yrs old Female with past medical history of diabetes, hypertension, hyperlipidemia, ESRD, hepatitis C, history of cirrhosis liver, asthma, anxiety, chronic pain who was brought to ER with slurred speech and altered mental status which has been going on for the last 2 days and has been worsening and was brought to ER. Patient is a poor historian hence most of the history is obtained from chart review and talking to the ER physician and also talking to the family member at the bedside. Patient has not been doing well for the last 3 days and has been progressively getting more and more weak and slurred speech. Patient was noted to be hypoglycemic. Denies any fever or chills. No nausea vomiting or diarrhea. No sick contacts. Patient was assessed in the ER and found to be recurrent hypoglycemic and was admitted for further management - Physical Exam General: Alert, Oriented x2, forgetful HEENT: Atraumatic, Normocephalic Neck: Supple Respiratory: Clear to auscultation bilaterally, Normal air movement Cardiovascular: Regular rate/rhythm, Normal S1 S2 Capillary refill: <2 Seconds Gastrointestinal: Soft and benign, W/out hepatosplenomegaly Musculoskeletal: No clubbing, No swelling Integumentary: No rashes Neurological: Other (Alert, Awake, non focal ) Lymphatics: No axilla or inguinal lymphadenopathy Hospital Course: 69 yrs old Female with past medical history of diabetes, hypertension, hyperli pidemia, ESRD, hepatitis C, history of cirrhosis liver, asthma, anxiety, chronic pain who was brought to ER with slurred speech and altered mental status which has been going on for the last 2 days and has been worsening and was brought to ER. Patient is a poor historian hence most of the history is obtained from chart review and talking to the ER physician and also talking to the family member at the bedside. Patient has not been doing well for the last 3 days and has been progressively getting more and more weak and slurred speech. Patient was noted to be hypoglycemic. Patient was assessed in the ER and found to be recurrent hypoglycemic and was admitted for further management, improved with medication changes, tolerating diet, ambulating with physical therapy, stable to discharge home, follow-up with outpatient hemodialysis. Follow-up with nephrology after discharge Assessment and Plan Recurrent hypoglycemia-On oral antihyperglycemic agents Will hold OHA Leukocytosis -afebrile Slurring of speech-CT head negative for any acute changes (secondary to hypoglycemia) Hypocalcemia Replaced calcium while in patient Hypertensive urgency-Continue home medications and titrate as needed Hyperlipidemia Continue statin ESRD pending DC OP HD chair Diabetes- resume home meds Anemia of chronic disease-No overt bleeding at this time INSTRUCTIONS: Physician Discharge Instructions: -Follow-up with PCP in 1 to 2 weeks -Follow-up with nephrology after -Please call Dr. Masters at [phone] if any questions regarding hospital stay -Please call nursing station at [phone] if any nursing or medication questions -Return to the emergency room if symptoms worsen Diet: ADA, low sodium Activity: Fall precautions <Kiana Miller - Last Filed: 07/06/24 19:43> Admission Date: 06/26/24 Discharge Date: 07/10/24 Hospital Course: Patient was seen and examined. Events of the last 24 hours have been noted. Spoke with with FRANCES regarding patient's clinical picture after evaluating and examining the patient independently. I performed a substantial part of the MDM during this patient's care today. I personally made or approved the documented management plan and acknowledge its risk of complications. I agree with the findings and documentation provided in the FRANCES's notes. <Alexandra Masters - Last Filed: 08/08/24 12:53> Disposition: ROUTINE DISCHARGE Discharge Condition: GOOD Vital Signs/Physical Exam: Temp Pulse Resp BP Pulse Ox 98.1 F 74 17 210/85 H 100 07/06/24 12:00 07/06/24 14:35 07/06/24 12:00 07/06/24 14:35 07/06/24 12:00 Laboratory Data at Discharge: WBC 11.40 thou/uL (4.3-10.9) H 07/04/24 05:16 Hgb 7.7 g/dL (12.0-15.0) L 07/04/24 05:16 Hct 22.9 % (36.0-45.0) L 07/04/24 05:16 Plt Count 146 thou/uL (152-406) L 07/04/24 05:16 PT 11.8 SECONDS (9.4-12.5) 07/03/24 05:21 INR 1.13 07/03/24 05:21 APTT 36.3 SECONDS (24.3-36.9) 07/03/24 05:21 Sodium 137 mEq/L (136-145) 07/06/24 04:49 Potassium 3.7 mEq/L (3.5-5.1) 07/06/24 04:49 BUN 38 mg/dL (7-18) H 07/06/24 04:49 Creatinine 5.33 mg/dL (0.55-1.02) H 07/06/24 04:49 Glucose 80 mg/dL (74-106) 07/06/24 04:49 Uric Acid 8.5 mg/dL (2.6-6.0) H 06/28/24 04:08 Phosphorus 7.9 mg/dL (2.5-4.9) H 07/03/24 05:21 Magnesium 2.2 mg/dL (1.6-2.4) 07/06/24 04:49 Total Bilirubin 0.3 mg/dL (0.2-1.0) 07/03/24 05:21 AST 22 U/L (15-37) 07/03/24 05:21 ALT 18 U/L (13-56) 07/03/24 05:21 Alkaline Phosphatase 173 U/L (45-117) H 07/03/24 05:21 Triglycerides 121 mg/dL (<150) 07/03/24 05:21 Cholesterol 109 mg/dL (<200) 07/03/24 05:21 HDL Cholesterol 50 mg/dL (40-60) 07/03/24 05:21 Cholesterol/HDL Ratio 2.18 07/03/24 05:21 <Kiana Miller - Last Filed: 07/06/24 19:43> Vital Signs/Physical Exam: Temp Pulse Resp BP Pulse Ox 98.3 F 66 20 144/68 H 98 07/07/24 23:33 07/07/24 23:33 07/08/24 01:50 07/07/24 23:33 07/08/24 01:50 Laboratory Data at Discharge: WBC 11.40 thou/uL (4.3-10.9) H 07/04/24 05:16 Hgb 7.7 g/dL (12.0-15.0) L 07/04/24 05:16 Hct 22.9 % (36.0-45.0) L 07/04/24 05:16 Plt Count 146 thou/uL (152-406) L 07/04/24 05:16 PT 11.8 SECONDS (9.4-12.5) 07/03/24 05:21 INR 1.13 07/03/24 05:21 APTT 36.3 SECONDS (24.3-36.9) 07/03/24 05:21 Sodium 135 mEq/L (136-145) L 07/07/24 04:56 Potassium 3.6 mEq/L (3.5-5.1) 07/07/24 04:56 BUN 22 mg/dL (7-18) H 07/07/24 04:56 Creatinine 3.79 mg/dL (0.55-1.02) H 07/07/24 04:56 Glucose 89 mg/dL (74-106) 07/07/24 04:56 Uric Acid 8.5 mg/dL (2.6-6.0) H 06/28/24 04:08 Phosphorus 3.8 mg/dL (2.5-4.9) 07/07/24 04:56 Magnesium 2.2 mg/dL (1.6-2.4) 07/06/24 04:49 Total Bilirubin 0.3 mg/dL (0.2-1.0) 07/03/24 05:21 AST 22 U/L (15-37) 07/03/24 05:21 ALT 18 U/L (13-56) 07/03/24 05:21 Alkaline Phosphatase 173 U/L (45-117) H 07/03/24 05:21 Triglycerides 121 mg/dL (<150) 07/03/24 05:21 Cholesterol 109 mg/dL (<200) 07/03/24 05:21 HDL Cholesterol 50 mg/dL (40-60) 07/03/24 05:21 Cholesterol/HDL Ratio 2.18 07/03/24 05:21 <Alexandra Masters - Last Filed: 08/08/24 12:53> Diet: ADA Time spent managing pt's care (in minutes): 45 <Kiana Miller - Last Filed: 07/06/24 19:43> <Alexandra Masters - Last Filed: 08/08/24 12:53> Home Medications: Diltiazem HCl [Diltiazem 24Hr Cd] 240 mg PO DAILY 02/11/21 Atorvastatin Calcium [Lipitor*] 10 mg PO BEDTIME 09/14/22 Furosemide 40 mg PO DAILY 05/09/24 Pantoprazole [Protonix Tab*] 40 mg PO DAILY 05/09/24 Pregabalin 75 mg PO BID 05/09/24 Calcitrol [Rocaltrol*] 0.5 mcg PO Q48H #15 cap 05/11/24 Hydralazine [Apresoline*] 50 mg PO TID #90 tab 05/11/24 Sodium Bicarbonate 1,300 mg PO TID #180 tab 05/11/24 Glipizide [Glipizide ER] 10 mg PO DAILY 06/27/24 cloNIDine HCL [Catapres*] 0.3 mg PO BID 06/27/24 Physician Discharge Instructions: 69 yrs old Female with past medical history of diabetes, hypertension, hype rlipidemia, ESRD, hepatitis C, history of cirrhosis liver, asthma, anxiety, chronic pain who was brought to ER with slurred speech and altered mental status which has been going on for the last 2 days and has been worsening and was brought to ER. Patient is a poor historian hence most of the history is obtained from chart review and talking to the ER physician and also talking to the family member at the bedside. Patient has not been doing well for the last 3 days and has been progressively getting more and more weak and slurred speech. Patient was noted to be hypoglycemic. Patient was assessed in the ER and found to be recurrent hypoglycemic and was admitted for further management, improved with medication changes, tolerating diet, ambulating with physical therapy, stable to discharge home, follow-up with outpatient hemodialysis. Follow-up with nephrology after discharge Ms. Parra presented with severe uremia symptoms and resisted dialysis. She did finally consent to treatment. HD catheter placed to right subclavian. Placement confirmed and pt underwent dialysis. She is not a fan. She felt nauseated and was treated quickly and recovered well. Her discharged was delayed by some altered level of consciousness and confusion. She was thought to be having a CVA. It was concerning enough that TPA was administered. No radiologic evidence of CVA. Presumptive TIA. She was again resistant to dialysis but did consent and was awaiting [facility] chair time for TTS schedule. I was going to discharge her after dialysis yesterday (Monday). Welcome letter from [facility] dialysis arrived Monday evening after Ms. Parra declined inpatient dialysis. Labs this morning were evaluated by Dr. Roy, the patient has stable vital signs, and it is deemed appropriate to discharge her home today to follow up in the [facility] at [facility] This [facility] tomorrow, 07/11/24 at 1:45pm for her chair time. INSTRUCTIONS: Physician Discharge Instructions: -Follow-up with PCP in 1 to 2 weeks -Follow-up with nephrology in 1 week -Please call Dr. Masters at [phone] if any questions regarding hospital stay -Please call nursing station at [phone] if any nursing or medication questions -Return to the emergency room if symptoms worsen Diet: renal Activity: Fall precautions Followup: Celso Roy MD [ACTIVE - CAN ADMIT] - ERIC GILLESPIE [Primary Care Provider] -
--- NOTE | 2024-07-06 20:41 | PN ---
Date of Progress Note: 07/06/2024 Subjective: The patient was admitted to the hospital with over-volume, uremic symptoms. The patient developed CVA. The patient was initiated on dialysis, tolerated the dialysis. Physical Examination: Vital Signs: Blood pressure of 148/76, pulse of 78, afebrile. Chest: Clear to auscultation. Heart: S1, S2. Regular. Abdomen: Soft, nontender. Extremities: No edema. Neurologic: Alert. No focality. Laboratory Data: Hemoglobin 7.7. Sodium 137, potassium 3.7, bicarb 26, BUN 38, creatinine 5.3, calcium 7.4, phosphorus 7.9, magnesium 2.2. Current Medications: The patient on include: 1. Aspirin. 2. Promethazine. 3. Epogen. 4. IV iron. 5. Calcium carbonate. 6. Clonidine 0.3 t.i.d. 7. Hydralazine 100 t.i.d. 8. Lisinopril 10 mg. 9. Metoprolol 50 b.i.d. 10. Nepro. 11. Lasix 80. 12. Renvela. Assessment And Plan: 1. End-stage renal disease. We will continue the patient on dialysis TTS. Dialysis will be Monday. 2. Anemia of chronic kidney disease. Continue HANNAH. 3. Hypertension, not controlled. Increase lisinopril and we will follow up. We will add aldactone. 4. Hypokalemia. Patient is going to be dialyzed on high potassium bath. We will increase lisinopril and add aldactone. 5. SHPT . Continue Renvela. 6. Cerebrovascular accident. Continue follow up with Neurology. 7. Acidosis. Discontinue bicarb. The patient will be corrected with dialysis. Time spent examining the patient [id number] reviewing data lab and an audiology placing order discussing the case with the patient discussing the case with the steam pipe fitter including hospitalist and nursing staff more than 55-minute ZAIDA Voice ID: [id number] Report ID: [id number] AYAH
[2024-07-07 05:38] LABS: Albumin 1.6 g/dL (3.4-5.0); Anion Gap 10.6 mEq/L (5.0-15.0); Phosphorus 3.8 mg/dL (2.5-4.9); Potassium 3.6 mEq/L (3.5-5.1)
[2024-07-07] MEDS: SPIRONOLACTONE 25 MG TABLET PO SCH (09:42)
[2024-07-07] MEDS: lisinopriL 20 MG TAB PO SCH (09:42)
--- NOTE | 2024-07-07 23:07 | PN ---
Date of Progress Note: 07/07/2024 Subjective: The patient was admitted to the hospital with uremic symptoms. The patient developed CVA, treated with tPA. The patient is initiated on dialysis. Physical Examination: Vital Signs: Blood pressure 144/64, pulse of 73, afebrile. Chest: Clear to auscultation. Heart: S1, S2. Systolic murmur. Abdomen: Soft, nontender. Extremities: No edema. Neurologic: Alert. No focality. Laboratory Data: WBC 11.4, hemoglobin 7.7. Sodium 135, potassium 3.6, bicarb 26, BUN 22, creatinine 3.7. Calcium 7.9, phosphorus 3.8, albumin 1.6, corrected calcium is 9.9. Current Medications: The patient is on include: 1. Aspirin. 2. Promethazine. 3. Epogen. 4. Clonidine 0.3 t.i.d. 5. Diltiazem. 6. Lisinopril 40 daily. 7. Spironolactone. 8. Lasix 80 b.i.d. 9. Renvela. Assessment And Plan: 1. End-stage renal disease. We will continue the patient on dialysis Monday, , Monday. 2. Hypertension, controlled, optimal. Continue current treatment. 3. SHPT hospitals on background will continue on Renvela 4. Acidosis, recovered, resolved. Keep holding bicarbonate. 5. Over volume, currently normal volume. Continue Lasix. We will optimize fluid status with dialysis. 6. Cerebrovascular accident, as by Neurology. Time spent examining the patient [id number] reviewing data lab and an audiology placing order discussing the case with the patient discussing the case with the security team lead including hospitalist and nursing staff more than 55-minute DURGA/QUIANA Voice ID: [id number] Report ID: [id number] AYAH
--- NOTE | 2024-07-08 05:04 | P.PN ---
Date of Service: 07/04/24 Subjective Patient continues to do well. Patient denies any new complaints. Patient scheduled for hemodialysis access catheter. Will go ahead and arrange for outpatient hemodialysis. Physical Examination - Vital Signs reviewed - Physical Exam General: Alert, Oriented x2-3, Mild distress Respiratory: Clear to auscultation bilaterally, Normal air movement Cardiovascular: Regular rate/rhythm, Normal S1 S2 Gastrointestinal: Soft and benign, W/out hepatosplenomegaly Musculoskeletal: No clubbing, No swelling Integumentary: No rashes Neurological: aphasia and right sided weakness Assessment and Plan - Assessment and Plan 1. 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 MRI is pending. CT angio without any acute abnormality. CT of the head with no hemorrhagic conversion. TNK given. Neurology consultation pending. Will do physical therapy and occupational therapy as well as speech therapy. Check lipid profile. Continue with DVT prophylaxis after 24 hours. 2. ESRD; Plan to start hemodialysis tomorrow >24hrs after TNK. Will keep patient NPO with speech therapy consultation. Appreciate Nephrology consultation. 3. Hypocalcemia; continue with phoslo and oscal 4. Hypertensive urgency; Antihypertensives titrated. Allowing for permissive HTN; Continue home medications and titrate as needed. Hydralazine as needed 5. Diabetes mellitus type 2; Accu-Chek before every 6 hours 6. Anemia of chronic disease; Monitor H&H closely. No overt bleeding at this time Discharge Plan: Home Plan to discharge in: 2-3 days - Advance Directives Does patient have a Living Will: No Does patient have a Durable POA for Healthcare: No - Code Status/Comfort Care Code Status: Cable Tender Spent Managing Pts Care (In Minutes): 58 Critical care: Yes Time Spent: 30 minutes
--- NOTE | 2024-07-08 05:06 | P.PN ---
Date of Service: 07/05/24 Subjective Patient was hemodialyzed. Patient doing better but she does get nauseated afterwards. Continue with antiemetics. Arranging for outpatient hemodialysis. Once we get a chair time she should be stable for discharge. Physical Examination - Vital Signs reviewed - Physical Exam General: Alert, Oriented x3, Mild distress Respiratory: Clear to auscultation bilaterally, Normal air movement Cardiovascular: Regular rate/rhythm, Normal S1 S2 Gastrointestinal: Soft and benign, W/out hepatosplenomegaly Musculoskeletal: No clubbing, No swelling Integumentary: No rashes Neurological: aphasia and right sided weakness Assessment and Plan - Assessment and Plan 1. 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 MRI is pending. CT angio without any acute abnormality. CT of the head with no hemorrhagic conversion. TNK given. Neurology consultation pending. Will do physical therapy and occupational therapy as well as speech therapy. Check lipid profile. Continue with DVT prophylaxis after 24 hours. 2. ESRD; Continue with hemodialysis per Nephrology. Arrange for chair time. 3. Hypocalcemia; continue with phoslo and oscal 4. Hypertensive urgency; Blood pressure has improved. Continue oral BP meds. 5. Diabetes mellitus type 2; Accu-Chek before every 6 hours 6. Anemia of chronic disease; Monitor H&H closely. No overt bleeding at this time Discharge Plan: Home Plan to discharge in: 2-3 days - Advance Directives Does patient have a Living Will: No Does patient have a Durable POA for Healthcare: No - Code Status/Comfort Care Code Status: Production Miner Spent Managing Pts Care (In Minutes): 58 Critical care: Yes Time Spent: 30 minutes
--- NOTE | 2024-07-08 05:08 | P.PN ---
Date of Service: 07/06/24 Subjective Patient is doing well with no new complaints. Patient's clinical symptoms are stable. Patient had a couple sessions of hemodialysis. Plan on discharge once we get chair time. Physical Examination - Vital Signs reviewed - Physical Exam General: Alert, Oriented x3, Mild distress Respiratory: Clear to auscultation bilaterally, Normal air movement Cardiovascular: Regular rate/rhythm, Normal S1 S2 Gastrointestinal: Soft and benign, W/out hepatosplenomegaly Musculoskeletal: No clubbing, No swelling Neurological: No focal deficits at this time Assessment and Plan - Assessment and Plan 1. Acute CVA with right sided weakness and aphasia; Neurologic symptoms have improved. Arranging for outpatient hemodialysis. Continue with anti-platelet therapy and statin therapy. Appreciate Neurology input. 2. ESRD; Continue with hemodialysis per Nephrology. Arrange for chair time. 3. Hypocalcemia; continue with phoslo and oscal 4. Hypertensive urgency; Blood pressure has improved. Continue oral BP meds. 5. Diabetes mellitus type 2; Accu-Chek before every 6 hours 6. Anemia of chronic disease; Monitor H&H closely. No overt bleeding at this time Discharge Plan: Home Plan to discharge in: 2-3 days - Advance Directives Does patient have a Living Will: No Does patient have a Durable POA for Healthcare: No - Code Status/Comfort Care Code Status: Stereotyper Spent Managing Pts Care (In Minutes): 58 Critical care: Yes Time Spent: 30 minutes
--- NOTE | 2024-07-08 05:09 | P.PN ---
Date of Service: 07/07/24 Subjective Patient continues to do well. Patient denies any new complaints. Clinical symptoms are stable. Once chair times arrange patient should be stable for discharge home. Physical Examination - Vital Signs reviewed - Physical Exam General: Alert, Oriented x3, Mild distress Respiratory: Clear to auscultation bilaterally, Normal air movement Cardiovascular: Regular rate/rhythm, Normal S1 S2 Gastrointestinal: Soft and benign, W/out hepatosplenomegaly Musculoskeletal: No clubbing, No swelling Neurological: No focal deficits at this time Assessment and Plan - Assessment and Plan 1. Acute CVA with right sided weakness and aphasia; Neurologic symptoms have improved. Arranging for outpatient hemodialysis. Continue with anti-platelet therapy and statin therapy. Appreciate Neurology input. 2. ESRD; Continue with hemodialysis per Nephrology. Arrange for chair time. Patient does have some nausea and vomiting after dialysis. May need antiemetics 3. Hypocalcemia; continue with phoslo and oscal 4. Hypertensive urgency; Blood pressure has improved. Continue oral BP meds. 5. Diabetes mellitus type 2; Accu-Chek before every 6 hours 6. Anemia of chronic disease; Monitor H&H closely. No overt bleeding at this time Discharge Plan: Home Plan to discharge in: 2-3 days - Advance Directives Does patient have a Living Will: No Does patient have a Durable POA for Healthcare: No - Code Status/Comfort Care Code Status: Personal Injury Specialist Spent Managing Pts Care (In Minutes): 58 Critical care: Yes Time Spent: 30 minutes
[2024-07-08 05:52] LABS: Albumin 1.5 g/dL (3.4-5.0); Anion Gap 10.6 mEq/L (5.0-15.0); Potassium 3.6 mEq/L (3.5-5.1)
[2024-07-08] MEDS: POTASSIUM CL SA 10 MEQ TAB PO ONE (08:42)
--- NOTE | 2024-07-08 09:53 | P.PN ---
Date of Service: 07/08/24 Subjective no complaints, resting but easily arousable Physical Examination - Vital Signs reviewed - Physical Exam General: Alert, Oriented x3, no distress Respiratory: Clear to auscultation bilaterally, Normal air movement Cardiovascular: Regular rate/rhythm, Normal S1 S2 Gastrointestinal: Soft and benign, W/out hepatosplenomegaly Musculoskeletal: No clubbing, No swelling Neurological: No focal deficits at this time Assessment and Plan - Assessment and Plan 1. Acute CVA with right sided weakness and aphasia; Neurologic symptoms have improved. Arranging for outpatient hemodialysis. Continue with anti-platelet therapy and statin therapy. 2. ESRD; Continue with hemodialysis per Nephrology. Arrange for chair time. 3. Hypocalcemia; continue with phoslo and oscal 4. Hypertensive urgency; Blood pressure has improved. Continue oral BP meds. 5. Diabetes mellitus type 2; Accu-Chek before every 6 hours 6. Anemia of chronic disease; Monitor H&H closely. No overt bleeding at this time 07/08/24 - Ms. Parra is alert and oriented, no complaints, awaiting HD chair time for discharge. CM informed me the Hepatitis panel, core ab, total must result prior to [facility] giving pt a time. Discharge Plan: Home Plan to discharge in: 1-2 days - Advance Directives Does patient have a Living Will: No Does patient have a Durable POA for Healthcare: No - Code Status/Comfort Care Code Status: Full
[2024-07-08] MEDS: MELATONIN 5 MG TABLET PO ONE (23:30)
--- NOTE | 2024-07-09 00:28 | PN ---
Date of Progress Note: 07/08/2024 Chief Complaint: Advanced chronic kidney disease, acute on chronic kidney injury. Subjective: The patient was initiated on dialysis. The patient developed altered mental status, dec rease of appetite. She had some uremic symptomatology. Previously, she was refusing dialysis, but f inally during this admission she agreed to start dialysis. The patient developed CVA and was treated with tPA. Review of Systems: Denies chest pain, palpitation. Physical Examination: Lungs: Clear to auscultation bilaterally. Heart: S1, S2. Abdomen: Soft. Extremities: No edema. Laboratory Data: Sodium is 135, potassium 3.6, bicarbonate 26, BUN 22, creatinine 3.7. Calcium raven ected 9.9. Impression And Plan: 1. End-stage renal disease. Continue dialysis on Monday, , Monday. 2. Hypertension. Blood pressure controlled. Continue current treatment. 3. Secondary hyperparathyroidism. Monitor phosphorus level and intact PTH. 4. Acidosis. The patient was treated with bicarbonate and dialysis was started to treat uremic sympt oms, to provide metabolic clearance and ultrafiltration. Continue to monitor renal panel, and contin ue to hold bicarbonate. 5. Hypervolemia. Continue Lasix and optimize dialysis procedure with ultrafiltration to treat hyperv olemia. EB/MODL Voice ID: [id number] Report ID: [id number]
[2024-07-09 05:49] LABS: Albumin 1.5 g/dL (3.4-5.0); Anion Gap 11.1 mEq/L (5.0-15.0); Phosphorus 4.2 mg/dL (2.5-4.9); Potassium 4.1 mEq/L (3.5-5.1)
[2024-07-09] MEDS: FUROSEMIDE 40 MG/4 ML VIAL IV SCH (08:49)
[2024-07-09 14:05] VITALS: O2SAT 98
--- NOTE | 2024-07-09 20:00 | P.PN ---
Date of Service: 07/09/24 Subjective pt resistant regarding dialysis today. Discussed why she felt so poorly (uremia) prior to dialysis and she states she knows and knows she needs the treatment. Physical Examination - Vital Signs reviewed - Physical Exam General: Alert, Oriented x3, no distress Respiratory: Clear to auscultation bilaterally, Normal air movement Cardiovascular: Regular rate/rhythm, Normal S1 S2, systolic murmur Gastrointestinal: Soft and benign, W/out hepatosplenomegaly Musculoskeletal: No clubbing, No swelling Neurological: No focal deficits at this time Assessment and Plan - Assessment and Plan 1. Acute CVA with right sided weakness and aphasia; Neurologic symptoms have improved. Arranging for outpatient hemodialysis - chair time set up and expect discharge today post dialysis. Continue with anti-platelet therapy and statin therapy. 2. ESRD; Continue with hemodialysis per Nephrology. Arrange for chair time - done 3. Hypocalcemia; continue with phoslo and oscal 4. Hypertensive urgency; Blood pressure has improved. Continue oral BP meds. 5. Diabetes mellitus type 2; Accu-Chek before every 6 hours 6. Anemia of chronic disease; Monitor H&H closely. No overt bleeding at this time 07/08/24 - Ms. Parra is alert and oriented, no complaints, awaiting HD chair time for discharge. CM informed me the Hepatitis panel, core ab, total must result prior to [facility] giving pt a time. 07/09/24 - [facility] chair time set up, will plan to dc patient after dialysis today Discharge Plan: Home Plan to discharge in: after dialysis - Advance Directives Does patient have a Living Will: No Does patient have a Durable POA for Healthcare: No - Code Status/Comfort Care Code Status: Full
[2024-07-10 05:16] LABS: Albumin 1.4 g/dL (3.4-5.0); Anion Gap 9.8 mEq/L (5.0-15.0); Phosphorus 4.2 mg/dL (2.5-4.9); Potassium 3.8 mEq/L (3.5-5.1)
[2024-07-10] MEDS: CLONIDINE 0.3 MG/PATCH TD SCH (10:30)
[2024-07-10] MEDS: MORPHINE 4 MG/ML SYR IV PRN (15:46)
--- NOTE | 2024-07-10 16:09 | PN ---
Date of Progress Note: 07/10/2024 Subjective: The patient was admitted to the hospital with worsening kidney function. The patient had CVA. The patient was initiated on dialysis. The patient's blood pressure being elevated. The patient refused dialysis yesterday. Objective: Vital Signs: When I saw the patient, blood pressure of 185/84. Chest: Crackles, bilateral. Heart: S1, S2. Systolic murmur. Abdomen: Soft, nontender. Extremities: Trace edema. Neurologic: Alert. No focality. Laboratory Data: For the patient; hemoglobin 7.7, sodium 133, potassium 3.8, bicarb 27, BUN 35, creatinine 6.1, calcium 7.2, phosphorus 4.2. Current Medications: The patient is on include: 1. Epogen. 2. Calcium carbonate. 3. Atorvastatin. 4. Clonidine. 5. Diltiazem. 6. Lisinopril. 7. Spironolactone. 8. Gabapentin. 9. Renvela. 10. Lasix. Assessment And Plan: 1. End-stage renal disease. I had long discussion with the patient the need for the dialysis. The patient finally agreed. We will resume dialysis today. 2. Hypertension, not controlled. I am going to go ahead and change the clonidine to patch. We will follow up the blood pressure after dialysis. 3. Cerebrovascular accident. No residual. Continue supportive care. 4. Congestive heart failure with exacerbation. We will optimize the fluid status. We will continue to challenge the patient. 5. Hypokalemia. Patient is going to be dialyzed on high potassium bath. 6. Secondary hyperparathyroidism. Continue calcitriol. 7. Anemia of chronic kidney disease. Continue HANNAH. Time spent examining the patient [id number] reviewing data lab and an audiology placing order discussing the case with the patient discussing the case with the environmental field team member including hospitalist and nursing staff more than 55-minute DURGA/QUIANA Voice ID: [id number] Report ID: [id number] AYAH
[2024-07-10 16:58] VITALS: BP 167/73; TEMP 99
--- NOTE | 2024-07-10 17:13 | P.DS ---
Admission Date: 06/26/24 Discharge Date: 07/10/24 Disposition: ROUTINE DISCHARGE Discharge Condition: GOOD Reason for Admission: Hypoglycemia Consultations: Dr. Roy, Dr. Solis Procedures: Hemodialysis catheter placement TPA administration for stroke like symptoms, dx TIA Hospital Course: Ms. Muñoz presented with severe uremia symptoms and resisted dialysis. She did finally consent to treatment. HD catheter placed to right subclavian. Placement confirmed and pt underwent dialysis. She is not a fan. She felt nauseated and was treated quickly and recovered well. Her discharged was delayed by some altered level of consciousness and confusion. She was thought to be having a CVA. It was concerning enough that TPA was administered. No radiologic evidence of CVA. Presumptive TIA. She was again resistant to dialysis but did consent and was awaiting [facility] chair time for TTS schedule. I was going to discharge her after dialysis yesterday (Monday). Welcome letter from [facility] dialysis arrived Monday evening after Ms. Parra declined inpatient dialysis. Labs this morning were evaluated by Dr. Roy, the patient has stable vital signs, and it is deemed appropriate to discharge her home today to [facility] at [address] [place] [address] A tomorrow, 07/11/24 at 1:45pm for her chair time. Vital Signs/Physical Exam: Temp Pulse Resp BP Pulse Ox 99.0 F 63 14 167/73 H 100 07/10/24 16:00 07/10/24 16:00 07/10/24 16:00 07/10/24 16:00 07/10/24 16:00 Other Physical/Emotional Findings: - Physical Exam. General: Not acutely ill looking, in no apparent distress,. HEENT: Normocephalic, atraumatic, nonicteric sclera, nonanemic conjunctive. Neck: Supple, without JVD or goiter or thyroid mass. Respiratory: Normal breathing effort, clear to auscultation bilaterally, no crackles no wheezing or rhonchi. Cardiovascular: Regular rate and rhythm, S1, S2 normal, no murmur no gallop. Gastrointestinal: Normal bowel sounds, nondistended, nontender, No ascites, , No masses, no hepatosplenomegaly. Extremities : No clubbing, No peripheral edema,. Integumentary: No rashes, petechia, suspected lesions. Lymphatics: No axilla or cervical lymphadenopathy. Neurology; alert awake oriented x3, no focal neurologic deficit, normal affection . mood and behavior. Laboratory Data at Discharge: WBC 11.40 thou/uL (4.3-10.9) H 07/04/24 05:16 Hgb 7.7 g/dL (12.0-15.0) L 07/04/24 05:16 Hct 22.9 % (36.0-45.0) L 07/04/24 05:16 Plt Count 146 thou/uL (152-406) L 07/04/24 05:16 PT 11.8 SECONDS (9.4-12.5) 07/03/24 05:21 INR 1.13 07/03/24 05:21 APTT 36.3 SECONDS (24.3-36.9) 07/03/24 05:21 Sodium 133 mEq/L (136-145) L 07/10/24 04:16 Potassium 3.8 mEq/L (3.5-5.1) 07/10/24 04:16 BUN 35 mg/dL (7-18) H 07/10/24 04:16 Creatinine 6.18 mg/dL (0.55-1.02) H 07/10/24 04:16 Glucose 113 mg/dL (74-106) H 07/10/24 04:16 Uric Acid 8.5 mg/dL (2.6-6.0) H 06/28/24 04:08 Phosphorus 4.2 mg/dL (2.5-4.9) 07/10/24 04:16 Magnesium 2.2 mg/dL (1.6-2.4) 07/06/24 04:49 Total Bilirubin 0.3 mg/dL (0.2-1.0) 07/03/24 05:21 AST 22 U/L (15-37) 07/03/24 05:21 ALT 18 U/L (13-56) 07/03/24 05:21 Alkaline Phosphatase 173 U/L (45-117) H 07/03/24 05:21 Triglycerides 121 mg/dL (<150) 07/03/24 05:21 Cholesterol 109 mg/dL (<200) 07/03/24 05:21 HDL Cholesterol 50 mg/dL (40-60) 07/03/24 05:21 Cholesterol/HDL Ratio 2.18 07/03/24 05:21 Home Medications: Diltiazem HCl [Diltiazem 24Hr Cd] 240 mg PO DAILY 02/11/21 Atorvastatin Calcium [Lipitor*] 10 mg PO BEDTIME 09/14/22 Furosemide 40 mg PO DAILY 05/09/24 Pantoprazole [Protonix Tab*] 40 mg PO DAILY 05/09/24 Pregabalin 75 mg PO BID 05/09/24 Calcitrol [Rocaltrol*] 0.5 mcg PO Q48H #15 cap 05/11/24 Hydralazine [Apresoline*] 50 mg PO TID #90 tab 05/11/24 Sodium Bicarbonate 1,300 mg PO TID #180 tab 05/11/24 Glipizide [Glipizide ER] 10 mg PO DAILY 06/27/24 cloNIDine HCL [Catapres] 0.3 mg PO BID 06/27/24 Physician Discharge Instructions: 69 yrs old Female with past medical history of diabetes, hypertension, hyperlipidemia, ESRD, hepatitis C, history of cirrhosis liver, asthma, anxiety, chronic pain who was brought to ER with slurred speech and altered mental status which has been going on for the last 2 days and has been worsening and was brought to ER. Patient is a poor historian hence most of the history is obtained from chart review and talking to the ER physician and also talking to the family member at the bedside. Patient has not been doing well for the last 3 days and has been progressively getting more and more weak and slurred speech. Patient was noted to be hypoglycemic. Patient was assessed in the ER and found to be recurrent hypoglycemic and was admitted for further management, improved with medication changes, tolerating diet, ambulating with physical therapy, stable to discharge home, follow-up with outpatient hemodialysis. Follow-up with nephrology after discharge Assessment and Plan Recurrent hypoglycemia-On oral antihyperglycemic agents Will hold OHA Leukocytosis -afebrile Slurring of speech-CT head negative for any acute changes (secondary to hypoglycemia) Hypocalcemia Replaced calcium while in patient Hypertensive urgency-Continue home medications and titrate as needed Hyperlipidemia Continue statin ESRD pending DC OP HD chair Diabetes- resume home meds Anemia of chronic disease-No overt bleeding at this time INSTRUCTIONS: Physician Discharge Instructions: -Follow-up with PCP in 1 to 2 weeks -Follow-up with nephrology after -Please call Dr. Masters at [phone] if any questions regarding hospital stay -Please call nursing station at [phone] if any nursing or medication questions -Return to the emergency room if symptoms worsen Diet: ADA, low sodium Activity: Fall precautions Diet: ADA Activity: Fall precautions Followup: [facility] [Primary Care Provider] -
--- NOTE | 2024-07-10 17:27 | P.DS ---
Admission Date: 06/26/24 Discharge Date: 07/10/24 Reason for Admission: Hypoglycemia Consultations: Dr. Roy, Dr. Solis Procedures: Hemodialysis catheter placement TPA administration for stroke like symptoms, dx TIA Brief History of Present Illness: 69 yrs old Female with past medical history of diabetes, hypertension, hyperlipidemia, ESRD, hepatitis C, history of cirrhosis liver, asthma, anxiety, chronic pain who was brought to ER with slurred speech and altered mental status which has been going on for the last 2 days and has been worsening and was brought to ER. Patient is a poor historian hence most of the history is obtained from chart review and talking to the ER physician and also talking to the family member at the bedside. Patient has not been doing well for the last 3 days and has been progressively getting more and more weak and slurred speech. Patient was noted to be hypoglycemic. Denies any fever or chills. No nausea vomiting or diarrhea. No sick contacts. Patient was assessed in the ER and found to be recurrent hypoglycemic and was admitted for further management Hospital Course: Ms. Parra presented with severe uremia symptoms and resisted dialysis. She did finally consent to treatment. HD catheter placed to right subclavian. Placement confirmed and pt underwent dialysis. She is not a fan. She felt nauseated and was treated quickly and recovered well. Her discharged was delayed by some altered level of consciousness and confusion. She was thought to be having a CVA. It was concerning enough that TPA was administered. No radiologic evidence of CVA. Presumptive TIA. She was again resistant to dialysis but did consent and was awaiting [facility] chair time for TTS schedule. I was going to discharge her after dialysis yesterday (Monday). Wel come letter from [facility] dialysis arrived Monday evening after Ms. Parra declined inpatient dialysis. Labs this morning were evaluated by Dr. Roy, the patient has stable vital signs, and it is deemed appropriate to discharge her home today to follow up in the [facility] at [address] [place] [address] A tomorrow, 07/11/24 at 1:45pm for her chair time. <Harleen Crespo - Last Filed: 07/10/24 17:22> Admission Date: 06/26/24 Discharge Date: 07/10/24 <FARRAH Avery - Last Filed: 07/10/24 17:41> Disposition: ROUTINE DISCHARGE Discharge Condition: GOOD Vital Signs/Physical Exam: Temp Pulse Resp BP Pulse Ox 99.0 F 63 14 167/73 H 100 07/10/24 16:00 07/10/24 16:00 07/10/24 16:00 07/10/24 16:00 07/10/24 16:00 General: Alert, In no apparent distress, Oriented x3, Cachectic, Disheveled HEENT: Atraumatic, Normocephalic Neck: Supple Respiratory: Clear to auscultation bilaterally Cardiovascular: Normal pulses, Regular rate/rhythm, Systolic murmur Capillary refill: <2 Seconds Gastrointestinal: Normal bowel sounds Musculoskeletal: No clubbing, No swelling Integumentary: No rashes Neurological: Normal speech, Normal tone, Normal affect Lymphatics: No axilla or inguinal lymphadenopathy External genitalia: Deferred Rectal: Deferred Other Physical/Emotional Findings: - Physical Exam. General: Not acutely ill looking, in no apparent distress,. HEENT: Normocephalic, atraumatic, nonicteric sclera, nonanemic conjunctive. Neck: Supple, without JVD or goiter or thyroid mass. Respiratory: Normal breathing effort, clear to auscultation bilaterally, no crackles no wheezing or rhonchi. Cardiovascular: Regular rate and rhythm, S1, S2 normal, no murmur no gallop. Gastrointestinal: Normal bowel sounds, nondistended, nontender, No ascites, , No masses, no hepatosplenomegaly. Extremities : No clubbing, No peripheral edema,. Integumentary: No rashes, pe techia, suspected lesions. Lymphatics: No axilla or cervical lymphadenopathy. Neurology; alert awake oriented x3, no focal neurologic deficit, normal affection . mood and behavior. <Harleen Crespo Benjamin - Last Filed: 07/10/24 17:22> Vital Signs/Physical Exam: Temp Pulse Resp BP Pulse Ox 99.0 F 63 14 167/73 H 100 07/10/24 16:00 07/10/24 16:00 07/10/24 16:00 07/10/24 16:07/10/24 16:00 Laboratory Data at Discharge: WBC 11.40 thou/uL (4.3-10.9) H 07/04/24 05:16 Hgb 7.7 g/dL (12.0-15.0) L 07/04/24 05:16 Hct 22.9 % (36.0-45.0) L 07/04/24 05:16 Plt Count 146 thou/uL (152-406) L 07/04/24 05:16 PT 11.8 SECONDS (9.4-12.5) 07/03/24 05:21 INR 1.13 07/03/24 05:21 APTT 36.3 SECONDS (24.3-36.9) 07/03/24 05:21 Sodium 133 mEq/L (136-145) L 07/10/24 04:16 Potassium 3.8 mEq/L (3.5-5.1) 07/10/24 04:16 BUN 35 mg/dL (7-18) H 07/10/24 04:16 Creatinine 6.18 mg/dL (0.55-1.02) H 07/10/24 04:16 Glucose 113 mg/dL (74-106) H 07/10/24 04:16 Uric Acid 8.5 mg/dL (2.6-6.0) H 06/28/24 04:08 Phosphorus 4.2 mg/dL (2.5-4.9) 07/10/24 04:16 Magnesium 2.2 mg/dL (1.6-2.4) 07/06/24 04:49 Total Bilirubin 0.3 mg/dL (0.2-1.0) 07/03/24 05:21 AST 22 U/L (15-37) 07/03/24 05:21 ALT 18 U/L (13-56) 07/03/24 05:21 Alkaline Phosphatase 173 U/L (45-117) H 07/03/24 05:21 Triglycerides 121 mg/dL (<150) 07/03/24 05:21 Cholesterol 109 mg/dL (<200) 07/03/24 05:21 HDL Cholesterol 50 mg/dL (40-60) 07/03/24 05:21 Cholesterol/HDL Ratio 2.18 07/03/24 05:21 <FARRAH Avery Ran - Last Filed: 07/10/24 17:41> Diet: ADA Activity: Fall precautions <Crespo,Harleen Benjamin - Last Filed: 07/10/24 17:22> <FARRAH Avery Ran - Last Filed: 07/10/24 17:41> Home Medications: Diltiazem HCl [Diltiazem 24Hr Cd] 240 mg PO DAILY 02/11/21 Atorvastatin Calcium [Lipitor*] 10 mg PO BEDTIME 09/14/22 Furosemide 40 mg PO DAILY 05/09/24 Pantoprazole [Protonix Tab*] 40 mg PO DAILY 05/09/24 Pregabalin 75 mg PO BID 05/09/24 Calcitrol [Rocaltrol*] 0.5 mcg PO Q48H #15 cap 05/11/24 Hydralazine [Apresoline*] 50 mg PO TID #90 tab 05/11/24 Sodium Bicarbonate 1,300 mg PO TID #180 tab 05/11/24 Glipizide [Glipizide ER] 10 mg PO DAILY 06/27/24 cloNIDine HCL [Catapres*] 0.3 mg PO BID 06/27/24 Physician Discharge Instructions: 69 yrs old Female with past medical history of diabetes, hypertension, hyperlipidemia, ESRD, hepatitis C, history of cirrhosis liver, asthma, anxiety, chronic pain who was brought to ER with slurred speech and altered mental status which has been going on for the last 2 days and has been worsening and was brought to ER. Patient is a poor historian hence most of the history is obtained from chart review and talking to the ER physician and also talking to the family member at the bedside. Patient has not been doing well for the last 3 days and has been progressively getting more and more weak and slurred speech. Patient was noted to be hypoglycemic. Patient was assessed in the ER and found to be recurrent hypoglycemic and was admitted for further management, improved with medication changes, tolerating diet, ambulating with physical therapy, stable to discharge home, follow-up with outpatient hemodialysis. Follow-up with nephrology after discharge Ms. Parra presented with severe uremia symptoms and resisted dialysis. She did finally consent to treatment. HD catheter placed to right subclavian. Placement confirmed and pt underwent dialysis. She is not a fan. She felt nauseated and was treated quickly and recovered well. Her discharged was delayed by some altered level of consciousness and confusion. She was thought to be having a CVA. It was concerning enough that TPA was administered. No radiologic evidence of CVA. Presumptive TIA. She was again resistant to dialysis but did consent and was awaiting [facility] chair time for TTS schedule. I was going to discharge her after dialysis yesterday (Monday). Welcome letter from [facility] dialysis arrived Monday evening after Ms. Parra declined inpatient dialysis. Labs this morning were evaluated by Dr. Roy, the patient has stable vital signs, and it is deemed appropriate to discharge her home today to follow up in the [facility] at [address] [facility] A tomorrow, 07/11/24 at 1:45pm for her chair time. INSTRUCTIONS: Physician Discharge Instructions: -Follow-up with PCP in 1 to 2 weeks -Follow-up with nephrology in 1 week -Please call Dr. Masters at [phone] if any questions regarding hospital stay -Please call nursing station at [phone] if any nursing or medication questions -Return to the emergency room if symptoms worsen Diet: renal Activity: Fall precautions Followup: [facility] [Primary Care Provider] - Celso Roy MD [ACTIVE - CAN ADMIT] -
[2024-07-10] MEDS: ALBUTEROL 2.5 MG/3 ML NEB SOL NEB ONE (18:15)
== END 2024-07-10 19:35 | disposition home or self-care (01) | DRG 638 ==
LOC: ER 15:42 → ERHOLD 18:47 → 2ND 21:51 → 3RD-ICU 07-01 18:41 → 2ND 07-03 15:37
PROVIDERS: ADMIT Family Medicine; ATTEND Internal Medicine
PROC: 3E03317 Introduction of Other Thrombolytic into Peripheral Vein, Percutaneous Approach (ICD-10-PCS; 2024-07-01)
PROC: 30233N1 Transfusion of Nonautologous Red Blood Cells into Peripheral Vein, Percutaneous Approach (ICD-10-PCS; 2024-07-01)
PROC: 0T9B70Z Drainage of Bladder with Drainage Device, Via Natural or Artificial Opening (ICD-10-PCS; 2024-07-02)
PROC: 02HV33Z Insertion of Infusion Device into Superior Vena Cava, Percutaneous Approach (ICD-10-PCS; 2024-07-03)
PROC: 0JH63XZ Insertion of Tunneled Vascular Access Device into Chest Subcutaneous Tissue and Fascia, Percutaneous Approach (ICD-10-PCS; principal; 2024-07-03 10:36)
PROC: 5A1D70Z Performance of Urinary Filtration, Intermittent, Less than 6 Hours Per Day (ICD-10-PCS; 2024-07-04)
DX: E11.649 Type 2 diabetes mellitus with hypoglycemia without coma (principal); E87.20 Acidosis, unspecified; G81.91 Hemiplegia, unspecified affecting right dominant side; I13.2 Hypertensive heart and chronic kidney disease with heart failure and with stage 5 chronic kidney disease, or end stage renal disease; R47.01 Aphasia; R64 Cachexia; G45.9 Transient cerebral ischemic attack, unspecified; N18.6 End stage renal disease; N25.81 Secondary hyperparathyroidism of renal origin; N17.9 Acute kidney failure, unspecified; I50.9 Heart failure, unspecified; E11.22 Type 2 diabetes mellitus with diabetic chronic kidney disease; E11.65 Type 2 diabetes mellitus with hyperglycemia; E11.40 Type 2 diabetes mellitus with diabetic neuropathy, unspecified; D63.1 Anemia in chronic kidney disease; D50.9 Iron deficiency anemia, unspecified; I16.0 Hypertensive urgency; E87.6 Hypokalemia; E83.51 Hypocalcemia; N25.0 Renal osteodystrophy; K74.60 Unspecified cirrhosis of liver; E78.00 Pure hypercholesterolemia, unspecified; D72.829 Elevated white blood cell count, unspecified; K21.9 Gastro-esophageal reflux disease without esophagitis; J44.9 Chronic obstructive pulmonary disease, unspecified; F17.210 Nicotine dependence, cigarettes, uncomplicated; M89.8X9 Other specified disorders of bone, unspecified site; R47.81 Slurred speech; R29.709 NIHSS score 9; Z88.5 Allergy status to narcotic agent; Z88.8 Allergy status to other drugs, medicaments and biological substances; Z68.28 Body mass index [BMI] 28.0-28.9, adult; Z79.84 Long term (current) use of oral hypoglycemic drugs; Z79.899 Other long term (current) drug therapy
CPT/HCPCS: 36415; 70450; 70496; 70498; 70551; 71045; 72125; 76000; 80048; 80053; 80061; 80069; 80074; 80076; 82607; 82652; 82728; 82947; 83036; 83540; 83735; 83970; 84100; 84439; 84443; 84466; 84484; 84550; 85025; 85027; 85044; 85610; 85730; 86704; 86705; 86706; 86850; 86900; 86901; 86920; 87340; 90935; 92523; 93005; 94640; 94760; 96361; 96372; 96374; 96375; 97116; 97129; 97161; 97530; 99285; C1752; J0360; J0612; J0690; J1644; J1940; J2003; J2270; J2354; J2405; J2704; J2765; J2916; J3010; J3030; J3101; J3475; J7040; J7050; J7613; J7799; P9016; Q9967

== ENCOUNTER 2024-07-20 17:33 | Emergency (ER) | payer OTHER ==
[2024-07-20] MEDS ORDERED: D50W 25 GM/50 ML SYRINGE IV ONE (18:25)
[2024-07-20] MEDS ORDERED: CEFTRIAXONE 1000 MG/VIAL ONE (18:35)
[2024-07-20 18:43] LABS: Absolute Eosinophils 0.1 K/uL (0-0.5); Absolute Lymphocytes (CBC) 0.9 K/uL (0.7-4.9); Absolute Neutrophil 10.6 K/uL (1.8-8.0); Basophils % 0.3 % (0-1.3); Eosinophils % 0.8 % (0-4.4); Hematocrit 28.3 % (36.0-45.0); Hemoglobin 9.1 g/dL (12.0-15.0); Lymphocytes % 7.3 % (15.3-44.8); MCH 31.4 pg (27.0-35.0); MCHC 32.3 g/dL (32.0-36.0); MCV 97.3 fL (80-100); MPV 8.7 fL (7.6-11.3); Monocytes % 8.1 % (3.3-12.3); Neutrophils % 83.5 % (41.7-73.7); Nucleated RBC Absolute Count 0.1 (0-0); Nucleated Red Blood Cells % 0.6 % (0-0); PT Prothrombin Time 31.1 SECONDS (10.0-13.0); Platelets 299 thou/uL (152-406); Protime INR 2.87; RBC Red Blood Cell Count 2.91 M/uL (3.86-4.86)
[2024-07-20 18:56] LABS: Influenza A Ag Negative; Influenza B Ag Negative; SARS-CoV-2 Antigen Rapid Res Negative (Negative)
[2024-07-20 19:03] LABS: ALT/SGPT 1093 U/L (13-56); Albumin 1.5 g/dL (3.4-5.0); Albumin/Globulin Ratio 0.3 (1.1-1.8); Alkaline Phosphatase 149 U/L (45-117); BUN Blood Urea Nitrogen 32 mg/dL (7-18); Bicarbonate 16 mEq/L (21-32); Bilirubin Direct 2.3 mg/dL (0-0.2); Bilirubin Indirect, Calculated 0.6 mg/dL (0.2-0.8); Bilirubin Total 2.9 mg/dL (0.2-1.0); Glomerular Filtration Rate 5 ml/min (=/>90); Magnesium 1.9 mg/dL (1.6-2.4); NT PRO-BNP 10781 pg/mL (<125); Protein, Total 7.5 g/dL (6.4-8.2); Sodium Level 140 mEq/L (136-145)
[2024-07-20 19:12] LABS: Troponin High Sensitivity 11.1 pg/mL (<58.9)
[2024-07-20 19:13] LABS: AST/SGOT > 2002 U/L (15-37)
[2024-07-20 19:14] LABS: Glucose Level 21 mg/dL (74-106)
--- NOTE | 2024-07-20 19:37 | EDPHYS ---
Physician Documentation [facility] Name: Josr Parra Age: 69 yrs Sex: Female : 1955 Arrival Date: 07/20/2024 Time: 17:33 Bed 6 Private MD: ED Physician Emmett Tapia HPI: 07/20 17:56 This 69 yrs old Black Female presents to ER via EMS with complaints of General mireya Weakness, Low Blood Sugar. 17:56 WEAK , LOW GLUCOSE. The patient presents with decreased mental status, decreased mireya responsiveness, trouble concentrating. Onset: The symptoms/episode began/occurred today. Possible causes: CVA or TIA, low blood sugar, seizure, sepsis, unknown. Associated signs and symptoms: Pertinent positives: weakness. Current symptoms: In the emergency department the patient's symptoms are unchanged from the initial presentation, despite home interventions, despite EMS interventions. Patient's baseline: Neuro: alert and fully oriented. Severity of symptoms: At their worst the symptoms were moderate in the emergency department the symptoms are unchanged. The patient has not experienced similar symptoms in the past. Historical: - Allergies: 17:53 Codeine; ld1 17:53 Promethazine; ld1 - PMHx: 17:53 Asthma; cirrhosis of liver; Diabetes - NIDDM; elevatedliver enzymes; Hepatitis; c; ld1 kidney disease; lumbar spine issues/pain; - PSHx: 17:53 tubes tied; ld1 - Immunization history:: Adult Immunizations up to date. - Infectious Disease History:: Denies. - Social history:: Smoking status: Patient denies any tobacco usage or history of. ROS: 17:57 Constitutional: Negative for fever, chills, and weight loss, Eyes: Negative for injury, mireya pain, redness, and discharge, ENT: Negative for injury, pain, and discharge, Neck: Negative for injury, pain, and swelling, Cardiovascular: Negative for chest pain, palpitations, and edema, Respiratory: Negative for shortness of breath, cough, wheezing, and pleuritic chest pain, Abdomen/GI: Negative for abdominal pain, nausea, vomiting, diarrhea, and constipation, Back: Negative for injury and pain, : Negative for injury, bleeding, discharge, and swelling, MS/Extremity: Negative for injury and deformity, Skin: Negative for injury, rash, and discoloration, Psych: Negative for depression, anxiety, suicide ideation, homicidal ideation, and hallucinations, Allergy/Immunology: Negative for hives, rash, and allergies, Endocrine: Negative for neck swelling, polydipsia, polyuria, polyphagia, and marked weight changes, Hematologic/Lymphatic: Negative for swollen nodes, abnormal bleeding, and unusual bruising, 17:57 Neuro: Positive for weakness, Exam: 17:57 Constitutional: This is a well developed, well nourished patient who is awake, alert, mireya and in no acute distress. Head/Face: Normocephalic, atraumatic. Eyes: Pupils equal round and reactive to light, extra-ocular motions intact. Lids and lashes normal. Conjunctiva and sclera are non-icteric and not injected. Cornea within normal limits. Periorbital areas with no swelling, redness, or edema. ENT: Nares patent. No nasal discharge, no septal abnormalities noted. Tympanic membranes are normal and external auditory canals are clear. Oropharynx with no redness, swelling, or masses, exudates, or evidence of obstruction, uvula midline. Mucous membranes moist. Neck: Trachea midline, no thyromegaly or masses palpated, and no cervical lymphadenopathy. Supple, full range of motion without nuchal rigidity, or vertebral point tenderness. No Meningismus. Chest/axilla: Normal chest wall appearance and motion. Nontender with no deformity. No lesions are appreciated. Cardiovascular: Regular rate and rhythm with a normal S1 and S2. No gallops, murmurs, or rubs. Normal PMI, no JVD. No pulse deficits. Respiratory: Lungs have equal breath sounds bilaterally, clear to auscultation and percussion. No rales, rhonchi or wheezes noted. No increased work of breathing, no retractions or nasal flaring. Abdomen/GI: Soft, non-tender, with normal bowel sounds. No distension or tympany. No guarding or rebound. No evidence of tenderness throughout. Back: No spinal tenderness. No costovertebral tenderness. Full range of motion. Skin: Warm, dry with normal turgor. Normal color with no rashes, no lesions, and no evidence of cellulitis. MS/ Extremity: Pulses equal, no cyanosis. Neurovascular intact. Full, normal range of motion., bilateral aka Neuro: Awake and alert, GCS 15, oriented to person, place, time, and situation. Cranial nerves II-XII grossly intact. Motor strength 5/5 in all extremities. Sensory grossly intact. Cerebellar exam normal. Normal gait. Psych: Awake, alert, with orientation to person, place and time. Behavior, mood, and affect are within normal limits. 18:41 ECG was reviewed by the Attending Physician. [facility] Vital Signs: 17:52 BP 143 / 64; Pulse 100; Resp 19; Pulse Ox 95% on R/A; Weight 72.57 kg; Height 5 ft. 5 ld1 in. ; Pain 0/10; 18:41 BP 127 / 54; Pulse 97; Resp 18; Pulse Ox 92% on R/A; ld1 20:05 BP 109 / 61; Pulse 89; Resp 18; Pulse Ox 100% ; Pain 10/10; br2 22:18 BP 105 / 67; Pulse 86; Resp 18; Pulse Ox 100% ; cp4 23:30 BP 125 / 66; Pulse 88; Resp 18; Pulse Ox 98% ; cp4 17:52 Body Mass Index 26.63 (72.57 kg, 165.1 cm) ld1 17:52 Pain Scale: Adult ld1 20:05 Pain Scale: Adult br2 MDM: 17:41 Medical Screening Exam initiated mireya 17:58 Differential Diagnosis altered mental status, sepsis, flu. Differential Diagnosis: CVA, mireya electrolyte abnormality, hypoglycemia, pneumonia, seizure, sepsis, TIA, UTI, volume depletion. Data reviewed: vital signs, nurses notes, lab test result(s), EKG, radiologic studies, plain films. Consideration of Admission/Observation Escalation of care including admission/observation considered. I considered the following discharge prescriptions or medication management in the emergency department Medications were administered in the Emergency Department. See MAR. Independent interpretation of the following test(s) in the Emergency Department EKG: See my EKG interpretation above. Test considered but Not performed: MRI: NO MRI. CT: NO CT. Care significantly affected by the following chronic conditions: Diabetes, Hypertension, Obesity, Chronic Kidney Disease, Liver Disease, CIRRHOSIS. 20:48 ED course: Discussed case with Dr Mera and patient will need to go to ICU for ms3 elevated LA level. Will await transfer center to call back with Intesivist.. 21:29 ED course: Discussed case with Dr Horton and he accepts patient to ICU.. ms3 07/20 17:48 Order name: Basic Metabolic Panel; Complete Time: 20:08 [facility] 07/20 17:48 Order name: CBC with Diff; Complete Time: 19:15 [facility] 07/20 17:48 Order name: LFT's; Complete Time: 20:08 [facility] 07/20 17:48 Order name: Magnesium; Complete Time: 20:08 [facility] 07/20 17:48 Order name: NT PRO-BNP; Complete Time: 20:08 [facility] 07/20 17:48 Order name: PT-INR; Complete Time: 19:15 [facility] 07/20 17:48 Order name: Troponin HS; Complete Time: 19:15 [facility] 07/20 17:48 Order name: Lipase; Complete Time: 19:15 [facility] 07/20 17:48 Order name: Blood Culture Adult (2) [facility] 07/20 17:48 Order name: Lactate w/ 2H reflex if indic.; Complete Time: 19:15 [facility] 07/20 18:00 Order name: AMMONIA; Complete Time: 19:15 [facility] 07/20 18:13 Order name: Glucose, Ancillary Testing; Complete Time: 19:15 [facility] 07/20 18:38 Order name: COVID-19 Ag + Flu A+B Ag; Complete Time: 19:15 [facility] 07/20 19:08 Order name: Glucose, Ancillary Testing; Complete Time: 19:15 [facility] 07/20 19:17 Order name: Ghost Lactate-NO COLLECT Timer; Complete Time: 21:22 [facility] 07/20 19:28 Order name: Acetaminophen Level; Complete Time: 20:08 [facility] 07/20 20:10 Order name: Glucose, Ancillary Testing; Complete Time: 20:42 [facility] 07/20 22:11 Order name: Glucose, Ancillary Testing; Complete Time: 22:19 [facility] 07/20 22:42 Order name: Lactate Sepsis 2 HR Follow-up [facility] 07/20 17:48 Order name: XRAY Chest (1 view); Complete Time: 20:08 [facility] 07/20 19:21 Order name: CT Chest Abdomen Pelvis W/O Contrast; Complete Time: 20:42 [facility] 07/20 19:21 Order name: US Abdomen Limited; Complete Time: 22:19 [facility] 07/20 17:48 Order name: EKG; Complete Time: 17:49 [facility] 07/20 17:48 Order name: Cardiac monitoring; Complete Time: 18:28 [facility] 07/20 17:48 Order name: EKG - Nurse/Tech; Complete Time: 18:33 [facility] 07/20 17:48 Order name: IV Saline Lock; Complete Time: 18:28 [facility] 07/20 17:48 Order name: Labs collected and sent; Complete Time: 18:28 [facility] 07/20 17:48 Order name: O2 Per Protocol; Complete Time: 17:57 [facility] 07/20 17:48 Order name: O2 Sat Monitoring; Complete Time: 17:57 [facility] 07/20 17:48 Order name: PO challenge: JUICE; Complete Time: 17:57 [facility] 07/20 17:50 Order name: Glucose Level; Complete Time: 18:28 [facility] EC:41 Rate is 100 beats/min. Rhythm is regular. QRS Platter is Normal. IL interval is normal. [facility] QRS interval is normal. QT interval is prolonged at 534 msec. No Q waves. T waves are Normal. No ST changes noted. Clinical impression: NSR w/ Non-specific ST/T Changes and No evidence of ischemia. Interpreted by me. Reviewed by me. Administered Medications: 18:28 Drug: D50W IVP 50 ml IVP once; (1 amp) Route: IVP; Site: left upper arm; ld1 22:12 Follow up: Response: No adverse reaction cp4 18:41 Drug: Rocephin IV 1 grams IV at per protocol once; Given slow IV push per pharmacy ld1 instructions Route: IV; Rate: per protocol; Site: left antecubital; 19:00 Follow up: Response: No adverse reaction; IV Status: Completed infusion cp4 18:41 Drug: D5W IV 500 ml IV at 50 ml/hr continuous Route: IV; Rate: 50 ml/hr; Site: left ld1 antecubital; 23:32 Follow up: Response: No adverse reaction; IV Status: Infusion continued upon transfer cp4 20:31 Drug: fentaNYL (PF) IVP 25 mcg IVP once Route: IVP; Site: left antecubital; br2 22:12 Follow up: Response: No adverse reaction cp4 20:31 Drug: Ondansetron IVP 4 mg IVP once; over 2 minutes Route: IVP; Site: left antecubital; br2 22:12 Follow up: Response: No adverse reaction cp4 Point of Care Testing: Blood Glucose: 19:59 Blood Glucose: 116 mg/dL; br2 22:23 Blood Glucose: 88 mg/dL; br2 Ranges: Critical Glucose Levels:Adult <50 mg/dl or >400 mg/dl <40 mg/dl or >180 mg/dl Disposition Summary: 07/20/24 19:36 Transfer Ordered Notes: Transfer Location: [facility] mireya Reason: Higher level of care mireya Condition: Fair mireya Problem: an acute exacerbation mireya Symptoms: are unchanged mireya Accepting Physician: TO [facility](07/20/24 23:33) cp4 Diagnosis - Unspecified cirrhosis of liver mireya - Acute and subacute hepatic failure mireya - Hepatic failure, unspecified without coma mireya - Coagulation defect, unspecified mireya - Dependence on renal dialysis mireya - Anemia, unspecified mireya - Anemia in chronic kidney disease mireya - Elevated white blood cell count mireya - Hypokalemia mireya - Other ascites mireya Forms: - Medication Reconciliation Form mireya - SBAR form mireya Signatures: Dispatcher [employer] EDMS Emmett Tapia MD MD cha Sims, Marcus, DO ms3 Gema Jeff RN RN ld1 Milka Figueredo cp4 Mirta Ervin RN RN br2 Corrections: (The following items were deleted from the chart) 17:49 17:49 BASIC METABOLIC PANEL+C.LAB.BRZ ordered. EDMS EDMS 17:49 17:49 CBC+H.LAB.BRZ ordered. EDMS EDMS 17:49 17:49 HEPATIC FUNCTION+C.LAB.BRZ ordered. EDMS EDMS 17:49 17:49 MAGNESIUM+C.LAB.BRZ ordered. EDMS EDMS 17:49 17:49 PROBNP+C.LAB.BRZ ordered. EDMS EDMS 17:49 17:49 PROTIME (+INR)+COAG.LAB.BRZ ordered. EDMS EDMS 17:49 17:49 Troponin High Sensitivity+C.LAB.BRZ ordered. EDMS EDMS 17:49 17:49 LIPASE+C.LAB.BRZ ordered. EDMS EDMS 17:49 17:49 BLOOD CULTURE*+BA.LAB.BRZ ordered. EDMS EDMS 17:49 17:49 LACTATE+C.LAB.BRZ ordered. EDMS EDMS 17:49 17:49 Influenza Screen (A \T\ B)+BA.LAB.BRZ ordered. EDMS EDMS 17:49 17:49 SARS-COV-2 Antigen Rapid+I.LAB.BRZ ordered. EDMS EDMS 18:38 18:36 Influenza Screen (A ordered. EDMS EDMS 19:21 19:21 Abdomen Limited+US.RAD.BRZ ordered. EDMS EDMS 19:26 19:24 ACETAMINOPHEN+C.LAB.BRZ ordered. EDMS EDMS 19:40 19:36 TO [facility] mireya 20:08 19:40 TO [facility] mireya 23:33 20:08 TO [facility] cp4
--- NOTE | 2024-07-20 19:37 | ER ---
Nurse's Notes [facility] Name: Josr Parra Age: 69 yrs Sex: Female : 1955 Arrival Date: 07/20/2024 Time: 17:33 Bed 6 Private MD: Diagnosis: Unspecified cirrhosis of liver;Acute and subacute hepatic failure;Hepatic failure, unspecified without coma;Coagulation defect, unspecified;Dependence on renal dialysis;Anemia, unspecified;Anemia in chronic kidney disease;Elevated white blood cell count;Hypokalemia;Other ascites Presentation: 07/20 17:52 Chief complaint: EMS states: toned out to patient home for generalized weakness. EMS ld1 reports BGL 40. Coronavirus screen: At this time, the client does not indicate any symptoms associated with coronavirus-19. Ebola Screen: No symptoms or risks identified at this time. Risk Assessment: Do you want to hurt yourself or someone else? Patient reports no desire to harm self or others. Onset of symptoms was July 20, 2024. 17:52 Method Of Arrival: EMS: [facility] ld1 17:52 Acuity: JAM 2 ld1 23:33 Initial Sepsis Screen: Does the patient meet any 2 criteria? HR > 90 bpm. No. Patient's cp4 initial sepsis screen is negative. Does the patient have a suspected source of infection? No. Patient's initial sepsis screen is negative. Triage Assessment: 17:53 General: Appears in no apparent distress. uncomfortable, Behavior is calm, cooperative, ld1 appropriate for age. Pain: Denies pain. EENT: No signs and/or symptoms were reported regarding the EENT system. Neuro: Level of Consciousness is awake, alert, obeys commands, Oriented to person, place, time, situation. Cardiovascular: Capillary refill < 3 seconds Patient's skin is warm and dry. Respiratory: Airway is patent Respiratory effort is even, unlabored. GI: Abdomen is round distended. : No signs and/or symptoms were reported regarding the genitourinary system. Derm: No signs and/or symptoms reported regarding the dermatologic system. Musculoskeletal: No signs and/or symptoms reported regarding the musculoskeletal system. Historical: - Allergies: 17:53 Codeine; ld1 17:53 Promethazine; ld1 - PMHx: 17:53 Asthma; cirrhosis of liver; Diabetes - NIDDM; elevatedliver enzymes; Hepatitis; c; ld1 kidney disease; lumbar spine issues/pain; - PSHx: 17:53 tubes tied; ld1 - Immunization history:: Adult Immunizations up to date. - Infectious Disease History:: Denies. - Social history:: Smoking status: Patient denies any tobacco usage or history of. Screenin:56 [facility] ED Fall Risk Assessment (Adult) History of falling in the last 3 months, ld1 including since admission No falls in past 3 months (0 pts) Confusion or Disorientation No (0 pts) Intoxicated or Sedated No (0 pts) Impaired Gait No (0 pts) Mobility Assist Device Used No (0 pt) Altered Elimination No (0 pt) Score/Fall Risk Level 0 - 2 = Low Risk Oriented to surroundings, Hourly rounding (assess needs \T\ fall precautionary measures) done. Abuse screen: Denies threats or abuse. Denies injuries from another. Nutritional screening: No deficits noted. Tuberculosis screening: No symptoms or risk factors identified. Assessment: 17:50 Reassessment: Upon arrival EMS reports BGL 40. EMS reports not administering oral ld1 glucose because patient was unable to take oral glucose. No IV access. Administered [place] [employer] as soon as patient entered room. 18:41 Reassessment: Patient appears in no apparent distress at this time. No changes from ld1 previously documented assessment. Patient states symptoms have not improved. 19:45 Reassessment: Patient and/or family updated on plan of care and expected duration. Pain br2 level reassessed. Patient is alert, oriented x 3, equal unlabored respirations, skin warm/dry/pink. General: Appears uncomfortable, Behavior is calm, cooperative. Pain: Complains of pain in lumbar area, low back area and left low back. Respiratory: Airway is patent Respiratory effort is even, unlabored, Respiratory pattern is regular, symmetrical. 22:22 Reassessment:. Reassessment: PT GIVE SOME ORANGE JUICE DUE TO BLOOD SUGAR 88. br2 Vital Signs: 17:52 BP 143 / 64; Pulse 100; Resp 19; Pulse Ox 95% on R/A; Weight 72.57 kg; Height 5 ft. 5 ld1 in. ; Pain 0/10; 18:41 BP 127 / 54; Pulse 97; Resp 18; Pulse Ox 92% on R/A; ld1 20:05 BP 109 / 61; Pulse 89; Resp 18; Pulse Ox 100% ; Pain 10/10; br2 22:18 BP 105 / 67; Pulse 86; Resp 18; Pulse Ox 100% ; cp4 23:30 BP 125 / 66; Pulse 88; Resp 18; Pulse Ox 98% ; cp4 17:52 Body Mass Index 26.63 (72.57 kg, 165.1 cm) ld1 17:52 Pain Scale: Adult ld1 20:05 Pain Scale: Adult br2 ED Course: 17:36 Patient arrived in ED. sb4 17:41 Emmett Tapia MD is Attending Physician. mireya 17:52 Gema Jeff, LUIS is Primary Nurse. ld1 17:53 Triage completed. ld1 17:53 Arm band placed on right wrist. ld1 17:56 Patient has correct armband on for positive identification. Placed in gown. Bed in low ld1 position. Call light in reach. Side rails up X2. banana carrier on. Pulse ox on. NIBP on. Door closed. Noise minimized. Warm blanket given. 18:20 Inserted saline lock: 20 gauge in left antecubital area, using aseptic technique. Blood ld1 collected. Flushed with 10 mL NS. 18:28 AMMONIA Sent. ld1 18:28 Lactate w/ 2H reflex if indic. Sent. ld1 18:28 Blood Culture Adult (2) Sent. ld1 18:41 COVID-19 Ag + Flu A+B Ag Sent. ld1 19:24 XRAY Chest (1 view) In Process Unspecified. EDMS 19:34 Dr. Tapia initiated transfer with Patsy \[facility]. kmf 20:09 CT Chest Abdomen Pelvis W/O Contrast In Process Unspecified. EDMS 20:48 US Abdomen Limited In Process Unspecified. EDMS 22:05 pt was accepted to [facility] room 7-105. Accepting Gato Kumar \Edward\ 2128. Admin approval [facility] \T\2201 by Patsy Orellana. [facility] to transfer pt once nurse to nurse is complete. 23:32 Provided Education on: transfer. cp4 23:32 No provider procedures requiring assistance completed. Patient transferred, IV remains cp4 in place. Administered Medications: 18:28 Drug: D50W IVP 50 ml IVP once; (1 amp) Route: IVP; Site: left upper arm; ld1 22:12 Follow up: Response: No adverse reaction cp4 18:41 Drug: Rocephin IV 1 grams IV at per protocol once; Given slow IV push per pharmacy ld1 instructions Route: IV; Rate: per protocol; Site: left antecubital; 19:00 Follow up: Response: No adverse reaction; IV Status: Completed infusion cp4 18:41 Drug: D5W IV 500 ml IV at 50 ml/hr continuous Route: IV; Rate: 50 ml/hr; Site: left ld1 antecubital; 23:32 Follow up: Response: No adverse reaction; IV Status: Infusion continued upon transfer cp4 20:31 Drug: fentaNYL (PF) IVP 25 mcg IVP once Route: IVP; Site: left antecubital; br2 22:12 Follow up: Response: No adverse reaction cp4 20:31 Drug: Ondansetron IVP 4 mg IVP once; over 2 minutes Route: IVP; Site: left antecubital; br2 22:12 Follow up: Response: No adverse reaction cp4 Medication: 17:56 VIS not applicable for this client. ld1 Point of Care Testing: Blood Glucose: 19:59 Blood Glucose: 116 mg/dL; br2 22:23 Blood Glucose: 88 mg/dL; br2 Ranges: Outcome: 19:36 ER care complete, transfer ordered by MD. gomes 23:32 Transferred to [facility], Transfer form completed. X-rays sent w/ cp4 patient. 23:32 Condition: stable 23:32 Instructed on the need for transfer, 23:33 Patient left the ED. cp4 Signatures: Dispatcher [employer] Emmett Sanchez MD MD cha Sims, Lauren, RN RN ld1 Mara Sánchez PA-C PAMilka Presley cp4 Snehal Carrasquillo [facility] Mirta Ervin RN RN br2 Corrections: (The following items were deleted from the chart) 20:37 20:19 Reassessment: br2 br2 07/21 01:11 00:50 pt was accepted to [facility] room 7-[facility]
--- NOTE | 2024-07-20 19:41 | RAD REPORT ---
EXAMINATION: ONE VIEW CHEST XR CLINICAL INDICATION: Female, 69 years old.,COUGH TECHNIQUE: Frontal chest projection is submitted. Examination is limited by patient positioning and t echnique. COMPARISON: 07/03/2024 FINDINGS: The lungs are mildly hyper inflated and clear. Right IJ dialysis catheter unchanged in position. No pneumothorax or sizable effusion. The heart is normal in size. Mediastinal contours are unremarkable. IMPRESSION: No acute intrathoracic abnormalities.
[2024-07-20] MEDS ORDERED: FENTANYL CITR 100 MCG/2 ML ONE (20:26)
[2024-07-20] MEDS ORDERED: ONDANSETRON 4 MG/2 ML VIAL ONE (20:26)
--- NOTE | 2024-07-20 20:41 | RAD REPORT ---
EXAM: CT CHEST, ABDOMEN AND PELVIS WITHOUT CONTRAST CLINICAL INDICATION: Female, 69 years old. [facility] MAIN ABDOMINAL DISTENTION Bed Name: 6 TECHNIQUE: CT chest, abdomen and pelvis was performed, without IV contrast, as per department protoco l. Axial, sagittal and coronal reconstructions were obtained. One or more of the following dose reduction techniques were used: Automated exposure control, adjustment of the mA and/or kV according to the patient size, and/or iterative reconstruction. Unless otherwise specified, incidental findings do not require dedicated imaging follow-up. COMPARISON: 02/10/2021 FINDINGS: The lack of intravenous contrast limits the sensitivity of this exam for evaluation of solid visceral organs, vascular structures, and retroperitoneum. Chest: LOWER NECK/CHEST WALL: Visualized thyroid gland and soft tissues are normal. LUNGS AND AIRWAYS: Airways are clear. Scattered small groundglass and tree-in-bud opacities. Apical p redominant paraseptal emphysematous changes again seen. No other suspicious nodules. PLEURA: No pleural effusion. No pneumothorax. Hemidiaphragms are normally positioned. MEDIASTINUM AND LYMPH NODES: No mediastinal mass or fluid collection. Normal size mediastinal, hilar, and axillary lymph nodes. THORACIC AORTA: Normal caliber and configuration. PULMONARY ARTERIES: Normal caliber. HEART: Unremarkable. Abdomen/Pelvis LIVER: Nodular contour with left lobe and caudate lobe enlargement compatible with cirrhosis. No foca l lesion. GALLBLADDER/BILE DUCTS: Biliary sludge. No calcified stones. PANCREAS: No mass, ductal dilation, or nae-pancreatic fluid. SPLEEN: Normal size. No focal lesion. ADRENALS: Normal; no mass. KIDNEYS AND URETERS: Normal size and contour. No hydronephrosis. GASTROINTESTINAL TRACT: Stomach is non-dilated. Small bowel has normal course and caliber. Segmental wall thickening along the colon, segments of proximal small bowel, and stomach. PERITONEUM: Moderate free ascites. LYMPH NODES: No lymphadenopathy. ABDOMINAL AORTA AND OTHER VESSELS: Normal caliber aorta and IVC. URINARY BLADDER: Normal contour. REPRODUCTIVE ORGANS: No pathologic process. MUSCULOSKELETAL: Progressive sclerotic changes involving T2 and T3 adjacent to the endplates. No othe r acute or suspicious osseous abnormality. ADDITIONAL FINDINGS: None IMPRESSION: Stigmata of cirrhosis with moderate free ascites, which is progressive since prior exam. Segmental wa ll thickening of the stomach, small, and large bowel, may indicate ongoing portal hypertension. Scattered groundglass and tree-in-bud opacities in the lungs bilaterally, suggesting an infectious or inflammatory process such as pneumonia or bronchiolitis. Nonspecific sclerotic changes adjacent to the T2-3 endplates, could indicate progressive degenerative changes versus sequelae of acute or chronic discitis/osteomyelitis. Please correlate clinically, and consider additional evaluation by MRI if there are focal symptoms at that level.
--- NOTE | 2024-07-20 21:45 | RAD REPORT ---
EXAMINATION: US Abdomen Exam Limited CLINICAL HISTORY: [facility] MAIN N ABD PAIN Bed Name: 6 COMPARISON: CT abdomen and pelvis of the same day TECHNIQUE: Limited upper abdominal grayscale and color flow sonographic images. FINDINGS: Gallbladder: Mild floating sludge. No gallstones. No significant wall thickening. Reportedly negative sonographic Ramos sign. Pericholecystic fluid, likely a component of free ascites. Bile ducts: No intrahepatic or extrahepatic biliary dilatation. Common bile duct measures 3 mm. Liver: Visualized portions of the liver demonstrate normal echogenicity with no suspicious findings. Fluid: Mild to moderate free ascites IMPRESSION: Mild gallbladder sludge, otherwise no sonographic gallbladder abnormalities. Mild to moderate free ascites.
[2024-07-20 23:47] VITALS: BP 125/66; O2SAT 98
--- NOTE | 2024-07-22 12:02 | EKG ---
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
== END 2024-07-20 23:33 | disposition short-term general hospital (02) ==
LOC: ER 17:33
DX: K72.00 Acute and subacute hepatic failure without coma (principal); E11.22 Type 2 diabetes mellitus with diabetic chronic kidney disease; N18.9 Chronic kidney disease, unspecified; D63.1 Anemia in chronic kidney disease; R18.8 Other ascites; K74.60 Unspecified cirrhosis of liver; E87.6 Hypokalemia; D72.829 Elevated white blood cell count, unspecified; Z99.2 Dependence on renal dialysis; Z11.52 Encounter for screening for COVID-19
CPT/HCPCS: 93005; 87040 ×2; 85025; 80048; 36415; 82140; 83735; 87205; 85610; 82947 ×4; 80076; 83605 ×2; 84484; 83690; 83880; 71250; 74176; 71045; 76705; 99285; 80143; 87428; J3010; J2405; J7060; J0696